=== PATIENT | female | born 1970 | race Caucasian/White ===

== ENCOUNTER → 2017-04-16 | Outpatient (CLI) | payer MEDICARE, OTHER ==
--- NOTE | 2017-04-16 11:06 | XR ---
EXAMINATION TYPE: XR cervical spine comp DATE OF EXAM: 04/16/2017 11:02 AM COMPARISON: NONE HISTORY: Neck pain TECHNIQUE: Four views are submitted. FINDINGS: The odontoid is intact. There are no compression deformities. The prevertebral soft tissue structur es are within normal limits. Hypertrophic change and degenerative disc disease C5-C6. Facet arthropa thy C4-5 and C5-C6. IMPRESSION: 1. Degenerative disc disease and facet arthropathy correlate with MRI as warranted.
--- NOTE | 2017-04-16 11:08 | XR ---
EXAMINATION TYPE: XR hand limited bilateral DATE OF EXAM: 04/16/2017 11:01 AM COMPARISON: NONE HISTORY: Pain TECHNIQUE: Three views are submitted. FINDINGS: The osseous structures are intact. There is mild narrowing of the MCP joints of the first 3 digits bilaterally. No erosive changes. Defo rmity of the left ulnar styloid suggests previous trauma. Also suggestion of deformity of the distal left radius which likely is IMPRESSION: 1. Mild arthropathy.
== END ==
LOC: RADXRMAIN 10:25
PROVIDERS: ATTEND Family Medicine
DX: M50.30 Other cervical disc degeneration, unspecified cervical region (principal); M46.82 Other specified inflammatory spondylopathies, cervical region; M19.041 Primary osteoarthritis, right hand; M19.042 Primary osteoarthritis, left hand
CPT/HCPCS: 72050

== ENCOUNTER → 2017-05-07 | Outpatient (CLI) | payer MEDICARE, OTHER ==
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
== END | disposition home or self-care (01) ==
LOC: RADMRIMAIN 14:52
PROVIDERS: ATTEND Family Medicine
DX: M48.02 Spinal stenosis, cervical region (principal); M50.21 Other cervical disc displacement, high cervical region; R20.2 Paresthesia of skin
CPT/HCPCS: 72141

== ENCOUNTER → 2017-06-11 | Outpatient (CLI) | payer MEDICARE, OTHER ==
--- NOTE | 2017-06-11 17:13 | US ---
EXAMINATION TYPE: US thyroid st tissue head/neck DATE OF EXAM: 06/11/2017 COMPARISON: NONE CLINICAL HISTORY: Nodules E04.9,. Nodules seen on MRI GLAND SIZE: Right Lobe: 5.6 x 1.9 x 1.7 cm Overall Parenchyma: heterogenous Left Lobe: 4.9 x 1.5 x 1.6 cm Overall Parenchyma: homogeneous Isthmus Thickness: 0.3 cm NODULES RIGHT: # of nodules measured on right: 3 1. 1.6 X 1.1 x 1.5 cm hypoechoic mixed nodule at the mid pole with well-defined margins; . This no dule is wider than tall and shows intranodular vascularity. Prior size: no prior 2. 1.0 X 0.9 x 1.1 cm hypoechoic solid nodule at the pole with well-defined margins; . This nodule is wider than tall and shows intranodular vascularity. Prior size: no prior 3. 1.3 X 1.0 x 0.9 cm hypoechoic mixed nodule at the upper pole with well-defined margins; interrupt ed peripheral calcification. This nodule is wider than tall and shows intranodular vascularity. Prior size: no prior 4 LEFT: # of nodules measured on left: 1 1. 1.1 X 0.7 x 1.0 cm hypoechoic solid nodule at the mid pole with well-defined margins; . This no dule is wider than tall and shows intranodular vascularity. Prior size: no prior ISTHMUS: # of nodules measured in the isthmus: 0 Bilateral neck scanned, no evidence of lymphadenopathy. Nodules as described IMPRESSION: Bilateral multiple thyroid nodules as above. I have a relatively low suspicion of malignancy and this could be followed conservatively with repeat ultrasound in one year.
--- NOTE | 2017-06-12 08:37 | MM ---
Reason for exam: screening (asymptomatic). Last mammogram was performed 4 years and 6 months ago. History: Patient history of other cancer and is nulliparous. Physical Findings: A clinical breast exam by your physician is recommended on an annual basis and results should be correlated with mammographic findings. MG 3D Screening Mammo W/Cad Bilateral CC and MLO view(s) were taken. Prior study comparison: December 17, 2012, bilateral digital screening mammo w/CAD. The breast tissue is heterogeneously dense. This may lower the sensitivity of mammography. Finding #1: There is a 11 mm indistinct lobulated mass in the subareolar position of the left breast. Finding #2: There are few typically benign round calcifications in both breasts. ASSESSMENT: Incomplete: need additional imaging evaluation, BI-RAD 0 RECOMMENDATION: Ultrasound of the left breast. [facility] will attempt to contact patient to return for ultrasound.
== END | disposition home or self-care (01) ==
LOC: RADUSWWP 16:31
PROVIDERS: ATTEND Family Medicine
DX: Z12.31 Encounter for screening mammogram for malignant neoplasm of breast (principal); E04.2 Nontoxic multinodular goiter; R92.2 Inconclusive mammogram
CPT/HCPCS: 77063; 76536; G0202

== ENCOUNTER → 2017-06-19 | Outpatient (CLI) | payer MEDICARE, OTHER ==
--- NOTE | 2017-06-19 09:37 | USB ---
Reason for exam: additional evaluation requested from abnormal screening. History: Patient history of other cancer and is nulliparous. Physical Findings: Nurse did not find any significant physical abnormalities on exam. US Breast Workup LT Left breast ultrasound includes all four quadrants, the retroareolar region and axilla. Finding demonstrates a 4 x 2 x 4mm oval, cystic lesion at the retroareolar, 2.5cm from nipple. These results were verbally communicated with the patient and result sheet given to the patient on 06/19/17. ASSESSMENT: Benign, BI-RAD 2 RECOMMENDATION: Return to routine screening mammogram schedule for both breasts.
== END | disposition home or self-care (01) ==
LOC: RADUSWWP 08:29
PROVIDERS: ATTEND Family Medicine
DX: R92.8 Other abnormal and inconclusive findings on diagnostic imaging of breast (principal)

== ENCOUNTER → 2017-08-08 | Outpatient (CLI) | payer MEDICARE, OTHER ==
[2017-08-08 11:51] LABS: Basophils % (A) 1 %; CH 30.3; CHCM 33.7; Eosinophils # (A) 0.1 k/uL (0-0.7); Eosinophils % (A) 2 %; HCT 37.5 % (34.0-46.0); HDW 2.54; HGB 12.2 gm/dL (11.4-16.0); Luc % (Auto) 3; Lymphocytes # (A) 0.8 k/uL (1.0-4.8); Lymphocytes % (A) 28 %; MCH 29.3 pg (25.0-35.0); MCHC 32.5 g/dL (31.0-37.0); MCV 90.3 fL (80.0-100.0); Monocytes # (A) 0.3 k/uL (0-1.0); Monocytes % (A) 9 %; Neutrophils # (A) 1.6 k/uL (1.3-7.7); Neutrophils % (A) 58 %; RBC 4.16 m/uL (3.80-5.40); RDW 13.2 % (11.5-15.5); WBC 2.8 k/uL (3.8-10.6); WBC (Perox) 2.88
[2017-08-08 12:17] LABS: ALT 27 U/L (9-52); AST 21 U/L (14-36); Alkaline Phosphatase 64 U/L (38-126); Anion Gap 9 mmol/L; Blood Urea Nitrogen 10 mg/dL (7-17); Calcium 8.8 mg/dL (8.4-10.2); Carbon Dioxide 25 mmol/L (22-30); Chloride 104 mmol/L (98-107); Glucose 96 mg/dL (74-99); Non-African American GFR(MDRD) >60 (>60 ml/min/1.73 sqM); Potassium 4.6 mmol/L (3.5-5.1); Sodium 138 mmol/L (137-145); Total Bilirubin 0.6 mg/dL (0.2-1.3); Total Protein 6.7 g/dL (6.3-8.2)
[2017-08-08 13:01] LABS: Vitamin B12 395 pg/mL (239-931)
== END | disposition home or self-care (01) ==
LOC: LABWHC1 11:05
PROVIDERS: ATTEND Nurse Practitioner Acute Care
DX: E55.9 Vitamin D deficiency, unspecified (principal); R41.3 Other amnesia
CPT/HCPCS: 36415; 80053; 82306; 82607; 84439; 84443; 84481; 85025

== ENCOUNTER 2018-08-24 08:35 | Emergency (ER) | payer MEDICARE, OTHER ==
[2018-08-24 08:54] VITALS: BP 123/93; PULSE 71; RESP 18; TEMP 98.1
--- NOTE | 2018-08-24 09:31 | ED ---
General Adult HPI - General Chief complaint: Shortness of Breath Stated complaint: Diff Breathing, Allergies Time Seen by Provider: 08/24/18 09:01 Source: patient, RN notes reviewed, old records reviewed Mode of arrival: ambulatory - History of Present Illness Initial comments: 47-year-old female presents emergency department today with chief complaint of upper respiratory congestion. She's been having these symptoms and that she's been having severe ALLERGIES for the past 3 weeks. Patient per she is not taken any recent decongestant medications. Patient states that she's had no fevers or chills. Patient states that she fell congestion difficult time with coughing. Patient is a smoker. She denies any other complaints. - Related Data Home Medications Medication Instructions Recorded Confirmed Ibuprofen [Motrin] 800 mg PO Q8H PRN 08/04/18 08/24/18 Pseudoephedrine [Sudafed] 30 mg PO Q4H PRN 08/04/18 08/24/18 diphenhydrAMINE HCL [Benadryl] 25 - 50 mg PO Q8H PRN 08/04/18 08/24/18 Previous Rx's Medication Instructions Recorded Fluconazole [Diflucan] 150 mg PO ONCE #1 tab 08/04/18 Fluticasone Propionate [Flonase 1 spray EA NOSTRIL DAILY PRN #9.9 08/04/18 Allergy Relief] ml Fluticasone Nasal [place] [Flonase 2 spr EA NOSTRIL DAILY #1 bottle 08/24/18 Nasal [place]] Loratadine-Pseudoeph 5-120 mg 1 each PO BID #20 tab.er.12h 08/24/18 [Claritin-D 12 HR] methylPREDNISolone Dose Pack 4 mg PO DIRECTED #21 package 08/24/18 [Medrol Dose Pack] Allergies Allergy/AdvReac Type Severity Reaction Status Date / Time No Known Allergies Allergy Verified 08/04/18 10:14 Review of Systems ROS Statement: Those systems with pertinent positive or pertinent negative responses have been documented in the HPI. ROS Other: All systems not noted in ROS Statement are negative. Past Medical History Past Medical History: No Reported History History of Any Multi-Drug Resistant Organisms: None Reported Additional Past Surgical History / Comment(s): tim en y, right knee replacement Past Psychological History: ADD/ADHD, Anxiety Smoking Status: Current every day smoker Past Alcohol Use History: Occasional Past Drug Use History: Marijuana General Exam - General Exam Comments Initial Comments: Well-appearing 46-year-old female. Alert and repaired distress. General appearance: alert, in no apparent distress Head exam: Present: atraumatic, normocephalic, normal inspection Eye exam: Present: normal appearance, PERRL, EOMI. Absent: scleral icterus, conjunctival injection, periorbital swelling ENT exam: Present: normal exam, normal oropharynx, mucous membranes moist, other (sinus drainage ). Absent: TM's normal bilaterally (Cerumen impaction right TM.) Neck exam: Present: normal inspection. Absent: meningismus, lymphadenopathy Respiratory exam: Present: normal lung sounds bilaterally. Absent: respiratory distress, wheezes, rales, rhonchi, stridor Cardiovascular Exam: Present: regular rate, normal rhythm, normal heart sounds. Absent: systolic murmur, diastolic murmur, rubs, gallop, clicks GI/Abdominal exam: Present: soft, normal bowel sounds. Absent: distended, tenderness, guarding, rebound, rigid Extremities exam: Present: normal inspection, full ROM, normal capillary refill. Absent: tenderness, pedal edema, joint swelling, calf tenderness Back exam: Present: normal inspection Neurological exam: Present: alert, oriented X3, CN II-XII intact Psychiatric exam: Present: normal affect, normal mood Skin exam: Present: warm, dry, intact, normal color. Absent: rash Course Vital Signs 08/24/18 08:51 Temperature 98.1 F Pulse Rate 71 Respiratory 18 Rate Blood Pressure 123/93 O2 Sat by Pulse 100 Oximetry Medical Decision Making - Medical Decision Making Patient is a 47 year old feamle with sinus congestion. Patient has sinus drainage. She complains of allergies. Vitals are stable. Patient will be discharged with close follow up with PCP. Patient advised to take decongestant medication and allergy medications. Discussed if symptoms worsen. Disposition Clinical Impression: Congestion of upper respiratory tract Disposition: HOME SELF-CARE Condition: Good Additional Instructions: Patient has follow-up with primary care physician. Return to emergency department if any alarming signs or symptoms occur. Prescriptions: Fluticasone Nasal [place] [Flonase Nasal [place]] 2 spr EA NOSTRIL DAILY #1 bottle Loratadine-Pseudoeph 5-120 mg [Claritin-D 12 HR] 1 each PO BID #20 tab.er.12h methylPREDNISolone Dose Pack [Medrol Dose Pack] 4 mg PO DIRECTED #21 package Is patient prescribed a controlled substance at d/c from ED?: No Referrals: Love Stuart MD [Primary Care Provider] - 1-2 days Time of Disposition: 09:30
== END 2018-08-24 09:38 | disposition home or self-care (01) ==
LOC: EC 08:35
DX: R09.89 Other specified symptoms and signs involving the circulatory and respiratory systems (principal); R05 Cough; F17.200 Nicotine dependence, unspecified, uncomplicated; Z96.651 Presence of right artificial knee joint
CPT/HCPCS: 99285

== ENCOUNTER → 2019-10-28 | Outpatient (CLI) | payer MEDICARE, OTHER ==
--- NOTE | 2019-10-28 10:15 | US ---
EXAMINATION TYPE: US thyroid st tissue head/neck DATE OF EXAM: 10/28/2019 COMPARISON: US 2017 CLINICAL HISTORY: R10.13. Follow up thyroid nodules GLAND SIZE: Right Lobe: 5.6 x 2.3 x 2.3 cm Overall Parenchyma: heterogenous Left Lobe: 5.1 x 1.8 x 1.6 cm Overall Parenchyma: heterogeneous Isthmus Thickness: 0.4 cm NODULES RIGHT: # of nodules measured on right: 3 1. 2.0 X 1.6 x 1.9 cm hypoechoic mixed nodule at the mid pole with well-defined margins. This nodul e is wider than tall and shows intranodular vascularity. Prior size: 1.6 x 1.1 x 1.5 cm 2. 1.0 X 1.0 x 1.0 cm hypoechoic solid nodule at the lower pole with well-defined margins. This nodu le is wider than tall and shows intranodular vascularity. Prior size: 1.0 x 0.9 x 1.1 cm 3. 1.8 X 0.7 x 1.5 cm hypoechoic mixed nodule at the upper pole with poorly defined margins; interru pted peripheral calcification. This nodule is wider than tall and shows intranodular vascularity. Prior size: 1.3 x 1.0 x 0.9 cm LEFT: # of nodules measured on left: 1 1. 1.8 X 1.2 x 1.3 cm hypoechoic mixed nodule at the mid pole with well-defined margins. This nodul e is wider than tall and shows intranodular vascularity. Prior size: 1.1 x 0.7 x 1.0 cm ISTHMUS: # of nodules measured in the isthmus: 0 Bilateral neck scanned, no evidence of lymphadenopathy. Enlarged heterogeneous gland with bilateral nodules described above. IMPRESSION: 1. Interval growth of the largest right thyroid nodule now measuring 2 cm. Fine-needle aspiration cou ld be considered. 2. There is also interval growth of the second largest right thyroid nodule and left thyroid nodule.
--- NOTE | 2019-10-28 10:24 | US ---
EXAMINATION TYPE: US abdomen complete DATE OF EXAM: 10/28/2019 COMPARISON: NONE CLINICAL HISTORY: R10.13. Intermittent abdomen pain, heartburn and N/V x couple months EXAM MEASUREMENTS: Liver Length: 15.9 cm Gallbladder Wall: 0.2 cm CBD: 0.5 cm Spleen: 10.2 cm Right Kidney: 12.2 x 3.9 x 5.0 cm Left Kidney: 12.2 x 5.3 x 4.4 cm Pancreas: visualized portions wnl, limited by overlying midline bowel gas Liver: wnl Gallbladder: hydropic, no stones seen, wall measures wnl Evidence for sonographic Ramos's sign: no CBD: wnl Spleen: wnl Right Kidney: 2.5 x 1.2 x 1.8cm isoechoic area mid pole, probable column of Luis Alfredo Left Kidney: wnl Upper IVC: wnl Abd Aorta: visualized portions wnl, limited by overlying midline bowel gas 2.4 x 1.0 x 3.2cm hypoechoic vascular structure superior to proximal aorta, possible lymph node. The liver is homogenous. The intrahepatic portion of the IVC and proximal abdominal aorta are within normal limits. There is no evidence of cholelithiasis. Gallbladder is hydropic in size. Common bile duct is unremarkable. The visualized portions of the pancreas are homogenous. The spleen is unrema rkable. Kidneys are symmetric and free of hydronephrosis. IMPRESSION: 1. 3.2 cm perihepatic vascular lesion could represent a lymph node, however etiology is unclear and t hree-phase CT abdomen is recommended for further characterization. 2. Probable column of Luis Alfredo of the right kidney, which also can be assessed on the above recommended CT. 3. Hydropic size of the gallbladder. Consider biliary dyskinesia. HIDA scan with CCK could confirm.
== END | disposition home or self-care (01) ==
LOC: RADUSWWP 09:10
PROVIDERS: ATTEND Family Medicine
DX: E04.2 Nontoxic multinodular goiter (principal); K76.89 Other specified diseases of liver; K82.8 Other specified diseases of gallbladder
CPT/HCPCS: 76536; 76700

== ENCOUNTER 2022-08-14 15:35 | Emergency (ER) | payer MEDICARE, OTHER ==
[2022-08-14 16:10] VITALS: RESP 16; TEMP 98.5
[2022-08-14 18:36] LABS: Appearance,Urine Clear (Clear); Bilirubin,Urine Negative (Negative); Blood,Urine Negative (Negative); Color,Urine Yellow; Glucose,Urine (UA) Negative (Negative); Hyaline Casts,Urine 1 /lpf (0-2); Ketones,Urine Negative (Negative); Leukocyte Esterase,Urine Trace (Negative); Mucus,Urine Few /hpf; Nitrite,Urine Negative (Negative); PH, Urine 6.5 (5.0-8.0); Protein,Urine Trace (Negative); RBC,Urine 2 /hpf (0-5); Specific Gravity,Urine 1.024 (1.001-1.035); Squamous Epithelial Cell,Urine 1 /hpf (0-4); Urobilinogen,Urine <2.0 mg/dL (<2.0); WBC,Urine 4 /hpf (0-5)
--- NOTE | 2022-08-14 19:16 | ED ---
General Adult HPI - General Chief complaint: Abdominal Pain Stated complaint: ABD swelling where feeding tube is Time Seen by Provider: 08/14/22 18:52 Source: patient Mode of arrival: wheelchair - History of Present Illness Initial comments: Dictation was produced using [employer] dictation software. please excuse any grammatical, word or spelling errors. Chief Complaint: 51-year-old female presents emergency Department with anterior abdominal hernia and PEG tube placement check History of Present Illness: 51-year-old female she presents to the emergency dep artment for multiple complaints. Patient states she is here today because she was told by her primary care doctor to come have her PEG tube return. Furthermore she is having complaints of surgical incisional hernia. Patient states that she was recently had surgery several weeks ago for PEG tube p lacement. She states that the PEG tube was placed via laparotomy. She has history of bariatric surgery and unable to have a feeding tube placed via endoscopy. Patient also noted after the procedure that she was having incisional hernia to the anterior abdomen. Patient states that there is a bulge that reduces on its own. Patient also wants to be tested for sepsis. He also night sweats. Denies any nausea or vomiting. The ROS documented in this emergency department record has been reviewed and confirmed by me. Those systems with pertinent positive or negative responses have been documented in the HPI. All other systems are other negative and/or noncontributory. PHYSICAL EXAM: General Impression: Alert and oriented x3, not in acute distress HEENT: Normocephalic atraumatic, extra-ocular movements intact, pupils equal and reactive to light bilaterally, mucous membranes moist. Cardiovascular: Heart regular rate and rhythm Chest: Able to complete full sentences, no retractions, no tachypnea Abdomen: abdomen soft, non-tender, non-distended, no organomegaly, surgical incision clean dry intact, PEG tube in place without any surrounding surgical site erythema there is a incisional hernia that is reducible. Abdominal wall defect measures approximately 10 x 5 cm. Musculoskeletal: Pulses present and equal in all extremities, no peripheral edema Motor: no focal deficits noted Neurological: CN II-XII grossly intact, no focal motor or sensory deficits noted Skin: Intact with no visualized rashes Psych: Normal affect and mood ED course: 51-year-old female presents emergency Department requesting testing for sepsis, evaluation of incisional hernia and PEG tube placement. Vital signs upon arrival are within acceptable limits. Patient's well-appearing at the bedside. Her surgical incisional hernia is reducible. She does not have any symptoms of obstruction. X-ray for PEG tube shows satisfactory placement. Evaluation obtained. Patient has leukopenia 3.2 which appears to be improved compared to previous resolve 2.8 and 5 years ago. Metabolic panel is unremarkable. No lactacidosis. Urinalysis negative. Patient observed in emergency department for 5 hours and found with stable medical condition. She is reducible hernia. Patient is amenable for discharge. - Related Data Home Medications Medication Instructions Recorded Confirmed Ibuprofen [Motrin] 800 mg PO Q8H PRN 08/04/18 08/24/18 Pseudoephedrine [Sudafed] 30 mg PO Q4H PRN 08/04/18 08/24/18 diphenhydrAMINE HCL [Benadryl] 25 - 50 mg PO Q8H PRN 08/04/18 08/24/18 Previous Rx's Medication Instructions Recorded Fluconazole [Diflucan] 150 mg PO ONCE #1 tab 08/04/18 Fluticasone Propionate [Flonase 1 spray EA NOSTRIL DAILY PRN #9.9 08/04/18 Allergy Relief] ml Fluticasone Nasal [place] [Flonase 2 spr EA NOSTRIL DAILY #1 bottle 08/24/18 Nasal [place]] Loratadine-Pseudoeph 5-120 mg 1 each PO BID #20 tab.er.12h 08/24/18 [Claritin-D 12 HR] methylPREDNISolone Dose Pack 4 mg PO DIRECTED #21 package 08/24/18 [Medrol Dose Pack] Allergies Allergy/AdvReac Type Severity Reaction Status Date / Time No Known Allergies Allergy Verified 08/14/22 16:10 Review of Systems ROS Statement: Those systems with pertinent positive or pertinent negative responses have been documented in the HPI. ROS Other: All systems not noted in ROS Statement are negative. Past Medical History Past Medical History: No Reported History History of Any Multi-Drug Resistant Organisms: None Reported Additional Past Surgical History / Comment(s): tim en y, right knee replacement, PEG tube, tube feeding Past Psychological History: ADD/ADHD, Anxiety Past Alcohol Use History: Occasional Past Drug Use History: Marijuana Course Vital Signs 08/14/22 08/14/22 16:06 20:37 Temperature 98.5 F Pulse Rate 82 70 Respiratory 16 16 Rate Blood Pressure 93/61 114/80 O2 Sat by Pulse 99 98 Oximetry Medical Decision Making - Lab Data Result diagrams: 08/14/22 20:13 08/14/22 20:13 Lab Results 08/14/22 08/14/22 08/14/22 Range/Units 18:20 20:13 20:13 WBC 3.2 L (3.8-10.6) k/uL RBC 3.52 L (3.80-5.40) m/uL Hgb 10.2 L (11.4-16.0) gm/dL Hct 33.4 L (34.0-46.0) % MCV 94.9 (80.0-100.0) fL MCH 29.0 (25.0-35.0) pg MCHC 30.6 L (31.0-37.0) g/dL RDW 16.0 H (11.5-15.5) % Plt Count 379 (150-450) k/uL MPV 8.9 Neutrophils % 50 % Lymphocytes % 37 % Monocytes % 9 % Eosinophils % 1 % Basophils % 1 % Neutrophils # 1.6 (1.3-7.7) k/uL Lymphocytes # 1.2 (1.0-4.8) k/uL Monocytes # 0.3 (0-1.0) k/uL Eosinophils # 0.0 (0-0.7) k/uL Basophils # 0.0 (0-0.2) k/uL Hypochromasia Moderate Sodium 136 L (137-145) mmol/L Potassium 4.3 (3.5-5.1) mmol/L Chloride 97 L (98-107) mmol/L Carbon Dioxide 30 (22-30) mmol/L Anion Gap 9 mmol/L BUN 16 (7-17) mg/dL Creatinine 0.33 L (0.52-1.04) mg/dL Est GFR (CKD-EPI)AfAm >90 (>60 ml/min/1.73 sqM) Est GFR (CKD-EPI)NonAf >90 (>60 ml/min/1.73 sqM) Glucose 78 (74-99) mg/dL Plasma Lactic Acid Bimal (0.7-2.0) mmol/L Calcium 8.3 L (8.4-10.2) mg/dL Urine Color Yellow Urine Appearance Clear (Clear) Urine pH 6.5 (5.0-8.0) Ur Specific [place] 1.024 (1.001-1.035) Urine Protein Trace H (Negative) Urine Glucose (UA) Negative (Negative) Urine Ketones Negative (Negative) Urine Blood Negative (Negative) Urine Nitrite Negative (Negative) Urine Bilirubin Negative (Negative) Urine Urobilinogen <2.0 (<2.0) mg/dL Ur Leukocyte Esterase Trace H (Negative) Urine RBC 2 (0-5) /hpf Urine WBC 4 (0-5) /hpf Ur Squamous Epith Cells 1 (0-4) /hpf Hyaline Casts 1 (0-2) /lpf Urine Mucus Few H (None) /hpf 08/14/22 Range/Units 20:13 WBC (3.8-10.6) k/uL RBC (3.80-5.40) m/uL Hgb (11.4-16.0) gm/dL Hct (34.0-46.0) % MCV (80.0-100.0) fL MCH (25.0-35.0) pg MCHC (31.0-37.0) g/dL RDW (11.5-15.5) % Plt Count (150-450) k/uL MPV Neutrophils % % Lymphocytes % % Monocytes % % Eosinophils % % Basophils % % Neutrophils # (1.3-7.7) k/uL Lymphocytes # (1.0-4.8) k/uL Monocytes # (0-1.0) k/uL Eosinophils # (0-0.7) k/uL Basophils # (0-0.2) k/uL Hypochromasia Sodium (137-145) mmol/L Potassium (3.5-5.1) mmol/L Chloride (98-107) mmol/L Carbon Dioxide (22-30) mmol/L Anion Gap mmol/L BUN (7-17) mg/dL Creatinine (0.52-1.04) mg/dL Est GFR (CKD-EPI)AfAm (>60 ml/min/1.73 sqM) Est GFR (CKD-EPI)NonAf (>60 ml/min/1.73 sqM) Glucose (74-99) mg/dL Plasma Lactic Acid Bimal 0.6 L (0.7-2.0) mmol/L Calcium (8.4-10.2) mg/dL Urine Color Urine Appearance (Clear) Urine pH (5.0-8.0) Ur Specific [place] (1.001-1.035) Urine Protein (Negative) Urine Glucose (UA) (Negative) Urine Ketones (Negative) Urine Blood (Negative) Urine Nitrite (Negative) Urine Bilirubin (Negative) Urine Urobilinogen (<2.0) mg/dL Ur Leukocyte Esterase (Negative) Urine RBC (0-5) /hpf Urine WBC (0-5) /hpf Ur Squamous Epith Cells (0-4) /hpf Hyaline Casts (0-2) /lpf Urine Mucus (None) /hpf Disposition Clinical Impression: Incisional hernia Disposition: HOME SELF-CARE Condition: Good Instructions (If sedation given, give patient instructions): Incisional Hernia (DC) Is patient prescribed a controlled substance at d/c from ED?: No Referrals: Love Stuart MD [Primary Care Provider] - 1-2 days Time of Disposition: 20:46
[2022-08-14 20:19] LABS: Basophils % (A) 1 %; Eosinophils % (A) 1 %; HCT 33.4 % (34.0-46.0); HGB 10.2 gm/dL (11.4-16.0); Hypochromasia Moderate; Lymphocytes # (A) 1.2 k/uL (1.0-4.8); Lymphocytes % (A) 37 %; MCHC 30.6 g/dL (31.0-37.0); MCV 94.9 fL (80.0-100.0); Mean Platelet Volume 8.9; Monocytes # (A) 0.3 k/uL (0-1.0); Monocytes % (A) 9 %; Neutrophils # (A) 1.6 k/uL (1.3-7.7); Neutrophils % (A) 50 %; Platelet Count 379 k/uL (150-450); RBC 3.52 m/uL (3.80-5.40); WBC 3.2 k/uL (3.8-10.6)
--- NOTE | 2022-08-14 20:27 | XR ---
EXAMINATION TYPE: XR abdomen 1V DATE OF EXAM: 08/14/2022 8:07 PM INDICATION: Patient age:Female; 51 years old; Reason for study: peg tube placement; COMPARISON: None. TECHNIQUE: Single limited one view for nasogastric tube placement. FINDINGS: PEG tube with injection into the gastric lumen and refluxing into the esophagus. Nonobstruc tive bowel gas pattern. IMPRESSION: 1. PEG tube in appropriate position. 2. Gastroesophageal reflux.
[2022-08-14 20:34] LABS: African American GFR (CKD) >90 (>60 ml/min/1.73 sqM); Anion Gap 9 mmol/L; Blood Urea Nitrogen 16 mg/dL (7-17); Calcium 8.3 mg/dL (8.4-10.2); Carbon Dioxide 30 mmol/L (22-30); Chloride 97 mmol/L (98-107); Glucose 78 mg/dL (74-99); Non-African American GFR(CKD) >90 (>60 ml/min/1.73 sqM); Potassium 4.3 mmol/L (3.5-5.1); Sodium 136 mmol/L (137-145)
[2022-08-14 21:23] VITALS: BP 140/60; PULSE 68
== END 2022-08-14 21:24 | disposition home or self-care (01) ==
LOC: EC 15:35
DX: K43.2 Incisional hernia without obstruction or gangrene (principal); F41.9 Anxiety disorder, unspecified; F12.90 Cannabis use, unspecified, uncomplicated; Z79.899 Other long term (current) drug therapy
CPT/HCPCS: 36415; 80048; 83605; 85025; 81001; 74018; 99284; Q9967

== ENCOUNTER 2022-08-27 19:39 | Emergency (ER) | payer MEDICARE, OTHER ==
[2022-08-27 19:51] VITALS: BP 103/67; PULSE 90; RESP 16; TEMP 98.1
[2022-08-27] MEDS ORDERED: SODIUM CHLORIDE 0.9% 1,000 ML IV ONE (20:05)
--- NOTE | 2022-08-27 20:15 | ED ---
Abdominal Pain HPI - General Chief Complaint: Abdominal Pain Stated Complaint: Feeding tube infection Time Seen by Provider: 08/27/22 19:53 Source: patient, RN notes reviewed Mode of arrival: ambulatory Limitations: no limitations - History of Present Illness Initial Comments: This is a pleasant 51-year-old female who presents to emergency department with concerns over an infection in her feeding tube site. Patient states she had the feeding tube placed due to nutritional deficiency by Dr. Rehman [place] [facility] [place] Apparently the PEG tube was placed via laparotomy. Patient also has a ventral hernia which she is supposed to have repaired by the surgeon. Patient has been eating and drinking. Has been having bowel movements. Patient states that she is having some discomfort at the PEG tube site. The ventral hernia reduces on its own. Patient has had a bulge there for several weeks. Patient's initial bariatric surgery was 14 years ago. No headache, no fever or chills, no changes in vision or hearing, no sore throat or difficulty with speech, no neck pain, no chest pain or shortness of breath, , no nausea or vomiting, no changes in urination or bowel movements, no numbness or tingling, no extremity pain, no skin rashes or lesions. Past medical, surgical, social, and family history reviewed. - Related Data Home Medications Medication Instructions Recorded Confirmed Apixaban [Eliquis] 5 mg PO BID 08/14/22 08/14/22 Esomeprazole Magnesium 40 mg PO DAILY 08/14/22 08/14/22 Ferrous Sulfate [Feosol] 325 mg PO DAILY 08/14/22 08/14/22 Folic Acid 1 mg PO DAILY 08/14/22 08/14/22 HYDROcodone/APAP 7.5-325MG [[place]athleen 1 tab PO Q6H PRN 08/14/22 08/14/22 7.5-325] Multivitamins, Thera [Multivitamin 1 tab PO DAILY 08/14/22 08/14/22 (formulary)] Ondansetron [Zofran] 4 mg PO Q6H PRN 08/14/22 08/14/22 Previous Rx's Medication Instructions Recorded clindamycin HCL [Cleocin] 450 mg PO Q8H #90 cap 08/27/22 Allergies Allergy/AdvReac Type Severity Reaction Status Date / Time No Known Allergies Allergy Verified 08/27/22 19:44 Review of Systems ROS Statement: Those systems with pertinent positive or pertinent negative responses have been documented in the HPI. ROS Other: All systems not noted in ROS Statement are negative. Past Medical History Past Medical History: No Reported History, Deep Vein Thrombosis (DVT) Additional Past Medical History / Comment(s): malnutrition, anemia, hernia History of Any Multi-Drug Resistant Organisms: None Reported Additional Past Surgical History / Comment(s): tim en y, bilateral knee replacement, PEG tube, tube feeding Past Psychological History: ADD/ADHD, Anxiety Smoking Status: Former smoker Past Alcohol Use History: None Reported Past Drug Use History: None Reported General Exam - General Exam Comments Initial Comments: Vital signs stable, patient afebrile. Patient does not appear to be ill or toxic. No distress. Limitations: no limitations General appearance: alert, in no apparent distress Head exam: Present: atraumatic, normocephalic, normal inspection Eye exam: Present: normal appearance, PERRL, EOMI. Absent: scleral icterus, conjunctival injection, periorbital swelling ENT exam: Present: normal exam, normal oropharynx, mucous membranes moist, no rmal external ear exam. Absent: mucous membranes dry Neck exam: Present: normal inspection, full ROM Respiratory exam: Present: normal lung sounds bilaterally. Absent: respiratory distress, wheezes, rales, rhonchi, stridor, chest wall tenderness, accessory muscle use Cardiovascular Exam: Present: regular rate, normal rhythm, normal heart sounds. Absent: systolic murmur, diastolic murmur, rubs, gallop, clicks GI/Abdominal exam: Present: soft, normal bowel sounds, other (There is some erythema surrounding the PEG tube site. However this is minimal. There is some discharge from the area. We'll culture.). Absent: distended, tenderness (Patient really has no discernible tenderness.), guarding, rebound, rigid Extremities exam: Present: normal inspection, full ROM, normal capillary refill. Absent: tenderness, pedal edema, joint swelling, calf tenderness Back exam: Present: normal inspection Neurological exam: Present: alert, oriented X3, CN II-XII intact Psychiatric exam: Present: normal affect, normal mood Skin exam: Present: warm, dry, intact, normal color. Absent: rash Course Vital Signs 08/27/22 19:44 Temperature 98.1 F Pulse Rate 90 Respiratory 16 Rate Blood Pressure 103/67 O2 Sat by Pulse 97 Oximetry - Reevaluation(s) Reevaluation #1: 08/27/22 22:23 Medical record is reviewed Symptoms are improved here in the emergency department Patient is informed of results and questions answered Patient in no distress Medical Decision Making - Medical Decision Making Patient appears to have minimal inflammation at the PEG tube site. No other evidence of infectious process. Mild anemia which was seen previously. Minimal reduction in hemoglobin. However patient has no bleeding. His hemodynamics are stable. Going to cover the patient with clindamycin until the cultures have returned. Suspect this is local inflammation related to the PEG tube itself. Does not appear to be significant infectious process. Patient does have a reducible ventral hernia which her surgeon jacky knows about. We will have her call the surgeon in the morning to schedule follow-up. Patient agrees with this plan. Patient was told to return to the ER for any signs or symptoms worsen. Told to return immediately if any other problems arise. All questions answered. Treatment plan discussed. Patient in agreement Every effort has been made to ensure accuracy of this dictation. However, due to the limitations of electronic medical records and dictation devices, errors in charting still occur. The case was discussed in detail with ED attending physician. Presentation, jericho springer, treatment plan discussed in detail. Dr. Riley supervising - Lab Data Result diagrams: 08/27/22 21:00 08/27/22 21:00 Lab Results 08/27/22 08/27/22 08/27/22 Range/Units 21:00 21:00 21:31 WBC 4.3 (3.8-10.6) k/uL RBC 3.22 L (3.80-5.40) m/uL Hgb 9.5 L (11.4-16.0) gm/dL Hct 29.8 L (34.0-46.0) % MCV 92.6 (80.0-100.0) fL MCH 29.5 (25.0-35.0) pg MCHC 31.9 (31.0-37.0) g/dL RDW 15.9 H (11.5-15.5) % Plt Count 328 (150-450) k/uL MPV 8.7 Neutrophils % 51 % Lymphocytes % 34 % Monocytes % 8 % Eosinophils % 3 % Basophils % 1 % Neutrophils # 2.2 (1.3-7.7) k/uL Lymphocytes # 1.5 (1.0-4.8) k/uL Monocytes # 0.3 (0-1.0) k/uL Eosinophils # 0.1 (0-0.7) k/uL Basophils # 0.0 (0-0.2) k/uL Hypochromasia Moderate Sodium 135 L (137-145) mmol/L Potassium 4.3 (3.5-5.1) mmol/L Chloride 103 (98-107) mmol/L Carbon Dioxide 21 L (22-30) mmol/L Anion Gap 11 mmol/L BUN 33 H (7-17) mg/dL Creatinine 0.39 L (0.52-1.04) mg/dL Est GFR (CKD-EPI)AfAm >90 (>60 ml/min/1.73 sqM) Est GFR (CKD-EPI)NonAf >90 (>60 ml/min/1.73 sqM) Glucose 81 (74-99) mg/dL Plasma Lactic Acid Bimal 0.9 (0.7-2.0) mmol/L Calcium 8.6 (8.4-10.2) mg/dL Total Bilirubin 0.1 L (0.2-1.3) mg/dL AST 42 H (14-36) U/L ALT 38 H (4-34) U/L Alkaline Phosphatase 93 (38-126) U/L Total Protein 7.1 (6.3-8.2) g/dL Albumin 3.5 (3.5-5.0) g/dL - Radiology Data Radiology results: report reviewed, image reviewed Disposition Clinical Impression: Cellulitis, abdominal wall, Ventral hernia Narrative: Mild cellulitis near PEG tube site, reducible ventral hernia Disposition: HOME SELF-CARE Condition: Good Instructions (If sedation given, give patient instructions): Cellulitis (ED), Ventral Hernia (ED) Additional Instructions: Take the antibiotics as directed. Call your surgeon tomorrow morning to schedu le follow-up appointment for 48 hours. Follow-up with your regular physician as directed. Return to the ER immediately if any symptoms worsen, new symptoms arise, or any other problems develop. Is patient prescribed a controlled substance at d/c from ED?: No Referrals: Love Stuart MD [Primary Care Provider] - 1-2 days Time of Disposition: :23
[2022-08-27] MEDS ORDERED: ACETAMINOPHEN TAB 500 MG TAB PO STA (21:19)
[2022-08-27] MEDS ORDERED: KETOROLAC 15 MG/ML 1 ML VIAL IVP STA (21:19)
[2022-08-27 21:27] LABS: Basophils % (A) 1 %; Eosinophils # (A) 0.1 k/uL (0-0.7); Eosinophils % (A) 3 %; HCT 29.8 % (34.0-46.0); HGB 9.5 gm/dL (11.4-16.0); Hypochromasia Moderate; Lymphocytes # (A) 1.5 k/uL (1.0-4.8); Lymphocytes % (A) 34 %; MCH 29.5 pg (25.0-35.0); MCHC 31.9 g/dL (31.0-37.0); MCV 92.6 fL (80.0-100.0); Mean Platelet Volume 8.7; Monocytes # (A) 0.3 k/uL (0-1.0); Monocytes % (A) 8 %; Neutrophils # (A) 2.2 k/uL (1.3-7.7); Neutrophils % (A) 51 %; Platelet Count 328 k/uL (150-450); RBC 3.22 m/uL (3.80-5.40); RDW 15.9 % (11.5-15.5); WBC 4.3 k/uL (3.8-10.6)
[2022-08-27 21:31] LABS: ALT 38 U/L (4-34); AST 42 U/L (14-36); African American GFR (CKD) >90 (>60 ml/min/1.73 sqM); Albumin 3.5 g/dL (3.5-5.0); Alkaline Phosphatase 93 U/L (38-126); Anion Gap 11 mmol/L; Blood Urea Nitrogen 33 mg/dL (7-17); Calcium 8.6 mg/dL (8.4-10.2); Carbon Dioxide 21 mmol/L (22-30); Chloride 103 mmol/L (98-107); Glucose 81 mg/dL (74-99); Non-African American GFR(CKD) >90 (>60 ml/min/1.73 sqM); Potassium 4.3 mmol/L (3.5-5.1); Sodium 135 mmol/L (137-145); Total Bilirubin 0.1 mg/dL (0.2-1.3); Total Protein 7.1 g/dL (6.3-8.2)
--- NOTE | 2022-08-27 22:02 | XR ---
EXAMINATION TYPE: XR abdomen 2V DATE OF EXAM: 08/27/2022 9:49 PM INDICATION: Patient age:Female; 51 years old; Reason for study: Abdominal pain; COMPARISON: 08/14/2022 TECHNIQUE: Two views of the abdomen were obtained. FINDINGS: PEG tube with tip projecting over the gastric lumen. Left upper quadrant surgical clip. No obstructiv e bowel gas pattern. No abnormal calcifications. IMPRESSION: 1. Nonspecific bowel gas pattern without radiographic evidence for acute process. 2. PEG tube in appropriate position
[2022-08-27] MEDS ORDERED: CLINDAMYCIN 150 MG CAP PO STA (22:20)
== END 2022-08-27 22:55 | disposition home or self-care (01) ==
LOC: EC 19:39
DX: L03.311 Cellulitis of abdominal wall (principal); K43.9 Ventral hernia without obstruction or gangrene; Z87.891 Personal history of nicotine dependence
CPT/HCPCS: 36415; 80053; 83605; 85025; 87070; 87205; 87075; 74019; 99283; 96374; 96361; J1885

== ENCOUNTER 2022-10-28 14:06 | Emergency (ER) | payer MEDICARE, OTHER ==
[2022-10-28 14:16] VITALS: TEMP 97.5
[2022-10-28] MEDS ORDERED: ONDANSETRON 4 MG/2 ML VIAL IVP STA (16:48)
[2022-10-28] MEDS ORDERED: SODIUM CHLORIDE 0.9% 1,000 ML IV ONE (16:48)
[2022-10-28 17:32] LABS: Anisocytosis Slight; Basophils % (A) 0 %; Eosinophils # (A) 0.1 k/uL (0-0.7); Eosinophils % (A) 1 %; HCT 26.1 % (34.0-46.0); HGB 8.1 gm/dL (11.4-16.0); Hypochromasia Moderate; Lymphocytes # (A) 0.8 k/uL (1.0-4.8); Lymphocytes % (A) 12 %; MCH 27.8 pg (25.0-35.0); MCV 89.5 fL (80.0-100.0); Mean Platelet Volume 8.4; Monocytes # (A) 0.3 k/uL (0-1.0); Monocytes % (A) 5 %; Neutrophils % (A) 80 %; Platelet Count 341 k/uL (150-450); RBC 2.92 m/uL (3.80-5.40); RDW 16.3 % (11.5-15.5); WBC 6.2 k/uL (3.8-10.6)
[2022-10-28 17:43] LABS: ALT 10 U/L (4-34); AST 16 U/L (14-36); African American GFR (CKD) >90 (>60 ml/min/1.73 sqM); Albumin 2.2 g/dL (3.5-5.0); Alkaline Phosphatase 154 U/L (38-126); Anion Gap 2 mmol/L; Blood Urea Nitrogen 9 mg/dL (7-17); Calcium 7.5 mg/dL (8.4-10.2); Carbon Dioxide 26 mmol/L (22-30); Chloride 105 mmol/L (98-107); Glucose 79 mg/dL (74-99); Lipase 34 U/L (23-300); Non-African American GFR(CKD) >90 (>60 ml/min/1.73 sqM); Potassium 4.3 mmol/L (3.5-5.1); Sodium 133 mmol/L (137-145); Total Bilirubin 0.2 mg/dL (0.2-1.3); Total Protein 5.6 g/dL (6.3-8.2)
[2022-10-28] MEDS ORDERED: methocarbamoL 500 MG TAB PO PRN (18:35)
--- NOTE | 2022-10-28 18:56 | CT ---
EXAMINATION TYPE: CT abdomen pelvis w con DATE OF EXAM: 10/28/2022 COMPARISON: None HISTORY: abd pain CT DLP: 779.4 mGycm Automated exposure control for dose reduction was used. CONTRAST: Performed with IV Contrast, patient injected with 100 mL of Isovue 300. Images obtained from the diaphragm to the floor the pelvis with the IV contrast. There is moderate left pleural effusion. There is bilateral lower lobe pulmonary infiltrate and atele ctasis. Heart is enlarged. No pericardial effusion. There is small right pleural effusion. There is clips from gastric bariatric surgery. Liver is intact. Gallbladder is intact. There is some mild ectasia of the biliary tree. Spleen is intact. Common bile duct is 10 mm. There is no adrenal mass. Kidneys show satisfactory contrast opacification. No hydronephrosis. The ur eters are not dilated. No retroperitoneal adenopathy. The bladder distends smoothly. No inguinal terrance ia. There is subcutaneous edema around the abdomen. No free fluid in the pelvis. No pelvic mass. No evidence of pancreatic mass. There is left side stoma. There is also a right-sided stoma. The elisabet elizbaeth is difficult to evaluate because of the extensive surgery. No pathologic fluid collection seen in the abdomen to suggest an abscess. There is tiny amount of fluid in the right paracolic gutter. The lumbar spine shows a degenerative first-degree L5 spondylolisthesis. There is L3-4 and L4-5 disc space narrowing. No compression fracture. Bony pelvis is intact. IMPRESSION: Extensive upper abdominal surgery. No bowel obstruction. No evidence of abdominal abscess. Minimal fluid in the right paracolic gutter. Subcutaneous edema. P leural effusions and cardiomegaly that could be some degree of congestive heart failure. Lower lobe p ulmonary infiltrates and atelectasis.
[2022-10-28 19:44] LABS: Appearance,Urine Clear (Clear); Bilirubin,Urine Negative (Negative); Blood,Urine Negative (Negative); Color,Urine Yellow; Glucose,Urine (UA) Negative (Negative); Ketones,Urine Negative (Negative); Leukocyte Esterase,Urine Negative (Negative); Nitrite,Urine Negative (Negative); PH, Urine 5.5 (5.0-8.0); Protein,Urine Negative (Negative); Urobilinogen,Urine <2.0 mg/dL (<2.0)
--- NOTE | 2022-10-28 20:49 | ED ---
General Adult HPI - General Chief complaint: Weakness Stated complaint: weakness, vomiting Time Seen by Provider: 10/28/22 16:04 Source: patient Mode of arrival: ambulatory Limitations: no limitations - History of Present Illness Initial comments: This is a 52-year-old female with an extensive past surgical history including multiple dental surgeries status post bariatric surgery as well as an ileostomy presents emergency department for increasing lethargy. The patient stated that she was just discharged from [facility] 2 days ago and was discharged home with a PICC line for TPN. The patient stated that she has not been able to use her TPN over the last 24 hours and stated that she's been increasingly lethargic and she was concerned about worsening infection in her abdomen. The patient stated that she thought that she was not ready to be discharged home however has been home over the last 24 hours. The patient denied any acute abdominal pain or any acute changes in her surgical incisions. The patient also stated that she had some minor nausea and vomiting the patient denied any fevers and chills. - Related Data Home Medications Medication Instructions Recorded Confirmed Apixaban [Eliquis] 5 mg PO BID 08/14/22 08/14/22 Esomeprazole Magnesium 40 mg PO DAILY 08/14/22 08/14/22 Ferrous Sulfate [Feosol] 325 mg PO DAILY 08/14/22 08/14/22 Folic Acid 1 mg PO DAILY 08/14/22 08/14/22 HYDROcodone/APAP 7.5-325MG [[place] 1 tab PO Q6H PRN 08/14/22 08/14/22 7.5-325] Multivitamins, Thera [Multivitamin 1 tab PO DAILY 08/14/22 08/14/22 (formulary)] Ondansetron [Zofran] 4 mg PO Q6H PRN 08/14/22 08/14/22 Previous Rx's Medication Instructions Recorded clindamycin HCL [Cleocin] 450 mg PO Q8H #90 cap 08/27/22 Allergies Allergy/AdvReac Type Severity Reaction Status Date / Time No Known Allergies Allergy Verified 10/28/22 14:16 Review of Systems ROS Statement: Those systems with pertinent positive or pertinent negative responses have been documented in the HPI. ROS Other: All systems not noted in ROS Statement are negative. Past Medical History Past Medical History: No Reported History, Deep Vein Thrombosis (DVT) Additional Past Medical History / Comment(s): malnutrition, anemia, hernia History of Any Multi-Drug Resistant Organisms: MRSA Date of last positivie culture/infection: 08/27/22 MDRO Source:: Abdomen Past Surgical History: Hernia Repair Additional Past Surgical History / Comment(s): tim en y, bilateral knee replacement, PEG tube, tube feeding, 6 abd surgery. Past Psychological History: ADD/ADHD, Anxiety Smoking Status: Former smoker Past Alcohol Use History: None Reported Past Drug Use History: None Reported General Exam Limitations: no limitations General appearance: alert, in no apparent distress, cachectic Head exam: Present: atraumatic, normocephalic Eye exam: Present: normal appearance, PERRL Pupils: Present: normal accommodation ENT exam: Present: normal exam, normal oropharynx, mucous membranes moist Neck exam: Present: normal inspection, full ROM Respiratory exam: Present: normal lung sounds bilaterally Cardiovascular Exam: Present: regular rate, normal rhythm, normal heart sounds GI/Abdominal exam: Present: soft, normal bowel sounds (Multiple surgical incisions noted with open healing wounds. There was no signs of erythema around the incisions nor the healing wounds. There was no acute tenderness.) Extremities exam: Present: normal inspection, full ROM Back exam: Present: normal inspection, full ROM Neurological exam: Present: alert, oriented X3, CN II-XII intact Psychiatric exam: Present: normal affect, normal mood Skin exam: Present: warm, dry Course Vital Signs 10/28/22 10/28/22 14:13 21:00 Temperature 97.5 F L Pulse Rate 8 L 74 Respiratory 18 16 Rate Blood Pressure 90/66 91/60 O2 Sat by Pulse 98 97 Oximetry Medical Decision Making - Medical Decision Making The patient was seen and evaluated in the emergency department. On physical exam, the patient was resting in bed without any acute distress. Vital signs admission were stable and within normal limits. Due to the nature the patient's complaints, laboratory workup as well as a CT abdomen and pelvis with contrast was obtained. The patient did receive 1 L normal saline fluid and 4 mg of Zofran. Laboratory workup was largely within normal limits and the patient's hemoglobin was stable per her previous level of [address] [facility] abdomen and pelvis with contrast was interpreted by myself and showed extensive upper abdominal surgery. There was no bowel obstruction noted. There is no evidence of abdominal abscess. There was minimal fluid in the right pericolic gutter. There is subcutaneous edema. There was pleural effusion and cardiomegaly that could be some degree of congestive heart failure however the patient did not complain of any cough or shortness breath or difficulty in néstor athing. On reevaluation, the patient was resting in bed and stated that her symptoms had improved significantly. The patient was likely increasingly tired and lethargic secondary to decreased nutrition intake. The patient's TPN was not properly working over the last 24 hours and the patient did not have any by mouth intake. The patient did have a nurse coming to her home to fix this issue tomorrow morning and she was advised to continue to monitor her symptoms. The patient was advised to report back to the emergency department if her pain became acutely worse. The patient was agreeable to this and all her questions were answered. The patient was discharged home in stable condition. - Lab Data Result diagrams: 10/28/22 17:22 10/28/22 17:22 Lab Results 10/28/22 10/28/22 10/28/22 Range/Units 17:22 17:22 17:22 WBC 6.2 (3.8-10.6) k/uL RBC 2.92 L (3.80-5.40) m/uL Hgb 8.1 L (11.4-16.0) gm/dL Hct 26.1 L (34.0-46.0) % MCV 89.5 (80.0-100.0) fL MCH 27.8 (25.0-35.0) pg MCHC 31.0 (31.0-37.0) g/dL RDW 16.3 H (11.5-15.5) % Plt Count 341 (150-450) k/uL MPV 8.4 Neutrophils % 80 % Lymphocytes % 12 % Monocytes % 5 % Eosinophils % 1 % Basophils % 0 % Neutrophils # 5.0 (1.3-7.7) k/uL Lymphocytes # 0.8 L (1.0-4.8) k/uL Monocytes # 0.3 (0-1.0) k/uL Eosinophils # 0.1 (0-0.7) k/uL Basophils # 0.0 (0-0.2) k/uL Hypochromasia Moderate Anisocytosis Slight Sodium 133 L (137-145) mmol/L Potassium 4.3 (3.5-5.1) mmol/L Chloride 105 (98-107) mmol/L Carbon Dioxide 26 (22-30) mmol/L Anion Gap 2 mmol/L BUN 9 (7-17) mg/dL Creatinine 0.28 L (0.52-1.04) mg/dL Est GFR (CKD-EPI)AfAm >90 (>60 ml/min/1.73 sqM) Est GFR (CKD-EPI)NonAf >90 (>60 ml/min/1.73 sqM) Glucose 79 (74-99) mg/dL Plasma Lactic Acid Biaml 0.6 L (0.7-2.0) mmol/L Calcium 7.5 L (8.4-10.2) mg/dL Total Bilirubin 0.2 (0.2-1.3) mg/dL AST 16 (14-36) U/L ALT 10 (4-34) U/L Alkaline Phosphatase 154 H (38-126) U/L NT-Pro-B Natriuret Pep pg/mL Total Protein 5.6 L (6.3-8.2) g/dL Albumin 2.2 L (3.5-5.0) g/dL Lipase 34 (23-300) U/L Urine Color Urine Appearance (Clear) Urine pH (5.0-8.0) Ur Specific Amma (1.001-1.035) Urine Protein (Negative) Urine Glucose (UA) (Negative) Urine Ketones (Negative) Urine Blood (Negative) Urine Nitrite (Negative) Urine Bilirubin (Negative) Urine Urobilinogen (<2.0) mg/dL Ur Leukocyte Esterase (Negative) 10/28/22 10/28/22 Range/Units 17:22 19:34 WBC (3.8-10.6) k/uL RBC (3.80-5.40) m/uL Hgb (11.4-16.0) gm/dL Hct (34.0-46.0) % MCV (80.0-100.0) fL MCH (25.0-35.0) pg MCHC (31.0-37.0) g/dL RDW (11.5-15.5) % Plt Count (150-450) k/uL MPV Neutrophils % % Lymphocytes % % Monocytes % % Eosinophils % % Basophils % % Neutrophils # (1.3-7.7) k/uL Lymphocytes # (1.0-4.8) k/uL Monocytes # (0-1.0) k/uL Eosinophils # (0-0.7) k/uL Basophils # (0-0.2) k/uL Hypochromasia Anisocytosis Sodium (137-145) mmol/L Potassium (3.5-5.1) mmol/L Chloride (98-107) mmol/L Carbon Dioxide (22-30) mmol/L Anion Gap mmol/L BUN (7-17) mg/dL Creatinine (0.52-1.04) mg/dL Est GFR (CKD-EPI)AfAm (>60 ml/min/1.73 sqM) Est GFR (CKD-EPI)NonAf (>60 ml/min/1.73 sqM) Glucose (74-99) mg/dL Plasma Lactic Acid Bimal (0.7-2.0) mmol/L Calcium (8.4-10.2) mg/dL Total Bilirubin (0.2-1.3) mg/dL AST (14-36) U/L ALT (4-34) U/L Alkaline Phosphatase (38-126) U/L NT-Pro-B Natriuret Pep 237 pg/mL Total Protein (6.3-8.2) g/dL Albumin (3.5-5.0) g/dL Lipase (23-300) U/L Urine Color Yellow Urine Appearance Clear (Clear) Urine pH 5.5 (5.0-8.0) Ur Specific Amma 1.050 H (1.001-1.035) Urine Protein Negative (Negative) Urine Glucose (UA) Negative (Negative) Urine Ketones Negative (Negative) Urine Blood Negative (Negative) Urine Nitrite Negative (Negative) Urine Bilirubin Negative (Negative) Urine Urobilinogen <2.0 (<2.0) mg/dL Ur Leukocyte Esterase Negative (Negative) Disposition Clinical Impression: Dehydration, Abdominal pain Disposition: HOME SELF-CARE Condition: Stable Instructions (If sedation given, give patient instructions): Dehydration (DC), Abdominal Pain (ED) Is patient prescribed a controlled substance at d/c from ED?: No Referrals: Love Stuart MD [Primary Care Provider] - 1-2 days Time of Disposition: 20:30
[2022-10-28 21:01] VITALS: BP 91/60; PULSE 74; RESP 16
== END 2022-10-28 21:01 | disposition home or self-care (01) ==
LOC: EC 14:06
DX: E86.0 Dehydration (principal); Z86.718 Personal history of other venous thrombosis and embolism; F41.9 Anxiety disorder, unspecified; F90.9 Attention-deficit hyperactivity disorder, unspecified type; Z87.891 Personal history of nicotine dependence; Z79.01 Long term (current) use of anticoagulants; Z79.899 Other long term (current) drug therapy
CPT/HCPCS: 36415; 83880; 80053; 83605; 83690; 85025; 81003; 87040; 74177; 99285; 96374; 96361 ×2; J2405

== ENCOUNTER → 2023-02-12 | Outpatient (CLI) | payer MEDICARE, OTHER ==
--- NOTE | 2023-02-12 12:15 | CT ---
EXAMINATION TYPE: CT chest wo con CT DLP: 119.8 mGycm, Automated exposure control for dose reduction was used. DATE OF EXAM: 02/12/2023 11:55 AM COMPARISON: CT chest abdomen 12/20/2022. CLINICAL INDICATION:Female, 52 years old with history of E04.2, R93.89; PHH, Pulmonary nodule TECHNIQUE: Multiple axial images were obtained through the chest without IV contrast. Lack of IV or o ral contrast limits evaluation of solid and hollow organ viscera. FINDINGS: LUNGS/ PLEURA: No pneumothorax or pleural effusion. Previously demonstrated left pleural effusion has resolved. Minimal left basilar scarring and/or decreased size of right lower lobe peripheral nodular density measuring 4 mm, previously 8 mm (series 4, image 35). Additional resolution of previous dem onstrated right midlung nodular density. Decreased size of right upper lobe 1.2 x 0.9 cm nodular dens ity (series 4, image 23), previously measured up to 13 mm. Peripheral left lower lobe 5 mm nodule dem onstrated (series 4, image 30). Nonvisualized due to likely pleural effusion. AIRWAY: Patent and unremarkable.. HEART: Size within normal limits. No pericardial effusion. MEDIASTINUM: No gross evidence of adenopathy. VASCULATURE: Stable ascending thoracic aortic ectasia measuring up to 3.9 cm. Interval removal of ri ght IJ catheter. MUSCULOSKELETAL: No acute osseous abnormalities. No aggressive osseous lesion. A few Schmorl's nodes identified within the thoracic spine. SOFT TISSUES/LYMPH NODES: Unremarkable. LOWER NECK: No significant findings. UPPER ABDOMEN: Postsurgical changes from gastric bypass. IMPRESSION: 1. Scattered few pulmonary nodular densities which are stable to decreased in size from prior examina tion. Consider follow up examination in 6-12 months. 2. Resolution of left pleural effusion. 3. Stable ascending thoracic aortic ectasia measuring up to 3.9 cm.
--- NOTE | 2023-02-12 13:28 | US ---
EXAMINATION TYPE: US thyroid st tissue head/neck DATE OF EXAM: 02/12/2023 COMPARISON: 10/28/2019 CLINICAL HISTORY: E04.2 MULTIPLE THYROID NODULES. Hx nodules. GLAND SIZE: Right Lobe: 5.5 x 2.0 x 1.8 cm Overall Parenchyma: heterogenous Left Lobe: 4.6 x 1.5 x 1.4 cm Overall Parenchyma: heterogeneous Isthmus Thickness: 0.2 cm NODULES RIGHT: # of nodules measured on right: 3 1. 2.0 X 1.7 x 1.4 cm, mid mid, mixed cystic and solid, hypoechoic nodule, which is wider than tall , with smooth margins, with echogenic foci. TR 4 Prior size: 2.0 x 1.6 x 1.9 cm 2. 1.1 X 1.1 x 0.9 cm, lower mid, mixed cystic and solid, hypoechoic nodule, which is wider than ta ll, with smooth margins, with echogenic foci. Prior size: 1.0 x 1.0 x 1.0 cm 3. 1.8 X 1.0 x 0.9 cm, upper mid, mixed cystic and solid, hypoechoic nodule, which is wider than ta ll, with ill-defined margins, with echogenic foci. Prior size: 1.3 x 1.0 x 0.9 cm LEFT: # of nodules measured on left: 1 1. 1.6 X 1.3 x 1.0 cm, mid mid, solid or almost completely solid, hypoechoic nodule, which is wider than tall, with smooth margins, with echogenic foci. Prior size: 1.8 x 1.2 x 1.3 cm ISTHMUS: # of nodules measured in the isthmus: 0 Bilateral neck scanned, no evidence of lymphadenopathy. IMPRESSION: Moderately suspicious right lobe thyroid nodule. Biopsy is recommended. 2017 ACR TI-RADS LEVEL: TR-RADS 4 - Moderately Suspicious: Follow if > 1 cm, FNA if > 1.5 cm *Highest TI-RADS level nodule reported
== END | disposition home or self-care (01) ==
LOC: RADCTMAIN 11:41
PROVIDERS: ATTEND Family Medicine
DX: E04.2 Nontoxic multinodular goiter (principal); J98.4 Other disorders of lung; R91.1 Solitary pulmonary nodule; I77.810 Thoracic aortic ectasia; R93.89 Abnormal findings on diagnostic imaging of other specified body structures
CPT/HCPCS: 71250; 76536

== ENCOUNTER → 2023-02-20 | Outpatient (CLI) | payer MEDICARE, OTHER ==
--- NOTE | 2023-02-21 06:46 | MR ---
EXAMINATION TYPE: MR shoulder LT wo con DATE OF EXAM: 02/20/2023 COMPARISON: None HISTORY: LT SHOULDER PAIN, DIFFICULT TO RAISE ARM for 5 months. Impingement syndrome. TECHNIQUE: Multiplanar, multisequence imaging of the left shoulder is performed without contrast. FINDINGS: Rotator Cuff: Full-thickness retracted tear of supraspinatus tendon with stump retraction to level of the acromion coronal image 17. Infraspinatus tendon intact. Increased signal and thickening of the s ubscapularis tendon with surrounding fluid. Rotator cuff muscle bulk is fairly well preserved. Acromioclavicular Joint: Widening of the acromioclavicular joint with underlying fluid. Distal acromi on morphology unremarkable. Glenohumeral Joint: High positioned humeral head suggesting underlying instability. Narrowing along t he superior aspect is present. No significant spurring. Labrum: The labrum appears grossly intact given limitation of non-arthrogram study. Biceps Tendon: The long head of biceps is in normal location within bicipital groove. Areas of centra l increased signal thought present for reference axial image 14 Bone marrow signal: Increased T2 signal involving the posterior lateral aspect of the humeral head ex tending anteriorly. Other: No additional significant abnormality is appreciated. IMPRESSION: 1. Full-thickness retracted tear of the supraspinatus tendon. High positioned humeral head suggests u nderlying instability. No significant rotator cuff atrophy. 2. Tendinosis/partial tearing of the long head of biceps tendon. 3. Widening of the acromion navicular joints suggestive of old surgery or remote trauma. Correlate cl inically.
== END | disposition home or self-care (01) ==
LOC: RADMRIMAIN 10:23
PROVIDERS: ATTEND Orthopaedic Surgery
DX: M75.112 Incomplete rotator cuff tear or rupture of left shoulder, not specified as traumatic (principal); M75.42 Impingement syndrome of left shoulder

== ENCOUNTER → 2023-03-06 | Outpatient (CLI) | payer MEDICARE, OTHER ==
[2023-03-06 15:46] LABS: Basophils # (A) 0.04 X 10*3/uL (0.00-0.10); Basophils % (A) 0.5 %; Eosinophils # (A) 0.14 X 10*3/uL (0.04-0.35); Eosinophils % (A) 1.6 %; HCT 40.7 % (37.2-46.3); HGB 12.1 g/dL (12.0-15.0); Immature Grans, Automated 0.2 %; Lymphocytes # (A) 1.41 X 10*3/uL (0.90-5.00); MCH 27.2 pg (27.0-32.0); MCHC 29.7 g/dL (32.0-37.0); MCV 91.5 fL (80.0-97.0); Mean Platelet Volume 10.7 fL (9.5-12.2); Monocytes # (A) 0.39 X 10*3/uL (0.20-1.00); Monocytes % (A) 4.4 %; NRBC Per 100 WBC 0 /100 WBCS (0.0-0.0); Neutrophils % (A) 77.3 %; Platelet Count 330 X 10*3/uL (140-440); RBC 4.45 X 10*6/uL (4.10-5.20); RDW 14.8 % (11.5-14.5)
== END | disposition home or self-care (01) ==
LOC: LABWHC1 11:16
PROVIDERS: ATTEND Orthopaedic Surgery
DX: M75.42 Impingement syndrome of left shoulder (principal)
CPT/HCPCS: 36415; 85025; 93005

== ENCOUNTER → 2023-03-25 | Outpatient (CLI) | payer MEDICARE, OTHER ==
--- NOTE | 2023-03-26 19:10 | MM ---
Reason for Exam: Screening (asymptomatic). Last mammogram was performed 5 year(s) and 10 month(s) ago. Patient History: Menarche at age 15. Patient has no children. Postmenopausal. Other cancer. Risk Values: Jovita 5 year model risk: 1.1%. NCI Lifetime model risk: 9.9%. Prior Study Comparison: 12/17/2012 Bilateral Screening Mammogram, [facility]. 06/11/2017 Bilateral Screening Mammogram, [facility]. Tissue Density: The breast tissue is heterogeneously dense. This may lower the sensitivity of mammography. Findings: Analyzed By CAD. Nodular asymmetry central right cc view just lateral to the retroareolar plan of middle depth not clearly seen previously. It is incompletely disperses on 3-D images. However, no clear correlate on the MLO view. Further evaluation is recommended. Otherwise, no significant change. Overall Assessment: Incomplete: need additional imaging evaluation, BI-RAD 0 Management: Special View Mammogram of the right breast. To include spot 3-D CC, 3-D CC rolled medial, and 3-D ML views. Targeted right breast ultrasound if any persisting abnormality. [facility] will attempt to contact patient to return for supplemental views and ultrasound if indicated. Electronically signed and approved by: Jolie Rhoades M.D. Radiologist
== END | disposition home or self-care (01) ==
LOC: RADMAMWWP 13:26
PROVIDERS: ATTEND Family Medicine
DX: Z12.31 Encounter for screening mammogram for malignant neoplasm of breast (principal); Z78.0 Asymptomatic menopausal state
CPT/HCPCS: 77063; 77067

== ENCOUNTER 2023-04-03 11:49 | Day surgery (SDC) | payer MEDICARE, OTHER ==
[2023-04-03 12:35] VITALS: BP 114/60; PULSE 85; RESP 16; TEMP 97.4
[2023-04-03] MEDS ORDERED: ALPRAZolam 0.5 MG TAB PO STA (12:36)
--- NOTE | 2023-04-03 13:59 | US ---
ULTRASOUND GUIDED FNA THYROID BIOPSY: CLINICAL HISTORY: Request for 2.0 cm right thyroid nodule for FNA FINDINGS: The procedure was explained to the patient. The risks, complications, benefits and alternatives were discussed and any questions were answered. Informed consent was obtained. Patient was placed supin e on the ultrasound table and prepped and draped in the usual sterile fashion. Utilizing a 25 gauge needle, five passes were made into the requested right thyroid nodule. Patient was stable throughout the procedure. Pathology is pending. All elements of maximal barrier technique were utilized. IMPRESSION: 1. Successful ultrasound guided FNA thyroid biopsy.
== END 2023-04-03 13:35 | disposition home or self-care (01) ==
LOC: RADPROMAIN 11:49
PROVIDERS: ATTEND Internal Medicine Endocrinology, Diabetes & Metabolism
DX: E04.2 Nontoxic multinodular goiter (principal)
CPT/HCPCS: 10005; 88173; 88305

== ENCOUNTER → 2023-04-11 | Outpatient (CLI) | payer MEDICARE, OTHER ==
[2023-04-12 02:02] LABS: HCT 39.1 % (37.2-46.3); HGB 11.3 g/dL (12.0-15.0); MCH 26.7 pg (27.0-32.0); MCHC 28.9 g/dL (32.0-37.0); MCV 92.4 fL (80.0-97.0); Mean Platelet Volume 10.6 fL (9.5-12.2); NRBC Per 100 WBC 0 /100 WBCS (0.0-0.0); Platelet Count 395 X 10*3/uL (140-440); RBC 4.23 X 10*6/uL (4.10-5.20); RDW 13.9 % (11.5-14.5); WBC 5.09 X 10*3/uL (4.50-10.00)
[2023-04-12 02:54] LABS: ALT 39 U/L (8-44); AST 32 U/L (13-35); African American GFR (CKD) 121.5 (60.0-200.0); Albumin 3.6 g/dL (3.8-4.9); Albumin/Globulin Ratio 0.81 (1.60-3.17); Alkaline Phosphatase 113 U/L (41-126); BUN/Creat Ratio 28.91 Ratio (12.00-20.00); Bilirubin, Conjugated <0.20 mg/dL (0.20-0.40); Blood Urea Nitrogen 18.1 mg/dL (9.0-27.0); Calcium 9.3 mg/dL (8.7-10.3); Carbon Dioxide 24.7 mmol/L (20.0-27.5); Chloride 105 mmol/L (96-109); Globulin 4.4 g/dL (1.6-3.3); Glucose 93 mg/dL (70-110); Non-African American GFR(CKD) 104.8 (60.0-200.0); Potassium 4.9 mmol/L (3.5-5.5); Prealbumin 16.7 mg/dL (18.0-42.0); Sodium 140 mmol/L (135-145); Total Bilirubin <0.15 mg/dL (0.30-1.20)
== END | disposition home or self-care (01) ==
LOC: LABPAT 15:43
PROVIDERS: ATTEND Surgery Surgical Critical Care
DX: Z01.812 Encounter for preprocedural laboratory examination (principal); E46 Unspecified protein-calorie malnutrition
CPT/HCPCS: 80048; 80076; 84134; 85027; 86140

== ENCOUNTER 2023-06-24 13:21 | Emergency (ER) | payer MEDICARE, OTHER ==
[2023-06-24] MEDS ORDERED: SODIUM CHLORIDE 0.9% 1,000 ML IV ONE (15:13)
--- NOTE | 2023-06-24 15:36 | ED ---
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 Patient reports generalized swelling, warmth to her left knee that has been chronic and lasting approximately 2 months. She denies any trauma or injury. She reports that she had bilateral knees replaced approximately 10 years ago. She denies any known fevers, chills or shortness of breath.. She has not taken anything for her pain. She denies current anticoagulant use. She does report having a history of chronic anemia and feels like she is dehydrated. - Related Data Home Medications Medication Instructions Recorded Confirmed Pantoprazole [Protonix] 40 mg PO BID 12/18/22 06/18/23 Sodium Bicarbonate Tab 650 mg PO BID 03/21/23 06/18/23 Multivit/Iron Sulf/Folic Acid 1 tab PO DAILY 06/11/23 06/18/23 [Multivitamin with Iron] Previous Rx's Medication Instructions Recorded Ondansetron [Zofran] 4 mg PO Q8HR PRN 3 Days #9 tab 12/31/22 Allergies Allergy/AdvReac Type Severity Reaction Status Date / Time No Known Allergies Allergy Verified 06/24/23 14:07 Review of Systems ROS Statement: Those systems with pertinent positive or pertinent negative responses have been documented in the HPI. ROS Other: All systems not noted in ROS Statement are negative. Past Medical History Past Medical History: Cancer, Deep Vein Thrombosis (DVT) Additional Past Medical History / Comment(s): malnutrition, anemia, hernia , thyroid nodules, skin cancer removed, colostomy bag, bariatric surgery revision (oct 2022) History of Any Multi-Drug Resistant Organisms: MRSA Date of last positivie culture/infection: 08/27/22 MDRO Source:: Abdomen Past Surgical History: Bariatric Surgery, Hernia Repair Additional Past Surgical History / Comment(s): tim en y, bilateral knee replacement, PEG tube, tube feeding, 6 abd surgery, colostomy bag, bariatric revision. Past Anesthesia/Blood Transfusion Reactions: No Reported Reaction Past Psychological History: ADD/ADHD, Anxiety Smoking Status: Former smoker Past Alcohol Use History: None Reported Past Drug Use History: None Reported - Past Family History Father History Unknown: Yes Family Medical History: Cancer, Diabetes Mellitus, Hypertension Additional Family Medical History / Comment(s): throat cancer Mother History Unknown: Yes Family Medical History: Cancer, Diabetes Mellitus Additional Family Medical History / Comment(s): multiple myeloma General Exam - General Exam Comments Initial Comments: General: Alert, in no acute distress Head: atraumatic normocephalic. Eyes PERRL, EOMI intact, mucous membranes moist Respiratory: Lungs clear to auscultation bilaterally Cardiovascular: Rate regular rate and rhythm Abdominal: Soft without guarding or rebound Extremities: Normal inspection with full range of motion and normal capillary refill, bilateral arthroscopic scars that appear well healed. Left knee is warm, full range of motion. 2+ plus DT/PT pulses Neuroogic: alert and oriented 3, CN II-XII intact, able to ambulate with steady gait Skin: warm dry and intact with normal color Limitations: no limitations Course Vital Signs 06/24/23 06/24/23 06/24/23 14:02 17:51 19:20 Temperature 98.1 F 98.7 F 98.7 F Pulse Rate 111 H 93 99 Respiratory 18 17 17 Rate Blood Pressure 108/74 116/76 103/68 O2 Sat by Pulse 99 100 100 Oximetry Medical Decision Making - Medical Decision Making Was pt. sent in by a medical professional or institution (TASH Jacinto, HEATING AND REFRIGERATION INSPECTOR, urgent care, hospital, or intermediate...) When possible be specific @ -[No] Did you speak to anyone other than the patient for history (EMS, parent, family, police, friend...)? What history was obtained from this source @ -[No] Did you review nursing and triage notes (agree or disagree)? Why? @ -[I reviewed and agree with nursing and triage notes] Were old charts reviewed (outside hosp., previous admission, EMS record, old EKG, old radiological studies, urgent care reports/EKG's, intermediate records)? Report findings @ -[No old charts were reviewed] Differential Diagnosis (chest pain, altered mental status, abdominal pain women, abdominal pain men, vaginal bleeding, weakness, fever, dyspnea, syncope, headache, dizziness, GI bleed, back pain, seizure, CVA, palpatations, mental health, musculoskeletal)? @ -[not applicable] EKG interpreted by me (3pts min.). @ -[As above] X-rays interpreted by me (1pt min.). @ -[None done] CT interpreted by me (1pt min.). @ -Ultrasound Doppler of left lower extremity reveals evidence of Joya's cyst. Negative for DVT U/S interpreted by me (1pt. min.). @ -[None done] What testing was considered but not performed or refused? (CT, X-rays, U/S, labs)? Why? @ -[None] What meds were considered but not given or refused? Why? @ -[None] Did you discuss the management of the patient with other professionals (professionals i.e. , PA, HEATING AND REFRIGERATION INSPECTOR, lab, RT, psych nurse, bilingual social worker, customer expert, teacher, chief juvenile probation officer, caser)? Give summary @ -[No] Was smoking cessation discussed for >3mins.? @ -[No] Was critical care preformed (if so, how long)? @ -[No] Were there social determinants of health that impacted care today? How? (Homelessness, low income, unemployed, alcoholism, drug addiction, transportation, low edu. Level, literacy, decrease access to med. care, usp, rehab)? @ -[No] Was there de-escalation of care discussed even if they declined (Discuss DNR or withdrawal of care, Hospice)? DNR status @ -[No] What co-morbidities impacted this encounter? (DM, HTN, Smoking, COPD, CAD, Ca ncer, CVA, ARF, Chemo, Hep., AIDS, mental health diagnosis, sleep apnea, morbid obesity)? @ -[None] Was patient admitted / discharged? Hospital course, mention meds given and route, prescriptions, significant lab abnormalities, going to OR and other pertinent info. @ -Discharged. This is a pleasant 52-year-old female who presents the emergency department left leg/knee pain. Patient had a thorough history and physical exam performed on the ED.). Serum essentially unremarkable. No marked erythema or edema to her left knee. Full range of motion. Patient had lab work and imaging which were essentially unremarkable. I discussed results in detail the patient verbalized understanding all questions were addressed. Return precautions were discussed at length. Patient discharged in stable condition. Case discussed with Dr. Evans [facility] who agrees with plan of care Undiagnosed new problem with uncertain prognosis? @ -[No] Drug Therapy requiring intensive monitoring for toxicity (Heparin, Nitro, Insulin, Cardizem)? @ -[No] Were any procedures done? @ -[No] Diagnosis/symptom? @ -Left Knee Pain - Joya's Cyst Acute, or Chronic, or Acute on Chronic? @ -Acute Uncomplicated (without systemic symptoms) or Complicated (systemic symptoms)? @ -Uncomplicated Side effects of treatment? @ -[No] Exacerbation, Progression, or Severe Exacerbation? @ -[No] Poses a threat to life or bodily function? How? (Chest pain, [place], [place], pneumonia, PE, COPD, DKA, ARF, appy, cholecystitis, CVA, Diverticulitis, Homicidal, Suicidal, threat to staff... and all critical care pts) @ -Low Likelihood - Lab Data Result diagrams: 06/24/23 15:27 06/24/23 15:27 Lab Results 06/24/23 06/24/23 Range/Units 15:27 15:27 WBC 4.2 (3.8-10.6) k/uL RBC 3.84 (3.80-5.40) m/uL Hgb 10.9 L (11.4-16.0) gm/dL Hct 33.6 L (34.0-46.0) % MCV 87.5 (80.0-100.0) fL MCH 28.3 (25.0-35.0) pg MCHC 32.3 (31.0-37.0) g/dL RDW 14.8 (11.5-15.5) % Plt Count 309 (150-450) k/uL MPV 8.3 Neutrophils % 52 % Lymphocytes % 34 % Monocytes % 8 % Eosinophils % 3 % Basophils % 0 % Neutrophils # 2.2 (1.3-7.7) k/uL Lymphocytes # 1.4 (1.0-4.8) k/uL Monocytes # 0.4 (0-1.0) k/uL Eosinophils # 0.1 (0-0.7) k/uL Basophils # 0.0 (0-0.2) k/uL Sodium 135 L (137-145) mmol/L Potassium 4.2 (3.5-5.1) mmol/L Chloride 102 (98-107) mmol/L Carbon Dioxide 25 (22-30) mmol/L Anion Gap 8 mmol/L BUN 9 (7-17) mg/dL Creatinine 0.38 L (0.52-1.04) mg/dL Est GFR (CKD-EPI)AfAm >90 (>60 ml/min/1.73 sqM) Est GFR (CKD-EPI)NonAf >90 (>60 ml/min/1.73 sqM) Glucose 195 H (74-99) mg/dL Calcium 8.4 (8.4-10.2) mg/dL Total Bilirubin 0.3 (0.2-1.3) mg/dL AST 23 (14-36) U/L ALT 17 (4-34) U/L Alkaline Phosphatase 95 (38-126) U/L Total Protein 7.8 (6.3-8.2) g/dL Albumin 3.3 L (3.5-5.0) g/dL Disposition Clinical Impression: Bakers cyst Disposition: HOME SELF-CARE Condition: Stable Instructions (If sedation given, give patient instructions): Joya Cyst (ED) Additional Instructions: Please return to the nearest emergency department if symptoms worsen or persist Is patient prescribed a controlled substance at d/c from ED?: No Referrals: Love Stuart MD [Primary Care Provider] - 1-2 days Time of Disposition: 18:46
[2023-06-24] MEDS ORDERED: HYDROcodone/APAP 5-325MG 1 EACH TAB PO STA (16:08)
[2023-06-24 16:27] LABS: Basophils % (A) 0 %; Eosinophils # (A) 0.1 k/uL (0-0.7); Eosinophils % (A) 3 %; HCT 33.6 % (34.0-46.0); HGB 10.9 gm/dL (11.4-16.0); Lymphocytes # (A) 1.4 k/uL (1.0-4.8); Lymphocytes % (A) 34 %; MCH 28.3 pg (25.0-35.0); MCHC 32.3 g/dL (31.0-37.0); MCV 87.5 fL (80.0-100.0); Mean Platelet Volume 8.3; Monocytes # (A) 0.4 k/uL (0-1.0); Monocytes % (A) 8 %; Neutrophils # (A) 2.2 k/uL (1.3-7.7); Neutrophils % (A) 52 %; Platelet Count 309 k/uL (150-450); RBC 3.84 m/uL (3.80-5.40); RDW 14.8 % (11.5-15.5); WBC 4.2 k/uL (3.8-10.6)
[2023-06-24 16:36] LABS: ALT 17 U/L (4-34); AST 23 U/L (14-36); African American GFR (CKD) >90 (>60 ml/min/1.73 sqM); Albumin 3.3 g/dL (3.5-5.0); Alkaline Phosphatase 95 U/L (38-126); Anion Gap 8 mmol/L; Blood Urea Nitrogen 9 mg/dL (7-17); Calcium 8.4 mg/dL (8.4-10.2); Carbon Dioxide 25 mmol/L (22-30); Chloride 102 mmol/L (98-107); Glucose 195 mg/dL (74-99); Non-African American GFR(CKD) >90 (>60 ml/min/1.73 sqM); Potassium 4.2 mmol/L (3.5-5.1); Sodium 135 mmol/L (137-145); Total Bilirubin 0.3 mg/dL (0.2-1.3); Total Protein 7.8 g/dL (6.3-8.2)
--- NOTE | 2023-06-24 17:33 | US ---
EXAMINATION TYPE: US venous doppler duplex LE LT DATE OF EXAM: 06/24/2023 4:45 PM COMPARISON: NONE CLINICAL INDICATION: Female, 52 years old with history of LLE pain/warmth; Patient states having hx o f DVT in right leg post knee and in arm post PICC line. Not on blood thinners. SIDE PERFORMED: Left TECHNIQUE: The lower extremity deep venous system is examined utilizing real time linear array sonog pramod with graded compression, doppler sonography and color-flow sonography. VESSELS IMAGED: Common Femoral Vein Deep Femoral Vein Greater Saphenous Vein * Femoral Vein Popliteal Vein Small Saphenous Vein * Proximal Calf Veins (* superficial vessels) Left Leg: Data Entry Representative notes: Negative for DVT. Enlarged lymph node seen in groin with short axis= 1 .2 cm. Possible mass seen posterior left knee = 4.3 x 2.2 x 1.3 cm with vascular flow seen. IMPRESSION: 1. No evidence for DVT within the left lower extremity imaged from the groin to the upper calf. 2. Left inguinal lymphadenopathy for which further clinical correlation is recommended. 3. Possible mass versus very complex Joya's cyst behind the left knee measuring 4.3 cm. Internal vas cularity could reflect hyperemic synovium. Correlate with physical exam findings. Recommend further e valuation with MRI.
[2023-06-24 17:52] VITALS: RESP 17; TEMP 98.7
[2023-06-24 19:22] VITALS: BP 103/68; PULSE 99
== END 2023-06-24 19:26 | disposition home or self-care (01) ==
LOC: EC 13:21
DX: M71.22 Synovial cyst of popliteal space [Baker], left knee (principal); M71.21 Synovial cyst of popliteal space [Baker], right knee; Z87.891 Personal history of nicotine dependence; Z86.59 Personal history of other mental and behavioral disorders
CPT/HCPCS: 36415; 80053; 85025; 96360; 99284

== ENCOUNTER → 2023-07-18 | Outpatient (CLI) | payer MEDICARE, OTHER ==
[2023-07-18 20:26] LABS: Blood Urea Nitrogen 7.5 mg/dL (9.0-27.0); Calcium 8.9 mg/dL (8.7-10.3); Carbon Dioxide 26.1 mmol/L (21.6-31.8); Chloride 99 mmol/L (96-109); Glucose 147 mg/dL (70-110); Potassium 4.3 mmol/L (3.5-5.5); Sodium 135 mmol/L (135-145)
[2023-07-18 23:43] LABS: Basophils # (A) 0.05 X 10*3/uL (0.00-0.10); Eosinophils # (A) 0.08 X 10*3/uL (0.04-0.35); Eosinophils % (A) 1.5 %; HCT 38.6 % (37.2-46.3); HGB 11.7 d/dL (12.0-15.0); Lymphocytes # (A) 1.59 X 10*3/uL (0.90-5.00); Lymphocytes % (A) 30.3 %; MCH 27.5 pg (27.0-32.0); MCHC 30.3 d/dL (32.0-37.0); MCV 90.8 FL (80.0-97.0); Mean Platelet Volume 10.6 FL (9.5-12.2); Monocytes # (A) 0.43 X 10*3/uL (0.20-1.00); Monocytes % (A) 8.2 %; NRBC Per 100 WBC 0 X 10*3/uL (0.00-0.01); Neutrophils # (A) 3.08 X 10*3/uL (1.80-7.70); Neutrophils % (A) 58.8 %; Platelet Count 364 X 10*3/uL (140-440); RBC 4.25 X 10*6/uL (4.10-5.20); RDW 15.7 % (11.5-14.5); WBC 5.24 X 10*3/uL (4.50-10.00)
== END | disposition home or self-care (01) ==
LOC: LABWHC1 14:46
PROVIDERS: ATTEND Surgery
DX: Z01.812 Encounter for preprocedural laboratory examination (principal); E55.9 Vitamin D deficiency, unspecified; K90.89 Other intestinal malabsorption; Z98.84 Bariatric surgery status; Z87.891 Personal history of nicotine dependence
CPT/HCPCS: 80048; 85025; 82306; 87070; 83036; 36415; G0480; 80323

== ENCOUNTER → 2023-09-03 | Outpatient (CLI) | payer MEDICARE, OTHER ==
--- NOTE | 2023-09-03 09:42 | US ---
EXAMINATION TYPE: US abdomen complete DATE OF EXAM: 09/03/2023 COMPARISON: CT 2022, US 2019 CLINICAL INDICATION: Female, 52 years old with history of R10.11 right upper quadrant pain; Hydropic gallbladder seen on recent CT TECHNIQUE: Multiple sonographic images of the abdomen are obtained. FINDINGS: EXAM MEASUREMENTS: Liver Length: 18.7 cm Gallbladder Wall: 0.2 cm CBD: 0.5 cm Spleen: 11.2 cm Right Kidney: 12.6 x 3.8 x 5.5 cm Left Kidney: 11.8 x 5.0 x 5.0 cm Pancreas: visualized portions wnl, limited by overlying midline bowel gas Liver: enlarged Gallbladder: hydropic, no stones seen, wall measures wnl Evidence for sonographic Ramos's sign: no CBD: wnl Spleen: wnl Right Kidney: 2.8 x 1.4 x 2.4cm isoechoic area mid pole, possible column of estela Left Kidney: wnl Upper IVC: wnl Abd Aorta: wnl The liver is enlarged without focal lesion identified. The intrahepatic portion of the IVC and proxim al abdominal aorta are within normal limits. There is no evidence of cholelithiasis. Hydropic gallbl adder. No wall thickening or pericholecystic fluid. Per cake cutter machine, negative sonographic Ramos sign . Common bile duct is unremarkable. The visualized portions of the pancreas are homogenous. The spl een is unremarkable. Kidneys are symmetric and free of hydronephrosis. No nephrolithiasis. Isoechoic area within the right mid kidney measuring up to 2.8 cm. This is most consistent with a column of Be rtin when compared to prior CT. IMPRESSION: 1. Hydropic gallbladder without evidence of acute cholecystitis. 2. Mild hepatomegaly. No focal lesion.
== END | disposition home or self-care (01) ==
LOC: RADUSWWP 08:28
PROVIDERS: ATTEND Surgery
DX: R16.0 Hepatomegaly, not elsewhere classified (principal); R10.11 Right upper quadrant pain
CPT/HCPCS: 76700

== ENCOUNTER → 2023-10-23 | Outpatient (CLI) | payer MEDICARE, OTHER ==
[2023-10-24 03:10] LABS: T4, Free (Free Thyroxine) 1.09 ng/dL (0.80-1.80)
[2023-10-24 04:00] LABS: Follicle Stimulating Hormone 58.8 mIU/mL
== END | disposition home or self-care (01) ==
LOC: LABWHC1 14:28
PROVIDERS: ATTEND Internal Medicine Endocrinology, Diabetes & Metabolism
DX: E05.90 Thyrotoxicosis, unspecified without thyrotoxic crisis or storm (principal); R23.2 Flushing
CPT/HCPCS: 36415; 83001; 84439; 84443; 84480

== ENCOUNTER → 2023-10-29 | Outpatient (CLI) | payer MEDICARE, OTHER ==
--- NOTE | 2023-10-29 13:27 | MM ---
Reason for Exam: Follow-up at short interval from prior study. Last screening mammogram was performed 7 month(s) ago. Patient History: Menarche at age 15. Patient has no children. Postmenopausal. Other cancer. Risk Values: Jovita 5 year model risk: 1.1%. NCI Lifetime model risk: 9.7%. Prior Study Comparison: 06/11/2017 Bilateral Screening Mammogram, [facility]. 03/25/2023 Bilateral MG 3D screening mammo w/cad, [facility]. 04/01/2023 Right MG 3D work up w/cad RT, [facility]. Tissue Density: Right: There are scattered fibroglandular densities. Findings: Analyzed By CAD. The previous centrally located nodular asymmetric density on the CC view has not persisted. No significant change from prior exams. Overall Assessment: Benign, BI-RAD 2 Management: Screening Mammogram of both breasts in 6 months. . Results were given to the patient verbally at the time of exam. Patient should continue monthly self-breast exams. A clinical breast exam by your physician is recommended on an annual basis. This exam should not preclude additional follow-up of suspicious palpable abnormalities. Note on Jovita scores and lifetime risk: 1. A Jovita score greater than 3% is considered moderate risk. If this is the case, consider specialist referral to assess eligibility for a risk reducing agent. 2. If overall lifetime risk for the development of breast cancer is 20% or higher, the patient may qualify for future screening with alternating mammogram and breast MRI. Electronically signed and approved by: Jolie Rhoades M.D. Radiologist
== END | disposition home or self-care (01) ==
LOC: RADMAMWWP 13:04
PROVIDERS: ATTEND Family Medicine
DX: R92.321 Mammographic fibroglandular density, right breast (principal); Z78.0 Asymptomatic menopausal state
CPT/HCPCS: 77065; G0279; 77061

== ENCOUNTER → 2023-11-28 | Outpatient (CLI) | payer MEDICARE, OTHER ==
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
== END ==
LOC: 3 N SLEEP 13:56
PROVIDERS: ATTEND Internal Medicine
DX: G47.33 Obstructive sleep apnea (adult) (pediatric) (principal); E66.01 Morbid (severe) obesity due to excess calories; F32.A Depression, unspecified; F41.9 Anxiety disorder, unspecified; I10 Essential (primary) hypertension; E11.9 Type 2 diabetes mellitus without complications; K21.9 Gastro-esophageal reflux disease without esophagitis; M19.90 Unspecified osteoarthritis, unspecified site; F12.90 Cannabis use, unspecified, uncomplicated; F17.200 Nicotine dependence, unspecified, uncomplicated; Z98.890 Other specified postprocedural states; Z86.39 Personal history of other endocrine, nutritional and metabolic disease; Z87.828 Personal history of other (healed) physical injury and trauma; Z96.653 Presence of artificial knee joint, bilateral; Z98.84 Bariatric surgery status
CPT/HCPCS: 99211

== ENCOUNTER 2023-12-16 14:28 | Inpatient (IN) | payer MEDICARE, OTHER ==
--- NOTE | 2023-12-16 15:47 | ED ---
General Adult HPI - General Chief complaint: Weakness Stated complaint: Dizzy Time Seen by Provider: 12/16/23 15:46 Source: patient, RN notes reviewed Mode of arrival: ambulatory Limitations: no limitations - History of Present Illness Initial comments: 53 year old female presents to the emergency department for evaluation of overall not feeling well, palpitations x2 days. Patient states that she has had difficulty breathing and central chest pain as well. She denies redness, swelling to the leg. She does report some left knee pain which is not worse than usual. She has a picc and is currently receiving vancomycin for a left knee infection. The procedure was done in [place]. - Related Data Home Medications Medication Instructions Recorded Confirmed Pantoprazole [Protonix] 40 mg PO BID 12/18/22 12/16/23 Sodium Bicarbonate Tab 650 mg PO BID 03/21/23 12/16/23 methocarbamoL 750 mg PO Q8H 08/23/23 12/16/23 Acetaminophen Tab [Tylenol Tab] 1,000 mg PO TID 12/16/23 12/16/23 Apixaban [Eliquis] 2.5 mg PO BID 12/16/23 12/16/23 Calcium Carb/Mag Ox/Zinc Sulf 1 tab PO DAILY 12/16/23 12/16/23 [Dnv-Zhs-Kzwi 334-134-5 mg Tab] Docusate [Colace] 100 mg PO BID PRN 12/16/23 12/16/23 Ergocalciferol (Vitamin D2) 1,250 mcg PO TH 12/16/23 12/16/23 [Drisdol (50,000 Iu)] Ferrous Sulfate [Feosol] 325 mg PO BID 12/16/23 12/16/23 L.acidoph,Paracasei, B.lactis 1 cap PO DAILY 12/16/23 12/16/23 [Probiotic] Multivitamins, Thera [Multivitamin 1 tab PO DAILY 12/16/23 12/16/23 (formulary)] Temazepam [Restoril] 15 mg PO HS PRN 12/16/23 12/16/23 Vancomycin 1,500 mg IVPB BID 12/16/23 12/16/23 hydrOXYzine pamoate [hydrOXYzine 25 mg PO HS PRN 12/16/23 12/16/23 PAMOATE] oxyCODONE HCL [OxyIR] 5 mg PO Q6H PRN 12/16/23 12/16/23 traMADol HCL 50 mg PO Q6H PRN 12/16/23 12/16/23 Allergies Allergy/AdvReac Type Severity Reaction Status Date / Time No Known Allergies Allergy Verified 12/16/23 19:59 Review of Systems ROS Statement: Those systems with pertinent positive or pertinent negative responses have been documented in the HPI. ROS Other: All systems not noted in ROS Statement are negative. Past Medical History Past Medical History: Cancer, Deep Vein Thrombosis (DVT) Additional Past Medical History / Comment(s): malnutrition, anemia, hernia , thyroid nodules, skin cancer removed, colostomy bag, bariatric surgery revision (oct 2022) History of Any Multi-Drug Resistant Organisms: MRSA Date of last positivie culture/infection: 08/27/22 MDRO Source:: Abdomen Past Surgical History: Bariatric Surgery, Hernia Repair Additional Past Surgical History / Comment(s): tim en y, bilateral knee replacement, PEG tube, tube feeding, 6 abd surgery, colostomy bag, bariatric revision. Colostomy reversal Past Anesthesia/Blood Transfusion Reactions: No Reported Reaction Past Psychological History: ADD/ADHD, Anxiety Smoking Status: Former smoker Past Alcohol Use History: None Reported Past Drug Use History: None Reported, Marijuana - Past Family History Father History Unknown: Yes Family Medical History: Cancer, Diabetes Mellitus, Hypertension Additional Family Medical History / Comment(s): throat cancer Mother History Unknown: Yes Family Medical History: Cancer, Diabetes Mellitus Additional Family Medical History / Comment(s): multiple myeloma General Exam - General Exam Comments Initial Comments: Visual Physical Exam Vital signs reviewed General: Well-appearing, nontoxic, no acute distress. Head: Normocephalic, atraumatic Eyes: PERRLA, EOMI ENT: Airway patent Chest: Nonlabored breathing Skin: No visual rash, normal skin tone Neuro: Alert and oriented 3 Musculoskeletal: No gross abnormalities Limitations: no limitations General appearance: alert, in no apparent distress Head exam: Present: atraumatic, normocephalic, normal inspection Eye exam: Present: normal appearance, PERRL, EOMI. Absent: scleral icterus, conjunctival injection, periorbital swelling ENT exam: Present: normal exam, mucous membranes moist Neck exam: Present: normal inspection. Absent: tenderness, meningismus, lymphadenopathy Respiratory exam: Present: normal lung sounds bilaterally. Absent: respiratory distress, wheezes, rales, rhonchi, stridor Cardiovascular Exam: Present: regular rate, normal rhythm, normal heart sounds. Absent: systolic murmur, diastolic murmur, rubs, gallop, clicks GI/Abdominal exam: Present: soft, normal bowel sounds. Absent: distended, tenderness, guarding, rebound, rigid Extremities exam: Present: normal inspection, full ROM, normal capillary refill, other (Melody in place in the left knee without erythema, edema). Absent: tenderness, pedal edema, joint swelling, calf tenderness Back exam: Present: normal inspection Neurological exam: Present: alert, oriented X3 Psychiatric exam: Present: normal affect, normal mood Skin exam: Present: warm, dry, normal color. Absent: rash Course Vital Signs 12/16/23 12/16/23 12/16/23 14:52 17:54 18:07 Temperature 98.3 F 97.8 F Pulse Rate 92 81 Pulse Rate [ 80 Fan Installer ] Respiratory 16 18 18 Rate Blood Pressure 122/78 114/77 O2 Sat by Pulse 99 100 Oximetry 12/16/23 12/16/23 12/16/23 19:41 20:43 22:34 Temperature Pulse Rate 82 77 68 Pulse Rate [ Fan Installer ] Respiratory 19 17 18 Rate Blood Pressure 113/79 106/62 91/59 O2 Sat by Pulse 100 100 99 Oximetry 12/16/23 23:14 Temperature Pulse Rate 67 Pulse Rate [ Fan Installer ] Respiratory 17 Rate Blood Pressure O2 Sat by Pulse Oximetry Medical Decision Making - Medical Decision Making Quick note preformed by Giana Webb PA-C Was pt. sent in by a medical professional or institution (TASH Jacinto, FERMENTING CELLARS RECEIVER, urgent care, hospital, or assisted...) When possible be specific @ -No Did you speak to anyone other than the patient for history (EMS, parent, family, police, friend...)? What history was obtained from this source @ -No Did you review nursing and triage notes (agree or disagree)? Why? @ -I reviewed and agree with nursing and triage notes Were old charts reviewed (outside hosp., previous admission, EMS record, old EKG, old radiological studies, urgent care reports/EKG's, assisted records)? Report findings @ -No old charts were reviewed Differential Diagnosis (chest pain, altered mental status, abdominal pain women, abdominal pain men, vaginal bleeding, weakness, fever, dyspnea, syncope, headache, dizziness, GI bleed, back pain, seizure, CVA, palpatations, mental health, musculoskeletal)? @ -Differential Chest Pain: Stable Angina, Unstable Angina, STEMI, NSTEMI Aortic Dissection, Pneumothorax, Musculoskeletal, Esophageal Spasm GERD, Cholecystitis, Pancreatitis, Zoster, this is not meant to be an all-inclusive list. EKG interpreted by me (3pts min.). @ -EKG at 1655 shows sinus rhythm rate 87, CO 144, QRS 82, QTQTc [id number] X-rays interpreted by me (1pt min.). @ -This x-ray obtained shows no acute process CT interpreted by me (1pt min.). @ -CT angiography PE shows no acute pulmonary embolism U/S interpreted by me (1pt. min.). @ -None done What testing was considered but not performed or refused? (CT, X-rays, U/S, labs)? Why? @ -None What meds were considered but not given or refused? Why? @ -None Did you discuss the management of the patient with other professionals (professionals i.e. , PA, FERMENTING CELLARS RECEIVER, lab, RT, psych nurse, social services assistant, construction job titles, teacher, biosecurity officer, piano case maker)? Give summary @ -Management discussed with Dr. Castellanos with [facility] hospitalist who is accepting of the admission Was smoking cessation discussed for >3mins.? @ -No Was critical care preformed (if so, how long)? @ -No Were there social determinants of health that impacted care today? How? (Homelessness, low income, unemployed, alcoholism, drug addiction, transportation, low edu. Level, literacy, decrease access to med. care, halfway, rehab)? @ -No Was there de-escalation of care discussed even if they declined (Discuss DNR or withdrawal of care, Hospice)? DNR status @ -No What co-morbidities impacted this encounter? (DM, HTN, Smoking, COPD, CAD, Cancer, CVA, ARF, Chemo, Hep., AIDS, mental health diagnosis, sleep apnea, morbid obesity)? @ -None Was patient admitted / discharged? Hospital course, mention meds given and route, prescriptions, significant lab abnormalities, going to OR and other pertinent info. @ -Admitted for observation. Patient presented to the emergency department for evaluation of chest pain, shortness of breath, lightheadedness 2 days. Patient reports recent surgery on her left knee. She is receiving vancomycin twice a day via PICC line. Vital signs stable. Left knee evaluated, melody in place without erythema, edema. No calf tenderness. Laboratory studies obtained.CBC essentially unremarkable, WBC 5.2; d-dimer 4.[address] angiogram for PE which showed no evidence of pulmonary embolism. CMP shows sodium 135, potassium of 4.3, creatinine 0.49; initial troponin less than 0.01 2 repeat@3 hours later showed troponin of 0.021. Covid, influenza, RSV negative. Patient will be admitted observation for cardiology consult. Case is discussed with Dr. Csatellanos who is accepting of the admission. Case discussed with Dr. Valenzuela. Undiagnosed new problem with uncertain prognosis? @ -No Drug Therapy requiring intensive monitoring for toxicity (Heparin, Nitro, Insulin, Cardizem)? @ -No Were any procedures done? @ -No Diagnosis/symptom? @ -Chest pain Acute, or Chronic, or Acute on Chronic? @ -Acute Uncomplicated (without systemic symptoms) or Complicated (systemic symptoms)? @ -Uncomplicated Side effects of treatment? @ -No Exacerbation, Progression, or Severe Exacerbation? @ -No Poses a threat to life or bodily function? How? (Chest pain, USA, SD, pneumonia, PE, COPD, DKA, ARF, appy, cholecystitis, CVA, Diverticulitis, Homicidal, Suicidal, threat to staff... and all critical care pts) @ -No - Lab Data Result diagrams: 12/16/23 16:45 12/16/23 16:45 Lab Results 12/16/23 12/16/23 12/16/23 Range/Units 16:20 16:45 16:45 WBC 5.2 (3.8-10.6) k/uL RBC 4.04 (3.80-5.40) m/uL Hgb 11.7 (11.4-16.0) gm/dL Hct 36.5 (34.0-46.0) % MCV 90.4 (80.0-100.0) fL MCH 29.0 (25.0-35.0) pg MCHC 32.1 (31.0-37.0) g/dL RDW 15.4 (11.5-15.5) % Plt Count 400 (150-450) k/uL MPV 8.5 Neutrophils % 57 % Lymphocytes % 32 % Monocytes % 6 % Eosinophils % 2 % Basophils % 1 % Neutrophils # 3.0 (1.3-7.7) k/uL Lymphocytes # 1.7 (1.0-4.8) k/uL Monocytes # 0.3 (0-1.0) k/uL Eosinophils # 0.1 (0-0.7) k/uL Basophils # 0.0 (0-0.2) k/uL Hypochromasia Slight PT 10.6 (10.0-12.5) sec INR 1.0 (<1.2) APTT 25.2 (22.0-30.0) sec D-Dimer 4.34 H (<0.60) mg/L FEU Sodium (137-145) mmol/L Potassium (3.5-5.1) mmol/L Chloride (98-107) mmol/L Carbon Dioxide (22-30) mmol/L Anion Gap mmol/L BUN (7-17) mg/dL Creatinine (0.52-1.04) mg/dL Est GFR (CKD-EPI)AfAm (>60 ml/min/1.73 sqM) Est GFR (CKD-EPI)NonAf (>60 ml/min/1.73 sqM) Glucose (74-99) mg/dL Plasma Lactic Acid Bimal (0.7-2.0) mmol/L Calcium (8.4-10.2) mg/dL Total Bilirubin (0.2-1.3) mg/dL AST (14-36) U/L ALT (4-34) U/L Alkaline Phosphatase (38-126) U/L Troponin I (0.000-0.034) ng/mL Total Protein (6.3-8.2) g/dL Albumin (3.5-5.0) g/dL Random Vancomycin ug/mL Influenza Type A (PCR) (Not Detectd) Influenza Type B (PCR) (Not Detectd) RSV (PCR) (Not Detectd) SARS-CoV-2 (PCR) (Not Detectd) 12/16/23 12/16/23 12/16/23 Range/Units 16:45 16:45 16:45 WBC (3.8-10.6) k/uL RBC (3.80-5.40) m/uL Hgb (11.4-16.0) gm/dL Hct (34.0-46.0) % MCV (80.0-100.0) fL MCH (25.0-35.0) pg MCHC (31.0-37.0) g/dL RDW (11.5-15.5) % Plt Count (150-450) k/uL MPV Neutrophils % % Lymphocytes % % Monocytes % % Eosinophils % % Basophils % % Neutrophils # (1.3-7.7) k/uL Lymphocytes # (1.0-4.8) k/uL Monocytes # (0-1.0) k/uL Eosinophils # (0-0.7) k/uL Basophils # (0-0.2) k/uL Hypochromasia PT (10.0-12.5) sec INR (<1.2) APTT (22.0-30.0) sec D-Dimer (<0.60) mg/L FEU Sodium 135 L (137-145) mmol/L Potassium 4.3 (3.5-5.1) mmol/L Chloride 99 (98-107) mmol/L Carbon Dioxide 26 (22-30) mmol/L Anion Gap 10 mmol/L BUN 12 (7-17) mg/dL Creatinine 0.49 L (0.52-1.04) mg/dL Est GFR (CKD-EPI)AfAm >90 (>60 ml/min/1.73 sqM) Est GFR (CKD-EPI)NonAf >90 (>60 ml/min/1.73 sqM) Glucose 113 H (74-99) mg/dL Plasma Lactic Acid Bimal 1.0 (0.7-2.0) mmol/L Calcium 9.2 (8.4-10.2) mg/dL Total Bilirubin 0.3 (0.2-1.3) mg/dL AST 26 (14-36) U/L ALT 23 (4-34) U/L Alkaline Phosphatase 157 H (38-126) U/L Troponin I <0.012 (0.000-0.034) ng/mL Total Protein 8.5 H (6.3-8.2) g/dL Albumin 4.2 (3.5-5.0) g/dL Random Vancomycin ug/mL Influenza Type A (PCR) (Not Detectd) Influenza Type B (PCR) (Not Detectd) RSV (PCR) (Not Detectd) SARS-CoV-2 (PCR) (Not Detectd) 12/16/23 12/16/23 12/16/23 Range/Units 16:45 16:45 19:38 WBC (3.8-10.6) k/uL RBC (3.80-5.40) m/uL Hgb (11.4-16.0) gm/dL Hct (34.0-46.0) % MCV (80.0-100.0) fL MCH (25.0-35.0) pg MCHC (31.0-37.0) g/dL RDW (11.5-15.5) % Plt Count (150-450) k/uL MPV Neutrophils % % Lymphocytes % % Monocytes % % Eosinophils % % Basophils % % Neutrophils # (1.3-7.7) k/uL Lymphocytes # (1.0-4.8) k/uL Monocytes # (0-1.0) k/uL Eosinophils # (0-0.7) k/uL Basophils # (0-0.2) k/uL Hypochromasia PT (10.0-12.5) sec INR (<1.2) APTT (22.0-30.0) sec D-Dimer (<0.60) mg/L FEU Sodium (137-145) mmol/L Potassium (3.5-5.1) mmol/L Chloride (98-107) mmol/L Carbon Dioxide (22-30) mmol/L Anion Gap mmol/L BUN (7-17) mg/dL Creatinine (0.52-1.04) mg/dL Est GFR (CKD-EPI)AfAm (>60 ml/min/1.73 sqM) Est GFR (CKD-EPI)NonAf (>60 ml/min/1.73 sqM) Glucose (74-99) mg/dL Plasma Lactic Acid Bimal (0.7-2.0) mmol/L Calcium (8.4-10.2) mg/dL Total Bilirubin (0.2-1.3) mg/dL AST (14-36) U/L ALT (4-34) U/L Alkaline Phosphatase (38-126) U/L Troponin I 0.021 (0.000-0.034) ng/mL Total Protein (6.3-8.2) g/dL Albumin (3.5-5.0) g/dL Random Vancomycin 18.5 ug/mL Influenza Type A (PCR) Not Detected (Not Detectd) Influenza Type B (PCR) Not Detected (Not Detectd) RSV (PCR) Not Detected (Not Detectd) SARS-CoV-2 (PCR) Not Detected (Not Detectd) Disposition Clinical Impression: Chest pain Disposition: ADMITTED IP TO THIS HOSP Condition: Stable Is patient prescribed a controlled substance at d/c from ED?: No
--- NOTE | 2023-12-16 16:54 | XR ---
EXAMINATION TYPE: XR chest 2V DATE OF EXAM: 12/16/2023 4:50 PM CLINICAL INDICATION:Female, 53 years old with history of Weakness; H COMPARISON: Chest radiographs from 12/20/2022 TECHNIQUE: XR chest 2V Frontal and lateral views of the chest. FINDINGS: Lungs/Pleura: There is no evidence of pleural effusion, focal consolidation, or pneumothorax. Pulmonary vascularity: Unremarkable. Heart/mediastinum: Cardiomediastinal silhouette is unremarkable. Musculoskeletal: No acute osseous pathology. Other findings: None IMPRESSION: No acute cardiopulmonary disease/process.
[2023-12-16 17:13] LABS: Basophils % (A) 1 %; Eosinophils # (A) 0.1 k/uL (0-0.7); Eosinophils % (A) 2 %; HCT 36.5 % (34.0-46.0); HGB 11.7 gm/dL (11.4-16.0); Hypochromasia Slight; Lymphocytes # (A) 1.7 k/uL (1.0-4.8); Lymphocytes % (A) 32 %; MCHC 32.1 g/dL (31.0-37.0); MCV 90.4 fL (80.0-100.0); Mean Platelet Volume 8.5; Monocytes # (A) 0.3 k/uL (0-1.0); Monocytes % (A) 6 %; Neutrophils % (A) 57 %; Platelet Count 400 k/uL (150-450); RBC 4.04 m/uL (3.80-5.40); RDW 15.4 % (11.5-15.5); WBC 5.2 k/uL (3.8-10.6)
[2023-12-16 17:27] LABS: Partial Thromboplastin Time 25.2 sec (22.0-30.0); Prothrombin Time 10.6 sec (10.0-12.5)
[2023-12-16 17:43] LABS: ALT 23 U/L (4-34); AST 26 U/L (14-36); African American GFR (CKD) >90 (>60 ml/min/1.73 sqM); Albumin 4.2 g/dL (3.5-5.0); Alkaline Phosphatase 157 U/L (38-126); Anion Gap 10 mmol/L; Blood Urea Nitrogen 12 mg/dL (7-17); Calcium 9.2 mg/dL (8.4-10.2); Carbon Dioxide 26 mmol/L (22-30); Chloride 99 mmol/L (98-107); Glucose 113 mg/dL (74-99); Non-African American GFR(CKD) >90 (>60 ml/min/1.73 sqM); Potassium 4.3 mmol/L (3.5-5.1); Sodium 135 mmol/L (137-145); Total Bilirubin 0.3 mg/dL (0.2-1.3)
[2023-12-16 17:44] LABS: Total Protein 8.5 g/dL (6.3-8.2)
[2023-12-16] MEDS ORDERED: SODIUM CHLORIDE 0.9% 1,000 ML IV ONE (18:20)
[2023-12-16] MEDS ORDERED: KETOROLAC 15 MG/ML 1 ML VIAL IVP STA (18:20)
[2023-12-16] MEDS ORDERED: MORPHINE SULFATE 4 MG/ML SYRINGE IVP STA (20:27)
--- NOTE | 2023-12-16 20:52 | CT ---
EXAMINATION TYPE: CT chest angio for PE DATE OF EXAM: 12/16/2023 COMPARISON: CT chest dated 02/12/2023 HISTORY: Recent knee surgery, elevated dimer. CT DLP: 256.9 mGycm Automated exposure control for dose reduction was used. CONTRAST: CT Chest for pulmonary embolism performed with with IV Contrast, patient injected with 80 mL of Isovu e 370. FINDINGS: LUNGS: The lungs are grossly clear, there is no concerning parenchymal mass or nodule identified. T here is no pleural effusion or pneumothorax seen. The tracheobronchial tree is patent. MEDIASTINUM: There is satisfactory enhancement of the pulmonary artery and its branches, there is no CT evidence for pulmonary embolism. There are no greater than 1 cm hilar or mediastinal lymph nodes. No pericardial effusion is seen. OTHER: No additional significant abnormality is seen. IMPRESSION: 1. No evidence of pulmonary embolism. 2. No acute cardiopulmonary disease. Follow-up recommendations for incidental pulmonary nodules are per [employer] or [employer].
[2023-12-16] MEDS ORDERED: ACETAMINOPHEN TAB 325 MG TAB PO PRN (21:17)
[2023-12-16] MEDS ORDERED: NALOXONE 0.4 MG/ML 1 ML VIAL IV PRN (21:17)
[2023-12-16] MEDS ORDERED: VANCOMYCIN 1,500 MG in SODIUM CHLORIDE 0.9% 250 ML IVPB SCH (21:30)
[2023-12-16] MEDS: VANCOMYCIN 1,500 MG in SODIUM CHLORIDE 0.9% 500 ML 500 ML IVPB SCH (22:31)
[2023-12-16] MEDS: SODIUM CHLORIDE 0.9% 1,000 ML IV SCH (22:31)
[2023-12-16] MEDS: HYDROcodone/APAP 5-325MG 1 EACH TAB PO PRN (23:09)
[2023-12-17] MEDS: MORPHINE SULFATE 4 MG/ML SYRINGE IV PRN ×6 (01:37→20:36)
[2023-12-17] MEDS: VANCOMYCIN 1,500 MG in SODIUM CHLORIDE 0.9% 500 ML 500 ML IVPB SCH ×4 (01:39→23:10)
[2023-12-17] MEDS: SODIUM CHLORIDE 0.9% 1,000 ML IV SCH ×4 (05:31→23:30)
[2023-12-17] MEDS ORDERED: traMADol 50 MG TAB PO PRN (07:45)
[2023-12-17] MEDS ORDERED: DOCUSATE 100 MG CAP PO PRN (07:45)
[2023-12-17 07:48] LABS: African American GFR (CKD) >90 (>60 ml/min/1.73 sqM); Non-African American GFR(CKD) >90 (>60 ml/min/1.73 sqM)
[2023-12-17] MEDS ORDERED: CAFFEINE CITRATE 60 MG/3 ML VIAL IV PRN (08:19)
[2023-12-17] MEDS ORDERED: REGADENOSON 0.4 MG/5 ML SYRINGE IV PRN (08:19)
[2023-12-17] MEDS ORDERED: AMINOPHYLLINE 500 MG/20 ML VIAL IV PRN (08:19)
[2023-12-17] MEDS ORDERED: NON FORMULARY DRUG (Calcium Carb/Mag Ox/Zinc Sulf [Cal-Mag-Zinc 334-134-5 Mg Tab] 1 EACH T PO SCH (09:00)
[2023-12-17] MEDS ORDERED: VANCOMYCIN 1,000 MG VIAL IVPB SCH (09:00)
[2023-12-17] MEDS: SODIUM BICARBONATE TAB 650 MG TAB PO SCH ×2 (09:43→20:36)
[2023-12-17] MEDS: methocarbamoL 750 MG TAB PO SCH ×3 (09:43→23:09)
[2023-12-17] MEDS: PANTOPRAZOLE 40 MG TABLET PO SCH ×2 (09:43→20:36)
[2023-12-17] MEDS: FERROUS SULFATE 325 MG TAB PO SCH ×2 (09:43→20:36)
[2023-12-17] MEDS: APIXABAN 2.5 MG TABLET PO SCH ×2 (09:43→20:36)
[2023-12-17] MEDS: LACTOBACILLUS ACIDOPHILUS/PECT 1 EACH CAPSULE PO SCH (09:43)
[2023-12-17] MEDS: MULTIVITAMINS, THERA 1 EACH TAB PO SCH (09:43)
--- NOTE | 2023-12-17 10:30 | P.CRDCN ---
History of Present Illness Consult date: 12/17/23 Consult reason: chest pain History of present illness: History of present illness: This is a 53-year-old female with past medical history of recent knee surgery with spacer placement for septic arthritis on IV antibiotics, history of diabetes and hypertension but was taken off medications with weight loss from bariatric surgery, tobacco use and dependence and quit 1 and half years ago. We have been asked to evaluate the patient for chest pain. Patient states that she was feeling weak and dizzy for a couple of days along with tightness and fluttering in her chest that went to her neck. She states she gets dizzy every time she gets up. No loss of consciousness. Patient was a smoker for 37 years and quit 1 and half years ago. No family history of premature coronary artery disease. Her father did have a CVA around age 50. EKG sinus rhythm with no acute ST changes Chest x-ray: No acute process CTA of the chest no pulmonary embolism. Atelectasis possible pneumonia CBC is unremarkable. INR normal. Sodium 135 creatinine 0.49 otherwise electrolytes are normal. Alkaline phosphatase 157 otherwise liver function tests are normal. Troponin negative x 3. Influenza A, influenza B, RSV, COVID- 19 not detected. Home cardiac medications: Eliquis 2.5 mg twice daily. Review Of Systems: At the time of my evaluation: Constitutional: No fever, no chills. No weakness, fatigue or lethargy. EENT: No headache. No dizziness. Lungs: No shortness of breath, cough, no sputum production. No wheezing. Cardiovascular: No chest pain, no lower extremity edema. No palpitations. No paroxysmal nocturnal dyspnea. No orthopnea. No lightheadedness or dizziness. No syncopal episodes. Abdominal: No abdominal pain. No nausea, vomiting. No diarrhea. No constipation. No bloody or tarry stools. Genitourinary: No dysuria.. No urinary retention. Musculoskeletal: No myalgias. No muscle weakness, no frequent falls. No back pain. No neck pain. Integumentary: No wounds. No rash. No unusual bruising. Neurologic: No aphasia. No facial droop. No change in mentation. No head injury. No headache. Physical examination: Gen: This is a [ ] VS: reviewed HEENT: Head is atraumatic, normocephalic. Pupils equal, round. Sclerae is a nicteric. NECK: Supple. No JVD. . LUNGS: Clear to auscultation. No wheezes or rhonchi. No intercostal retractions. HEART: Regular rate and rhythm. No murmur. ABDOMEN: Soft No tenderness. EXTREMITIES: No pedal edema. No calf tenderness. NEUROLOGICAL: Patient is awake, alert and oriented x3. Assessment: Atypical chest pain Weakness and dizziness History of hypertension and diabetes resolved after weight loss Remote history of tobacco use History of DVT Plan: Resume Eliquis Obtain Lexiscan stress test which will be delayed until tomorrow because patient had coffee this morning Obtain 2-D echocardiogram and Doppler study to assess cardiac structure and function Further recommendations to follow based upon clinical course Thank you kindly for this consultation. Nurse practitioner note has been reviewed, I agree with documented findings and plan of care. Patient was seen and examined. Past Medical History Past Medical History: Cancer, Deep Vein Thrombosis (DVT) Additional Past Medical History / Comment(s): malnutrition, anemia, hernia , thyroid nodules, skin cancer removed, colostomy bag, bariatric surgery revision (oct 2022) History of Any Multi-Drug Resistant Organisms: MRSA Date of last positivie culture/infection: 08/27/22 MDRO Source:: Abdomen Past Surgical History: Bariatric Surgery, Hernia Repair Additional Past Surgical History / Comment(s): tim en y, bilateral knee replace ment, PEG tube, tube feeding, 6 abd surgery, colostomy bag, bariatric revision. Colostomy reversal Past Anesthesia/Blood Transfusion Reactions: No Reported Reaction Past Psychological History: ADD/ADHD, Anxiety Smoking Status: Former smoker Past Alcohol Use History: None Reported Past Drug Use History: None Reported, Marijuana - Past Family History Father History Unknown: Yes Family Medical History: Cancer, Diabetes Mellitus, Hypertension Additional Family Medical History / Comment(s): throat cancer Mother History Unknown: Yes Family Medical History: Cancer, Diabetes Mellitus Additional Family Medical History / Comment(s): multiple myeloma Medications and Allergies Home Medications Medication Instructions Recorded Confirmed Type Pantoprazole [Protonix] 40 mg PO BID 12/18/22 12/16/23 History Sodium Bicarbonate Tab 650 mg PO BID 03/21/23 12/16/23 History methocarbamoL 750 mg PO Q8H 08/23/23 12/16/23 History Acetaminophen Tab [Tylenol Tab] 1,000 mg PO TID 12/16/23 12/16/23 History Apixaban [Eliquis] 2.5 mg PO BID 12/16/23 12/16/23 History Calcium Carb/Mag Ox/Zinc Sulf 1 tab PO DAILY 12/16/23 12/16/23 History [Odk-Eoj-Hcqb 334-134-5 mg Tab] Docusate [Colace] 100 mg PO BID PRN 12/16/23 12/16/23 History Ergocalciferol (Vitamin D2) 1,250 mcg PO TH 12/16/23 12/16/23 History [Drisdol (50,000 Iu)] Ferrous Sulfate [Feosol] 325 mg PO BID 12/16/23 12/16/23 History L.acidoph,Paracasei, B.lactis 1 cap PO DAILY 12/16/23 12/16/23 History [Probiotic] Multivitamins, Thera [Multivitamin 1 tab PO DAILY 12/16/23 12/16/23 History (formulary)] Temazepam [Restoril] 15 mg PO HS PRN 12/16/23 12/16/23 History Vancomycin 1,500 mg IVPB BID 12/16/23 12/16/23 History hydrOXYzine pamoate [hydrOXYzine 25 mg PO HS PRN 12/16/23 12/16/23 History PAMOATE] oxyCODONE HCL [OxyIR] 5 mg PO Q6H PRN 12/16/23 12/16/23 History traMADol HCL 50 mg PO Q6H PRN 12/16/23 12/16/23 History Allergies Allergy/AdvReac Type Severity Reaction Status Date / Time No Known Allergies Allergy Verified 12/16/23 19:59 Physical Exam Vitals: Vital Signs Temp Pulse Pulse Resp BP Pulse Ox 12/17/23 06:35 97.4 F L 69 16 103/63 100 12/17/23 05:32 70 17 109/65 100 12/17/23 04:00 65 17 89/53 98 12/17/23 01:43 63 17 98/64 100 12/16/23 23:14 67 17 12/16/23 22:34 68 18 91/59 99 12/16/23 20:43 77 17 106/62 100 12/16/23 19:41 82 19 113/79 100 12/16/23 18:07 80 18 12/16/23 17:54 97.8 F 81 18 114/77 100 12/16/23 14:52 98.3 F 92 16 122/78 99 Results 12/16/23 16:45 12/17/23 06:55 Cardiac Enzymes 12/16/23 12/16/23 12/16/23 Range/Units 16:45 16:45 19:38 AST 26 (14-36) U/L Troponin I <0.012 0.021 (0.000-0.034) ng/mL 12/16/23 Range/Units 23:14 AST (14-36) U/L Troponin I <0.012 (0.000-0.034) ng/mL Coagulation 12/16/23 Range/Units 16:45 PT 10.6 (10.0-12.5) sec APTT 25.2 (22.0-30.0) sec CBC 12/16/23 Range/Units 16:45 WBC 5.2 (3.8-10.6) k/uL RBC 4.04 (3.80-5.40) m/uL Hgb 11.7 (11.4-16.0) gm/dL Hct 36.5 (34.0-46.0) % Plt Count 400 (150-450) k/uL Comprehensive Metabolic Panel 12/16/23 12/17/23 Range/Units 16:45 06:55 Sodium 135 L (137-145) mmol/L Potassium 4.3 (3.5-5.1) mmol/L Chloride 99 (98-107) mmol/L Carbon Dioxide 26 (22-30) mmol/L BUN 12 (7-17) mg/dL Creatinine 0.49 L 0.50 L (0.52-1.04) mg/dL Glucose 113 H (74-99) mg/dL Calcium 9.2 (8.4-10.2) mg/dL AST 26 (14-36) U/L ALT 23 (4-34) U/L Alkaline Phosphatase 157 H (38-126) U/L Total Protein 8.5 H (6.3-8.2) g/dL Albumin 4.2 (3.5-5.0) g/dL Current Medications Generic Name Dose Route Start Last Admin Trade Name Freq PRN Reason Stop Dose Admin Acetaminophen 650 mg 12/16/23 21:17 Acetaminophen Tab 325 Mg Tab PO Q6HR PRN Mild Pain or Fever > 100.5 Hydrocodone Bitart/Acetaminophen 1 each 12/16/23 21:17 12/16/23 23:09 Hydrocodone/Apap 5-325mg 1 Each Tab PO 1 each Q4HR PRN Administration Moderate Pain (Scale 4 to 6) Apixaban 2.5 mg 12/17/23 09:00 Apixaban 2.5 Mg Tablet PO BID [facility] Protocol Docusate Sodium 100 mg 12/17/23 07:45 Docusate 100 Mg Cap PO BID PRN Constipation Ergocalciferol 1,250 mcg 12/19/23 09:00 Ergocalciferol 1,250 Mcg (50,000 Iu) Capsule PO TH [facility] Ferrous Sulfate 325 mg 12/17/23 09:00 Ferrous Sulfate 325 Mg Tab PO BID [facility] Hydroxyzine Pamoate 25 mg 12/17/23 07:45 Hydroxyzine Pamoate 25 Mg Cap PO HS PRN sleep Sodium Chloride 1,000 mls @ 130 mls/hr 12/16/23 21:30 12/17/23 05:31 Saline 0.9% IV Not Given .[id number] [facility] Vancomycin HCl 1,500 mg/ 500 mls @ 167 mls/hr 12/17/23 01:30 12/17/23 01:39 Sodium Chloride IVPB 167 mls/hr BID@0000,1200 [facility] Administration Lactobacillus Acidophilus 1 each 12/17/23 09:00 Lactobacillus Acidophilus/Pect 1 Each Capsule PO DAILY [facility] Methocarbamol 750 mg 12/17/23 08:00 Methocarbamol 750 Mg Tab PO Q8H [facility] Morphine Sulfate 4 mg 12/16/23 21:17 12/17/23 05:50 Morphine Sulfate 4 Mg/Ml Syringe IV 4 mg Q4HR PRN Administration Severe Pain (Scale 7 to 10) Multivitamins 1 each 12/17/23 09:00 Multivitamins, Thera 1 Each Tab PO DAILY [facility] Naloxone HCl 0.2 mg 12/16/23 21:17 Naloxone 0.4 Mg/Ml 1 Ml Vial IV Q2M PRN Opioid Reversal Pantoprazole Sodium 40 mg 12/17/23 09:00 Pantoprazole 40 Mg Tablet PO BID [facility] Sodium Bicarbonate 650 mg 12/17/23 09:00 Sodium Bicarbonate Tab 650 Mg Tab PO BID [facility] Tramadol HCl 50 mg 12/17/23 07:45 Tramadol 50 Mg Tab PO Q6H PRN Pain 12/16/23 16:45 12/17/23 06:55
[2023-12-17 11:43] LABS: Glucose,Whole Blood 129 mg/dL (70-110)
--- NOTE | 2023-12-17 17:43 | CA ---
Transthoracic Echo Report Name: Toña Arenas Age: 53 Gender: F : 1970 Exam Date: 12/17/2023 10:02 Exam Location: [place] [facility] Ht (in): 61 Wt (lb): 150 Ordering Physician: Carla Lopes Attending/Referring Phys: [id number], Moses Conduit Helper Kelly Soria [facility] Procedure CPT: Indications: LVF Cardiac Hx: Technical Quality: Fair Contrast 1: Total Dose (mL): Contrast 2: Total Dose (mL): MEASUREMENTS (Male / Female) Normal Values 2D ECHO LV Diastolic Diameter PLAX 4.9 cm 4.2 - 5.9 / 3.9 - 5.3 cm LV Systolic Diameter PLAX 3.3 cm IVS Diastolic Thickness 1.2 cm 0.6 - 1.0 / 0.6 - 0.9 cm LVPW Diastolic Thickness 1.0 cm 0.6 - 1.0 / 0.6 - 0.9 cm LV Relative Wall Thickness 0.4 LVOT Diameter 2.0 cm Ascending Aorta Diameter 3.5 cm M-MODE Aortic Root Diameter MM 2.7 cm LA Systolic Diameter MM 3.4 cm LA Ao Ratio MM 1.3 AV Cusp Separation MM 2.2 cm DOPPLER AV Peak Velocity 164.6 cm/s AV Peak Gradient 10.8 mmHg AV Mean Velocity 120.9 cm/s AV Mean Gradient 6.6 mmHg AV Velocity Time Integral 36.8 cm LVOT Peak Velocity 127.9 cm/s LVOT Peak Gradient 6.5 mmHg LVOT Velocity Time Integral 30.8 cm LVOT Stroke Volume 98.5 cm??? LVOT Stroke Volume Index 58.9 ml/m??? LVOT Cardiac Index 3295.1 cm???/min???m??? AV Area Cont Eq vti 2.7 cm??? AV Area Cont Eq pk 2.5 cm??? Mitral E Point Velocity 92.8 cm/s Mitral A Point Velocity 84.8 cm/s Mitral E to A Ratio 1.1 MV Deceleration Time 219.1 ms LV E' Lateral Velocity 12.6 cm/s Mitral E to LV E' Lateral Ratio 7.4 LV E' Septal Velocity 8.1 cm/s Mitral E to LV E' Septal Ratio 11.5 TR Peak Velocity 178.4 cm/s TR Peak Gradient 12.7 mmHg Right Atrial Pressure 3.0 mmHg Pulmonary Artery Systolic Pressu 15.7 mmHg Right Ventricular Systolic Press 15.7 mmHg FINDINGS Left Ventricle Mildly increased left ventricular wall thickness. Left ventricular cavity size normal. Low normal left ventricular systolic function with no obvious regional wall motion abnormalities. Left ventricular ejection fraction is estimated at 50-55%. Right Ventricle Right ventricle at upper limits of normal. Right Atrium Mild right atrial dilatation. Left Atrium Severe left atrial dilatation. Mitral Valve Mitral valve thickened. Trace to mild mitral regurgitation. Aortic Valve Trileaflet aortic valve. No aortic valve stenosis or regurgitation. Tricuspid Valve Structurally normal tricuspid valve. Trace tricuspid regurgitation. Pulmonic Valve Pulmonic valve not well visualized. Pericardium No pericardial effusion. Aorta Normal size aortic root and proximal ascending aorta. CONCLUSIONS Normal LV systolic function Previewed by: Dr. Jesus Bean MD (Electronically Signed) Final Date: 17 December 2023 17:42
--- NOTE | 2023-12-17 23:07 | P.HPIM ---
History of Present Illness H&P Date: 12/17/23 Chief Complaint: Chest pain Patient is a 53-year-old female with known history of Pipe en Y procedure, colostomy bag placement and reversal, history of DVT, ADD/ADHD, anxiety and prior history of smoking and recent history of left knee antibiotic spacer placement due to septic arthritis and is on IV antibiotics in the form of vancomycin presents to ER with complaints of chest pain. Patient restrictors she has been having dizziness and low energy for the past 2 days. She felt chest pressure which radiated to the neck. Denies any complaints of headache. Patient neopulmonary dizziness when she gets up especially. Patient is on IV antibiotics at home. Denies any fever or chills. No nausea vomiting or abdominal pain or diarrhea. No cough or sputum production. Chest x-ray showed no acute cardiopulmonary process/disease. CTA chest showed no evidence of PE. No acute cardiopulmonary disease. EKG showed sinus rhythm with possible left atrial enlargement. Laboratory data showed WBC 5.2 hemoglobin 11.7 and platelets 400 Sodium 135 potassium 4.3 chloride 99 bicarb is 26 BUN 12 and creatinine 0.49 and blood sugar is 113. AST 26 ALT 27 alk phos 157 and troponin x 3 negative and total protein 8.5 Influenza A B RSV and COVID-19 PCR not detected. Review of Systems Constitutional: Patient denies any fever or chills . Generalized weakness. Abdomen: Patient denied any nausea or vomiting or abd. pain Cardiovascular: Patient denies any chest pain or short of breath no palpitations. Respiratory: patient denied any cough . no sputum production. No shortness of breath Neurologic: Patient denied any numbness or tingling or headache. Musculoskeletal: Patient denies any complaints of joint swelling or deformity. Skin: Negative Psychiatric: Negative Endocrine: No heat or cold intolerance. No recent weight gain. Genitourinary: No dysuria or hematuria. All other 14 point ROS negative except the above Past Medical History Past Medical History: Cancer, Deep Vein Thrombosis (DVT) Additional Past Medical History / Comment(s): malnutrition, anemia, hernia , thyroid nodules, skin cancer removed, colostomy bag, bariatric surgery revision (oct 2022) History of Any Multi-Drug Resistant Organisms: MRSA Date of last positivie culture/infection: 08/27/22 MDRO Source:: Abdomen Past Surgical History: Bariatric Surgery, Hernia Repair Additional Past Surgical History / Comment(s): pipe en y, bilateral knee replacement, PEG tube, tube feeding, 6 abd surgery, colostomy bag, bariatric revision. Colostomy reversal Past Anesthesia/Blood Transfusion Reactions: No Reported Reaction Past Psychological History: ADD/ADHD, Anxiety Smoking Status: Former smoker Past Alcohol Use History: None Reported Past Drug Use History: None Reported, Marijuana - Past Family History Father History Unknown: Yes Family Medical History: Cancer, Diabetes Mellitus, Hypertension Additional Family Medical History / Comment(s): throat cancer Mother History Unknown: Yes Family Medical History: Cancer, Diabetes Mellitus Additional Family Medical History / Comment(s): multiple myeloma Medications and Allergies Home Medications Medication Instructions Recorded Confirmed Type RX: Pantoprazole [Protonix] 40 mg PO BID 12/18/22 12/16/23 History RX: Sodium Bicarbonate Tab 650 mg PO BID 03/21/23 12/16/23 History RX: methocarbamoL 750 mg PO Q8H 08/23/23 12/16/23 History Acetaminophen Tab [Tylenol Tab] 1,000 mg PO TID 12/16/23 12/16/23 History Apixaban [Eliquis] 2.5 mg PO BID 12/16/23 12/16/23 History Calcium Carb/Mag Ox/Zinc Sulf 1 tab PO DAILY 12/16/23 12/16/23 History [End-Oqa-Ffmp 334-134-5 mg Tab] Docusate [Colace] 100 mg PO BID PRN 12/16/23 12/16/23 History Ergocalciferol (Vitamin D2) 1,250 mcg PO TH 12/16/23 12/16/23 History [Drisdol (50,000 Iu)] Ferrous Sulfate [Feosol] 325 mg PO BID 12/16/23 12/16/23 History L.acidoph,Paracasei, B.lactis 1 cap PO DAILY 12/16/23 12/16/23 History [Probiotic] Multivitamins, Thera [Multivitamin 1 tab PO DAILY 12/16/23 12/16/23 History (formulary)] RX: Vancomycin 1,500 mg IVPB BID 12/16/23 12/16/23 History RX: hydrOXYzine pamoate 25 mg PO HS PRN 12/16/23 12/16/23 History [hydrOXYzine PAMOATE] RX: traMADol HCL 50 mg PO Q6H PRN 12/16/23 12/16/23 History Temazepam [Restoril] 15 mg PO HS PRN 12/16/23 12/16/23 History oxyCODONE HCL [OxyIR] 5 mg PO Q6H PRN 12/16/23 12/16/23 History Allergies Allergy/AdvReac Type Severity Reaction Status Date / Time No Known Allergies Allergy Verified 12/16/23 19:59 Physical Exam Vitals: Vital Signs Temp Pulse Pulse Resp BP BP Pulse Ox 12/17/23 09:30 97.9 F 63 16 152/70 100 12/17/23 06:35 97.4 F L 69 16 103/63 100 12/17/23 05:32 70 17 109/65 100 12/17/23 04:00 65 17 89/53 98 12/17/23 01:43 63 17 98/64 100 12/16/23 23:14 67 17 12/16/23 22:34 68 18 91/59 99 12/16/23 20:43 77 17 106/62 100 12/16/23 19:41 82 19 113/79 100 12/16/23 18:07 80 18 12/16/23 17:54 97.8 F 81 18 114/77 100 12/16/23 14:52 98.3 F 92 16 122/78 99 Intake and Output 12/16/23 12/17/23 12/17/23 22:59 06:59 14:59 Other: Weight 68.039 kg PHYSICAL EXAMINATION: Patient is lying in the bed comfortably, no acute distress, awake alert and oriented.. HEENT: Normocephalic. Neck is supple. Pupils reactive. Nostrils clear. Oral cavity is moist. Neck reveals no JVD, carotid bruits, or thyromegaly. CHEST EXAMINATION: Trachea is central. Symmetrical expansion. Lung romero clear to auscultation and percussion. CARDIAC: Normal S1, S2 with no gallops. No murmurs ABDOMEN: Soft. Bowel sounds present. Nontender. No organomegaly. No abdominal bruits. Extremities: reveal no edema. No clubbing or cyanosis Neurologically awake, alert, oriented x3 with well-coordinated movements. No focal deficits noted Skin: No rash or skin lesions. Psychiatric: Coperative. Nonsuicidal, Musculoskeletal: No joint swelling or deformity. Normal range of motion.Left knee surgical site intact with lorena in place. Results CBC & Chem 7: 12/16/23 16:45 12/17/23 06:55 Labs: Abnormal Lab Results - Last 24 Hours (Table) 12/16/23 12/16/23 12/17/23 Range/Units 16:20 16:45 06:55 D-Dimer 4.34 H (<0.60) mg/L FEU Sodium 135 L (137-145) mmol/L Creatinine 0.49 L 0.50 L (0.52-1.04) mg/dL Glucose 113 H (74-99) mg/dL Alkaline Phosphatase 157 H (38-126) U/L Total Protein 8.5 H (6.3-8.2) g/dL Thrombosis Risk Factor Assmnt - DVT/VTE Prophylaxis DVT/VTE Prophylaxis: Pharmacologic Prophylaxis ordered - Choose All That Apply Each Factor Represents 1 point: Age 41-60 years, Obesity (BMI >25) Thrombosis Risk Factor Assessment Total Risk Factor Score: 2 Thrombosis Risk Factor Assessment Level: Low Risk Assessment and Plan Assessment: Atypical chest pain. Rule out ACS. Dizziness and weakness. Left knee septic arthritis status post antibiotic spacer and is on IV vancomycin at home. History of DVT on anticoagulation with Eliquis Prior history of hypertension and diabetes resolved after weight loss. History of pipe en y procedure, colostomy and reversal. ADD/ADHD Prior history of smoking DVT prophylaxis patient is already on Eliquis Plan: Patient will be continued on Tane monitoring. Serial EKG and troponin x 3 negative. Orthostatic vitals will be ordered. Continue with IV hydration Cardiology was consulted. 2D echocardiogram was ordered. Planning for Lexiscan stress test tomorrow. Continue with vancomycin IV. Continue with pain management and follow-up closely. Continue with home medications. Time with Patient: Greater than 30
[2023-12-17] MEDS: HYDROcodone/APAP 5-325MG 1 EACH TAB PO PRN (23:09)
[2023-12-17] MEDS: hydrOXYzine pamoate 25 MG CAP PO PRN (23:29)
[2023-12-18] MEDS: MORPHINE SULFATE 4 MG/ML SYRINGE IV PRN ×4 (04:50→21:27)
[2023-12-18] MEDS ORDERED: REGADENOSON 0.4 MG/5 ML SYRINGE IV PRN (06:00)
[2023-12-18] MEDS ORDERED: AMINOPHYLLINE 500 MG/20 ML VIAL IV PRN (06:00)
[2023-12-18] MEDS ORDERED: CAFFEINE CITRATE 60 MG/3 ML VIAL IV PRN (06:00)
[2023-12-18 06:59] LABS: African American GFR (CKD) >90 (>60 ml/min/1.73 sqM); Anion Gap 7 mmol/L; Blood Urea Nitrogen 10 mg/dL (7-17); Calcium 8.5 mg/dL (8.4-10.2); Carbon Dioxide 26 mmol/L (22-30); Chloride 108 mmol/L (98-107); Glucose 89 mg/dL (74-99); Non-African American GFR(CKD) >90 (>60 ml/min/1.73 sqM); Potassium 4.4 mmol/L (3.5-5.1); Sodium 141 mmol/L (137-145)
--- NOTE | 2023-12-18 11:53 | CA ---
Lexiscan Nuclear Stress Test Report Name: Toña Arenas Exam Date: 12/18/2023 10:19 Exam Location: [place] Stress Ht (in): 61 Wt (lb): 150 BSA: 1.67 Ordering Phys: Carla Lopes Referring Phys: [facility], Technologist: Luke Bradley Age: 53 Gender: F : 1970 Procedure CPT: Indications: Reflex order-Stress test ICD-10 Codes: Patient History: Medications: see chart Meds past 24 hrs: Pretest Chest Pain: STRESS TEST Lexiscan Protocol Exercise Duration (min:sec): 02:[address] Depressions (mm): Angina Score: Schmidt Score: Resting HR (bpm): 65 Peak HR (bpm): 98 Resting BP (mmHg): 92 / 60 Peak BP (mmHg): 95 / 53 MPHR: 169 Target HR: 144 % MPHR: 58 METS: 1.0 Total Dose: Peak Dose: Atropine: Double Product: 9310 BP Response: Stress Termination: protocol complete Stress Symptoms: No Symptoms Stress Summary: ECG ANALYSIS Resting ECG: Stress ECG: CONCLUSIONS None specific EKG changes in response to Lexiscan Please follow-up on the Cardiolite portion Dr. Jesus Bean MD (Electronically Signed) Final Date: 18 December 2023 11:52
[2023-12-18] MEDS: PANTOPRAZOLE 40 MG TABLET PO SCH ×2 (12:35→21:21)
[2023-12-18] MEDS: APIXABAN 2.5 MG TABLET PO SCH (12:35)
[2023-12-18] MEDS: FERROUS SULFATE 325 MG TAB PO SCH ×2 (12:35→21:22)
[2023-12-18] MEDS: MULTIVITAMINS, THERA 1 EACH TAB PO SCH (12:35)
[2023-12-18] MEDS: LACTOBACILLUS ACIDOPHILUS/PECT 1 EACH CAPSULE PO SCH (12:35)
[2023-12-18] MEDS: methocarbamoL 750 MG TAB PO SCH ×3 (12:36→23:31)
[2023-12-18] MEDS: SODIUM BICARBONATE TAB 650 MG TAB PO SCH ×2 (12:37→21:22)
--- NOTE | 2023-12-18 12:48 | NM ---
EXAMINATION TYPE: NM stress lexiscan cardiolite DATE OF EXAM: 12/18/2023 COMPARISON: NONE CLINICAL INDICATION: Female, 53 years old with history of cp; TECHNIQUE: After the intravenous administration of 10.77 mCi Tc 99m Sestamibi - Cardiolite resting S PECT images acquired 45 minutes post injection. The patient received 0.4mg Lexiscan, 25.9 mCi Tc 99m Sestamibi - Stress images obtained [address] injection FINDINGS: Review of stress and rest SPECT images demonstrates small fixed perfusion defect along the inferior w all which is more pronounced on rest favoring attenuation artifact. No discrete reversibility is seen . There seems to be some left ventricular chamber enlargement. Gated analysis shows normal wall motio n with an estimated left ventricular ejection fraction of 64 %. TID is abnormally increased at 1.41. IMPRESSION: Abnormally increased transient ischemic dilatation ratio at 1.41. Further clinical workup is recommen ded as this can be seen in the setting of global, multivessel inducible ischemia. No focal reversibil ity is identified.
[2023-12-18] MEDS: VANCOMYCIN 1,500 MG in SODIUM CHLORIDE 0.9% 500 ML 500 ML IVPB SCH ×2 (12:52→23:31)
[2023-12-18] MEDS ORDERED: ALPRAZolam 0.5 MG TAB PO PRN (13:05)
[2023-12-18] MEDS ORDERED: ATORVASTATIN 80 MG TAB PO STA (13:05)
[2023-12-18] MEDS ORDERED: ALPRAZolam 0.25 MG TAB PO PRN (13:05)
[2023-12-18] MEDS ORDERED: ASPIRIN 325 MG TAB PO STA (13:05)
[2023-12-18] MEDS ORDERED: NITROGLYCERIN SL TABS 0.4 MG TAB SUBLINGUAL PRN (13:05)
--- NOTE | 2023-12-18 13:09 | P.PN ---
Subjective Progress Note Date: 12/18/23 Consult reason: chest pain History of present illness: History of present illness: This is a 53-year-old female with past medical history of recent knee surgery with spacer placement for septic arthritis on IV antibiotics, history of diabetes and hypertension but was taken off medications with weight loss from bariatric surgery, tobacco use and dependence and quit 1 and half years ago. We have been asked to evaluate the patient for chest pain. Patient states that she was feeling weak and dizzy for a couple of days along with tightness and flutter ing in her chest that went to her neck. She states she gets dizzy every time she gets up. No loss of consciousness. Patient was a smoker for 37 years and quit 1 and half years ago. No family history of premature coronary artery disease. Her father did have a CVA around age 50. EKG sinus rhythm with no acute ST changes Chest x-ray: No acute process CTA of the chest no pulmonary embolism. Atelectasis possible pneumonia CBC is unremarkable. INR normal. Sodium 135 creatinine 0.49 otherwise electrolytes are normal. Alkaline phosphatase 157 otherwise liver function tests are normal. Troponin negative x 3. Influenza A, influenza B, RSV, COVID- 19 not detected. Home cardiac medications: Eliquis 2.5 mg twice daily. 12/18 Patient is seen today on the observation unit in follow-up. She denies having any chest pain. She is scheduled for Lexiscan stress test today. She has not had anything to eat or drink this morning. Blood pressure 120/68, heart rate in the 60s to 90s, pulse ox 95% on room air. Repeat blood work reveals BUN 10, creatinine 0.51, potassium 4.4. Echocardiogram reveals EF 50 to 55%. Lexiscan stress test reveals abnormally increased transit ischemic dilation rati o at 1.41. Further clinical workup was recommended. No focal reversibility. Physical examination: Gen: This is a 53-year-old female. VS: reviewed HEENT: Head is atraumatic, normocephalic. Pupils equal, round. Sclerae is anicteric. LUNGS: Clear to auscultation. No wheezes or rhonchi. No intercostal retractions. HEART: Regular rate and rhythm. No murmur. EXTREMITIES: No pedal edema. No calf tenderness. NEUROLOGICAL: Patient is awake, alert and oriented x3. Assessment: Atypical chest pain rule out coronary artery disease Weakness and dizziness History of hypertension and diabetes resolved after weight loss Remote history of tobacco use History of DVT Plan: Lina Lyons Patient will be scheduled for cardiac catheterization tomorrow with Dr. Bean Further recommendations to follow based upon clinical course Nurse practitioner note has been reviewed, I agree with documented findings and plan of care. Patient was seen and examined. Objective - Vital Signs Vital signs: Vital Signs Temp 97.4 F L 12/18/23 07:00 Pulse 91 12/18/23 07:00 Resp 19 12/18/23 07:00 BP 120/68 12/18/23 07:00 Pulse Ox 95 12/18/23 07:00 FiO2 Intake & Output 12/17/23 12/18/23 12/18/23 18:59 06:59 18:59 Weight 68.039 kg Other: # Voids 3 1 - Labs CBC & Chem 7: 12/16/23 16:45 12/18/23 05:43 Labs: Abnormal Lab Results - Last 24 Hours (Table) 12/17/23 12/18/23 Range/Units 11:41 05:43 Chloride 108 H (98-107) mmol/L Creatinine 0.51 L (0.52-1.04) mg/dL POC Glucose (mg/dL) 129 H (70-110) mg/dL
[2023-12-18] MEDS: SODIUM CHLORIDE 0.9% 1,000 ML IV SCH (13:57)
[2023-12-18] MEDS: HYDROcodone/APAP 5-325MG 1 EACH TAB PO PRN (23:31)
[2023-12-19] MEDS: hydrOXYzine pamoate 25 MG CAP PO PRN ×2 (00:09→23:09)
[2023-12-19] MEDS: MORPHINE SULFATE 4 MG/ML SYRINGE IV PRN ×5 (01:32→23:16)
[2023-12-19] MEDS: SODIUM CHLORIDE 0.9% 1,000 ML IV SCH ×2 (03:58→17:48)
[2023-12-19] MEDS ORDERED: ASPIRIN 325 MG TAB PO ONE (06:00)
[2023-12-19] MEDS ORDERED: ATORVASTATIN 80 MG TAB PO ONE (06:00)
--- NOTE | 2023-12-19 06:36 | P.PN ---
Subjective Progress Note Date: 12/18/23 Patient is a 53-year-old female with known history of Tim en Y procedure, colostomy bag placement and reversal, history of DVT, ADD/ADHD, anxiety and prior history of smoking and recent history of left knee antibiotic spacer placement due to septic arthritis and is on IV antibiotics in the form of vanc omycin presents to ER with complaints of chest pain. Patient restrictors she has been having dizziness and low energy for the past 2 days. She felt chest pressure which radiated to the neck. Denies any complaints of headache. Patient neopulmonary dizziness when she gets up especially. Patient is on IV antibiotics at home. Denies any fever or chills. No nausea vomiting or abdominal pain or diarrhea. No cough or sputum production. Chest x-ray showed no acute cardiopulmonary process/disease. CTA chest showed no evidence of PE. No acute cardiopulmonary disease. EKG showed sinus rhythm with possible left atrial enlargement. Laboratory data showed WBC 5.2 hemoglobin 11.7 and platelets 400 Sodium 135 potassium 4.3 chloride 99 bicarb is 26 BUN 12 and creatinine 0.49 and blood sugar is 113. AST 26 ALT 27 alk phos 157 and troponin x 3 negative and total protein 8.5 Influenza A B RSV and COVID-19 PCR not detected. 12/18/2023 Patient is seen in follow-up today with cardiology following planning on stress test which is currently pending. Patient is afebrile with no reported shortness of breath. Patient does have intermittent periods of chest pain although feels that it is anxiety related with life stressors. Will await stress test report and clearance from cardiology. Review of systems: Constitutional: No reports of fatigue, fever, or chills, reports feeling anxious Cardiovascular: reports of occasional chest pain Respiratory: No reports of shortness of breath or cough GI: No reports of nausea, vomiting, or diarrhea : No reports of dysuria or retention Neurovascular: No reports of weakness or numbness All medications have been reviewed PHYSICAL EXAMINATION: Patient is lying in the bed comfortably, no acute distress, awake alert and oriented.. HEENT: Normocephalic. Neck is supple. Pupils reactive. Nostrils clear. Oral cavity is moist. Neck reveals no JVD, carotid bruits, or thyromegaly. CHEST EXAMINATION: Trachea is central. Symmetrical expansion. Lung romero clear to auscultation and percussion. CARDIAC: Normal S1, S2 with no gallops. No murmurs ABDOMEN: Soft. Bowel sounds present. Nontender. No organomegaly. No abdominal bruits. Extremities: reveal no edema. No clubbing or cyanosis Neurologically awake, alert, oriented x3 with well-coordinated movements. No focal deficits noted Skin: No rash or skin lesions. Psychiatric: Cooperative. Non-suicidal, Musculoskeletal: No joint swelling or deformity. Normal range of motion.Left knee surgical site intact with lorena in place. Assessment: Atypical chest pain. Ruled out ACS. Dizziness and weakness. Left knee septic arthritis status post antibiotic spacer and is on IV vancomycin at home. History of DVT on anticoagulation with Eliquis Prior history of hypertension and diabetes resolved after weight loss. History of tim en y procedure, colostomy and reversal. ADD/ADHD Prior history of smoking DVT prophylaxis patient is already on Eliquis Plan: Patient will be continued on telemetry monitoring. Serial EKG and troponin x 3 negative. Patient underwent stress test today with concerns of increased transient ischemic dilation and cardiology following recommending cardiac cathet erization. Patient will be n.p.o. at midnight and undergo catheterization on 12/19/2023. Continue with IV hydration Continue with vancomycin IV for left knee septic arthritis. Continue with pain management and follow-up closely. Home medications reviewed and resumed Await catheterization report with possible discharge planning in 24 hours The impression and plan of care has been dictated by Sariah Felipe, Nurse Practitioner as directed. Dr. Jasmin MD I have performed a history and examination and MDM of this patient, discussed the same with the dictator, and agree with the dictator's assessment and plan as written ,documented as a scribe. Based on total visit time, I have performed more than 50% of the visit. Objective - Vital Signs Vital signs: Vital Signs Temp 97.4 F L 12/18/23 07:00 Pulse 91 12/18/23 07:00 Resp 19 12/18/23 07:00 BP 120/68 12/18/23 07:00 Pulse Ox 95 12/18/23 07:00 FiO2 Intake & Output 12/17/23 12/18/23 12/18/23 18:59 06:59 18:59 Weight 68.039 kg Other: # Voids 3 1 - Labs CBC & Chem 7: 12/16/23 16:45 12/18/23 05:43 Labs: Abnormal Lab Results - Last 24 Hours (Table) 12/18/23 Range/Units 05:43 Chloride 108 H (98-107) mmol/L Creatinine 0.51 L (0.52-1.04) mg/dL
[2023-12-19] MEDS ORDERED: HEPARIN SODIUM,PORCINE (1 ML) 2,500 UNIT in SODIUM CHLORIDE 0.9% 250 ML IRRIGATION PRN (07:00)
[2023-12-19] MEDS ORDERED: HEPARIN SODIUM,PORCINE 10,000 UNIT in SODIUM CHLORIDE 0.9% 1,000 ML IRRIGATION PRN (07:00)
[2023-12-19] MEDS ORDERED: ERGOCALCIFEROL 1,250 MCG (50,000 IU) CAPSULE PO SCH (09:00)
[2023-12-19] MEDS: methocarbamoL 750 MG TAB PO SCH ×3 (10:04→23:09)
[2023-12-19] MEDS: FERROUS SULFATE 325 MG TAB PO SCH ×2 (10:04→20:05)
[2023-12-19] MEDS: MULTIVITAMINS, THERA 1 EACH TAB PO SCH (10:04)
[2023-12-19] MEDS: LACTOBACILLUS ACIDOPHILUS/PECT 1 EACH CAPSULE PO SCH (10:04)
[2023-12-19] MEDS: SODIUM BICARBONATE TAB 650 MG TAB PO SCH ×2 (10:04→20:05)
[2023-12-19] MEDS: PANTOPRAZOLE 40 MG TABLET PO SCH ×2 (10:04→20:05)
[2023-12-19] MEDS: HYDROcodone/APAP 5-325MG 1 EACH TAB PO PRN ×3 (10:08→20:12)
[2023-12-19 10:42] LABS: African American GFR (CKD) >90 (>60 ml/min/1.73 sqM); Non-African American GFR(CKD) >90 (>60 ml/min/1.73 sqM)
[2023-12-19] MEDS ORDERED: VANCOMYCIN TROUGH DUE 1 EACH MISC MISCELLANE ONE (11:00)
[2023-12-19] MEDS: VANCOMYCIN 1,500 MG in SODIUM CHLORIDE 0.9% 500 ML 500 ML IVPB SCH ×2 (12:52→23:18)
--- NOTE | 2023-12-19 14:59 | P.PN ---
Subjective Progress Note Date: 12/19/23 Consult reason: chest pain History of present illness: History of present illness: This is a 53-year-old female with past medical history of recent knee surgery with spacer placement for septic arthritis on IV antibiotics, history of diabetes and hypertension but was taken off medications with weight loss from bariatric surgery, tobacco use and dependence and quit 1 and half years ago. We have been asked to evaluate the patient for chest pain. Patient states that she was feeling weak and dizzy for a couple of days along with tightness and flutter ing in her chest that went to her neck. She states she gets dizzy every time she gets up. No loss of consciousness. Patient was a smoker for 37 years and quit 1 and half years ago. No family history of premature coronary artery disease. Her father did have a CVA around age 50. EKG sinus rhythm with no acute ST changes Chest x-ray: No acute process CTA of the chest no pulmonary embolism. Atelectasis possible pneumonia CBC is unremarkable. INR normal. Sodium 135 creatinine 0.49 otherwise electrolytes are normal. Alkaline phosphatase 157 otherwise liver function tests are normal. Troponin negative x 3. Influenza A, influenza B, RSV, COVID- 19 not detected. Home cardiac medications: Eliquis 2.5 mg twice daily. 12/18 Patient is seen today on the observation unit in follow-up. She denies having any chest pain. She is scheduled for Lexiscan stress test today. She has not had anything to eat or drink this morning. Blood pressure 120/68, heart rate in the 60s to 90s, pulse ox 95% on room air. Repeat blood work reveals BUN 10, creatinine 0.51, potassium 4.4. Echocardiogram reveals EF 50 to 55%. Lexiscan stress test reveals abnormally increased transit ischemic dilation rati o at 1.41. Further clinical workup was recommended. No focal reversibility. 12/19 Patient is seen today on the observation unit. She has been scheduled for cardiac catheterization which is being delayed until tomorrow. No complaints of chest pain no lightheadedness or dizziness. Creatinine is 0.49. Blood sugar 125/72, heart rate 72. Orthostatic vital signs were negative. Physical examination: Gen: This is a 53-year-old female. VS: reviewed HEENT: Head is atraumatic, normocephalic. Pupils equal, round. Sclerae is anicteric. LUNGS: Clear to auscultation. No wheezes or rhonchi. No intercostal retractions. HEART: Regular rate and rhythm. No murmur. EXTREMITIES: No pedal edema. No calf tenderness. NEUROLOGICAL: Patient is awake, alert and oriented x3. Assessment: Atypical chest pain rule out coronary artery disease Weakness and dizziness History of hypertension and diabetes resolved after weight loss Remote history of tobacco use History of DVT Plan: Lina Lyons Patient will be scheduled for cardiac catheterization tomorrow with Dr. Bean Further recommendations to follow based upon clinical course Nurse practitioner note has been reviewed, I agree with documented findings and plan of care. Patient was seen and examined. Objective - Vital Signs Vital signs: Vital Signs Temp 97.9 F 12/19/23 08:32 Pulse 66 12/19/23 08:32 Resp 16 12/19/23 08:32 BP 126/70 12/19/23 08:32 Pulse Ox 99 12/19/23 08:32 FiO2 Intake & Output 12/18/23 12/19/23 12/19/23 18:59 06:59 18:59 Intake Total 118 Balance 118 Intake: Oral 118 Other: # Voids 5 4 - Labs CBC & Chem 7: 12/16/23 16:45 12/19/23 10:03
--- NOTE | 2023-12-19 15:34 | P.PN ---
Subjective Progress Note Date: 12/19/23 Patient is a 53-year-old female with known history of Pipe en Y procedure, colostomy bag placement and reversal, history of DVT, ADD/ADHD, anxiety and prior history of smoking and recent history of left knee antibiotic spacer placement due to septic arthritis and is on IV antibiotics in the form of vanc omycin presents to ER with complaints of chest pain. Patient restrictors she has been having dizziness and low energy for the past 2 days. She felt chest pressure which radiated to the neck. Denies any complaints of headache. Patient neopulmonary dizziness when she gets up especially. Patient is on IV antibiotics at home. Denies any fever or chills. No nausea vomiting or abdominal pain or diarrhea. No cough or sputum production. Chest x-ray showed no acute cardiopulmonary process/disease. CTA chest showed no evidence of PE. No acute cardiopulmonary disease. EKG showed sinus rhythm with possible left atrial enlargement. Laboratory data showed WBC 5.2 hemoglobin 11.7 and platelets 400 Sodium 135 potassium 4.3 chloride 99 bicarb is 26 BUN 12 and creatinine 0.49 and blood sugar is 113. AST 26 ALT 27 alk phos 157 and troponin x 3 negative and total protein 8.5 Influenza A B RSV and COVID-19 PCR not detected. 12/18/2023 Patient is seen in follow-up today with cardiology following planning on stress test which is currently pending. Patient is afebrile with no reported shortness of breath. Patient does have intermittent periods of chest pain although feels that it is anxiety related with life stressors. Will await stress test report and clearance from cardiology. 12/19/2023 Patient is seen and evaluated in follow-up today and continues to report some chest heaviness and reports difficulty explaining it as she reports she is not having actual pain but just reports that this heaviness and uneasy feeling. Patient is afebrile with no reports of shortness of breath or palpitations noted. Patient was currently n.p.o. for cardiac catheterization although is being rescheduled for 12/20/2023 due to staffing issues and Inbound Sales Advisor availability. Patient will be resumed on diet and will be n.p.o. at midnight and will await cardiology report. Patient is continued on IV antibiotics as she has been since November 29 from [place] for a left knee infection. Patient does continue with PICC line and will continue in the outpatient setting. Review of systems: Constitutional: No reports of fatigue, fever, or chills, reports feeling anxious Cardiovascular: reports of occasional chest pain Respiratory: No reports of shortness of breath or cough GI: No reports of nausea, vomiting, or diarrhea : No reports of dysuria or retention Neurovascular: No reports of weakness or numbness All medications have been reviewed PHYSICAL EXAMINATION: Patient is lying in the bed comfortably, no acute distress, awake alert and oriented.. Mildly anxious HEENT: Normocephalic. Neck is supple. Pupils reactive. Nostrils clear. Oral cavity is moist. Neck reveals no JVD, carotid bruits, or thyromegaly. CHEST EXAMINATION: Trachea is central. Symmetrical expansion. Lung romero clear to auscultation and percussion. CARDIAC: Normal S1, S2 with no gallops. No murmurs ABDOMEN: Soft. Bowel sounds present. Nontender. No organomegaly. No abdominal bruits. Extremities: reveal no edema. No clubbing or cyanosis Neurologically awake, alert, oriented x3 with well-coordinated movements. No focal deficits noted Skin: No rash or skin lesions. Psychiatric: Cooperative. Non-suicidal, Musculoskeletal: No joint swelling or deformity. Normal range of motion. Left knee surgical site intact Assessment: Atypical chest pain. Ruled out ACS. Status post stress test with concerns of p ossible ischemia noted and cardiology scheduling cardiac catheterization for 12/20/2023 Dizziness and weakness. Improving Left knee septic arthritis status post antibiotic spacer and is on IV vancomycin at home. Patient does have a PICC line History of DVT on anticoagulation with Eliquis Prior history of hypertension and diabetes resolved after weight loss. History of pipe en y procedure, colostomy and reversal. ADD/ADHD Prior history of smoking DVT prophylaxis patient is already on Eliquis GI prophylaxis Full code Plan: Patient will be continued on telemetry monitoring. Serial EKG and troponin x 3 negative. Patient underwent stress test with concerns of increased transient ischemic dilation and cardiology following recommending cardiac catheterization. Patient will be n.p.o. at midnight and undergo catheterization on 12/20/2023 as today's catheterization was postponed due to staffing and labor specialist availability. Continue with IV hydration Continue with vancomycin IV for left knee septic arthritis. Continue with pain management and follow-up closely. Home medications reviewed and resumed Await catheterization report with possible discharge planning in 24 hours once cleared by cardiology The impression and plan of care has been dictated by Sariah Felipe, Nurse Practitioner as directed. Dr. Jasmin MD I have performed a history and examination and MDM of this patient, discussed the same with the dictator, and agree with the dictator's assessment and plan as written ,documented as a scribe. Based on total visit time, I have performed more than 50% of the visit. Objective - Vital Signs Vital signs: Vital Signs Temp 97.8 F 12/19/23 14:00 Pulse 72 12/19/23 14:00 Resp 14 12/19/23 14:00 BP 125/72 12/19/23 14:00 Pulse Ox 98 12/19/23 14:00 FiO2 Intake & Output 12/18/23 12/19/23 12/19/23 18:59 06:59 18:59 Intake Total 118 591 Balance 118 591 Intake: Oral 118 591 Other: # Voids 5 4 2 # Bowel Movements 1 - Labs CBC & Chem 7: 12/16/23 16:45 12/19/23 10:03 Labs: Abnormal Lab Results - Last 24 Hours (Table) 12/19/23 Range/Units 10:03 Creatinine 0.49 L (0.52-1.04) mg/dL
[2023-12-20] MEDS: SODIUM CHLORIDE 0.9% 1,000 ML IV SCH (04:20)
[2023-12-20] MEDS: MORPHINE SULFATE 4 MG/ML SYRINGE IV PRN ×2 (06:08→10:16)
[2023-12-20 07:22] LABS: African American GFR (CKD) >90 (>60 ml/min/1.73 sqM); Non-African American GFR(CKD) >90 (>60 ml/min/1.73 sqM)
[2023-12-20] MEDS ORDERED: ASPIRIN 325 MG TAB PO STA (08:13)
[2023-12-20] MEDS ORDERED: ATORVASTATIN 80 MG TAB PO STA (08:14)
[2023-12-20 09:07] VITALS: RESP 18; TEMP 98
--- NOTE | 2023-12-20 11:18 | P.PN ---
Subjective Progress Note Date: 12/20/23 Consult reason: chest pain History of present illness: History of present illness: This is a 53-year-old female with past medical history of recent knee surgery with spacer placement for septic arthritis on IV antibiotics, history of diabetes and hypertension but was taken off medications with weight loss from bariatric surgery, tobacco use and dependence and quit 1 and half years ago. We have been asked to evaluate the patient for chest pain. Patient states that she was feeling weak and dizzy for a couple of days along with tightness and flutter ing in her chest that went to her neck. She states she gets dizzy every time she gets up. No loss of consciousness. Patient was a smoker for 37 years and quit 1 and half years ago. No family history of premature coronary artery disease. Her father did have a CVA around age 50. EKG sinus rhythm with no acute ST changes Chest x-ray: No acute process CTA of the chest no pulmonary embolism. Atelectasis possible pneumonia CBC is unremarkable. INR normal. Sodium 135 creatinine 0.49 otherwise electrolytes are normal. Alkaline phosphatase 157 otherwise liver function tests are normal. Troponin negative x 3. Influenza A, influenza B, RSV, COVID- 19 not detected. Home cardiac medications: Eliquis 2.5 mg twice daily. 12/18 Patient is seen today on the observation unit in follow-up. She denies having any chest pain. She is scheduled for Lexiscan stress test today. She has not had anything to eat or drink this morning. Blood pressure 120/68, heart rate in the 60s to 90s, pulse ox 95% on room air. Repeat blood work reveals BUN 10, creatinine 0.51, potassium 4.4. Echocardiogram reveals EF 50 to 55%. Lexiscan stress test reveals abnormally increased transit ischemic dilation rati o at 1.41. Further clinical workup was recommended. No focal reversibility. 12/19 Patient is seen today on the observation unit. She has been scheduled for cardiac catheterization which is being delayed until tomorrow. No complaints of chest pain no lightheadedness or dizziness. Creatinine is 0.49. Blood pressure 125/72, heart rate 72. Orthostatic vital signs were negative. 12/20 Patient is scheduled for cardiac catheterization today with Dr. Bean. She denies having any chest pain, no shortness of breath. No lightheadedness or dizziness. Blood pressure 114/60, heart rate is in the 60s and 70s, pulse ox 99% on room air. Repeat creatinine 0.49. Physical examination: Gen: This is a 53-year-old female. VS: reviewed HEENT: Head is atraumatic, normocephalic. Pupils equal, round. Sclerae is anicteric. LUNGS: Clear to auscultation. No wheezes or rhonchi. No intercostal re tractions. HEART: Regular rate and rhythm. No murmur. EXTREMITIES: No pedal edema. No calf tenderness. NEUROLOGICAL: Patient is awake, alert and oriented x3. Assessment: Atypical chest pain rule out coronary artery disease Weakness and dizziness History of hypertension and diabetes resolved after weight loss Remote history of tobacco use History of DVT Septic arthritis on IV antibiotics status post antibiotic spacer Plan: Lina yLons Patient is scheduled for cardiac catheterization today with Dr. Bean Further recommendations to follow based upon clinical course Nurse practitioner note has been reviewed, I agree with documented findings and plan of care. Patient was seen and examined. Objective - Vital Signs Vital signs: Vital Signs Temp 98.2 F 12/20/23 00:43 Pulse 68 12/20/23 00:43 Resp 15 12/20/23 00:43 BP 114/60 12/20/23 00:43 Pulse Ox 97 12/20/23 00:43 FiO2 Intake & Output 12/19/23 12/20/23 12/20/23 18:59 06:59 18:59 Intake Total 591 Balance 591 Intake: Oral 591 Other: # Voids 2 2 # Bowel Movements 1 - Labs CBC & Chem 7: 12/16/23 16:45 12/20/23 06:28 Labs: Abnormal Lab Results - Last 24 Hours (Table) 12/19/23 12/20/23 Range/Units 10:03 06:28 Creatinine 0.49 L 0.49 L (0.52-1.04) mg/dL
[2023-12-20] MEDS ORDERED: IV FLUID CONTINUATION 1,000 ML IV ONE (11:44)
[2023-12-20] MEDS: MIDAZOLAM 2 MG/2 ML VIAL IVP ONE ×2 (12:06→12:12)
[2023-12-20] MEDS ORDERED: LIDOCAINE 2% (PF) 20 MG/ML 5 ML VIAL SQ ONE (12:08)
[2023-12-20] MEDS ORDERED: VERAPAMIL SYRINGE (5 MG/10 ML) INTRAARTER ONE (12:09)
[2023-12-20] MEDS ORDERED: HEPARIN SODIUM 1,000 UN/ML (10ML VL) IV ONE (12:11)
[2023-12-20] MEDS ORDERED: IOPAMIDOL-370 100ML BTL INJ ONE (12:17)
[2023-12-20] MEDS ORDERED: RX INFO: IV CONTRAST WAS GIVEN 1 EACH MISC MISCELLANE PRN (12:19)
--- NOTE | 2023-12-20 12:25 | P.PCN ---
Date of Procedure: 12/20/23 Operative Findings: CARDIAC CATHETERIZATION PERFORMING PHYSICIAN: Jesus Bean MD, RPVI PROCEDURE PERFORMED: 1. Selective right and left coronary angiogram 2. Left heart catheterization 3. Ultrasound-guided access of the right radial artery INDICATION: Chest discomfort and abnormal stress test COMPLICATION: None APPROACH: Right radial artery LEVEL OF SEDATION: Moderate with a sedation length of 12 minutes PROCEDURE DESCRIPTION: After obtaining an informed consent, the patient was brought to cardiac mechanical laboratory technician. Local anesthesia was performed using lidocaine subcutaneously. The right radial artery was cannulated using Seldinger technique, the guidewire passed easily, following that we advanced a 5-Polish sheath dilator assembly, the wire and dilator were removed and sheath was flushed. Following that, 2 mg of verapamil along with 3000 unit heparin were given. Selective right and left coronary angiogram using a 6-Polish JR4 and JL 3.5 catheters. Following that we did left heart catheterization using the JR4 catheter. The procedure was completed there was no complication. SELECTIVE CORONARY ANGIOGRAM: The right coronary artery: Large caliber vessel and a dominant vessel and appears to be angiographically normal. Distally bifurcates into PDA and PLV branches both appeared to be angiographically normal Left main: Is angiographically normal. Bifurcates into an LCx and LAD The left circumflex: Large caliber vessel nondominant vessel with the LCx is normal. It gives rise into a large OM branch which trifurcates into 3 subbranches APPEAR to be normal The left anterior descending artery: Large caliber vessel. Its angiographically normal. Gives rise into a large diagonal branch which seems to be normal HEMODYNAMICS: The LVEDP was 7 mmHg was no significant gradient across aortic valve CONCLUSION: 1. Normal coronary angiogram 2. Normal left-sided filling pressure POSTPROCEDURE MANAGEMENT: Medical treatment
[2023-12-20] MEDS ORDERED: SODIUM CHLORIDE 0.9% 1,000 ML IV SCH (12:30)
[2023-12-20] MEDS: FERROUS SULFATE 325 MG TAB PO SCH (12:43)
[2023-12-20] MEDS: PANTOPRAZOLE 40 MG TABLET PO SCH (12:43)
[2023-12-20] MEDS: SODIUM BICARBONATE TAB 650 MG TAB PO SCH (12:43)
[2023-12-20] MEDS: HYDROcodone/APAP 5-325MG 1 EACH TAB PO PRN (12:43)
[2023-12-20] MEDS: VANCOMYCIN 1,500 MG in SODIUM CHLORIDE 0.9% 500 ML 500 ML IVPB SCH (12:44)
[2023-12-20] MEDS: LACTOBACILLUS ACIDOPHILUS/PECT 1 EACH CAPSULE PO SCH (12:44)
[2023-12-20] MEDS: MULTIVITAMINS, THERA 1 EACH TAB PO SCH (12:44)
[2023-12-20] MEDS: methocarbamoL 750 MG TAB PO SCH (12:44)
[2023-12-20 17:18] VITALS: BP 109/71; PULSE 79
== END 2023-12-20 16:57 | disposition home health service (06) | DRG 287 ==
LOC: EC 14:28 → 6NMEDSUR 21:19 → OBSVTOIN 12-18 08:01
PROVIDERS: ADMIT Internal Medicine; ATTEND Internal Medicine
PROC: 4A023N7 Measurement of Cardiac Sampling and Pressure, Left Heart, Percutaneous Approach (ICD-10-PCS; principal; 2023-12-20 09:00)
PROC: B2111ZZ Fluoroscopy of Multiple Coronary Arteries using Low Osmolar Contrast (ICD-10-PCS; principal; 2023-12-20 09:00)
DX: R07.9 Chest pain, unspecified (principal); J98.11 Atelectasis; M00.9 Pyogenic arthritis, unspecified; F41.9 Anxiety disorder, unspecified; F90.9 Attention-deficit hyperactivity disorder, unspecified type; Z86.718 Personal history of other venous thrombosis and embolism; E04.1 Nontoxic single thyroid nodule; I10 Essential (primary) hypertension; M17.12 Unilateral primary osteoarthritis, left knee; Z11.52 Encounter for screening for COVID-19; Z79.01 Long term (current) use of anticoagulants; Z79.899 Other long term (current) drug therapy; Z85.828 Personal history of other malignant neoplasm of skin; Z96.653 Presence of artificial knee joint, bilateral; Z98.84 Bariatric surgery status; Z87.19 Personal history of other diseases of the digestive system; Z86.14 Personal history of Methicillin resistant Staphylococcus aureus infection; Z82.49 Family history of ischemic heart disease and other diseases of the circulatory system; Z80.7 Family history of other malignant neoplasms of lymphoid, hematopoietic and related tissues
CPT/HCPCS: 36415; 71046; 71275; 76937; 78452; 80048; 80053; 80202; 82565; 83605; 84484; 85025; 85379; 85610; 85730; 87636; 93005; 93017; 93306; 93458; 96361; 96365; 96366; 96375; 96376; 99285

== ENCOUNTER 2023-12-26 16:54 | Emergency (ER) | payer MEDICARE, OTHER ==
--- NOTE | 2023-12-26 18:28 | ED ---
Psych HPI - General Chief Complaint: Psychiatric Symptoms Stated Complaint: mental health, suicidal Time Seen by Provider: 12/26/23 18:06 Source: patient, RN notes reviewed, old records reviewed Mode of arrival: ambulatory - History of Present Illness Initial Comments: This is a 53-year-old female to the ER for evaluation of suicidal thoughts severe current psychiatric depression, complicated recent medical history. Patient's physical health is causing her mental health fatigue and she is actively suicidal MD Complaint: suicidal ideation, feels depressed -: days(s) Associated Psychiatric Symptoms: depression, suicidal ideation History of same: Yes Quality: constant Improves With: none Worsens With: none Associated Symptoms: denies other symptoms Treatments Prior to Arrival: none - Related Data Home Medications Medication Instructions Recorded Confirmed Pantoprazole [Protonix] 40 mg PO BID 12/18/22 12/26/23 Sodium Bicarbonate Tab 650 mg PO BID 03/21/23 12/26/23 methocarbamoL 750 mg PO Q8H 08/23/23 12/26/23 Acetaminophen Tab [Tylenol] 1,000 mg PO TID 12/16/23 12/26/23 Apixaban [Eliquis] 2.5 mg PO BID 12/16/23 12/26/23 Calcium Carb/Mag Ox/Zinc Sulf 1 tab PO DAILY 12/16/23 12/26/23 [Mod-Vpz-Oxsa 334-134-5 mg Tab] Docusate [Colace] 100 mg PO BID PRN 12/16/23 12/26/23 Ergocalciferol (Vitamin D2) 1,250 mcg PO TH 12/16/23 12/26/23 [Drisdol (50,000 Iu)] Ferrous Sulfate [Iron (65 MG 325 mg PO BID 12/16/23 12/26/23 Elemental)] L.acidoph,Paracasei, B.lactis 1 cap PO DAILY 12/16/23 12/26/23 [Probiotic] Multivitamins, Thera [Multivitamin 1 tab PO DAILY 12/16/23 12/26/23 (formulary)] hydrOXYzine pamoate 25 mg PO HS PRN 12/16/23 12/26/23 Zolpidem [Ambien] 5 mg PO HS 12/26/23 12/26/23 Previous Rx's Medication Instructions Recorded Vancomycin 1,500 mg IVPB BID #0 12/20/23 Allergies Allergy/AdvReac Type Severity Reaction Status Date / Time No Known Allergies Allergy Verified 12/26/23 21:17 Review of Systems ROS Statement: Those systems with pertinent positive or pertinent negative responses have been documented in the HPI. ROS Other: All systems not noted in ROS Statement are negative. 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 Colostomy reversal Past Anesthesia/Blood Transfusion Reactions: No Reported Reaction Past Psychological History: ADD/ADHD, Anxiety, Depression, PTSD Smoking Status: Former smoker Past Alcohol Use History: None Reported Past Drug Use History: None Reported, Marijuana - Past Family History Father History Unknown: Yes Family Medical History: Cancer, Diabetes Mellitus, Hypertension Additional Family Medical History / Comment(s): throat cancer Mother History Unknown: Yes Family Medical History: Cancer, Diabetes Mellitus Additional Family Medical History / Comment(s): multiple myeloma General Exam Limitations: no limitations General appearance: alert, in no apparent distress Head exam: Present: atraumatic, normocephalic, normal inspection Eye exam: Present: normal appearance, PERRL, EOMI. Absent: scleral icterus, conjunctival injection, periorbital swelling ENT exam: Present: normal exam, mucous membranes moist Neck exam: Present: normal inspection. Absent: tenderness, meningismus, lymphadenopathy Respiratory exam: Present: normal lung sounds bilaterally. Absent: respiratory distress, wheezes, rales, rhonchi, stridor Cardiovascular Exam: Present: regular rate, normal rhythm, normal heart sounds. Absent: systolic murmur, diastolic murmur, rubs, gallop, clicks GI/Abdominal exam: Present: soft, normal bowel sounds. Absent: distended, tenderness, guarding, rebound, rigid Extremities exam: Present: normal inspection, full ROM, normal capillary refill. Absent: tenderness, pedal edema, joint swelling, calf tenderness Back exam: Present: normal inspection Neurological exam: Present: alert, oriented X3, CN II-XII intact Psychiatric exam: Present: normal affect, normal mood Skin exam: Present: warm, dry, intact, normal color. Absent: rash Course Vital Signs 12/26/23 12/26/23 16:56 18:28 Temperature 98.4 F 98.2 F Pulse Rate 67 89 Respiratory 20 16 Rate Blood Pressure 110/80 109/65 O2 Sat by Pulse 98 98 Oximetry - Reevaluation(s) Reevaluation #1: 12/26/23 22:00 Medical records reviewed Reevaluation #2: 12/26/23 22:00 Medically cleared for psychiatric evaluation Medical Decision Making - Medical Decision Making 53 female will be transferred for inpatient psychiatric evaluation and treatment Disposition Clinical Impression: Depression, Acute anxiety, Adjustment reaction of adult life, Suicidal ideation Disposition: TRANSFER TO PSYCH HOSP/UNIT Condition: Fair Is patient prescribed a controlled substance at d/c from ED?: No Referrals: Love Stuart MD [Primary Care Provider] - 1-2 days
[2023-12-26] MEDS ORDERED: VANCOMYCIN 1,500 MG in SODIUM CHLORIDE 0.9% 250 ML IVPB STA (22:01)
[2023-12-26] MEDS ORDERED: VANCOMYCIN IV PER PHARMACY 1 EACH MISC MISCELLANE PRN (22:11)
[2023-12-26] MEDS: VANCOMYCIN 1,500 MG in SODIUM CHLORIDE 0.9% 500 ML 500 ML IVPB ONE (23:12)
[2023-12-26] MEDS: LORazepam 2 MG/ML INJ IV STA (23:35)
[2023-12-26] MEDS: KETOROLAC 15 MG/ML 1 ML VIAL IVP STA (23:35)
[2023-12-26 23:36] LABS: Basophils % (A) 1 %; Eosinophils # (A) 0.2 k/uL (0-0.7); Eosinophils % (A) 3 %; HCT 37.9 % (34.0-46.0); HGB 12.4 gm/dL (11.4-16.0); Lymphocytes # (A) 1.8 k/uL (1.0-4.8); Lymphocytes % (A) 31 %; MCH 29.6 pg (25.0-35.0); MCHC 32.6 g/dL (31.0-37.0); MCV 90.7 fL (80.0-100.0); Mean Platelet Volume 8.4; Monocytes # (A) 0.5 k/uL (0-1.0); Monocytes % (A) 8 %; Neutrophils # (A) 3.2 k/uL (1.3-7.7); Neutrophils % (A) 55 %; Platelet Count 265 k/uL (150-450); RBC 4.18 m/uL (3.80-5.40); WBC 5.7 k/uL (3.8-10.6)
[2023-12-26 23:47] LABS: Urn Cannabinoid Scrn Detected (NotDetected)
[2023-12-26 23:48] LABS: Amphetamine Screen,Urine Not Detected (NotDetected); Barbiturate Screen,Urine Not Detected (NotDetected); Benzodiazepines Screen,Urine Not Detected (NotDetected); Cocaine Screen,Urine Not Detected (NotDetected); Methadone Screen, Urine Not Detected (NotDetected); Opiate Screen,Urine Not Detected (NotDetected); Oxycodone Screen, Urine Not Detected (NotDetected); Phencyclidine Screen,Urine Not Detected (NotDetected); Tricyclic Antidepressant,Urine Not Detected (NotDetected)
[2023-12-27 00:06] LABS: African American GFR (CKD) >90 (>60 ml/min/1.73 sqM); Anion Gap 10 mmol/L; Blood Urea Nitrogen 12 mg/dL (7-17); Calcium 9.1 mg/dL (8.4-10.2); Carbon Dioxide 23 mmol/L (22-30); Chloride 105 mmol/L (98-107); Glucose 159 mg/dL (74-99); Non-African American GFR(CKD) >90 (>60 ml/min/1.73 sqM); Potassium 4.2 mmol/L (3.5-5.1); Sodium 138 mmol/L (137-145)
[2023-12-27] MEDS: PANTOPRAZOLE 40 MG TABLET PO STA (09:19)
[2023-12-27] MEDS: LORazepam 1 MG TAB PO STA (09:19)
[2023-12-27] MEDS: KETOROLAC 15 MG/ML 1 ML VIAL IVP STA (09:20)
[2023-12-27] MEDS: VANCOMYCIN 1,500 MG in SODIUM CHLORIDE 0.9% 500 ML 500 ML IVPB SCH (12:53)
[2023-12-27] MEDS: methocarbamoL 750 MG TAB PO SCH (17:04)
[2023-12-27] MEDS: ACETAMINOPHEN TAB 325 MG TAB PO STA (17:40)
[2023-12-27] MEDS: PANTOPRAZOLE 40 MG TABLET PO SCH (17:41)
[2023-12-27] MEDS ORDERED: ZOLPIDEM 5 MG TAB PO SCH (21:00)
[2023-12-27] MEDS: hydrOXYzine pamoate 25 MG CAP PO PRN (21:05)
[2023-12-27] MEDS: SODIUM BICARBONATE TAB 650 MG TAB PO SCH (21:06)
[2023-12-27] MEDS: QUEtiapine 50 MG TAB PO SCH (21:06)
[2023-12-28] MEDS: ACETAMINOPHEN TAB 325 MG TAB PO PRN (02:16)
[2023-12-28] MEDS: SERTRALINE 50 MG TAB PO SCH (08:53)
[2023-12-28 12:46] LABS: African American GFR (CKD) >90 (>60 ml/min/1.73 sqM); Non-African American GFR(CKD) >90 (>60 ml/min/1.73 sqM)
[2023-12-28] MEDS: ONDANSETRON ODT 4 MG TAB PO STA (14:52)
[2023-12-28] MEDS: VANCOMYCIN 1,250 MG in SODIUM CHLORIDE 0.9% 250 ML IVPB SCH (19:26)
[2023-12-30 11:12] LABS: African American GFR (CKD) >90 (>60 ml/min/1.73 sqM); Non-African American GFR(CKD) >90 (>60 ml/min/1.73 sqM)
[2023-12-30] MEDS: VANCOMYCIN TROUGH DUE 1 EACH MISC MISCELLANE ONE (17:47)
[2023-12-31 08:04] VITALS: TEMP 98.5
[2023-12-31 10:57] LABS: WBC 3.5 k/uL (3.8-10.6)
[2023-12-31 10:58] LABS: Basophils % (A) 1 %; Eosinophils # (A) 0.1 k/uL (0-0.7); Eosinophils % (A) 2 %; HCT 38.3 % (34.0-46.0); HGB 12.5 gm/dL (11.4-16.0); Lymphocytes # (A) 1.1 k/uL (1.0-4.8); Lymphocytes % (A) 30 %; MCH 29.6 pg (25.0-35.0); MCHC 32.6 g/dL (31.0-37.0); MCV 90.8 fL (80.0-100.0); Mean Platelet Volume 8.4; Monocytes # (A) 0.4 k/uL (0-1.0); Monocytes % (A) 10 %; Neutrophils # (A) 1.9 k/uL (1.3-7.7); Neutrophils % (A) 53 %; Platelet Count 227 k/uL (150-450); RBC 4.22 m/uL (3.80-5.40); RDW 14.7 % (11.5-15.5)
[2023-12-31 11:14] LABS: ALT 33 U/L (4-34); AST 28 U/L (14-36); African American GFR (CKD) >90 (>60 ml/min/1.73 sqM); Albumin 4.1 g/dL (3.5-5.0); Alkaline Phosphatase 146 U/L (38-126); Anion Gap 5 mmol/L; Blood Urea Nitrogen 14 mg/dL (7-17); C Reactive Protein 4.3 mg/dL (<1.0); Carbon Dioxide 26 mmol/L (22-30); Chloride 104 mmol/L (98-107); Glucose 89 mg/dL (74-99); Non-African American GFR(CKD) >90 (>60 ml/min/1.73 sqM); Potassium 4.6 mmol/L (3.5-5.1); Sodium 135 mmol/L (137-145); Total Bilirubin 0.5 mg/dL (0.2-1.3); Total Protein 7.7 g/dL (6.3-8.2)
[2023-12-31 15:03] VITALS: BP 151/83; PULSE 72; RESP 16
== END 2023-12-31 15:44 ==
LOC: EC 16:54
DX: F43.22 Adjustment disorder with anxiety (principal); F32.A Depression, unspecified; R45.851 Suicidal ideations; F12.90 Cannabis use, unspecified, uncomplicated; Z87.891 Personal history of nicotine dependence; Z79.01 Long term (current) use of anticoagulants; Z79.899 Other long term (current) drug therapy; Z20.822 Contact with and (suspected) exposure to COVID-19
CPT/HCPCS: 99285; 96365; 96366 ×30; 96375 ×2; 82075; 36415 ×2; 80053; 80048; 85025 ×2; 86140; 80306; 87635 ×2; J3370 ×6; J2060; J1885 ×2

== ENCOUNTER → 2024-01-23 | Outpatient (CLI) | payer MEDICARE, OTHER ==
--- NOTE | 2024-01-24 19:09 | US ---
EXAMINATION TYPE: US groin LT DATE OF EXAM: 01/23/2024 COMPARISON: CT:08/23/23 CLINICAL INDICATION: Female, 53 years old with history of R59.0 LOCALIZED ENLARGED LYMPH NODES; Enlar ged lymph nodes. Pt states she has a left knee infection. TECHNIQUE: Left groin scanned FINDINGS: Multiple lymph nodes seen in the left groin. The largest is measuring 4.3 x 1.8 x 0.8cm IMPRESSION: 1. Prominent left inguinal adenopathy
--- NOTE | 2024-01-30 14:46 | CT ---
EXAMINATION TYPE: CT chest wo con DATE OF EXAM: 01/23/2024 COMPARISON: Most recent prior CTA chest December 16, 2023 HISTORY: enlarged lymph nodes CT DLP: 189.9 mGycm. Automated Exposure Control for Dose Reduction was Utilized. TECHNIQUE: CT scan of the thorax is performed without IV contrast. FINDINGS: LUNGS: Stable focal linear scarring in the right mid lung axial image 26. Stable mild linear scarring in the left lung base along the periphery. No new focal consolidation. There is no pleural effusion or pneumothorax seen. The tracheobronchial tree is patent. MEDIASTINUM: Lack of IV contrast is noted to limit evaluation for mediastinal and especially hilar ad enopathy. Ascending aorta measures up to 4.0 cm in diameter image 29. There are no definitive new gre ater than 1 cm mediastinal lymph nodes. No cardiomegaly or pericardial effusion is seen. OTHER: Surgical changes from gastric bypass procedure within the epigastric region are redemonstrated . IMPRESSION: No abnormal thoracic adenopathy clearly seen. No significant change from most recent CT.
== END | disposition home or self-care (01) ==
LOC: RADCTMAIN 15:28
PROVIDERS: ATTEND Internal Medicine Hematology & Oncology
DX: R59.0 Localized enlarged lymph nodes (principal); J98.4 Other disorders of lung; M00.9 Pyogenic arthritis, unspecified
CPT/HCPCS: 71250

== ENCOUNTER 2024-02-04 19:45 | Outpatient (CLI) | payer MEDICARE, OTHER ==
--- NOTE | 2024-02-06 13:32 | P.PCN ---
Description of Procedure: POLYSOMNOGRAPHY REPORT PROCEDURE(S)/DATE(S): Polysomnography 02/04/2024 CLINICAL: Patient has been seen in the sleep center for evaluation of obstructive sleep apnea-hypopnea syndrome. Please see my consultation. Sleep study has been done for evaluation of patient breathing during the sleep. PROCEDURE: The standard montage for clinical polysomnography included the electroencephalogram, the electrooculogram, the mentalis surface electromyography and Lead II cardiography. The respiratory battery consisted of measurements of nasal/buccal air flow, pressure transducer measurements from nose, thoracic and/or abdominal effort and intercostal surface electromyography. Video monitoring has been done to check for any parasomnia events. Nocturnal oxyhemoglobin saturations were obtained by finger oximetry. Step-alfredo titration with positive airway pressure was utilized to control the respiratory events, if necessary. RESULTS: During the diagnostic sleep study sleep efficiency was extremely short 57.1%. Latency to sleep onset was normal 23.0 min. Sleep architecture showed stage NI normal 8.2%, Delta sleep was short 1.8%, REM sleep was normal at 24.5%. Respiratory channel showed 0 obstructive apneas, 1 mixed apneas, 0 central apneas, 37 hypopneas with lowest oxygen level 87%. Total apnea hypopnea index was 10.2. Heart rate was in the range between 59 and 70, average 63. EMG showed 1.1 periodic limb movements per hour with 1.1 micro-arousals per hour. IMPRESSIONS: 1. Obstructive sleep apnea hypopnea syndrome. 2. No significant periodic limb movements have been documented. 3. History of hypertension. Please see other impressions from consultation PLAN: 1. The patient will have AutoPAP treatment for correction of respiratory abnormalities during the sleep. 2. No driving if feeling sleepiness. . 3. Sleep hygiene with regular time in bed for at least 7-1/2 hours. 4. I will see patient for follow-up visit to explain results of the tests, recommendations, check compliance with treatment and [place] adjustments related to mask fitting pressure and humidification. Thank you very much for allowing me to participate in the management of your patient. Sincerely, Min Salter MD, PhD, FAASM. Diplomat of [place] [employer] Sleep Medicine, Sleep Medicine Board by [place] [employer] of [employer] Medicine [employer] Specialist of [facility]
== END 2024-02-05 06:25 | disposition home or self-care (01) ==
LOC: 3 N SLEEP 19:45
PROVIDERS: ATTEND Internal Medicine
DX: G47.33 Obstructive sleep apnea (adult) (pediatric) (principal); I10 Essential (primary) hypertension; F17.200 Nicotine dependence, unspecified, uncomplicated; Z79.01 Long term (current) use of anticoagulants; Z79.899 Other long term (current) drug therapy
CPT/HCPCS: 95810

== ENCOUNTER 2024-02-19 04:25 | Emergency (ER) | payer MEDICARE, OTHER ==
--- NOTE | 2024-02-19 04:55 | ED ---
General Adult HPI - General Source: patient, EMS Mode of arrival: EMS <Dannie Tidwell - Last Filed: 02/19/24 07:54> <Aung Spencer - Last Filed: 02/19/24 12:43> - General Chief complaint: Extremity Problem,Nontraumatic Stated complaint: Right Leg Swelling Time Seen by Provider: 02/19/24 04:28 - History of Present Illness Initial comments: Dictation was produced using [employer] dictation software. please excuse any grammatical, word or spelling errors. Chief Complaint: 53-year-old female with 1 to 2 days of right lower extremity pain History of Present Illness: Patient is a 53-year-old female presents to the emergency department right lower extremity pain. Patient states that she has redness pain to the right lower tibia region. She is concerned she either has a DVT or cellulitis. Denies any fever, chills or night sweats. The ROS documented in this emergency department record has been reviewed and confirmed by me. Those systems with pertinent positive or negative responses have been documented in the HPI. All other systems are other negative and/or noncontributory. (Dannie Tidwell) - Related Data Home Medications Medication Instructions Recorded Confirmed Pantoprazole [Protonix] 40 mg PO BID 12/18/22 12/26/23 Sodium Bicarbonate Tab 650 mg PO BID 03/21/23 12/26/23 methocarbamoL 750 mg PO Q8H 08/23/23 12/26/23 Acetaminophen Tab [Tylenol] 1,000 mg PO TID 12/16/23 12/26/23 Apixaban [Eliquis] 2.5 mg PO BID 12/16/23 12/26/23 Calcium Carb/Mag Ox/Zinc Sulf 1 tab PO DAILY 12/16/23 12/26/23 [Zeo-Zdz-Rzlh 334-134-5 mg Tab] Docusate [Colace] 100 mg PO BID PRN 12/16/23 12/26/23 Ergocalciferol (Vitamin D2) 1,250 mcg PO TH 12/16/23 12/26/23 [Drisdol (50,000 Iu)] Ferrous Sulfate [Iron (65 MG 325 mg PO BID 12/16/23 12/26/23 Elemental)] L.acidoph,Paracasei, B.lactis 1 cap PO DAILY 12/16/23 12/26/23 [Probiotic] Multivitamins, Thera [Multivitamin 1 tab PO DAILY 12/16/23 12/26/23 (formulary)] hydrOXYzine pamoate 25 mg PO HS PRN 12/16/23 12/26/23 Zolpidem [Ambien] 5 mg PO HS 12/26/23 12/26/23 Previous Rx's Medication Instructions Recorded Vancomycin 1,500 mg IVPB BID #0 12/20/23 Cephalexin [Keflex] 500 mg PO Q12HR 7 Days #14 cap 02/19/24 Allergies Allergy/AdvReac Type Severity Reaction Status Date / Time No Known Allergies Allergy Verified 02/19/24 04:33 Review of Systems ROS Other: All systems not noted in ROS Statement are negative. <Dannie Tidwell - Last Filed: 02/19/24 07:54> ROS Other: All systems not noted in ROS Statement are negative. <Aung Spencer - Last Filed: 02/19/24 12:43> ROS Statement: Those systems with pertinent positive or pertinent negative responses have been documented in the HPI. 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 Colostomy reversal Past Anesthesia/Blood Transfusion Reactions: No Reported Reaction Past Psychological History: ADD/ADHD, Anxiety, Depression, PTSD Smoking Status: Former smoker Past Alcohol Use History: None Reported Past Drug Use History: None Reported, Marijuana - Past Family History Father History Unknown: Yes Family Medical History: Cancer, Diabetes Mellitus, Hypertension Additional Family Medical History / Comment(s): throat cancer Mother History Unknown: Yes Family Medical History: Cancer, Diabetes Mellitus Additional Family Medical History / Comment(s): multiple myeloma <Dannie Tidwell - Last Filed: 02/19/24 07:54> General Exam <Dannie Tidwell - Last Filed: 02/19/24 07:54> - General Exam Comments Initial Comments: PHYSICAL EXAM: General Impression: Alert and oriented x3, not in acute distress HEENT: Normocephalic atraumatic, extra-ocular movements intact, pupils equal and reactive to light bilaterally, mucous membranes moist. Cardiovascular: Heart regular rate and rhythm Chest: Able to complete full sentences, no retractions, no tachypnea Abdomen: abdomen soft, non-tender, non-distended, no organomegaly Musculoskeletal: Pulses present and equal in all extremities, no peripheral edema Motor: no focal deficits noted Neurological: CN II-XII grossly intact, no focal motor or sensory deficits noted Skin: Intact with no visualized rashes Psych: Normal affect and mood Right lower extremity: Mild redness and warmth to the anterior tibial area. (Dannie Tidwell) Course Vital Signs 02/19/24 02/19/24 02/19/24 04:30 08:11 08:43 Temperature 97.8 F 98.9 F 97.3 F L Pulse Rate 78 122 H 67 Respiratory 16 18 18 Rate Blood Pressure 113/77 137/87 O2 Sat by Pulse 99 100 100 Oximetry Medical Decision Making <Dannie Tidwell - Last Filed: 02/19/24 07:54> <Aung Spencer - Last Filed: 02/19/24 12:43> - Medical Decision Making Was pt. sent in by a medical professional or institution (, TASH, PUNCHBOARD FILLING MACHINE OPERATOR, urgent care, hospital, or residential...) When possible be specific @ -[No] Did you speak to anyone other than the patient for history (EMS, parent, family, police, friend...)? What history was obtained from this source @ -[No] Did you review nursing and triage notes (agree or disagree)? Why? @ -[I reviewed and agree with nursing and triage notes] Were old charts reviewed (outside hosp., previous admission, EMS record, old EKG, old radiological studies, urgent care reports/EKG's, residential records)? Report findings @ -[No old charts were reviewed] Differential Diagnosis (chest pain, altered mental status, abdominal pain women, abdominal pain men, vaginal bleeding, musculoskeletal, weakness, fever, dyspnea, syncope, headache, dizziness, GI bleed, back pain, seizure, CVA, palpatations, mental health)? @ -[not applicable] EKG interpreted by me (3pts min.). @ -[None done] X-rays interpreted by me (1pt min.). @ -X-ray of the tibia is unremarkable. CT interpreted by me (1pt min.). @ -[None done] U/S interpreted by me (1pt. min.). @ -Pending ultrasound Doppler of the leg What testing was considered but not performed or refused? (CT, X-rays, U/S, labs)? Why? @ -[None] What meds were considered but not given or refused? Why? @ -[None] Did you discuss the management of the patient with other professionals (professionals i.e. , PA, PUNCHBOARD FILLING MACHINE OPERATOR, lab, RT, psych nurse, social studies teacher, immigration lawyer, teacher, disciplinary hearing officer, medical case manager)? Give summary @ -[No] Was smoking cessation discussed for >3mins.? @ -[No] Was critical care preformed (if so, how long)? @ -[No] Were there social determinants of health that impacted care today? How? (Homele ssness, low income, unemployed, alcoholism, drug addiction, transportation, low edu. Level, literacy, decrease access to med. care, intermediate, rehab)? @ -[No] Was there de-escalation of care discussed even if they declined (Discuss DNR or withdrawal of care, Hospice)? DNR status @ -[No] What co-morbidities impacted this encounter? (DM, HTN, Smoking, COPD, CAD, Cancer, CVA, ARF, Chemo, Hep., AIDS, mental health diagnosis, sleep apnea, morbid obesity)? @ -[None] Was patient admitted / discharged? Hospital course, mention meds given and route, prescriptions, significant lab abnormalities, going to OR and other pertinent info. @ -53-year-old female presents to the emergency department with chief complaint of painful redness to her right leg. Vital signs upon arrival are within acceptable limits. X-rays negative. Pending ultrasound. Patient care signed out to Dr. Spencer at 8:00 AM for follow-up of ultrasound interpretation by radiology (Dannie Tidwell) Patient signed out to me pending results of ultrasound imaging. Ultrasound is interpreted myself reveals no evidence of DVT, and this was corroborated by radiology interpretation. I reevaluate the patient. After discussion with her, we will cover her for possible cellulitis of the leg. Patient does have a possible Joya's cyst in the popliteal space. Patient made aware of this. She will be started on Keflex. Patient was in agreement this plan. She has close follow-up with her orthopedic surgeon and strict return precautions discussed. I will provide the patient with a prescription for Keflex. I instructed the patient to follow up with their PCP in the next 1-3 days.. I explained that the patient should return to the emergency department if they experience any worsening symptoms. Strict return precautions were discussed with the patient. The patient expressed understanding of these instructions. I answered all questions that the patient had. The patient was discharged home in good condition with their prescriptions and follow up information. Diagnosis/symptom? @ -Right leg pain, cellulitis Acute, or Chronic, or Acute on Chronic? @ -Acute Uncomplicated (without systemic symptoms) or Complicated (systemic symptoms)? @ -Uncomplicated Side effects of treatment? @ -None Exacerbation, Progression, or Severe Exacerbation] @ -No Poses a threat to life or bodily function? @ -Unlikely (Aung Spencer) Disposition <Dannie Tidwell - Last Filed: 02/19/24 07:54> Is patient prescribed a controlled substance at d/c from ED?: No Time of Disposition: 08:15 <Aung Spencer - Last Filed: 02/19/24 12:43> Clinical Impression: Cellulitis, Right leg pain Disposition: HOME SELF-CARE Condition: Good Instructions (If sedation given, give patient instructions): Cellulitis (ED) Prescriptions: Cephalexin [Keflex] 500 mg PO Q12HR 7 Days #14 cap Referrals: Love Stuart MD [Primary Care Provider] - 1-2 days
[2024-02-19] MEDS: ACETAMINOPHEN TAB 500 MG TAB PO STA (06:46)
--- NOTE | 2024-02-19 07:35 | XR ---
EXAMINATION TYPE: XR tibia fibula RT DATE OF EXAM: 02/19/2024 COMPARISON: None HISTORY: Injury TECHNIQUE: 2 view right tibia and fibula FINDINGS: Ankle joint space appears preserved. No acute fractures or dislocations are evident. Right knee prosthesis is present. No joint effusion is evident. Follow up exams can be performed 7-10 days from acute trauma for continued pain IMPRESSION: 1. No acute osseous abnormality right tibia and fibula
--- NOTE | 2024-02-19 08:03 | US ---
EXAMINATION TYPE: US venous doppler duplex LE RT DATE OF EXAM: 02/19/2024 7:20 AM COMPARISON: NONE CLINICAL INDICATION: Female, 53 years old with history of pain; lt medial ankle/dst calf pain, rednes s, warmth, Hx lt pop v DVT SIDE PERFORMED: Right TECHNIQUE: The lower extremity deep venous system is examined utilizing real time linear array sonog pramod with graded compression, doppler sonography and color-flow sonography. VESSELS IMAGED: Common Femoral Vein Deep Femoral Vein Greater Saphenous Vein * Femoral Vein Popliteal Vein Small Saphenous Vein * Proximal Calf Veins (* superficial vessels) Right Leg: Negative for DVT Rt. knee 3.6x1.6x1.5cm fluid collection post knee Prominent Lt. groin lymph node similar to 2022 US. Currently measures 5.0 x 2.7 x 0.8 cm. Prior measu rements of 4.4 x 2.2 x1.2 cm. IMPRESSION: 1. Right lower extremity ultrasound negative for deep venous thrombosis. 2. Note is made of a right popliteal cyst. 3. Note is made of a fairly stable prominent left inguinal lymph node present previously.
[2024-02-19] MEDS: ACET/COD 300 MG/30 MG STARTER PACK 6 TAB BTL PO STA (08:23)
[2024-02-19 08:25] VITALS: RESP 18
[2024-02-19] MEDS: CEPHALEXIN 500 MG CAP PO STA (08:35)
[2024-02-19 09:05] VITALS: BP 137/87; PULSE 67; TEMP 97.3
== END 2024-02-19 08:51 | disposition home or self-care (01) ==
LOC: EC 04:25
DX: L03.115 Cellulitis of right lower limb (principal); F12.90 Cannabis use, unspecified, uncomplicated; Z87.891 Personal history of nicotine dependence
CPT/HCPCS: 99284

== ENCOUNTER 2024-02-21 21:06 | Emergency (ER) | payer MEDICARE, OTHER ==
[2024-02-21 22:01] VITALS: TEMP 97.8
[2024-02-21] MEDS: VANCOMYCIN 1,000 MG in SODIUM CHLORIDE 0.9% 250 ML IVPB ONE (22:15)
[2024-02-21 22:41] LABS: Basophils % (A) 1 %; Eosinophils # (A) 0.1 k/uL (0-0.7); Eosinophils % (A) 3 %; HCT 37.3 % (34.0-46.0); HGB 11.6 gm/dL (11.4-16.0); Lymphocytes # (A) 1.8 k/uL (1.0-4.8); Lymphocytes % (A) 39 %; MCH 28.9 pg (25.0-35.0); MCHC 31.1 g/dL (31.0-37.0); MCV 92.9 fL (80.0-100.0); Mean Platelet Volume 8.1; Monocytes # (A) 0.5 k/uL (0-1.0); Monocytes % (A) 11 %; Neutrophils # (A) 2.1 k/uL (1.3-7.7); Neutrophils % (A) 44 %; Platelet Count 230 k/uL (150-450); RBC 4.01 m/uL (3.80-5.40); RDW 14.1 % (11.5-15.5); WBC 4.7 k/uL (3.8-10.6)
[2024-02-21 22:54] LABS: ALT 21 U/L (4-34); AST 28 U/L (14-36); African American GFR (CKD) >90 (>60 ml/min/1.73 sqM); Albumin 3.8 g/dL (3.5-5.0); Alkaline Phosphatase 86 U/L (38-126); Anion Gap 5 mmol/L; Blood Urea Nitrogen 12 mg/dL (7-17); C Reactive Protein <0.5 mg/dL (<1.0); Calcium 8.4 mg/dL (8.4-10.2); Carbon Dioxide 24 mmol/L (22-30); Chloride 108 mmol/L (98-107); Glucose 115 mg/dL (74-99); Non-African American GFR(CKD) >90 (>60 ml/min/1.73 sqM); Sodium 137 mmol/L (137-145); Total Bilirubin 0.3 mg/dL (0.2-1.3); Total Protein 6.8 g/dL (6.3-8.2)
--- NOTE | 2024-02-21 23:50 | ED ---
General Adult HPI - General Chief complaint: Recheck/Abnormal Lab/Rx Stated complaint: right leg infection Time Seen by Provider: 02/21/24 21:35 Source: patient Mode of arrival: ambulatory Limitations: physical limitation - History of Present Illness Initial comments: 53-year-old female presents to the emergency department with reported right leg cellulitis. States she was here 2 days ago for evaluation. She was placed on Keflex twice a day. has been taking it as directed but the redness and swelling have not improved. She called her primary care doctor who directed her to come back to the emergency department for reevaluation. She does admit to a history of MRSA. Denies any trauma to the area. No history of DVT or PE. No other alleviating, precipitating modifying factors - Related Data Home Medications Medication Instructions Recorded Confirmed Pantoprazole [Protonix] 40 mg PO BID 12/18/22 12/26/23 Sodium Bicarbonate Tab 650 mg PO BID 03/21/23 12/26/23 methocarbamoL 750 mg PO Q8H 08/23/23 12/26/23 Acetaminophen Tab [Tylenol] 1,000 mg PO TID 12/16/23 12/26/23 Apixaban [Eliquis] 2.5 mg PO BID 12/16/23 12/26/23 Calcium Carb/Mag Ox/Zinc Sulf 1 tab PO DAILY 12/16/23 12/26/23 [Ucb-Cdd-Tqmc 334-134-5 mg Tab] Docusate [Colace] 100 mg PO BID PRN 12/16/23 12/26/23 Ergocalciferol (Vitamin D2) 1,250 mcg PO TH 12/16/23 12/26/23 [Drisdol (50,000 Iu)] Ferrous Sulfate [Iron (65 MG 325 mg PO BID 12/16/23 12/26/23 Elemental)] L.acidoph,Paracasei, B.lactis 1 cap PO DAILY 12/16/23 12/26/23 [Probiotic] Multivitamins, Thera [Multivitamin 1 tab PO DAILY 12/16/23 12/26/23 (formulary)] hydrOXYzine pamoate 25 mg PO HS PRN 12/16/23 12/26/23 Zolpidem [Ambien] 5 mg PO HS 12/26/23 12/26/23 Previous Rx's Medication Instructions Recorded Vancomycin 1,500 mg IVPB BID #0 12/20/23 Cephalexin [Keflex] 500 mg PO Q12HR 7 Days #14 cap 02/19/24 Cephalexin [Keflex] 500 mg PO Q6HR #28 cap 02/21/24 Sulfamethox-Tmp 800-160Mg [Bactrim 2 each PO Q12HR #28 tab 02/21/24 Ds] Allergies Allergy/AdvReac Type Severity Reaction Status Date / Time No Known Allergies Allergy Verified 02/21/24 21:34 Review of Systems ROS Statement: Those systems with pertinent positive or pertinent negative responses have been documented in the HPI. ROS Other: All systems not noted in ROS Statement are negative. 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 Colostomy reversal Past Anesthesia/Blood Transfusion Reactions: No Reported Reaction Past Psychological History: ADD/ADHD, Anxiety, Depression, PTSD Smoking Status: Former smoker Past Alcohol Use History: None Reported Past Drug Use History: None Reported, Marijuana - Past Family History Father History Unknown: Yes Family Medical History: Cancer, Diabetes Mellitus, Hypertension Additional Family Medical History / Comment(s): throat cancer Mother History Unknown: Yes Family Medical History: Cancer, Diabetes Mellitus Additional Family Medical History / Comment(s): multiple myeloma General Exam General appearance: alert, in no apparent distress Head exam: Present: atraumatic, normocephalic, normal inspection Eye exam: Present: normal appearance, PERRL, EOMI. Absent: scleral icterus, conjunctival injection, periorbital swelling ENT exam: Present: normal exam, mucous membranes moist Neck exam: Present: normal inspection. Absent: tenderness, meningismus, lymp hadenopathy Respiratory exam: Present: normal lung sounds bilaterally. Absent: respiratory distress, wheezes, rales, rhonchi, stridor Cardiovascular Exam: Present: regular rate, normal rhythm, normal heart sounds. Absent: systolic murmur, diastolic murmur, rubs, gallop, clicks GI/Abdominal exam: Present: soft, normal bowel sounds. Absent: distended, tenderness, guarding, rebound, rigid Extremities exam: Present: full ROM, normal capillary refill, pedal edema (Patient has some redness to the right pardo). Absent: tenderness, joint swelling, calf tenderness Back exam: Present: normal inspection Neurological exam: Present: alert, oriented X3, CN II-XII intact Psychiatric exam: Present: normal affect, normal mood Skin exam: Present: warm, dry, intact, normal color. Absent: rash Course Vital Signs 02/21/24 02/22/24 21:30 01:16 Temperature 97.8 F Pulse Rate 82 67 Respiratory 20 16 Rate Blood Pressure 146/95 106/60 O2 Sat by Pulse 97 96 Oximetry Medical Decision Making - Medical Decision Making Was pt. sent in by a medical professional or institution (, PA, EDGE BANDING MACHINE OFFBEARER, urgent care, hospital, or care home...) When possible be specific @ -Patient was sent in from her primary care office Did you speak to anyone other than the patient for history (EMS, parent, family, police, friend...)? What history was obtained from this source @ -No Did you review nursing and triage notes (agree or disagree)? Why? @ -I reviewed and agree with nursing and triage notes Were old charts reviewed (outside hosp., previous admission, EMS record, old EKG, old radiological studies, urgent care reports/EKG's, care home records)? Report findings @ -I reviewed the patient's imaging from 2 days prior that was done in our emergency department Differential Diagnosis (chest pain, altered mental status, abdominal pain women, abdominal pain men, vaginal bleeding, weakness, fever, dyspnea, syncope, headache, dizziness, GI bleed, back pain, seizure, CVA, palpatations, mental health, musculoskeletal)? @ -Cellulitis, compartment syndrome, abscess, osteomyelitis, DVT EKG interpreted by me (3pts min.). @ -Not done X-rays interpreted by me (1pt min.). @ -None done CT interpreted by me (1pt min.). @ -None done U/S interpreted by me (1pt. min.). @ -None done What testing was considered but not performed or refused? (CT, X-rays, U/S, labs)? Why? @ -Ultrasound was considered however already completed 2 days prior What meds were considered but not given or refused? Why? @ -None Did you discuss the management of the patient with other professionals (professionals i.e. , PA, EDGE BANDING MACHINE OFFBEARER, lab, RT, psych nurse, social services specialist, fuel cell engineer, teacher, chief wellness officer, rifle case repairer)? Give summary @ -No Was smoking cessation discussed for >3mins.? @ -No Was critical care preformed (if so, how long)? @ -No Were there social determinants of health that impacted care today? How? ( Homelessness, low income, unemployed, alcoholism, drug addiction, transportation, low edu. Level, literacy, decrease access to med. care, penitentiary, rehab)? @ -No Was there de-escalation of care discussed even if they declined (Discuss DNR or withdrawal of care, Hospice)? DNR status @ -No What co-morbidities impacted this encounter? (DM, HTN, Smoking, COPD, CAD, Cancer, CVA, ARF, Chemo, Hep., AIDS, mental health diagnosis, sleep apnea, morbid obesity)? @ -MRSA Was patient admitted / discharged? Hospital course, mention meds given and route, prescriptions, significant lab abnormalities, going to OR and other pertinent info. @ -Upon arrival patient was placed into room 26. Thorough history and physical exam was performed. IV was established. Laboratory studies are conducted. Patient was given a dose of vancomycin. She will be discharged home on Bactrim. She is to continue taking the Keflex as well however her dose will be increased to 4 times a day. Instructed to follow-up with her primary care doctor. Return for any new or worsening symptoms. Patient agreeable to plan she was discharged home in stable condition Undiagnosed new problem with uncertain prognosis? @ -No Drug Therapy requiring intensive monitoring for toxicity (Heparin, Nitro, Insulin, Cardizem)? @ -No Were any procedures done? @ -No Diagnosis/symptom? @ -Acute cellulitis right lower extremity Acute, or Chronic, or Acute on Chronic? @ -Acute Uncomplicated (without systemic symptoms) or Complicated (systemic symptoms)? @ -Uncomplicated Side effects of treatment? @ -No Exacerbation, Progression, or Severe Exacerbation? @ -No Poses a threat to life or bodily function? How? (Chest pain, USA, AR, pneumonia, PE, COPD, DKA, ARF, appy, cholecystitis, CVA, Diverticulitis, Homicidal, Suicidal, threat to staff... and all critical care pts) @ -No - Lab Data Result diagrams: 02/21/24 22:11 02/21/24 22:11 Lab Results 02/21/24 02/21/24 Range/Units 22:11 22:11 WBC 4.7 (3.8-10.6) k/uL RBC 4.01 (3.80-5.40) m/uL Hgb 11.6 (11.4-16.0) gm/dL Hct 37.3 (34.0-46.0) % MCV 92.9 (80.0-100.0) fL MCH 28.9 (25.0-35.0) pg MCHC 31.1 (31.0-37.0) g/dL RDW 14.1 (11.5-15.5) % Plt Count 230 (150-450) k/uL MPV 8.1 Neutrophils % 44 % Lymphocytes % 39 % Monocytes % 11 % Eosinophils % 3 % Basophils % 1 % Neutrophils # 2.1 (1.3-7.7) k/uL Lymphocytes # 1.8 (1.0-4.8) k/uL Monocytes # 0.5 (0-1.0) k/uL Eosinophils # 0.1 (0-0.7) k/uL Basophils # 0.0 (0-0.2) k/uL Sodium 137 (137-145) mmol/L Potassium 4.0 (3.5-5.1) mmol/L Chloride 108 H (98-107) mmol/L Carbon Dioxide 24 (22-30) mmol/L Anion Gap 5 mmol/L BUN 12 (7-17) mg/dL Creatinine 0.57 (0.52-1.04) mg/dL Est GFR (CKD-EPI)AfAm >90 (>60 ml/min/1.73 sqM) Est GFR (CKD-EPI)NonAf >90 (>60 ml/min/1.73 sqM) Glucose 115 H (74-99) mg/dL Calcium 8.4 (8.4-10.2) mg/dL Total Bilirubin 0.3 (0.2-1.3) mg/dL AST 28 (14-36) U/L ALT 21 (4-34) U/L Alkaline Phosphatase 86 (38-126) U/L C-Reactive Protein <0.5 (<1.0) mg/dL Total Protein 6.8 (6.3-8.2) g/dL Albumin 3.8 (3.5-5.0) g/dL Disposition Clinical Impression: Cellulitis Disposition: HOME SELF-CARE Condition: Stable Instructions (If sedation given, give patient instructions): Cellulitis (ED) Additional Instructions: Please start the antibiotics tomorrow. Follow-up with your doctor and return for any new or worsening symptoms Prescriptions: Sulfamethox-Tmp 800-160Mg [Bactrim Ds] 2 each PO Q12HR #28 tab Cephalexin [Keflex] 500 mg PO Q6HR #28 cap Is patient prescribed a controlled substance at d/c from ED?: No Referrals: Love Stuart MD [Primary Care Provider] - 1-2 days Time of Disposition: 23:49
[2024-02-22 01:28] VITALS: BP 106/60; PULSE 67; RESP 16
== END 2024-02-22 01:20 | disposition home or self-care (01) ==
LOC: EC 21:06
DX: L03.115 Cellulitis of right lower limb (principal); F12.90 Cannabis use, unspecified, uncomplicated; Z87.891 Personal history of nicotine dependence
CPT/HCPCS: 36415; 80053; 85025; 86140; 99284; 96365; 96366 ×2; J3370

== ENCOUNTER 2024-03-13 16:49 | Emergency (ER) | payer MEDICARE, OTHER ==
[2024-03-13 17:05] VITALS: RESP 18; TEMP 98
[2024-03-13] MEDS: ZIPRASIDONE 20 MG VIAL IM STA (19:31)
[2024-03-13] MEDS: LORazepam 2 MG/ML INJ IM STA (19:34)
[2024-03-13] MEDS: ZIPRASIDONE 20 MG CAP PO STA (19:35)
--- NOTE | 2024-03-13 23:21 | ED ---
Psych HPI - General Chief Complaint: Psychiatric Symptoms Stated Complaint: Mental Health Petitioned Time Seen by Provider: 03/13/24 17:17 Source: police - History of Present Illness Initial Comments: This patient is a 53-year-old woman who is here to have court mandated psychiatric evaluation. Patient reportedly had not been compliant with treatment protocol. When I interviewed the patient, she is denying homicidal or suicidal ideation. Denies hallucinations. MD Complaint: other -: unknown Associated Psychiatric Symptoms: racing thoughts Quality: getting worse Improves With: none Worsens With: none Context: not taking psychiatric medications Associated Symptoms: denies other symptoms - Related Data Home Medications Medication Instructions Recorded Confirmed Pantoprazole [Protonix] 40 mg PO BID 12/18/22 03/13/24 Allergies Allergy/AdvReac Type Severity Reaction Status Date / Time No Known Allergies Allergy Verified 03/13/24 20:58 Review of Systems ROS Statement: Those systems with pertinent positive or pertinent negative responses have been documented in the HPI. ROS Other: All systems not noted in ROS Statement are negative. Constitutional: Denies: fever, chills, weakness Eyes: Denies: vision change Respiratory: Denies: cough, dyspnea Cardiovascular: Denies: chest pain, palpitations Gastrointestinal: Denies: abdominal pain, vomiting, diarrhea Genitourinary: Denies: dysuria, hematuria Musculoskeletal: Denies: back pain Skin: Denies: rash Neurological: Denies: headache, weakness Psychiatric: Denies: depression, auditory hallucinations, suicidal thoughts Past Medical History Past Medical History: Cancer, Deep Vein Thrombosis (DVT) Additional Past Medical History / Comment(s): malnutrition, anemia, hernia , thyroid nodules, skin cancer removed, colostomy bag, bariatric surgery revision (oct 2022) osteomilitis History of Any Multi-Drug Resistant Organisms: MRSA Date of last positivie culture/infection: 08/27/22 MDRO Source:: Abdomen Past Surgical History: Bariatric Surgery, Hernia Repair, Joint Replacement Additional Past Surgical History / Comment(s): tim en y, bilateral knee replacement, PEG tube, tube feeding, 6 abd surgery, colostomy bag, bariatric revision. Colostomy reversal Past Anesthesia/Blood Transfusion Reactions: No Reported Reaction Past Psychological History: ADD/ADHD, Anxiety, Depression, PTSD Smoking Status: Former smoker Past Alcohol Use History: None Reported Past Drug Use History: None Reported, Marijuana - Past Family History Father History Unknown: Yes Family Medical History: Cancer, Diabetes Mellitus, Hypertension Additional Family Medical History / Comment(s): throat cancer Mother History Unknown: Yes Family Medical History: Cancer, Diabetes Mellitus Additional Family Medical History / Comment(s): multiple myeloma General Exam Limitations: no limitations General appearance: alert, in no apparent distress Head exam: Present: atraumatic, normocephalic Eye exam: Present: normal appearance. Absent: scleral icterus, conjunctival injection ENT exam: Present: normal oropharynx Neck exam: Present: normal inspection, full ROM Respiratory exam: Present: normal lung sounds bilaterally. Absent: respiratory distress, wheezes, rales, rhonchi, stridor Cardiovascular Exam: Present: regular rate, normal rhythm, normal heart sounds. Absent: systolic murmur, diastolic murmur, rubs, gallop GI/Abdominal exam: Present: soft. Absent: distended, tenderness, guarding, rebound Extremities exam: Present: normal inspection Back exam: Present: normal inspection. Absent: CVA tenderness (R), CVA tenderness (L) Neurological exam: Present: alert, oriented X3. Absent: motor sensory deficit Psychiatric exam: Present: manic, other (Time, patient displays pressured speech and disorganized thought processes. She does describe some paranoid ideation.). Absent: depressed, agitated, anxious, flat affect, homicidal ideation, suicidal ideation Skin exam: Present: warm, dry, intact, normal color. Absent: rash Course Vital Signs 03/13/24 03/14/24 16:52 06:45 Temperature 98.0 F 98.0 F Pulse Rate 102 H 79 Respiratory 18 18 Rate Blood Pressure 150/81 111/71 O2 Sat by Pulse 99 99 Oximetry Medical Decision Making - Medical Decision Making Was pt. sent in by a medical professional or institution (, PA, FIREWORKS MAKER, urgent care, hospital, or residential...) When possible be specific @ -[No] Did you speak to anyone other than the patient for history (EMS, parent, family, police, friend...)? What history was obtained from this source @ -[No] Did you review nursing and triage notes (agree or disagree)? Why? @ -[I reviewed and agree with nursing and triage notes] Were old charts reviewed (outside hosp., previous admission, EMS record, old EKG, old radiological studies, urgent care reports/EKG's, residential records)? Report findings @ -[No old charts were reviewed] Differential Diagnosis (chest pain, altered mental status, abdominal pain women, abdominal pain men, vaginal bleeding, weakness, fever, dyspnea, syncope, headache, dizziness, GI bleed, back pain, seizure, CVA, palpatations, mental health, musculoskeletal)? @ -[Differential Mental Health Depression, anxiety, bipolar, psychosis, schizophrenia, borderline personality, situational depression, adjustment disorder, behavioral disorder, brain tumor, malingering, substance abuse, encephalopathy, medication reaction, dementia, hypothyroidism, degenerative neurologic disorder, lupus.... This is not meant to be all-inclusive list EKG interpreted by me (3pts min.). @ -[ X-rays interpreted by me (1pt min.). @ -[None done] CT interpreted by me (1pt min.). @ -[None done] U/S interpreted by me (1pt. min.). @ -[None done] What testing was considered but not performed or refused? (CT, X-rays, U/S, labs)? Why? @ -[None] What meds were considered but not given or refused? Why? @ -[None] Did you discuss the management of the patient with other professionals (professionals i.e. , PA, FIREWORKS MAKER, lab, RT, psych nurse, medical social worker, plate grainer, teacher, environmental conservation officer, case specialist)? Give summary @ -[Case discussed with EPS and they will see the patient and staff with psychiatrist Was smoking cessation discussed for >3mins.? @ -[No] Was critical care preformed (if so, how long)? @ -[No] Were there social determinants of health that impacted care today? How? (Homelessness, low income, unemployed, alcoholism, drug addiction, transportation, low edu. Level, literacy, decrease access to med. care, detention, rehab)? @ -[No] Was there de-escalation of care discussed even if they declined (Discuss DNR or withdrawal of care, Hospice)? DNR status @ -[No] What co-morbidities impacted this encounter? (DM, HTN, Smoking, COPD, CAD, Cancer, CVA, ARF, Chemo, Hep., AIDS, mental health diagnosis, sleep apnea, morbid obesity)? @ -[None] Was patient admitted / discharged? Hospital course, mention meds given and route, prescriptions, significant lab abnormalities, going to OR and other pertinent info. @ -Patient is pending EPS evaluation at the time of shift change Was patient admitted / discharged? Hospital course, mention meds given and route, prescriptions, significant lab abnormalities, going to OR and other pertinent info. @ -[ subsequent review of the records reveal that following EPS Evaluation, patient deemed to be stable for further management as outpatient. Undiagnosed new problem with uncertain prognosis? @ -[No] Drug Therapy requiring intensive monitoring for toxicity (Heparin, Nitro, Insulin, Cardizem)? @ -[No] Were any procedures done? @ -[No] Diagnosis/symptom? @ -[Mood disorder Acute, or Chronic, or Acute on Chronic? @ -[Chronic Uncomplicated (without systemic symptoms) or Complicated (systemic symptoms)? @ -[Uncomplicated Side effects of treatment? @ -[No] Exacerbation, Progression, or Severe Exacerbation? @ -[No] Poses a threat to life or bodily function? How? (Chest pain, USA, [place], pneumonia, PE, COPD, DKA, ARF, appy, cholecystitis, CVA, Diverticulitis, Homicidal, Suicidal, threat to staff... and all critical care pts) @ -[No] - Lab Data Lab Results 03/13/24 Range/Units 23:10 Urine Opiates Screen Not Detected (NotDetected) Ur Oxycodone Screen Not Detected (NotDetected) Urine Methadone Screen Not Detected (NotDetected) Ur Barbiturates Screen Not Detected (NotDetected) U Tricyclic Antidepress Not Detected (NotDetected) Ur Phencyclidine Scrn Not Detected (NotDetected) Ur Amphetamines Screen Not Detected (NotDetected) U Methamphetamines Scrn Not Detected (NotDetected) U Benzodiazepines Scrn Detected H (NotDetected) Urine Cocaine Screen Not Detected (NotDetected) U Marijuana (THC) Screen Detected H (NotDetected) Disposition Clinical Impression: Mood disorder Disposition: HOME SELF-CARE Condition: Good Instructions (If sedation given, give patient instructions): Mood Disorders (ED) Is patient prescribed a controlled substance at d/c from ED?: No Referrals: Love Stuart MD [Primary Care Provider] - 1-2 days
[2024-03-13 23:43] LABS: Amphetamine Screen,Urine Not Detected (NotDetected); Barbiturate Screen,Urine Not Detected (NotDetected); Benzodiazepines Screen,Urine Detected (NotDetected); Cocaine Screen,Urine Not Detected (NotDetected); Methadone Screen, Urine Not Detected (NotDetected); Opiate Screen,Urine Not Detected (NotDetected); Oxycodone Screen, Urine Not Detected (NotDetected); Phencyclidine Screen,Urine Not Detected (NotDetected); Tricyclic Antidepressant,Urine Not Detected (NotDetected); Urn Cannabinoid Scrn Detected (NotDetected)
[2024-03-14 07:14] VITALS: BP 111/71; PULSE 79
[2024-03-14] MEDS: IBUPROFEN 600 MG TAB PO STA (10:09)
[2024-03-14] MEDS: CEPHALEXIN 500 MG CAP PO STA (10:09)
[2024-03-14] MEDS: LORazepam 2 MG/ML INJ IM STA (10:48)
[2024-03-14] MEDS: ZIPRASIDONE 20 MG VIAL IM STA (10:49)
[2024-03-14] MEDS: SULFAMETHOX-TMP 800-160MG 1 EACH TAB PO STA (16:27)
== END 2024-03-14 16:29 | disposition home or self-care (01) ==
LOC: EC 16:49
DX: F39 Unspecified mood [affective] disorder (principal); Z87.891 Personal history of nicotine dependence
CPT/HCPCS: 82075; 80306; 99285; 96372 ×4; J2060 ×2; J3486 ×2

== ENCOUNTER 2024-03-28 23:03 | Emergency (ER) | payer MEDICARE, OTHER ==
[2024-03-28 23:30] VITALS: RESP 18
[2024-03-29] MEDS: ALBUTEROL NEBULIZED 2.5 MG/3 ML INHALATION STA (02:27)
--- NOTE | 2024-03-29 04:23 | ED ---
General Adult HPI - General Chief complaint: Urogenital Stated complaint: abd pain Time Seen by Provider: 03/29/24 00:42 Source: patient Mode of arrival: ambulatory Limitations: no limitations - History of Present Illness Initial comments: This patient is a 53-year-old woman who is here with a couple of complaints. She did register with concerns about sexually transmitted infection. While she was here she also complained of some cough and wheezing. The patient stated that she had intercourse and was concerned about possibility of infection. She states new partner and they do not use barrier method. She did have a little bit of whitish discharge. She is not having pain. No fever or chills. No dysuria. Related to the patient's respiratory status she states she has underlying history of asthma. She does smoke. She is having some cough and wheezing. No chest pain. Onset/Timin -: days(s) Location: genitals Radiation: non-radiation Quality: burning Consistency: intermittent Improves with: none Worsens with: none Associated Symptoms: cough Treatments Prior to Arrival: none - Related Data Home Medications Medication Instructions Recorded Confirmed Pantoprazole [Protonix] 40 mg PO BID 12/18/22 03/13/24 Allergies Allergy/AdvReac Type Severity Reaction Status Date / Time No Known Allergies Allergy Verified 03/28/24 23:07 Review of Systems ROS Statement: Those systems with pertinent positive or pertinent negative responses have been documented in the HPI. ROS Other: All systems not noted in ROS Statement are negative. Constitutional: Denies: fever, chills, weakness Respiratory: Reports: cough, wheezes Cardiovascular: Denies: chest pain, palpitations, edema, syncope Gastrointestinal: Denies: abdominal pain, nausea, vomiting, diarrhea, constipation Genitourinary: Reports: discharge. 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 Colostomy reversal Past Anesthesia/Blood Transfusion Reactions: No Reported Reaction Past Psychological History: ADD/ADHD, Anxiety, Depression, PTSD Smoking Status: Current every day smoker Past Alcohol Use History: Occasional Past Drug Use History: Marijuana - Past Family History Father History Unknown: Yes Family Medical History: Cancer, Diabetes Mellitus, Hypertension Additional Family Medical History / Comment(s): throat cancer Mother History Unknown: Yes Family Medical History: Cancer, Diabetes Mellitus Additional Family Medical History / Comment(s): multiple myeloma General Exam Limitations: no limitations General appearance: alert, in no apparent distress Head exam: Present: atraumatic, normocephalic Eye exam: Present: normal appearance. Absent: scleral icterus, conjunctival injection ENT exam: Present: normal oropharynx Neck exam: Present: normal inspection Respiratory exam: Present: wheezes. Absent: respiratory distress, rales, rhonchi, stridor, accessory muscle use Cardiovascular Exam: Present: regular rate, normal rhythm, normal heart sounds. Absent: systolic murmur, diastolic murmur, rubs, gallop GI/Abdominal exam: Present: soft. Absent: distended, tenderness, guarding, rebound, rigid, mass External exam: Present: normal external exam. Absent: erythema, swelling, lesions, lacerations Speculum exam: Present: vaginal discharge (Trace of white discharge). Absent: cervical discharge By manual exam: Present: normal by manual exam. Absent: cervical motion tenderness, adnexal tenderness, adnexal mass, uterine enlargement, uterine tenderness Extremities exam: Present: normal inspection, normal capillary refill. Absent: pedal edema, calf tenderness Back exam: Present: normal inspection. Absent: CVA tenderness (R), CVA tenderness (L) Neurological exam: Present: alert Skin exam: Present: warm, dry, intact, normal color. Absent: rash Course Vital Signs 03/28/24 03/29/24 03/29/24 23:05 02:29 02:34 Temperature 98.1 F Pulse Rate 85 75 78 Respiratory 18 Rate Blood Pressure 139/90 O2 Sat by Pulse 99 Oximetry 03/29/24 05:50 Temperature 98.5 F Pulse Rate 71 Respiratory 18 Rate Blood Pressure 124/84 O2 Sat by Pulse 98 Oximetry Medical Decision Making - Medical Decision Making Was pt. sent in by a medical professional or institution (TASH Jacinto, DEVELOPMENTAL EDUCATION INSTRUCTOR, urgent care, hospital, or snf...) When possible be specific @ -[No] Did you speak to anyone other than the patient for history (EMS, parent, family, police, friend...)? What history was obtained from this source @ -[No] Did you review nursing and triage notes (agree or disagree)? Why? @ -[I reviewed and agree with nursing and triage notes] Were old charts reviewed (outside hosp., previous admission, EMS record, old EKG, old radiological studies, urgent care reports/EKG's, snf records)? Report findings @ -[No old charts were reviewed] Differential Diagnosis (chest pain, altered mental status, abdominal pain women, abdominal pain men, vaginal bleeding, weakness, fever, dyspnea, syncope, headache, dizziness, GI bleed, back pain, seizure, CVA, palpatations, mental health, musculoskeletal)? @ - UTI, vulvitis, PID, cervicitis/STI this is not meant to be an all-inclusive list EKG interpreted by me (3pts min.). @ -[As above] X-rays interpreted by me (1pt min.). @ -[None done] CT interpreted by me (1pt min.). @ -[None done] U/S interpreted by me (1pt. min.). @ -[None done] What testing was considered but not performed or refused? (CT, X-rays, U/S, labs)? Why? @ -[None] What meds were considered but not given or refused? Why? @ -[None] Did you discuss the management of the patient with other professionals (professionals i.e. TASH Jacinto, DEVELOPMENTAL EDUCATION INSTRUCTOR, lab, RT, psych nurse, dialysis social worker, boat builder, teacher, technology officer, case packer and sealer)? Give summary @ -[No] Was smoking cessation discussed for >3mins.? @ -[No] Was critical care preformed (if so, how long)? @ -[No] Were there social determinants of health that impacted care today? How? (Homelessness, low income, unemployed, alcoholism, drug addiction, transportation, low edu. Level, literacy, decrease access to med. care, senior care, rehab)? @ -[No] Was there de-escalation of care discussed even if they declined (Discuss DNR or withdrawal of care, Hospice)? DNR status @ -[No] What co-morbidities impacted this encounter? (DM, HTN, Smoking, COPD, CAD, Cancer, CVA, ARF, Chemo, Hep., AIDS, mental health diagnosis, sleep apnea, morbid obesity)? @ -[None] Was patient admitted / discharged? Hospital course, mention meds given and route, prescriptions, significant lab abnormalities, going to OR and other pertinent info. @ -[Patient is 53-year-old woman here with concerns about discharge and possibility of STI. The patient's exam as remarkable only for small amount of whitish discharge. We discussed empiric treatment versus waiting for cultures and the patient elects to have empiric treatment at this point. We discussed appropriate further care and follow-up as well as return parameters. The patient also having exam findings consistent with mild exacerbation of asthma and she did have relief with treatment here. Discussed appropriate further care as well as return parameters Undiagnosed new problem with uncertain prognosis? @ -[No] Drug Therapy requiring intensive monitoring for toxicity (Heparin, Nitro, Insulin, Cardizem)? @ -[No] Were any procedures done? @ -[No] Diagnosis/symptom? @ -[Vaginal discharge Acute asthma exacerbation Acute, or Chronic, or Acute on Chronic? @ -[Acute uncomplicated Uncomplicated (without systemic symptoms) or Complicated (systemic symptoms)? @ -[ Side effects of treatment? @ -[No] Exacerbation, Progression, or Severe Exacerbation? @ -[No] Poses a threat to life or bodily function? How? (Chest pain, [place], [place], pneumonia, PE, COPD, DKA, ARF, appy, cholecystitis, CVA, Diverticulitis, Homicidal, Suicidal, threat to staff... and all critical care pts) @ -[No] - Lab Data Lab Results 03/29/24 03/29/24 03/29/24 Range/Units 04:13 04:13 04:13 Chlamydia DNA (PCR) Negative (Negative) N.gonorrhoeae DNA Probe Negative (Negative) Trichomonas Ag (Rapid) Negative (Negative) Disposition Clinical Impression: Asthma Disposition: HOME SELF-CARE Condition: Good Instructions (If sedation given, give patient instructions): Asthma (ED) Is patient prescribed a controlled substance at d/c from ED?: No Referrals: Love Stuart MD [Primary Care Provider] - 1-2 days
[2024-03-29] MEDS: AZITHROMYCIN 250 MG TAB PO STA (05:49)
[2024-03-29] MEDS: cefTRIAXone 250 MG VIAL IM STA (05:49)
[2024-03-29 06:16] VITALS: BP 124/84; PULSE 71; TEMP 98.5
[2024-03-30 13:03] LABS: N. gonorrhoeae,PCR Negative (Negative)
[2024-03-30 13:24] LABS: C. trachomatis,PCR Negative (Negative)
== END 2024-03-29 05:55 | disposition home or self-care (01) ==
LOC: EC 23:03
DX: J45.909 Unspecified asthma, uncomplicated (principal); N89.8 Other specified noninflammatory disorders of vagina; F17.200 Nicotine dependence, unspecified, uncomplicated
CPT/HCPCS: 99284; 96372; 94640; 87808; 87491; 87591; J0696

== ENCOUNTER 2024-05-12 00:52 | Emergency (ER) | payer MEDICARE, OTHER ==
[2024-05-12 01:02] VITALS: PULSE 67; TEMP 97.7
[2024-05-12 01:55] LABS: Basophils % (A) 1 %; Eosinophils # (A) 0.1 k/uL (0-0.7); Eosinophils % (A) 3 %; HCT 39.3 % (34.0-46.0); HGB 12.5 gm/dL (11.4-16.0); Lymphocytes # (A) 1.9 k/uL (1.0-4.8); Lymphocytes % (A) 37 %; MCH 30.1 pg (25.0-35.0); MCHC 31.9 g/dL (31.0-37.0); MCV 94.4 fL (80.0-100.0); Mean Platelet Volume 8.7; Monocytes # (A) 0.4 k/uL (0-1.0); Monocytes % (A) 8 %; Neutrophils # (A) 2.6 k/uL (1.3-7.7); Neutrophils % (A) 50 %; Platelet Count 197 k/uL (150-450); RBC 4.16 m/uL (3.80-5.40); RDW 13.5 % (11.5-15.5); WBC 5.2 k/uL (3.8-10.6)
[2024-05-12 02:04] LABS: Partial Thromboplastin Time 25.9 sec (22.0-30.0); Prothrombin Time 10.6 sec (10.0-12.5)
[2024-05-12 02:08] LABS: ALT 22 U/L (4-34); AST 28 U/L (14-36); African American GFR (CKD) >90 (>60 ml/min/1.73 sqM); Albumin 3.8 g/dL (3.5-5.0); Alkaline Phosphatase 73 U/L (38-126); Anion Gap 8 mmol/L; Blood Urea Nitrogen 7 mg/dL (7-17); Calcium 8.5 mg/dL (8.4-10.2); Carbon Dioxide 21 mmol/L (22-30); Chloride 108 mmol/L (98-107); Glucose 104 mg/dL (74-99); Magnesium 1.9 mg/dL (1.6-2.3); Non-African American GFR(CKD) >90 (>60 ml/min/1.73 sqM); Potassium 3.5 mmol/L (3.5-5.1); Sodium 137 mmol/L (137-145); Total Bilirubin 0.3 mg/dL (0.2-1.3); Total Protein 6.5 g/dL (6.3-8.2)
[2024-05-12 02:17] LABS: NT-Pro-B-Type Natriuretic Pept 372 pg/mL
[2024-05-12 02:19] LABS: Appearance,Urine Clear (Clear); Bilirubin,Urine Negative (Negative); Blood,Urine Negative (Negative); Color,Urine Colorless; Glucose,Urine (UA) Negative (Negative); Ketones,Urine Negative (Negative); Leukocyte Esterase,Urine Trace (Negative); Mucus,Urine Rare /hpf; Nitrite,Urine Negative (Negative); PH, Urine 5.5 (5.0-8.0); Protein,Urine Negative (Negative); RBC,Urine 1 /hpf (0-5); Specific Gravity,Urine 1.003 (1.001-1.035); Squamous Epithelial Cell,Urine <1 /hpf (0-4); Urobilinogen,Urine <2.0 mg/dL (<2.0); WBC,Urine 1 /hpf (0-5)
--- NOTE | 2024-05-12 03:39 | ED ---
Extremity Problem HPI - General Chief complaint: Extremity Problem,Nontraumatic Stated complaint: feet swelling Time Seen by Provider: 05/12/24 03:15 Source: patient Mode of arrival: ambulatory Limitations: no limitations - History of Present Illness Initial comments: 53-year-old female presents to the ED with chief complaint of leg swelling. Patient reports that she has been walking around a lot over the past few days that she has been trying to lose some weight. Reports that she also stands for long periods of time. Over the last few days has noticed swelling to her bilateral lower legs. Denies calf pain. Patient also notes she has a new sex ual partner and ports that his condom slipped off during sex and would like to have empiric treatment for STD. Denies vaginal discharge. Denies urinary symptoms. Denies fever or chills. No chest pain or shortness of breath. No other complaints at this time. - Related Data Home Medications Medication Instructions Recorded Confirmed Pantoprazole [Protonix] 40 mg PO BID 12/18/22 03/13/24 Previous Rx's Medication Instructions Recorded Doxycycline [Vibramycin] 100 mg PO BID #14 capsule 05/12/24 Allergies Allergy/AdvReac Type Severity Reaction Status Date / Time No Known Allergies Allergy Verified 05/12/24 01:02 Review of Systems ROS Statement: Those systems with pertinent positive or pertinent negative responses have been documented in the HPI. ROS Other: All systems not noted in ROS Statement are negative. 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 Colostomy reversal Past Anesthesia/Blood Transfusion Reactions: No Reported Reaction Past Psychological History: ADD/ADHD, Anxiety, Depression, PTSD Smoking Status: Current every day smoker Past Alcohol Use History: Occasional Past Drug Use History: Marijuana - Past Family History Father History Unknown: Yes Family Medical History: Cancer, Diabetes Mellitus, Hypertension Additional Family Medical History / Comment(s): throat cancer Mother History Unknown: Yes Family Medical History: Cancer, Diabetes Mellitus Additional Family Medical History / Comment(s): multiple myeloma General Exam Limitations: no limitations General appearance: alert, in no apparent distress Eye exam: Present: normal appearance Neck exam: Present: normal inspection Respiratory exam: Present: normal lung sounds bilaterally Cardiovascular Exam: Present: regular rate GI/Abdominal exam: Present: soft, normal bowel sounds. Absent: distended, tenderness, guarding, rebound, rigid Extremities exam: Present: other (1+ pitting edema bilateral lower extremities. Negative Homans' sign bilaterally. No tenderness to palpation of the calves bilaterally. Ambulates without difficulty. Overlying skin has no changes. DP/PT pulses intact bilaterally.) Neurological exam: Present: alert, oriented X3 Skin exam: Present: warm, dry Course Vital Signs 05/12/24 00:55 Temperature 97.7 F Pulse Rate 67 Respiratory 20 Rate Blood Pressure 149/88 O2 Sat by Pulse 99 Oximetry Medical Decision Making - Medical Decision Making Was pt. sent in by a medical professional or institution (Dr. PA, DAY CAMP COUNSELOR, urgent care, hospital, or [facility]...) When possible be specific @ -No Did you speak to anyone other than the patient for history (EMS, parent, family, police, friend...)? What history was obtained from this source @ -No Did you review nursing and triage notes (agree or disagree)? Why? @ -I reviewed and agree with nursing and triage notes Were old charts reviewed (outside hosp., previous admission, EMS record, old EKG, old radiological studies, urgent care reports/EKG's, [facility] records)? Report findings @ -No old charts were reviewed Differential Diagnosis (chest pain, altered mental status, abdominal pain women, abdominal pain men, vaginal bleeding, weakness, fever, dyspnea, syncope, headache, dizziness, GI bleed, back pain, seizure, CVA, palpatations, mental health, musculoskeletal)? @ -Differential Musculoskeletal Muscular strain, contusion, ligament sprain, fracture, arthritis, septic a rthritis, bursitis, cellulitis, muscle spasm, nerve compression, DVT, arterial occlusion, herpes zoster, electrolyte abnormality, tumor.... This is not meant to be in all inclusive list EKG interpreted by me (3pts min.). @ -None X-rays interpreted by me (1pt min.). @ -Chest x-ray interpreted me which revealed no evidence of acute finding. CT interpreted by me (1pt min.). @ -None done U/S interpreted by me (1pt. min.). @ -None done What testing was considered but not performed or refused? (CT, X-rays, U/S, labs)? Why? @ -Ultrasound Doppler was considered and patient was offered to stay until ultrasound returns however at this time patient would like to leave. Provided prescription for outpatient ultrasound. What meds were considered but not given or refused? Why? @ -None Did you discuss the management of the patient with other professionals (professionals i.e. , PA, DAY CAMP COUNSELOR, lab, RT, psych nurse, social organization professor, ophthalmic technician apprentice, t eacher, personnel officer, case work aide)? Give summary @ -No Was smoking cessation discussed for >3mins.? @ -No Was critical care preformed (if so, how long)? @ -No Were there social determinants of health that impacted care today? How? (Homelessness, low income, unemployed, alcoholism, drug addiction, transportation, low edu. Level, literacy, decrease access to med. care, residential, rehab)? @ -No Was there de-escalation of care discussed even if they declined (Discuss DNR or withdrawal of care, Hospice)? DNR status @ -No What co-morbidities impacted this encounter? (DM, HTN, Smoking, COPD, CAD, Cancer, CVA, ARF, Chemo, Hep., AIDS, mental health diagnosis, sleep apnea, morbid obesity)? @ -None Was patient admitted / discharged? Hospital course, mention meds given and route, prescriptions, significant lab abnormalities, going to OR and other pertinent info. @ -Discharge 53-year-old female presenting to the ED with chief complaint of bilateral leg swelling. No calf pain. States that she has been walking around a lot lately over the past few days. On examination DP/PT pulses strong and intact. Bilateral 1+ pitting edema. Negative Homans' sign bilaterally. Patient was offered to stay until ultrasound returns however at this time she would like to leave. At this time, clinical suspicion of DVT is low. Provided prescription for outpatient ultrasound. Also reports that she would like empiric treatment for gonorrhea chlamydia. Gonorrhea chlamydia testing performed. Patient given a gram of ceftriaxone just charged home with additional prescription for doxycyc line. Discharged home in stable condition. Advise close follow-up with her PCP. Discussed strict return precautions with patient who verbalized agreement. Undiagnosed new problem with uncertain prognosis? @ -No Drug Therapy requiring intensive monitoring for toxicity (Heparin, Nitro, Insulin, Cardizem)? @ -No Were any procedures done? @ -No Diagnosis/symptom? @ -Leg swelling Acute, or Chronic, or Acute on Chronic? @ -Acute Uncomplicated (without systemic symptoms) or Complicated (systemic symptoms)? @ -Uncomplicated Side effects of treatment? @ -No Exacerbation, Progression, or Severe Exacerbation? @ -No Poses a threat to life or bodily function? How? (Chest pain, [place], [place], pneumonia, PE, COPD, DKA, ARF, appy, cholecystitis, CVA, Diverticulitis, Homicidal, Suicidal, threat to staff... and all critical care pts) @ -No - Lab Data Result diagrams: 05/12/24 01:43 05/12/24 01:43 Lab Results 05/12/24 05/12/24 05/12/24 Range/Units 01:43 01:43 01:43 WBC 5.2 (3.8-10.6) k/uL RBC 4.16 (3.80-5.40) m/uL Hgb 12.5 (11.4-16.0) gm/dL Hct 39.3 (34.0-46.0) % MCV 94.4 (80.0-100.0) fL MCH 30.1 (25.0-35.0) pg MCHC 31.9 (31.0-37.0) g/dL RDW 13.5 (11.5-15.5) % Plt Count 197 (150-450) k/uL MPV 8.7 Neutrophils % 50 % Lymphocytes % 37 % Monocytes % 8 % Eosinophils % 3 % Basophils % 1 % Neutrophils # 2.6 (1.3-7.7) k/uL Lymphocytes # 1.9 (1.0-4.8) k/uL Monocytes # 0.4 (0-1.0) k/uL Eosinophils # 0.1 (0-0.7) k/uL Basophils # 0.0 (0-0.2) k/uL PT 10.6 (10.0-12.5) sec INR 1.0 (<1.2) APTT 25.9 (22.0-30.0) sec Sodium 137 (137-145) mmol/L Potassium 3.5 (3.5-5.1) mmol/L Chloride 108 H (98-107) mmol/L Carbon Dioxide 21 L (22-30) mmol/L Anion Gap 8 mmol/L BUN 7 (7-17) mg/dL Creatinine 0.52 (0.52-1.04) mg/dL Est GFR (CKD-EPI)AfAm >90 (>60 ml/min/1.73 sqM) Est GFR (CKD-EPI)NonAf >90 (>60 ml/min/1.73 sqM) Glucose 104 H (74-99) mg/dL Plasma Lactic Acid Bimal (0.7-2.0) mmol/L Calcium 8.5 (8.4-10.2) mg/dL Magnesium 1.9 (1.6-2.3) mg/dL Total Bilirubin 0.3 (0.2-1.3) mg/dL AST 28 (14-36) U/L ALT 22 (4-34) U/L Alkaline Phosphatase 73 (38-126) U/L NT-Pro-B Natriuret Pep 372 pg/mL Total Protein 6.5 (6.3-8.2) g/dL Albumin 3.8 (3.5-5.0) g/dL Urine Color Urine Appearance (Clear) Urine pH (5.0-8.0) Ur Specific [place] (1.001-1.035) Urine Protein (Negative) Urine Glucose (UA) (Negative) Urine Ketones (Negative) Urine Blood (Negative) Urine Nitrite (Negative) Urine Bilirubin (Negative) Urine Urobilinogen (<2.0) mg/dL Ur Leukocyte Esterase (Negative) Urine RBC (0-5) /hpf Urine WBC (0-5) /hpf Ur Squamous Epith Cells (0-4) /hpf Urine Mucus (None) /hpf 05/12/24 05/12/24 Range/Units 01:44 02:23 WBC (3.8-10.6) k/uL RBC (3.80-5.40) m/uL Hgb (11.4-16.0) gm/dL Hct (34.0-46.0) % MCV (80.0-100.0) fL MCH (25.0-35.0) pg MCHC (31.0-37.0) g/dL RDW (11.5-15.5) % Plt Count (150-450) k/uL MPV Neutrophils % % Lymphocytes % % Monocytes % % Eosinophils % % Basophils % % Neutrophils # (1.3-7.7) k/uL Lymphocytes # (1.0-4.8) k/uL Monocytes # (0-1.0) k/uL Eosinophils # (0-0.7) k/uL Basophils # (0-0.2) k/uL PT (10.0-12.5) sec INR (<1.2) APTT (22.0-30.0) sec Sodium (137-145) mmol/L Potassium (3.5-5.1) mmol/L Chloride (98-107) mmol/L Carbon Dioxide (22-30) mmol/L Anion Gap mmol/L BUN (7-17) mg/dL Creatinine (0.52-1.04) mg/dL Est GFR (CKD-EPI)AfAm (>60 ml/min/1.73 sqM) Est GFR (CKD-EPI)NonAf (>60 ml/min/1.73 sqM) Glucose (74-99) mg/dL Plasma Lactic Acid Bimal 0.9 (0.7-2.0) mmol/L Calcium (8.4-10.2) mg/dL Magnesium (1.6-2.3) mg/dL Total Bilirubin (0.2-1.3) mg/dL AST (14-36) U/L ALT (4-34) U/L Alkaline Phosphatase (38-126) U/L NT-Pro-B Natriuret Pep pg/mL Total Protein (6.3-8.2) g/dL Albumin (3.5-5.0) g/dL Urine Color Colorless Urine Appearance Clear (Clear) Urine pH 5.5 (5.0-8.0) Ur Specific [place] 1.003 (1.001-1.035) Urine Protein Negative (Negative) Urine Glucose (UA) Negative (Negative) Urine Ketones Negative (Negative) Urine Blood Negative (Negative) Urine Nitrite Negative (Negative) Urine Bilirubin Negative (Negative) Urine Urobilinogen <2.0 (<2.0) mg/dL Ur Leukocyte Esterase Trace H (Negative) Urine RBC 1 (0-5) /hpf Urine WBC 1 (0-5) /hpf Ur Squamous Epith Cells <1 (0-4) /hpf Urine Mucus Rare H (None) /hpf Disposition Clinical Impression: Leg swelling, STD exposure Disposition: HOME SELF-CARE Condition: Good Additional Instructions: Please return to the Emergency Department if symptoms worsen or any other concerns. Please follow up with your PCP. Prescriptions: Doxycycline [Vibramycin] 100 mg PO BID #14 capsule Is patient prescribed a controlled substance at d/c from ED?: No Referrals: Love Stuart MD [Primary Care Provider] - 1-2 days Time of Disposition: 03:49
[2024-05-12] MEDS: cefTRIAXone 1,000 MG VIAL (IM USE) IM STA (03:52)
[2024-05-12 04:06] VITALS: BP 153/98; RESP 18
--- NOTE | 2024-05-12 04:13 | XR ---
EXAM: XR Chest, 2 Views CLINICAL HISTORY: ITS.REASON XR Reason: lower ext edema TECHNIQUE: Frontal and lateral views of the chest. COMPARISON: No relevant prior studies available. FINDINGS: Lungs: Unremarkable. No consolidation. Pleural space: Unremarkable. No pneumothorax. Heart: Unremarkable. No cardiomegaly. Mediastinum: Unremarkable. Normal mediastinal contour. Bones/joints: Unremarkable. No acute fracture. IMPRESSION: No consolidation.
[2024-05-13 13:43] LABS: N. gonorrhoeae,PCR Negative (Negative)
[2024-05-13 13:55] LABS: C. trachomatis,PCR Negative (Negative)
== END 2024-05-12 04:34 | disposition home or self-care (01) ==
LOC: EC 00:52
DX: M79.89 Other specified soft tissue disorders (principal); Z20.2 Contact with and (suspected) exposure to infections with a predominantly sexual mode of transmission; F17.200 Nicotine dependence, unspecified, uncomplicated
CPT/HCPCS: 36415; 93005; 83880; 80053; 83605; 83735; 85025; 85610; 85730; 81001; 87491; 87591; 71046; 99284; 96372; J0696

== ENCOUNTER → 2024-05-14 | Outpatient (CLI) | payer MEDICARE, OTHER ==
--- NOTE | 2024-05-15 21:51 | US ---
EXAMINATION TYPE: US venous doppler duplex LE BI DATE OF EXAM: 05/14/2024 4:13 PM COMPARISON: US 2023 & 2022 CLINICAL INDICATION: Female, 53 years old with history of R22.43 LOCALIZED SWELLING, MASS AND LUMP; B ilateral leg swelling SIDE PERFORMED: Bilateral TECHNIQUE: The lower extremity deep venous system is examined utilizing real time linear array sonog pramod with graded compression, doppler sonography and color-flow sonography. VESSELS IMAGED: Common Femoral Vein Deep Femoral Vein Greater Saphenous Vein * Femoral Vein Popliteal Vein Small Saphenous Vein * Proximal Calf Veins (* superficial vessels) The deep venous systems of both lower extremities from the common femoral remains to the proximal mitra f veins are patent and compressible with augmentable flow and with normal waveforms. IMPRESSION: No evidence of bilateral lower extremity DVT from the common femoral veins to the proximal calf veins
== END | disposition home or self-care (01) ==
LOC: RADUSWWP 15:26
PROVIDERS: ATTEND Family Medicine
DX: R22.43 Localized swelling, mass and lump, lower limb, bilateral (principal); Z09 Encounter for follow-up examination after completed treatment for conditions other than malignant neoplasm
CPT/HCPCS: 93970

== ENCOUNTER 2024-05-25 21:25 | Emergency (ER) | payer MEDICARE, OTHER ==
[2024-05-25 21:52] VITALS: RESP 18; TEMP 98
--- NOTE | 2024-05-25 22:00 | ED ---
General Adult HPI - General Chief complaint: Extremity Injury, Upper Stated complaint: R shoulder pain Time Seen by Provider: 05/25/24 21:27 Source: patient Mode of arrival: EMS Limitations: no limitations - History of Present Illness Initial comments: Dictation was produced using [employer] dictation software. please excuse any grammatical, word or spelling errors. Chief Complaint: 53-year-old female with right shoulder pain History of Present Illness: Patient is a 53-year-old female presents emergency department 1 day of right shoulder pain. Patient states her symptoms began today. She had fallen over the weekend and was seen at an emergency department. She states that she was also concerned she some antibiotics recently. Patient has reported known right shoulder rotator cuff injury. She has seen a shoulder specialist for this. According to her as there is no concern reason for any operative intervention. States that her shoulder started hurting randomly. Patient is brought in by EMS. The ROS documented in this emergency department record has been reviewed and confirmed by me. Those systems with pertinent positive or negative responses have been documented in the HPI. All other systems are other negative and/or noncontributory. - Related Data Home Medications Medication Instructions Recorded Confirmed Pantoprazole [Protonix] 40 mg PO BID 12/18/22 03/13/24 Previous Rx's Medication Instructions Recorded Doxycycline [Vibramycin] 100 mg PO BID #14 capsule 05/12/24 HYDROcodone/APAP 5-325MG [[place] 1 tab PO Q6HR PRN 3 Days #12 tab 05/25/24 5-325] Allergies Allergy/AdvReac Type Severity Reaction Status Date / Time No Known Allergies Allergy Verified 05/25/24 21:39 Review of Systems ROS Statement: Those systems with pertinent positive or pertinent negative responses have been documented in the HPI. ROS Other: All systems not noted in ROS Statement are negative. 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 Colostomy reversal Past Anesthesia/Blood Transfusion Reactions: No Reported Reaction Past Psychological History: ADD/ADHD, Anxiety, Depression, PTSD Smoking Status: Current every day smoker Past Alcohol Use History: Occasional Past Drug Use History: Marijuana - Past Family History Father History Unknown: Yes Family Medical History: Cancer, Diabetes Mellitus, Hypertension Additional Family Medical History / Comment(s): throat cancer Mother History Unknown: Yes Family Medical History: Cancer, Diabetes Mellitus Additional Family Medical History / Comment(s): multiple myeloma General Exam - General Exam Comments Initial Comments: PHYSICAL EXAM: General Impression: Alert and oriented x3, not in acute distress HEENT: Normocephalic atraumatic, extra-ocular movements intact, pupils equal and reactive to light bilaterally, mucous membranes moist. Cardiovascular: Heart regular rate and rhythm Chest: Able to complete full sentences, no retractions, no tachypnea Abdomen: abdomen soft, non-tender, non-distended, no organomegaly Musculoskeletal: Pulses present and equal in all extremities, no peripheral edema Right shoulder able to touch her contralateral shoulder with her right hand., No sulcus sign Motor: no focal deficits noted Neurological: CN II-XII grossly intact, no focal motor or sensory deficits noted Skin: Intact with no visualized rashes Psych: Normal affect and mood Limitations: no limitations Course Vital Signs 05/25/24 21:34 Temperature 98.0 F Pulse Rate 84 Respiratory 18 Rate Blood Pressure 132/86 O2 Sat by Pulse 100 Oximetry Medical Decision Making - Medical Decision Making Was pt. sent in by a medical professional or institution (, PA, INSTRUCTIONAL DESIGN MANAGER, urgent care, hospital, or penitentiary...) When possible be specific @ -No Did you speak to anyone other than the patient for history (EMS, parent, family, police, friend...)? What history was obtained from this source @ -No Did you review nursing and triage notes (agree or disagree)? Why? @ -I reviewed and agree with nursing and triage notes Were old charts reviewed (outside hosp., previous admission, EMS record, old EKG, old radiological studies, urgent care reports/EKG's, penitentiary records)? Report findings @ -No old charts were reviewed Differential Diagnosis (chest pain, altered mental status, abdominal pain women, abdominal pain men, vaginal bleeding, musculoskeletal, weakness, fever, dyspnea, syncope, headache, dizziness, GI bleed, back pain, seizure, CVA, palpatations, mental health)? @ -Shoulder dislocation, shoulder fracture, humerus fracture, AC separation EKG interpreted by me (3pts min.). @ -None done X-rays interpreted by me (1pt min.). @ -Right shoulder x-ray shows no acute processes. CT interpreted by me (1pt min.). @ -None done U/S interpreted by me (1pt. min.). @ -None done What testing was considered but not performed or refused? (CT, X-rays, U/S, labs)? Why? @ -None What meds were considered but not given or refused? Why? @ -None Was smoking cessation discussed for >3mins.? @ -No Were there social determinants of health that impacted care today? How? (Homelessness, low income, unemployed, alcoholism, drug addiction, transportation, low edu. Level, literacy, decrease access to med. care, care home, rehab)? @ -No Was there de-escalation of care discussed even if they declined (Discuss DNR or withdrawal of care, Hospice)? DNR status @ -No What co-morbidities impacted this encounter? (DM, HTN, Smoking, COPD, CAD, Cancer, CVA, ARF, Chemo, Hep., AIDS, mental health diagnosis, sleep apnea, morbid obesity)? @ -None Was patient admitted / discharged? Hospital course, mention meds given and route, prescriptions, significant lab abnormalities, going to OR and other pertinent info. @ -53-year-old female presents emergency department with atraumatic right shoulder pain. Vital signs upon arrival are within acceptable limits. Physical examination is benign. Passive and active range of motion intact. X-rays unremarkable. Patient given analgesics. Patient discharged she is told to follow-up with primary care doctor. She understands that she should get an MRI. Did you discuss the management of the patient with other professionals (professionals i.e. , PA, INSTRUCTIONAL DESIGN MANAGER, lab, RT, psych nurse, secondary social studies teacher, roving changer, teacher, administrative officer, manager rn case)? Give summary @ -No Was critical care preformed (if so, how long)? @ -No Undiagnosed new problem with uncertain prognosis? @ -No Drug Therapy requiring intensive monitoring for toxicity (Heparin, Nitro, Insulin, Cardizem)? @ -No Were any procedures done? @ -No Diagnosis/symptom? Acute, or Chronic, or Acute on Chronic? Uncomplicated (without systemic symptoms) or Complicated (systemic symptoms)? @ -Shoulder pain, NOS, no high risk features Side effects of treatment? @ -No Exacerbation, Progression, or Severe Exacerbation? @ -No Poses a threat to life or bodily function? How? (Chest pain, [place], [place], pneumonia, PE, COPD, DKA, ARF, appy, cholecystitis, CVA, Diverticulitis, Homicidal, Suicidal, threat to staff... and all critical care pts) @ -yes Disposition Clinical Impression: Shoulder pain Disposition: HOME SELF-CARE Condition: Good Instructions (If sedation given, give patient instructions): Shoulder Pain (ED) Prescriptions: HYDROcodone/APAP 5-325MG [[place] 5-325] 1 tab PO Q6HR PRN 3 Days #12 tab PRN Reason: Severe Pain Is patient prescribed a controlled substance at d/c from ED?: Yes Referrals: Love Stuart MD [Primary Care Provider] - 1-2 days Time of Disposition: 23:36
[2024-05-25] MEDS: HYDROmorphone 1 MG/ML 1 ML SYRINGE IM STA (22:15)
--- NOTE | 2024-05-25 22:33 | XR ---
EXAMINATION TYPE: XR shoulder complete RT DATE OF EXAM: 05/25/2024 CLINICAL HISTORY: Pain. Recent fall injury. TECHNIQUE: Three views of the right shoulder are obtained. COMPARISON: Prior right shoulder x-ray December 18, 2022 FINDINGS: There is no acute fracture/dislocation evident in the right shoulder. The acromioclavicul ar joint space appears within normal limits. Some glenohumeral joint space narrowing is seen. The vi sualized ribs are intact and unremarkable. IMPRESSION: There is no acute fracture or dislocation in the right shoulder. No significant change f rom prior.
[2024-05-26] VITALS: BP 142/87; PULSE 78
== END 2024-05-26 00:06 | disposition home or self-care (01) ==
LOC: EC 21:25
DX: M25.511 Pain in right shoulder (principal); F17.200 Nicotine dependence, unspecified, uncomplicated
CPT/HCPCS: 73030; 99283; 96372; J1170

== ENCOUNTER 2024-07-27 23:26 | Emergency (ER) | payer MEDICARE, OTHER ==
[2024-07-27 23:32] VITALS: RESP 18
--- NOTE | 2024-07-27 23:35 | ED ---
Extremity Problem HPI - General Chief complaint: Extremity Problem,Nontraumatic Stated complaint: Rt Leg Injury Time Seen by Provider: 07/27/24 23:35 Source: patient, RN notes reviewed Mode of arrival: ambulatory Limitations: no limitations - History of Present Illness Initial comments: 53-year-old female presents emergency department chief complaint of a duration to the posterior right calf. Patient states that she was on a swing set this afternoon and had a cut by a pasha chain of the swing set. Patient denies falling or other acute injuries at the time of this event. Patient is concerned that she is unaware when her last tetanus vaccination was and presents for her tetanus vaccine. No other acute complaints at this time. - Related Data Home Medications Medication Instructions Recorded Confirmed Pantoprazole [Protonix] 40 mg PO BID 12/18/22 03/13/24 Previous Rx's Medication Instructions Recorded Doxycycline [Vibramycin] 100 mg PO BID #14 capsule 05/12/24 HYDROcodone/APAP 5-325MG [[place] 1 tab PO Q6HR PRN 3 Days #12 tab 05/25/24 5-325] Allergies Allergy/AdvReac Type Severity Reaction Status Date / Time No Known Allergies Allergy Verified 07/27/24 23:32 Review of Systems ROS Statement: Those systems with pertinent positive or pertinent negative responses have been documented in the HPI. ROS Other: All systems not noted in ROS Statement are negative. 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 Colostomy reversal Past Anesthesia/Blood Transfusion Reactions: No Reported Reaction Past Psychological History: ADD/ADHD, Anxiety, Depression, PTSD Smoking Status: Current every day smoker Past Alcohol Use History: Occasional Past Drug Use History: Marijuana - Past Family History Father History Unknown: Yes Family Medical History: Cancer, Diabetes Mellitus, Hypertension Additional Family Medical History / Comment(s): throat cancer Mother History Unknown: Yes Family Medical History: Cancer, Diabetes Mellitus Additional Family Medical History / Comment(s): multiple myeloma General Exam Limitations: no limitations General appearance: alert, in no apparent distress Head exam: Present: atraumatic, normocephalic, normal inspection Eye exam: Present: normal appearance, PERRL, EOMI. Absent: scleral icterus, conjunctival injection, periorbital swelling ENT exam: Present: normal exam, mucous membranes moist Neck exam: Present: normal inspection. Absent: tenderness, meningismus, lymphadenopathy Respiratory exam: Present: normal lung sounds bilaterally. Absent: respiratory distress, wheezes, rales, rhonchi, stridor Cardiovascular Exam: Present: regular rate, normal rhythm, normal heart sounds. Absent: systolic murmur, diastolic murmur, rubs, gallop, clicks GI/Abdominal exam: Present: soft, normal bowel sounds. Absent: distended, tenderness, guarding, rebound, rigid Right Lower Leg exam: Present: normal inspection, full ROM, laceration (1 cm laceration, superficial). Absent: tenderness, swelling, abrasion Neurovascular tendon exam: Present: no vascular compromise Gait: observed and normal Back exam: Present: normal inspection Skin exam: Present: warm, dry, intact, normal color. Absent: rash Course Vital Signs 07/27/24 23:27 Temperature 97.6 F Pulse Rate 72 Respiratory 18 Rate Blood Pressure 128/96 O2 Sat by Pulse 97 Oximetry Medical Decision Making - Medical Decision Making Was pt. sent in by a medical professional or institution (TASH Jacinto, DINKEY MECHANIC, urgent care, hospital, or correction...) When possible be specific @ -No Did you speak to anyone other than the patient for history (EMS, parent, family, police, friend...)? What history was obtained from this source @ -No Did you review nursing and triage notes (agree or disagree)? Why? @ -I reviewed and agree with nursing and triage notes Were old charts reviewed (outside hosp., previous admission, EMS record, old EKG, old radiological studies, urgent care reports/EKG's, correction records)? Report findings @ -No old charts were reviewed Differential Diagnosis (chest pain, altered mental status, abdominal pain women, abdominal pain men, vaginal bleeding, weakness, fever, dyspnea, syncope, headache, dizziness, GI bleed, back pain, seizure, CVA, palpatations, mental health, musculoskeletal)? @ -Laceration, contusion, abrasion, this list is not all inclusive EKG interpreted by me (3pts min.). @ -None X-rays interpreted by me (1pt min.). @ -None done CT interpreted by me (1pt min.). @ -None done U/S interpreted by me (1pt. min.). @ -None done What testing was considered but not performed or refused? (CT, X-rays, U/S, labs)? Why? @ -None What meds were considered but not given or refused? Why? @ -None Did you discuss the management of the patient with other professionals (professionals i.e. , PA, DINKEY MECHANIC, lab, RT, psych nurse, social media designer, hire car driver, teacher, aviation tactical readiness officer, case management social worker)? Give summary @ -No Was smoking cessation discussed for >3mins.? @ -No Was critical care preformed (if so, how long)? @ -No Were there social determinants of health that impacted care today? How? (Home lessness, low income, unemployed, alcoholism, drug addiction, transportation, low edu. Level, literacy, decrease access to med. care, [facility], rehab)? @ -No Was there de-escalation of care discussed even if they declined (Discuss DNR or withdrawal of care, Hospice)? DNR status @ -No What co-morbidities impacted this encounter? (DM, HTN, Smoking, COPD, CAD, Cancer, CVA, ARF, Chemo, Hep., AIDS, mental health diagnosis, sleep apnea, morbid obesity)? @ -None Was patient admitted / discharged? Hospital course, mention meds given and route, prescriptions, significant lab abnormalities, going to OR and other pertinent info. @ -Discharge. 53-year-old female chief complaint of a laceration. On examination there is approximately 1 cm laceration to the posterior right leg, there is no active bleeding or surrounding erythema. Patient has no neurovascular deficits. This laceration is not amenable to suture repair as the size and the depth is not requiring repair. Patient is provided with tetanus vaccination and stable for discharge. All questions answered at bedside and strict return parameters yain with the patient she is verbalized understanding. Case discussed with Dr. Spencer Undiagnosed new problem with uncertain prognosis? @ -No Drug Therapy requiring intensive monitoring for toxicity (Heparin, Nitro, Insulin, Cardizem)? @ -No Were any procedures done? @ -No Diagnosis/symptom? @ -laceration, encounter for tetanus vaccine Acute, or Chronic, or Acute on Chronic? @ -acute Uncomplicated (without systemic symptoms) or Complicated (systemic symptoms)? @ -Uncomplicated Side effects of treatment? @ -No Exacerbation, Progression, or Severe Exacerbation? @ -No Poses a threat to life or bodily function? How? (Chest pain, [place], [place], pneumonia, PE, COPD, DKA, ARF, appy, cholecystitis, CVA, Diverticulitis, Homicidal, Suicidal, threat to staff... and all critical care pts) @ -No Disposition Clinical Impression: Laceration Disposition: HOME SELF-CARE Condition: Good Instructions (If sedation given, give patient instructions): Diphtheria/Pertussis/Tetanus Vaccine (By injection) Additional Instructions: Return to emergency department for any new or worsening symptoms. Is patient prescribed a controlled substance at d/c from ED?: No Referrals: Love Stuart MD [Primary Care Provider] - 1-2 days Time of Disposition: 23:49
[2024-07-27] MEDS: DIPH,PERTUS(ACELL)TETVAC-LF 0.5 ML VIAL IM ONE (23:47)
[2024-07-27 23:55] VITALS: BP 122/82; PULSE 78; TEMP 98.2
== END 2024-07-27 23:53 | disposition home or self-care (01) ==
LOC: EC 23:26
CPT/HCPCS: 90471; 90715; 99283

== ENCOUNTER 2024-08-14 19:24 | Emergency (ER) | payer MEDICARE, OTHER ==
[2024-08-14 19:48] VITALS: TEMP 98.2
--- NOTE | 2024-08-14 20:40 | XR ---
EXAMINATION TYPE: XR chest 2V DATE OF EXAM: 08/14/2024 COMPARISON: 05/12/2024 INDICATION: Sore throat difficulty swallowing TECHNIQUE: Frontal and lateral views of the chest are obtained. FINDINGS: The heart size is normal. The pulmonary vasculature is normal. The lungs are clear. IMPRESSION: 1. No acute pulmonary process. [facility] Sol Coker, , 08/14/2024 8:38 PM
--- NOTE | 2024-08-14 20:43 | ED ---
ENT HPI - General Chief complaint: ENT Stated complaint: Poss Strep throat Time Seen by Provider: 08/14/24 20:41 Source: patient, RN notes reviewed Mode of arrival: ambulatory Limitations: no limitations - History of Present Illness Initial comments: 53-year-old female presenting with sore throat x 1 day. Patient states her throat feels swollen and she is also having nasal congestion, dry cough, and generalized fatigue. She states she was exposed to strep last week. She is able to swallow. Denies chest pain, wheezing, fever, chills. She is also requesting STD testing. Denies urinary symptoms. - Related Data Home Medications Medication Instructions Recorded Confirmed Pantoprazole [Protonix] 40 mg PO BID 12/18/22 03/13/24 Previous Rx's Medication Instructions Recorded Doxycycline [Vibramycin] 100 mg PO BID #14 capsule 05/12/24 HYDROcodone/APAP 5-325MG [[place] 1 tab PO Q6HR PRN 3 Days #12 tab 05/25/24 5-325] predniSONE [Deltasone] 40 mg PO DAILY 5 Days #10 tab 08/14/24 Allergies Allergy/AdvReac Type Severity Reaction Status Date / Time No Known Allergies Allergy Verified 07/27/24 23:32 Review of Systems ROS Statement: Those systems with pertinent positive or pertinent negative responses have been documented in the HPI. ROS Other: All systems not noted in ROS Statement are negative. 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 Colostomy reversal Past Anesthesia/Blood Transfusion Reactions: No Reported Reaction Past Psychological History: ADD/ADHD, Anxiety, Depression, PTSD Smoking Status: Current every day smoker Past Alcohol Use History: Occasional Past Drug Use History: Marijuana - Past Family History Father History Unknown: Yes Family Medical History: Cancer, Diabetes Mellitus, Hypertension Additional Family Medical History / Comment(s): throat cancer Mother History Unknown: Yes Family Medical History: Cancer, Diabetes Mellitus Additional Family Medical History / Comment(s): multiple myeloma General Exam Limitations: no limitations General appearance: alert, in no apparent distress Head exam: Present: atraumatic, normocephalic, normal inspection Eye exam: Present: normal appearance, PERRL, EOMI. Absent: scleral icterus, conjunctival injection, periorbital swelling ENT exam: Present: normal exam, normal oropharynx, mucous membranes moist, TM's normal bilaterally Neck exam: Present: normal inspection. Absent: tenderness, meningismus, lymphadenopathy Respiratory exam: Present: normal lung sounds bilaterally. Absent: respiratory distress, wheezes, rales, rhonchi, stridor Cardiovascular Exam: Present: regular rate, normal rhythm, normal heart sounds. Absent: systolic murmur, diastolic murmur, rubs, gallop, clicks Neurological exam: Present: alert, oriented X3 Psychiatric exam: Present: normal affect, normal mood Skin exam: Present: warm, dry, intact, normal color. Absent: rash Course Vital Signs 08/14/24 19:45 Temperature 98.2 F Pulse Rate 83 Respiratory 15 Rate Blood Pressure 116/89 O2 Sat by Pulse 98 Oximetry Medical Decision Making - Medical Decision Making Was pt. sent in by a medical professional or institution (, PA, EDGER TAILER, urgent care, hospital, or usp...) When possible be specific @ -No Did you speak to anyone other than the patient for history (EMS, parent, family, police, friend...)? What history was obtained from this source @ -No Did you review nursing and triage notes (agree or disagree)? Why? @ -I reviewed and agree with nursing and triage notes Were old charts reviewed (outside hosp., previous admission, EMS record, old EKG, old radiological studies, urgent care reports/EKG's, usp records)? Report findings @ -No old charts were reviewed Differential Diagnosis (chest pain, altered mental status, abdominal pain women, abdominal pain men, vaginal bleeding, weakness, fever, dyspnea, syncope, headache, dizziness, GI bleed, back pain, seizure, CVA, palpatations, mental health, musculoskeletal)? @ -Strep pharyngitis, viral URI, COVID, influenza, pneumonia EKG interpreted by me (3pts min.). @ -None X-rays interpreted by me (1pt min.). @ -Chest x-ray reveals no acute process CT interpreted by me (1pt min.). @ -None done U/S interpreted by me (1pt. min.). @ -None done What testing was considered but not performed or refused? (CT, X-rays, U/S, labs)? Why? @ -None What meds were considered but not given or refused? Why? @ -Patient declines ibuprofen Did you discuss the management of the patient with other professionals (professionals i.e. , PA, EDGER TAILER, lab, RT, psych nurse, home health care social worker, terrazzo tile maker, teacher, signals officer, corrections caseworker)? Give summary @ -No Was smoking cessation discussed for >3mins.? @ -No Was critical care preformed (if so, how long)? @ -No Were there social determinants of health that impacted care today? How? (Homelessness, low income, unemployed, alcoholism, drug addiction, transportation, low edu. Level, literacy, decrease access to med. care, fpc, rehab)? @ -No Was there de-escalation of care discussed even if they declined (Discuss DNR or withdrawal of care, Hospice)? DNR status @ -No What co-morbidities impacted this encounter? (DM, HTN, Smoking, COPD, CAD, Cancer, CVA, ARF, Chemo, Hep., AIDS, mental health diagnosis, sleep apnea, morbid obesity)? @ -None Was patient admitted / discharged? Hospital course, mention meds given and route, prescriptions, significant lab abnormalities, going to OR and other pertinent info. @ -Patient was discharged. This is a 53-year-old female presenting with sore throat x 1 day with bodyaches and cough. She would also like to be tested for STDs today. Vital signs within normal limits. No acute distress. No sign of bacterial infection upon examination. Patient was given IM Solu-Medrol for sen sation of throat swelling. Cepheid and strep negative. Chest x-ray reveals no acute process. Urinalysis is contaminated, however no signs of UTI. Chlamydia and gonorrhea sent. Findings discussed with patient who reports symptoms have greatly improved after steroid. Discussed diagnosis of viral upper respiratory infection as well as supportive care and return precautions. Case was discussed with my ED attending Dr. Riley. patient discharged in stable condition. Undiagnosed new problem with uncertain prognosis? @ -No Drug Therapy requiring intensive monitoring for toxicity (Heparin, Nitro, Insulin, Cardizem)? @ -No Were any procedures done? @ -No Diagnosis/symptom? @ -Viral upper respiratory infection Acute, or Chronic, or Acute on Chronic? @ -Acute Uncomplicated (without systemic symptoms) or Complicated (systemic symptoms)? @ -Uncomplicated Side effects of treatment? @ -No Exacerbation, Progression, or Severe Exacerbation? @ -No Poses a threat to life or bodily function? How? (Chest pain, [place], [place], pneumonia, PE, COPD, DKA, ARF, appy, cholecystitis, CVA, Diverticulitis, Homicidal, Suicidal, threat to staff... and all critical care pts) @ -No - Lab Data Lab Results 08/14/24 08/14/24 08/14/24 Range/Units 20:45 20:45 20:45 Urine Color Yellow Urine Appearance Cloudy H (Clear) Urine pH 5.0 (5.0-8.0) Ur Specific [place] 1.028 (1.001-1.035) Urine Protein 1+ H (Negative) Urine Glucose (UA) Negative (Negative) Urine Ketones Negative (Negative) Urine Blood Negative (Negative) Urine Nitrite Negative (Negative) Urine Bilirubin Negative (Negative) Urine Urobilinogen 2.0 (<2.0) mg/dL Ur Leukocyte Esterase Small H (Negative) Urine RBC 2 (0-5) /hpf Urine WBC 9 H (0-5) /hpf Ur Squamous Epith Cells 7 H (0-4) /hpf Hyaline Casts 1 (0-2) /lpf Granular Casts 7 (0) /lpf Urine Mucus Moderate H (None) /hpf Influenza Type A (PCR) Not Detected (Not Detectd) Influenza Type B (PCR) Not Detected (Not Detectd) RSV (PCR) Not Detected (Not Detectd) SARS-CoV-2 (PCR) Not Detected (Not Detectd) Group A Strep (PCR) NOT DETECTED (Not Detectd) Disposition Clinical Impression: Viral upper respiratory infection Disposition: HOME SELF-CARE Condition: Stable Instructions (If sedation given, give patient instructions): Upper Respiratory Infection (ED) Additional Instructions: Start prednisone tomorrow. You may take ibuprofen or Tylenol as needed for pain. Please return to the Emergency Department if symptoms worsen or any other concerns. Prescriptions: predniSONE [Deltasone] 40 mg PO DAILY 5 Days #10 tab Is patient prescribed a controlled substance at d/c from ED?: No Referrals: Love Stuart MD [Primary Care Provider] - 1-2 days Time of Disposition: 21:40
[2024-08-14] MEDS: methylPREDNISolone SOD SUCCI 125 MG/2 ML VIAL IM ONE (20:56)
[2024-08-14 21:02] LABS: Appearance,Urine Cloudy (Clear); Bilirubin,Urine Negative (Negative); Blood,Urine Negative (Negative); Color,Urine Yellow; Glucose,Urine (UA) Negative (Negative); Granular Casts,Urine 7 /lpf (0); Hyaline Casts,Urine 1 /lpf (0-2); Ketones,Urine Negative (Negative); Leukocyte Esterase,Urine Small (Negative); Mucus,Urine Moderate /hpf; Nitrite,Urine Negative (Negative); Protein,Urine 1+ (Negative); RBC,Urine 2 /hpf (0-5); Specific Gravity,Urine 1.028 (1.001-1.035); Squamous Epithelial Cell,Urine 7 /hpf (0-4); WBC,Urine 9 /hpf (0-5)
[2024-08-14] MEDS: LORATADINE-PSEUDOEPH 5-120 MG 1 EACH TAB.ER.12H PO STA (21:51)
[2024-08-14 22:08] VITALS: BP 139/74; PULSE 74; RESP 18
[2024-08-19 07:45] LABS: C. trachomatis,PCR Positive (Negative); N. gonorrhoeae,PCR Negative (Negative)
== END 2024-08-14 22:14 | disposition home or self-care (01) ==
LOC: EC 19:24
CPT/HCPCS: 71046; 81001; 87491; 87591; 87636; 87651; 96372; 99283

== ENCOUNTER 2024-10-04 16:28 | Emergency (ER) | payer MEDICARE, OTHER ==
[2024-10-04 16:42] VITALS: BP 122/80; PULSE 88; RESP 18; TEMP 98
--- NOTE | 2024-10-04 16:53 | ED ---
Fall HPI - General Chief Complaint: Fall Stated Complaint: STD testing and R shoulder and knee pain Time Seen by Provider: 10/04/24 16:51 Source: patient, RN notes reviewed Mode of arrival: wheelchair - History of Present Illness Initial Comments: This is a 54-year-old female presenting to the ER with chief complaint of right knee and right shoulder pain status post mechanical fall last night. Patient states she tripped and fell in her house, landing on her right knee and right shoulder. She is able to weight-bear. Denies head injury or loss of consciousness. Denies blood thinners. - Related Data Home Medications Medication Instructions Recorded Confirmed Pantoprazole [Protonix] 40 mg PO BID 12/18/22 03/13/24 Previous Rx's Medication Instructions Recorded Doxycycline [Vibramycin] 100 mg PO BID #14 capsule 05/12/24 HYDROcodone/APAP 5-325MG [[place] 1 tab PO Q6HR PRN 3 Days #12 tab 05/25/24 5-325] predniSONE [Deltasone] 40 mg PO DAILY 5 Days #10 tab 08/14/24 Allergies Allergy/AdvReac Type Severity Reaction Status Date / Time No Known Allergies Allergy Verified 07/27/24 23:32 Review of Systems ROS Statement: Those systems with pertinent positive or pertinent negative responses have been documented in the HPI. ROS Other: All systems not noted in ROS Statement are negative. 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 Colostomy reversal Past Anesthesia/Blood Transfusion Reactions: No Reported Reaction Past Psychological History: ADD/ADHD, Anxiety, Depression, PTSD Smoking Status: Current every day smoker Past Alcohol Use History: Occasional Past Drug Use History: Marijuana - Past Family History Father History Unknown: Yes Family Medical History: Cancer, Diabetes Mellitus, Hypertension Additional Family Medical History / Comment(s): throat cancer Mother History Unknown: Yes Family Medical History: Cancer, Diabetes Mellitus Additional Family Medical History / Comment(s): multiple myeloma General Exam Limitations: no limitations General appearance: alert, in no apparent distress Head exam: Present: atraumatic, normocephalic, normal inspection Right Shoulder Exam: Present: normal inspection, full ROM. Absent: tenderness, swelling Upper Arm exam: Present: normal inspection, full ROM. Absent: tenderness, swelling Elbow exam: Present: normal inspection, full ROM. Absent: tenderness, swelling Forearm Wrist exam: Present: normal inspection, full ROM. Absent: tenderness, swelling Hand Wrist exam: Present: normal inspection, full ROM. Absent: tenderness, swelling Vascular: Present: normal capillary refill, radial pulse. Absent: vascular compromise Right Upper Leg exam: Present: normal inspection, full ROM. Absent: tenderness, swelling Knee exam: Present: full ROM, tenderness. Absent: normal inspection (Small hematoma present on anterior aspect of right knee), swelling, abrasion, laceration, pain/laxity with valgus, pain/laxity with varus Lower Leg exam: Present: normal inspection, full ROM. Absent: tenderness, swelling Ankle exam: Present: normal inspection, full ROM. Absent: tenderness, swelling Foot/Toe exam: Present: normal inspection, full ROM. Absent: tenderness, swelling Neurovascular tendon exam: Present: no vascular compromise. Absent: pulse deficit, abnormal cap refill, sensory deficit Neurological exam: Present: alert, oriented X3 Psychiatric exam: Present: normal affect, normal mood Skin exam: Present: warm, dry, intact, normal color. Absent: rash Course Vital Signs 10/04/24 16:37 Temperature 98 F Pulse Rate 88 Respiratory 18 Rate Blood Pressure 122/80 O2 Sat by Pulse 99 Oximetry Medical Decision Making - Medical Decision Making Was pt. sent in by a medical professional or institution (, PA, COMEDIAN, urgent care, hospital, or group home...) When possible be specific @ -No Did you speak to anyone other than the patient for history (EMS, parent, family, police, friend...)? What history was obtained from this source @ -No Did you review nursing and triage notes (agree or disagree)? Why? @ -I reviewed and agree with nursing and triage notes Were old charts reviewed (outside hosp., previous admission, EMS record, old EKG, old radiological studies, urgent care reports/EKG's, group home records)? Report findings @ -No old charts were reviewed Differential Diagnosis (chest pain, altered mental status, abdominal pain women, abdominal pain men, vaginal bleeding, weakness, fever, dyspnea, syncope, headache, dizziness, GI bleed, back pain, seizure, CVA, palpatations, mental health, musculoskeletal)? @Differential Musculoskeletal Muscular strain, contusion, ligament sprain, fracture, arthritis, septic arthritis, bursitis, cellulitis, muscle spasm, nerve compression, DVT, arterial occlusion, herpes zoster, electrolyte abnormality, tumor.... This is not meant to be in all inclusive list EKG interpreted by me (3pts min.). @ -None X-rays interpreted by me (1pt min.). @ -X-ray right knee and right shoulder reveals no acute process CT interpreted by me (1pt min.). @ -None done U/S interpreted by me (1pt. min.). @ -None done What testing was considered but not performed or refused? (CT, X-rays, U/S, labs)? Why? @ -None What meds were considered but not given or refused? Why? @ -None Did you discuss the management of the patient with other professionals (professionals i.e. , PA, COMEDIAN, lab, RT, psych nurse, web content & social media manager, crop supervisor, teacher, senior administrative services officer, complex case manager)? Give summary @ -No Was smoking cessation discussed for >3mins.? @ -No Was critical care preformed (if so, how long)? @ -No Were there social determinants of health that impacted care today? How? (Homelessness, low income, unemployed, alcoholism, drug addiction, transportation, low edu. Level, literacy, decrease access to med. care, fpc, rehab)? @ -No Was there de-escalation of care discussed even if they declined (Discuss DNR or withdrawal of care, Hospice)? DNR status @ -No What co-morbidities impacted this encounter? (DM, HTN, Smoking, COPD, CAD, [place] cer, CVA, ARF, Chemo, Hep., AIDS, mental health diagnosis, sleep apnea, morbid obesity)? @ -None Was patient admitted / discharged? Hospital course, mention meds given and route, prescriptions, significant lab abnormalities, going to OR and other pertinent info. @ -Discharge. This is a 54-year-old female presenting with right shoulder and right knee pain x 1 day status post mechanical fall last night. Patient is able to weight-bear. Neurovascular intact. On examination, there is a small hematoma present on anterior aspect of right knee. Patient is provided with IM Toradol and IM Norflex. X-ray right knee and right shoulder reveals no acute process. Discussed negative results with patient. Upon discharge, patient is requesting STD testing. Case was discussed with my ED attending Dr. Tidwell. Patient discharged in stable condition. Undiagnosed new problem with uncertain prognosis? @ -No Drug Therapy requiring intensive monitoring for toxicity (Heparin, Nitro, Insulin, Cardizem)? @ -No Were any procedures done? @ -No Diagnosis/symptom? @ -Fall, right knee sprain, STD testing Acute, or Chronic, or Acute on Chronic? @ -Acute Uncomplicated (without systemic symptoms) or Complicated (systemic symptoms)? @ -Uncomplicated Side effects of treatment? @ -No Exacerbation, Progression, or Severe Exacerbation? @ -No Poses a threat to life or bodily function? How? (Chest pain, [place], [place], pneumonia, PE, COPD, DKA, ARF, appy, cholecystitis, CVA, Diverticulitis, Homicidal, Suicidal, threat to staff... and all critical care pts) @ -No Disposition Clinical Impression: Fall, Right knee sprain, Exposure to STD Disposition: HOME SELF-CARE Condition: Stable Additional Instructions: Follow-up with gynecology as discussed. Please return to the Emergency Department if symptoms worsen or any other concerns. Is patient prescribed a controlled substance at d/c from ED?: No Referrals: Love Stuart MD [Primary Care Provider] - 1-2 days Time of Disposition: 18:05
[2024-10-04] MEDS: KETOROLAC 15 MG/ML 1 ML VIAL IM STA (17:20)
[2024-10-04] MEDS: ORPHENADRINE 30 MG/ML 2 ML VIAL IM STA (17:22)
--- NOTE | 2024-10-04 17:26 | XR ---
EXAMINATION TYPE: XR knee complete RT DATE OF EXAM: 10/04/2024 5:21 PM COMPARISON: 02/19/2024 CLINICAL INDICATION: Female, 54 years old with history of right knee injury; [facility] TECHNIQUE: XR knee complete RT views submitted.. FINDINGS: Status post total knee arthroplasty changes with hardware in appropriate alignment and in tact. No evidence of fracture. IMPRESSION: Status post total knee arthroplasty changes with hardware intact and appropriate alignment. No fractu res identified [facility], , 10/04/2024 5:24 PM
--- NOTE | 2024-10-04 17:27 | XR ---
EXAMINATION TYPE: XR shoulder complete RT DATE OF EXAM: 10/04/2024 5:21 PM COMPARISON: None CLINICAL INDICATION: Female, 54 years old with history of right shoulder injury; [facility] TECHNIQUE: XR shoulder complete RT; examined in AP, internally rotated and scapular Y projections. FINDINGS: No evidence of acute osseous pathology, joint dislocation, or soft tissue swelling. The remaining po rtions of the visualized chest are unremarkable. Degeneration changes of the acromion, distal clavic le with osteophyte formation. There is osteophyte formation of the glenoid and humeral head. There is joint space narrowing of glenohumeral joint. IMPRESSION: 1. No acute osseous pathology. 2. Mild shoulder osteoarthrosis. [facility], Workstation: [id number], 10/04/2024 5:25 PM
[2024-10-05 15:25] LABS: C. trachomatis,PCR Negative (Negative); N. gonorrhoeae,PCR Negative (Negative)
== END 2024-10-04 18:40 | disposition home or self-care (01) ==
LOC: EC 16:28
DX: S83.91XA Sprain of unspecified site of right knee, initial encounter (principal); Z20.2 Contact with and (suspected) exposure to infections with a predominantly sexual mode of transmission; F17.200 Nicotine dependence, unspecified, uncomplicated; W01.0XXA Fall on same level from slipping, tripping and stumbling without subsequent striking against object, initial encounter
CPT/HCPCS: 87491; 87591; 73030; 73562; 99283; 96372 ×2; J2360; J1885

== ENCOUNTER 2024-11-03 10:29 | Emergency (ER) | payer MEDICARE, OTHER ==
[2024-11-03 10:44] VITALS: RESP 18; TEMP 98.2
--- NOTE | 2024-11-03 11:25 | ED ---
Back Pain HPI - General Source: patient, RN notes reviewed Limitations: no limitations - History of Present Illness MD Complaint: back pain Onset/Timin -: days(s) Similar Symptoms Previously: Yes (10 years ago) Radiation: right leg Severity scale (1-10): 10 Quality: sharp Consistency: constant <Cole Savage - Last Filed: 11/03/24 11:23> - General Source: patient, RN notes reviewed Limitations: no limitations <Mary Arshad - Last Filed: 11/03/24 15:56> - General Chief Complaint: Back Pain/Injury Stated Complaint: right hip and leg pain Time Seen by Provider: 11/03/24 10:41 - History of Present Illness Initial Comments: Quick note: This is a 54-year-old female presenting with right low back pain (09/03) x 3 days. Patient endorses associated shooting pain extending to the bottom of foot. Patient states pain is worse upper gluteus and lower leg. Patient states pain started suddenly upon waking a and she is not only sleeping. Patient denies paresthesia, saddle paresthesia, urinary incontinence/retention. (Cole Savage) This is a 54-year-old female who presents to the emergency department for concerns of sciatica. States that for the last 3 days she has had pain starting in the right buttocks going down into the foot. The right buttocks and lower leg are the most painful areas. Reports a history of problems with sciatica many years ago and states that this feels the same. However, she is usually able to get it to resolve on its own, which is not the case this time. States that she is unable to sleep as a result of the pain. She has tried taking ibuprofen and Tylenol without any relief in symptoms. Denies any loss of bowel/bladder control or saddle anesthesia. (Mary Arshad) - Related Data Home Medications Medication Instructions Recorded Confirmed Pantoprazole [Protonix] 40 mg PO BID 12/18/22 03/13/24 Previous Rx's Medication Instructions Recorded Doxycycline [Vibramycin] 100 mg PO BID #14 capsule 05/12/24 HYDROcodone/APAP 5-325MG [[place] 1 tab PO Q6HR PRN 3 Days #12 tab 05/25/24 5-325] predniSONE [Deltasone] 40 mg PO DAILY 5 Days #10 tab 08/14/24 methocarbamoL [Robaxin-750] 1,500 mg PO TID PRN #30 tab 11/03/24 predniSONE 50 mg PO DAILY 5 Days #5 tab 11/03/24 Allergies Allergy/AdvReac Type Severity Reaction Status Date / Time No Known Allergies Allergy Verified 11/03/24 10:44 Review of Systems ROS Other: All systems not noted in ROS Statement are negative. <Cole Savage - Last Filed: 11/03/24 11:23> ROS Other: All systems not noted in ROS Statement are negative. <Mary Arshad - Last Filed: 11/03/24 15:56> ROS Statement: Those systems with pertinent positive or pertinent negative responses have been documented in the HPI. 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 Colostomy reversal Past Anesthesia/Blood Transfusion Reactions: No Reported Reaction Past Psychological History: ADD/ADHD, Anxiety, Depression, PTSD Smoking Status: Current every day smoker, Vaper Past Alcohol Use History: Occasional Past Drug Use History: Marijuana - Past Family History Father History Unknown: Yes Family Medical History: Cancer, Diabetes Mellitus, Hypertension Additional Family Medical History / Comment(s): throat cancer Mother History Unknown: Yes Family Medical History: Cancer, Diabetes Mellitus Additional Family Medical History / Comment(s): multiple myeloma <Cole Savage - Last Filed: 11/03/24 11:23> General Exam Limitations: no limitations <Cole Savage - Last Filed: 11/03/24 11:23> Limitations: no limitations General appearance: alert, in no apparent distress Head exam: Present: atraumatic, normocephalic, normal inspection Respiratory exam: Present: normal lung sounds bilaterally. Absent: respiratory distress, wheezes, rales, rhonchi, stridor Cardiovascular Exam: Present: regular rate, normal rhythm, normal heart sounds. Absent: systolic murmur, diastolic murmur, rubs, gallop, clicks Neurological exam: Present: alert, oriented X3, CN II-XII intact Psychiatric exam: Present: normal affect, normal mood Skin exam: Present: warm, dry, intact, normal color. Absent: rash <Mary Arshad - Last Filed: 11/03/24 15:56> - General Exam Comments Initial Comments: Visual Physical Exam Vital signs reviewed General: Well-appearing, nontoxic, no acute distress. Head: Normocephalic, atraumatic Eyes: PERRLA, EOMI ENT: Airway patent Chest: Nonlabored breathing Skin: No visual rash, normal skin tone Neuro: Alert and oriented 3 Musculoskeletal: No gross abnormalities (Coel Savage) Course Vital Signs 11/03/24 11/03/24 11/03/24 10:41 14:13 14:28 Temperature 98.2 F Pulse Rate 84 71 71 Respiratory 18 18 18 Rate Blood Pressure 105/75 133/82 133/82 O2 Sat by Pulse 99 98 98 Oximetry Medical Decision Making <Cole Savage - Last Filed: 11/03/24 11:23> - Radiology Data Radiology results: report reviewed, image reviewed <Mary Arshad - Last Filed: 11/03/24 15:56> - Medical Decision Making I completed the quick note portion of this chart signed KALYAN David (Cole Savage) This is a 54-year-old female who presents to the emergency department for back pain. Was pt. sent in by a medical professional or institution? @ -No Did you speak to anyone other than the patient for history? @ -No Did you review nursing and triage notes? @ -Yes, and I agree, it is accurate with regards to the patient's symptoms. Were old charts reviewed? @ -No Differential Diagnosis? @ -Differential Back Pain: Strain, zoster, cauda equina syndrome, epidural abscess, vertebral osteomyelitis, discitis, fracture, subluxation, disc herniation, DJD, spinal stenosis, dissection, AAA, pancreatitis, peptic ulcer disease, pyelonephritis, kidney stone, this is not meant to be an all-inclusive list. EKG interpreted by me (3pts min.)? @ -Not obtained X-rays interpreted by me (1pt min.)? @ -X-ray of the lumbosacral spine obtained. My interpretation identifies no acute fractures. CT interpreted by me (1pt min.)? @ -Not obtained U/S interpreted by me (1pt. min.)? @ -Not obtained What testing was considered but not performed? (CT, X-rays, U/S, labs)? Why? @ -None What meds were considered but not given? Why? @ -None Did you discuss the management of the patient with other professionals? @ -No Did you reconcile home meds? @ -No Was smoking cessation discussed for >3mins.? @ -I discussed smoking cessation for greater than 3 minutes. The risk of smoking were discussed with the patient including but not limited to risks of cancer, stroke, coronary artery disease and COPD. Also discussed with patient were multiple methods of quitting smoking. Lastly we discussed the financial cost of smoking. Was critical care preformed (if so, how long)? @ -No Were there social determinants of health that impacted care today? How? (Homelessness, low income, unemployed, alcoholism, drug addiction, transportation, low edu. Level, literacy, decrease access to med. care, halfway, rehab)? @ -No Was there de-escalation of care discussed even if they declined? (Discuss DNR or withdrawal of care, Hospice)? @ -No What co-morbidities impacted this encounter? (DM, HTN, Smoking, COPD, CAD, Cancer, CVA, Hep., AIDS, mental health diagnosis, sleep apnea, morbid obesity)? @ -Smoking Was patient admitted / discharged? @ -Discharged. X-ray of the lumbosacral spine obtained revealing degenerative changes without any acute process. Pain managed in the emergency department. Prescription for prednisone and Robaxin provided with dosing instructions reviewed. Advised follow-up with her PCP for reevaluation. Patient discharged home in stable condition. Case discussed with ED attending Dr. White. Return precautions reviewed in depth, the patient is instructed to return to the emergency department with any new, worsening, or concerning symptoms. Patient verbalized understanding. Undiagnosed new problem with uncertain prognosis? @ -None Drug Therapy requiring intensive monitoring for toxicity (Heparin, Nitro, Insulin, Cardizem)? @ -None Were any procedures done? @ -None Diagnosis/symptom? @ -Sciatica, lumbar radiculopathy Acute, or Chronic, or Acute on Chronic? @ -Acute Uncomplicated (without systemic symptoms) or Complicated (systemic symptoms)? @ -Uncomplicated Side effects of treatment? @ -None Exacerbation, Progression, or Severe Exacerbation] @ -Not applicable Poses a threat to life or bodily function? @ -No (Mary Arshad) Disposition <Cole Savage - Last Filed: 11/03/24 11:23> Is patient prescribed a controlled substance at d/c from ED?: No Time of Disposition: 14:00 <Mary Arshad - Last Filed: 11/03/24 15:56> Clinical Impression: Sciatica, Lumbar radiculopathy, Nicotine dependence Disposition: HOME SELF-CARE Instructions (If sedation given, give patient instructions): Sciatica (ED), Acute Low Back Pain (ED), Lumbar Radiculopathy (ED) Additional Instructions: Return to the emergency department with any new, worsening, or concerning symptoms. Take the prednisone daily for 5 days. Take the Robaxin as 1 to 2 tablets up to 3-4 times daily. Follow up with your primary care provider in 1-2 days. Prescriptions: predniSONE 50 mg PO DAILY 5 Days #5 tab methocarbamoL [Robaxin-750] 1,500 mg PO TID PRN #30 tab PRN Reason: Pain Referrals: Love Stuart MD [Primary Care Provider] - 1-2 days
--- NOTE | 2024-11-03 12:44 | XR ---
EXAMINATION TYPE: XR lumbosacral spine min 4V DATE OF EXAM: 11/03/2024 11:48 AM COMPARISON: None CLINICAL INDICATION: Female, 54 years old with history of Right low back pain with sciatica; [facility] TECHNIQUE: XR lumbosacral spine min 4V - Frontal, lateral , bilateral oblique and coned in L5-S1 late ral views of the spine. FINDINGS: No evidence of any acute osseous pathology. No evidence of loss of vertebral body height i s seen. Grade 1 anterolisthesis of L4 and L5. Mild scattered disc space narrowing. Multilevel margin al osteophyte formation throughout the visualized spine. There is facet joint arthropathy throughout the spine. Scattered at least mild neural foraminal stenosis. Surgical clips in the upper abdomen. IMPRESSION: 1. No acute fracture. 2. Moderate multilevel disc degeneration. 3. Grade 1 anterolisthesis of L4 and L5. [facility], , 11/03/2024 12:42 PM
[2024-11-03] MEDS: MORPHINE SULFATE 4 MG/ML SYRINGE IVP STA (12:54)
[2024-11-03] MEDS: DEXAMETHASONE SOD PHOSPHATE 10 MG/ML 1 ML VIAL IVP STA (12:57)
[2024-11-03] MEDS: KETOROLAC 15 MG/ML 1 ML VIAL IVP STA ×2 (13:00→14:16)
[2024-11-03] MEDS: ORPHENADRINE 30 MG/ML 2 ML VIAL IVP STA (13:04)
[2024-11-03 14:15] VITALS: BP 133/82; PULSE 71
[2024-11-03] MEDS: ACET/COD 300 MG/30 MG STARTER PACK 6 TAB BTL PO STA (14:17)
[2024-11-03] MEDS: HYDROmorphone 0.5 MG/0.5 ML SYRINGE IVP STA (14:18)
== END 2024-11-03 14:30 | disposition home or self-care (01) ==
LOC: EC 10:29
DX: M54.16 Radiculopathy, lumbar region (principal); M54.30 Sciatica, unspecified side; F17.290 Nicotine dependence, other tobacco product, uncomplicated
CPT/HCPCS: 99284; 96374; 96375; 96376; 72110; 99406; J2270; J1100; J2360; J1885; J1171

== ENCOUNTER 2024-11-21 11:32 | Emergency (ER) | payer MEDICARE, OTHER ==
[2024-11-21 11:47] VITALS: BP 144/92; PULSE 95; RESP 18; TEMP 97.7
--- NOTE | 2024-11-21 13:50 | ED ---
Lower Extremity Injury HPI - General Source: patient Mode of arrival: ambulatory Limitations: no limitations - History of Present Illness Onset/Timin -: week(s) <Cole Savage - Last Filed: 11/21/24 13:48> <Anthony Quezada - Last Filed: 11/22/24 23:32> - General Chief Complaint: Extremity Injury, Lower Stated Complaint: Abd pain Time Seen by Provider: 11/21/24 11:49 - History of Present Illness Initial Comments: Plan: This is a 54-year-old female with history of CA and DVT presenting with RLE shooting pain x 2 weeks. Patient also mentions a recurring bulge in her suprapubic region x 2 weeks with known history of hernia. Denies recent injury, lower back pain, abdominal pain, N/V/D, constipation, melena, BRBPR (Cole Savage) 54-year-old female presenting with chief complaint of right lower extremity pa in. Patient states that she has had shooting pain from her back down her leg for the last 2 weeks. She does have history of sciatica. No new injury or trauma. No loss of bowel or bladder control or saddle paresthesia. Patient is also concerned about a "bulge" on her lower abdomen. She does have history of hernia with hernia repair. No abdominal pain. No nausea, vomiting, diarrhea, rectal bleeding, dysuria, hematuria, chest pain, difficulty breathing (Anthony Quezada) - Related Data Home Medications Medication Instructions Recorded Confirmed Pantoprazole [Protonix] 40 mg PO BID 12/18/22 03/13/24 Previous Rx's Medication Instructions Recorded Doxycycline [Vibramycin] 100 mg PO BID #14 capsule 05/12/24 HYDROcodone/APAP 5-325MG [[place] 1 tab PO Q6HR PRN 3 Days #12 tab 05/25/24 5-325] predniSONE [Deltasone] 40 mg PO DAILY 5 Days #10 tab 08/14/24 methocarbamoL [Robaxin-750] 1,500 mg PO TID PRN #30 tab 11/03/24 predniSONE 50 mg PO DAILY 5 Days #5 tab 11/03/24 Cyclobenzaprine [Flexeril] 10 mg PO TID PRN #15 tab 11/21/24 Allergies Allergy/AdvReac Type Severity Reaction Status Date / Time No Known Allergies Allergy Verified 11/03/24 10:44 Review of Systems ROS Other: All systems not noted in ROS Statement are negative. <HusseinCole - Last Filed: 11/21/24 13:48> ROS Other: All systems not noted in ROS Statement are negative. <QuezadaAnthony - Last Filed: 11/22/24 23:32> ROS Statement: Those systems with pertinent positive or pertinent negative responses have been documented in the HPI. 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 Colostomy reversal Past Anesthesia/Blood Transfusion Reactions: No Reported Reaction Past Psychological History: ADD/ADHD, Anxiety, Depression, PTSD Smoking Status: Former smoker, Vaper Past Alcohol Use History: None Reported Past Drug Use History: Cocaine, Marijuana - Past Family History Father History Unknown: Yes Family Medical History: Cancer, Diabetes Mellitus, Hypertension Additional Family Medical History / Comment(s): throat cancer Mother History Unknown: Yes Family Medical History: Cancer, Diabetes Mellitus Additional Family Medical History / Comment(s): multiple myeloma <Cole Savage - Last Filed: 11/21/24 13:48> General Exam Limitations: no limitations <HusseinCole - Last Filed: 11/21/24 13:48> Limitations: no limitations General appearance: alert, in no apparent distress Head exam: Present: atraumatic, normocephalic, normal inspection Eye exam: Present: normal appearance, EOMI Neck exam: Present: normal inspection. Absent: meningismus Respiratory exam: Present: normal lung sounds bilaterally. Absent: respiratory distress, wheezes, rales, rhonchi, stridor Cardiovascular Exam: Present: regular rate, normal rhythm, normal heart sounds. Absent: systolic murmur, diastolic murmur, rubs, gallop, clicks GI/Abdominal exam: Present: soft, other (I do palpate over the area the patient is complaining of in regards to the "bulge"). Absent: distended, tenderness, guarding, rebound, rigid Neurological exam: Present: alert, oriented X3 Psychiatric exam: Present: normal affect, normal mood Skin exam: Present: warm, dry, normal color <Anthony Quezada - Last Filed: 11/22/24 23:32> - General Exam Comments Initial Comments: Visual Physical Exam Vital signs reviewed General: Well-appearing, nontoxic, no acute distress. Head: Normocephalic, atraumatic Eyes: PERRLA, EOMI ENT: Airway patent Chest: Nonlabored breathing Skin: No visual rash, normal skin tone Neuro: Alert and oriented 3 Musculoskeletal: No gross abnormalities (Cole Svaage) Course Vital Signs 11/21/24 11:45 Temperature 97.7 F Pulse Rate 95 Respiratory 18 Rate Blood Pressure 144/92 O2 Sat by Pulse 100 Oximetry Medical Decision Making <Cole Savage - Last Filed: 11/21/24 13:48> - Lab Data Result diagrams: 11/21/24 16:03 11/21/24 16:03 <Anthony Quezada - Last Filed: 11/22/24 23:32> - Medical Decision Making I completed the quick note portion of this chart signed KALYAN David (Cole Savage) Was pt. sent in by a medical professional or institution (TASH Jacinto, [employer] STORAGE CLERK, urgent care, hospital, or senior care...) When possible be specific @ -No Did you speak to anyone other than the patient for history (EMS, parent, family, police, friend...)? What history was obtained from this source @ -No Did you review nursing and triage notes (agree or disagree)? Why? @ -I reviewed and agree with nursing and triage notes Were old charts reviewed (outside hosp., previous admission, EMS record, old E KG, old radiological studies, urgent care reports/EKG's, senior care records)? Report findings @ -No old charts were reviewed Differential Diagnosis (chest pain, altered mental status, abdominal pain women, abdominal pain men, vaginal bleeding, weakness, fever, dyspnea, syncope, headache, dizziness, GI bleed, back pain, seizure, CVA, palpatations, mental health, musculoskeletal)? @ -Differential Musculoskeletal Muscular strain, contusion, ligament sprain, fracture, arthritis, septic arthrit is, bursitis, cellulitis, muscle spasm, nerve compression, DVT, arterial occlusion, herpes zoster, electrolyte abnormality, tumor.... This is not meant to be in all inclusive list EKG interpreted by me (3pts min.). @ -As above X-rays interpreted by me (1pt min.). @ -None done CT interpreted by me (1pt min.). @ -None done U/S interpreted by me (1pt. min.). @ -Ultrasound negative for DVT. On abdominal ultrasound there is a complex fluid collection over the lower abdomen in the area of concern, possibly representing seroma versus resolving hematoma versus abscess in the appropriate clinical setting. Finding similar given differences in technique to 2022 study What testing was considered but not performed or refused? (CT, X-rays, U/S, labs)? Why? @ -None What meds were considered but not given or refused? Why? @ -None Did you discuss the management of the patient with other professionals (professionals i.e. , PA, [employer] ST[employer]AGE CLERK, lab, RT, psych nurse, renal social worker, sexual assault counselor, teacher, eeo officer, machine adjuster leader case trim)? Give summary @ -No Was smoking cessation discussed for >3mins.? @ -No Was critical care preformed (if so, how long)? @ -No Were there social determinants of health that impacted care today? How? (Homelessness, low income, unemployed, alcoholism, drug addiction, transportati on, low edu. Level, literacy, decrease access to med. care, residential, rehab)? @ -No Was there de-escalation of care discussed even if they declined (Discuss DNR or withdrawal of care, Hospice)? DNR status @ -No What co-morbidities impacted this encounter? (DM, HTN, Smoking, COPD, CAD, Cancer, CVA, ARF, Chemo, Hep., AIDS, mental health diagnosis, sleep apnea, morbid obesity)? @ -None Was patient admitted / discharged? Hospital course, mention meds given and route, prescriptions, significant lab abnormalities, going to OR and other pertinent info. @ -54-year-old female presenting with chief complaint of pain down the right leg. She has been seen here for this before. Also concerned over a bulge on her abdomen. Workup is initiated by triage. No leukocytosis or anemia. Ultrasound negative for DVT. There is a complex fluid collection seen on abdominal ultrasound that is similar to 1 found in 2022 study. I reviewed that visit and the patient was diagnosed with a seroma at that time and instructed to follow-up with her surgeon. Given the similar findings and the lack of evidence for infection (patient has no redness, induration, excessive warmth, fever) likely visualizing seroma. Patient is educated on today's findings. She is provided with pain medication. Follow-up with PCP. Report back to ER with any new or worsening symptoms. Discussed return parameters and answered all questions. Patient conveyed verbal understanding and agreed to the plan. I discussed this case in detail with my attending Dr. Riley Undiagnosed new problem with uncertain prognosis? @ -No Drug Therapy requiring intensive monitoring for toxicity (Heparin, Nitro, Insulin, Cardizem)? @ -No Were any procedures done? @ -No Diagnosis/symptom? @ -Sciatica Acute, or Chronic, or Acute on Chronic? @ -Acute Uncomplicated (without systemic symptoms) or Complicated (systemic symptoms)? @ -Uncomplicated Side effects of treatment? @ -No Exacerbation, Progression, or Severe Exacerbation? @ -No Poses a threat to life or bodily function? How? (Chest pain, [place], [place], pneumonia, PE, COPD, DKA, ARF, appy, cholecystitis, CVA, Diverticulitis, Homicidal, Suicidal, threat to staff... and all critical care pts) @ -No Diagnosis/symptom? @Seroma Acute, or Chronic, or Acute on Chronic? @Chronic Uncomplicated (without systemic symptoms) or Complicated (systemic symptoms)? @Uncomplicated Side effects of treatment? @None Exacerbation, Progression, or Severe Exacerbation] @No Poses a threat to life or bodily function? @No (Anthony Quezada) - Lab Data Lab Results 11/21/24 11/21/24 11/21/24 Range/Units 16:03 16:03 16:03 WBC 6.1 (3.8-10.6) k/uL RBC 4.63 (3.80-5.40) m/uL Hgb 14.1 (11.4-16.0) gm/dL Hct 42.2 (34.0-46.0) % MCV 91.2 (80.0-100.0) fL MCH 30.4 (25.0-35.0) pg MCHC 33.3 (31.0-37.0) g/dL RDW 13.1 (11.5-15.5) % Plt Count 291 (150-450) k/uL MPV 7.7 Neutrophils % 60 % Lymphocytes % 30 % Monocytes % 7 % Eosinophils % 1 % Basophils % 0 % Neutrophils # 3.6 (1.3-7.7) k/uL Lymphocytes # 1.8 (1.0-4.8) k/uL Monocytes # 0.4 (0-1.0) k/uL Eosinophils # 0.1 (0-0.7) k/uL Basophils # 0.0 (0-0.2) k/uL Sodium 137 (137-145) mmol/L Potassium 4.6 (3.5-5.1) mmol/L Chloride 101 (98-107) mmol/L Carbon Dioxide 24 (22-30) mmol/L Anion Gap 12 mmol/L BUN 24 H (7-17) mg/dL Creatinine 0.53 (0.52-1.04) mg/dL Est GFR (CKD-EPI)AfAm >90 (>60 ml/min/1.73 sqM) Est GFR (CKD-EPI)NonAf >90 (>60 ml/min/1.73 sqM) Glucose 101 H (74-99) mg/dL Plasma Lactic Acid Bimal 0.8 (0.7-2.0) mmol/L Calcium 9.9 (8.4-10.2) mg/dL Total Bilirubin 0.4 (0.2-1.3) mg/dL AST 20 (14-36) U/L ALT 18 (4-34) U/L Alkaline Phosphatase 91 (38-126) U/L Total Protein 7.8 (6.3-8.2) g/dL Albumin 4.6 (3.5-5.0) g/dL Disposition <Cole Savage - Last Filed: 11/21/24 13:48> Is patient prescribed a controlled substance at d/c from ED?: No Time of Disposition: 18:03 <Anthony Quezada - Last Filed: 11/22/24 23:32> Clinical Impression: Sciatica, Seroma Disposition: HOME SELF-CARE Condition: Good Instructions (If sedation given, give patient instructions): Sciatica (ED), Seroma (DC) Additional Instructions: Follow-up with your PCP and surgeon. Report back to ER with any new or worsen ing symptoms. Do not take cyclobenzaprine before driving or operating heavy machinery as it may cause drowsiness Prescriptions: Cyclobenzaprine [Flexeril] 10 mg PO TID PRN #15 tab PRN Reason: Spasms Referrals: Lvoe Stuart MD [Primary Care Provider] - 1-2 days
--- NOTE | 2024-11-21 16:00 | US ---
EXAMINATION TYPE: US venous doppler duplex LE RT DATE OF EXAM: 11/21/2024 3:16 PM COMPARISON: 05/14/2024 CLINICAL INDICATION: Female, 54 years old with history of pain, h/o DVT and CA; rt leg pain, Pain TECHNIQUE: The lower extremity deep venous system is examined utilizing real time linear array sonog pramod with graded compression, color doppler sonography, and spectral doppler. SIDE PERFORMED: Right FINDINGS: VESSELS IMAGED: Common Femoral Vein Deep Femoral Vein Greater Saphenous Vein * Femoral Vein Popliteal Vein Small Saphenous Vein * Proximal Calf Veins (* superficial vessels) Right Leg: Negative for DVT, Color Doppler imaging shows patency of the vessels. Spectral waveforms are within normal limits. exam limited by habitus and edema IMPRESSION: No ultrasound evidence for deep venous thrombosis. [facility], , 11/21/2024 3:58 PM
--- NOTE | 2024-11-21 16:03 | US ---
EXAMINATION TYPE: US abdomen limited DATE OF EXAM: 11/21/2024 COMPARISON: NONE CLINICAL INDICATION: Female, 54 years old with history of Suprapubic bulge, h/o hernia; painful palpa ble area TECHNIQUE: several images obtained at area of concern grayscale and color Doppler imaging. FINDINGS: 6.4x1.5x5.3cm complex hyperemic fluid collection with irregular extension Hx seroma on CT 08/23/23 IMPRESSION: Complex fluid collection lower abdomen in the area of concern, possibly representing sero ma versus resolving hematoma versus abscess in the appropriate clinical setting. Findings similar giv en differences in technique to 2022 study. [facility], , 11/21/2024 4:01 PM
[2024-11-21 16:33] LABS: Basophils % (A) 0 %; Eosinophils # (A) 0.1 k/uL (0-0.7); Eosinophils % (A) 1 %; HCT 42.2 % (34.0-46.0); HGB 14.1 gm/dL (11.4-16.0); Lymphocytes # (A) 1.8 k/uL (1.0-4.8); Lymphocytes % (A) 30 %; MCH 30.4 pg (25.0-35.0); MCHC 33.3 g/dL (31.0-37.0); MCV 91.2 fL (80.0-100.0); Mean Platelet Volume 7.7; Monocytes # (A) 0.4 k/uL (0-1.0); Monocytes % (A) 7 %; Neutrophils # (A) 3.6 k/uL (1.3-7.7); Neutrophils % (A) 60 %; Platelet Count 291 k/uL (150-450); RBC 4.63 m/uL (3.80-5.40); RDW 13.1 % (11.5-15.5); WBC 6.1 k/uL (3.8-10.6)
[2024-11-21 16:58] LABS: ALT 18 U/L (4-34); AST 20 U/L (14-36); African American GFR (CKD) >90 (>60 ml/min/1.73 sqM); Albumin 4.6 g/dL (3.5-5.0); Alkaline Phosphatase 91 U/L (38-126); Anion Gap 12 mmol/L; Blood Urea Nitrogen 24 mg/dL (7-17); Calcium 9.9 mg/dL (8.4-10.2); Carbon Dioxide 24 mmol/L (22-30); Chloride 101 mmol/L (98-107); Glucose 101 mg/dL (74-99); Non-African American GFR(CKD) >90 (>60 ml/min/1.73 sqM); Potassium 4.6 mmol/L (3.5-5.1); Sodium 137 mmol/L (137-145); Total Bilirubin 0.4 mg/dL (0.2-1.3); Total Protein 7.8 g/dL (6.3-8.2)
[2024-11-21] MEDS: KETOROLAC 15 MG/ML 1 ML VIAL IM STA (18:35)
[2024-11-21] MEDS: DEXAMETHASONE SOD PHOSPHATE 10 MG/ML 1 ML VIAL IM STA (18:37)
[2024-11-21] MEDS: HYDROmorphone 0.5 MG/0.5 ML SYRINGE IM STA (18:38)
[2024-11-21] MEDS: ACET/COD 300 MG/30 MG STARTER PACK 6 TAB BTL PO STA (18:40)
== END 2024-11-21 18:50 | disposition home or self-care (01) ==
LOC: EC 11:32
DX: M54.30 Sciatica, unspecified side (principal); F17.290 Nicotine dependence, other tobacco product, uncomplicated
CPT/HCPCS: 36415; 80053; 83605; 85025; 76705; 93971; 99284; 96372 ×3; J1100; J1885; J1171

== ENCOUNTER → 2025-02-11 | Outpatient (CLI) | payer MEDICARE, OTHER ==
--- NOTE | 2025-02-11 14:48 | US ---
EXAMINATION TYPE: US abdomen limited DATE OF EXAM: 02/11/2025 COMPARISON: US(11/21/2024), CT CLINICAL INDICATION: Female, 54 years old with history of L08.9 INFECTION OF THE SKIN AND SUBCUTANEOU S TISSU; PT HAS HX OF SEROMA, HERNIAS & FISTULAS, PT HAD US DONE 11/21/2024 FOR SAME AREA OF PALP, TO DAY PT IS FEELING SAME AOC & AOC IN LUQ TECHNIQUE: Grayscale imaging of the abdominal wall. FINDINGS: Lower Abdomen Below Umbilicus AOC/PALP: Complex area seen measurin.1x1.2x6.1cm Prior measurements (11/21/2024): 5.3x1.5x 6.4cm LUQ AOC: Complex fluid collection seen: 4.7x1.1x4.9cm IMPRESSION: Subcutaneous lesions in the tissues in the area of concern lower to the umbilicus may be fractionally smaller today's exam near the umbilicus. Additional area left upper quadrant is also present measuri ng up to 4.7 cm not seen on prior imaging. Consider follow-up cross-sectional imaging. [facility], , 02/11/2025 2:45 PM
== END | disposition home or self-care (01) ==
LOC: RADUSWWP 13:40
PROVIDERS: ATTEND Family Medicine
DX: L08.9 Local infection of the skin and subcutaneous tissue, unspecified (principal)
CPT/HCPCS: 76705

== ENCOUNTER 2025-03-12 19:51 | Inpatient (IN) | payer MEDICARE, OTHER ==
[2025-03-12] MEDS: SODIUM CHLORIDE 0.9% 1,000 ML IV ONE (21:05)
[2025-03-12 21:11] LABS: Basophils # (A) 0.06 10*3/uL (0.00-0.10); Basophils % (A) 0.9 %; Eosinophils # (A) 0.07 10*3/uL (0.04-0.35); HCT 35.7 % (37.2-46.3); HGB 11.7 g/dL (12.0-15.0); Lymphocytes # (A) 2.43 10*3/uL (0.90-5.00); Lymphocytes % (A) 35.9 %; MCH 28.5 pg (27.0-32.0); MCHC 32.8 g/dL (32.0-37.0); MCV 86.9 fL (80.0-97.0); Mean Platelet Volume 10.9 fL (9.5-12.2); Monocytes # (A) 0.88 10*3/uL (0.20-1.00); Neutrophils # (A) 3.31 10*3/uL (1.80-7.70); Neutrophils % (A) 49.1 %; Platelet Count 275 10*3/uL (140-440); RBC 4.11 10*6/uL (4.10-5.20); RDW 12.7 % (11.5-14.5); WBC 6.76 10*3/uL (4.50-10.00)
[2025-03-12 21:23] LABS: AST 18 U/L (14-36); African American GFR (CKD) >90 (>60 ml/min/1.73 sqM); Alkaline Phosphatase 89 U/L (38-126); Anion Gap 12 mmol/L; Blood Urea Nitrogen 12 mg/dL (7-17); Carbon Dioxide 22 mmol/L (22-30); Chloride 101 mmol/L (98-107); Glucose 213 mg/dL (74-99); Non-African American GFR(CKD) >90 (>60 ml/min/1.73 sqM); Potassium 3.7 mmol/L (3.5-5.1); Sodium 135 mmol/L (137-145); Total Bilirubin 0.6 mg/dL (0.2-1.3)
[2025-03-12 21:30] LABS: ALT 21 U/L (4-34)
[2025-03-12] MEDS: ACETAMINOPHEN TAB 325 MG TAB PO STA (21:36)
--- NOTE | 2025-03-12 21:47 | ED ---
General Adult HPI - General Chief complaint: Wound/Laceration Stated complaint: Abd Pain Time Seen by Provider: 03/12/25 20:15 Source: patient Mode of arrival: ambulatory Limitations: no limitations - History of Present Illness Initial comments: 54-year-old female presenting with chief complaint of wounds to the abdomen. 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 She reports that recently a small area over her umbilicus opened up and she has been having clear discharge. She reports that the discharge has been starting to have a foul odor and she is concerned for infection. Patient reports that she has history of MRSA. She states that she was at [facility] and was "kicked out for no reason". She finished a 10-day course of Bactrim about 7 days ago. She states she was seen by her PCP and told to come to the ER for IV antibiotics. No fever. No nausea or vomiting. She reports that she has been feeling tired and some chills lately. - Related Data Previous Rx's Medication Instructions Recorded Acetaminophen Tab [Tylenol] 500 mg PO Q6HR PRN tab 03/17/25 DAPTOmycin [Cubicin] 350 mg IVPB Q24HR@1500 each 03/17/25 Allergies Allergy/AdvReac Type Severity Reaction Status Date / Time No Known Allergies Allergy Verified 03/13/25 10:01 Review of Systems ROS Statement: Those systems with pertinent positive or pertinent negative responses have been documented in the HPI. ROS Other: All systems not noted in ROS Statement are negative. 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 Colostomy reversal Past Anesthesia/Blood Transfusion Reactions: No Reported Reaction Past Psychological History: ADD/ADHD, Anxiety, Depression, PTSD Smoking Status: Former smoker, Vaper Past Alcohol Use History: None Reported Past Drug Use History: Cocaine, Marijuana - Past Family History Father History Unknown: Yes Family Medical History: Cancer, Diabetes Mellitus, Hypertension Additional Family Medical History / Comment(s): throat cancer Mother History Unknown: Yes Family Medical History: Cancer, Diabetes Mellitus Additional Family Medical History / Comment(s): multiple myeloma General Exam Limitations: no limitations General appearance: alert, in no apparent distress Head exam: Present: atraumatic, normocephalic, normal inspection Eye exam: Present: normal appearance, EOMI Neck exam: Present: normal inspection. Absent: meningismus Respiratory exam: Absent: respiratory distress GI/Abdominal exam: Present: soft, other (she does have a seroma with ser osanginous discharge). Absent: distended, tenderness, guarding, rebound, rigid Neurological exam: Present: alert, oriented X3 Psychiatric exam: Present: normal affect, normal mood Course Vital Signs 03/12/25 03/13/25 20:08 00:53 Temperature 98.6 F Pulse Rate 107 H 88 Respiratory 18 18 Rate Blood Pressure 168/108 134/79 O2 Sat by Pulse 98 99 Oximetry Medical Decision Making - Medical Decision Making Was pt. sent in by a medical professional or institution (, PA, EMPLOYEE RELATIONS REPRESENTATIVE, urgent care, hospital, or retirement...) When possible be specific @ -No Did you speak to anyone other than the patient for history (EMS, parent, family, police, friend...)? What history was obtained from this source @ -No Did you review nursing and triage notes (agree or disagree)? Why? @ -I reviewed and agree with nursing and triage notes Were old charts reviewed (outside hosp., previous admission, EMS record, old EKG, old radiological studies, urgent care reports/EKG's, retirement records)? Report findings @ -No old charts were reviewed Differential Diagnosis (chest pain, altered mental status, abdominal pain women, abdominal pain men, vaginal bleeding, weakness, fever, dyspnea, syncope, headache, dizziness, GI bleed, back pain, seizure, CVA, palpatations, mental health, musculoskeletal)? @ -Differential includes abscess, seroma, hematoma, not an all-inclusive list EKG interpreted by me (3pts min.). @ -As above X-rays interpreted by me (1pt min.). @ -None done CT interpreted by me (1pt min.). @ -CT shows elongated organized fluid collection with some surrounding fat stranding within the anterior abdominal wall subcutaneous tissues abutting the rectus musculature. This is a site of previously demonstrated fluid collection on CT 08/15/2023. There is internal gas identified. No intraperitoneal extension identified. Findings concerning for abscess. U/S interpreted by me (1pt. min.). @ -None done What testing was considered but not performed or refused? (CT, X-rays, U/S, labs)? Why? @ -None What meds were considered but not given or refused? Why? @ -None Did you discuss the management of the patient with other professionals (professionals i.e. , PA, EMPLOYEE RELATIONS REPRESENTATIVE, lab, RT, psych nurse, renal social worker, sewer pipe press operator, teacher, licensed loan officer assistant, home health care case manager)? Give summary @ -Spoke with the [facility] provider on-call who accepts admission Was smoking cessation discussed for >3mins.? @ -No Was critical care preformed (if so, how long)? @ -No Were there social determinants of health that impacted care today? How? (Homelessness, low income, unemployed, alcoholism, drug addiction, transportation, low edu. Level, literacy, decrease access to med. care, fpc, rehab)? @ -No Was there de-escalation of care discussed even if they declined (Discuss DNR or withdrawal of care, Hospice)? DNR status @ -No What co-morbidities impacted this encounter? (DM, HTN, Smoking, COPD, CAD, Cancer, CVA, ARF, Chemo, Hep., AIDS, mental health diagnosis, sleep apnea, morbid obesity)? @ -None Was patient admitted / discharged? Hospital course, mention meds given and route, prescriptions, significant lab abnormalities, going to OR and other pertinent info. @ -54-year-old female presenting with chief complaint of foul drainage from previous surgical wound on her abdomen. Concern for infection. History of MRSA. Sent by her PCP. History and physical examination are conducted. CT confirms abscess. No leukocytosis. Lactic acid 3.8. Patient is receiving Unasyn and Zosyn. Patient will be admitted. Surgery is consulted. Patient is agreeable with this plan. I discussed this case with my attending Dr. Valenzuela Undiagnosed new problem with uncertain prognosis? @ -No Drug Therapy requiring intensive monitoring for toxicity (Heparin, Nitro, Insulin, Cardizem)? @ -No Were any procedures done? @ -No Diagnosis/symptom? @ -Abdominal wall abscess Acute, or Chronic, or Acute on Chronic? @ -Acute Uncomplicated (without systemic symptoms) or Complicated (systemic symptoms)? @ -Complicated Side effects of treatment? @ -No Exacerbation, Progression, or Severe Exacerbation? @ -No Poses a threat to life or bodily function? How? (Chest pain, USA, NH, pneumonia, PE, COPD, DKA, ARF, appy, cholecystitis, CVA, Diverticulitis, Homicidal, Suicidal, threat to staff... and all critical care pts) @ -Yes - Lab Data Result diagrams: 03/15/25 03:23 03/16/25 03:41 Lab Results 03/12/25 03/12/25 03/12/25 Range/Units 21:05 21:05 21:05 WBC 6.76 (4.50-10.00) 10*3/uL RBC 4.11 (4.10-5.20) 10*6/uL Hgb 11.7 L (12.0-15.0) g/dL Hct 35.7 L (37.2-46.3) % MCV 86.9 (80.0-97.0) fL MCH 28.5 (27.0-32.0) pg MCHC 32.8 (32.0-37.0) g/dL RDW (11.5-14.5) % Plt Count 275 (140-440) 10*3/uL MPV 10.9 (9.5-12.2) fL Immature Gran % (Auto) 0.1 % Absolute Nucleated RBC % Neutrophils % 49.1 % Lymphocytes % 35.9 % Monocytes % 13.0 % Eosinophils % 1.0 % Basophils % 0.9 % Immature Gran # 0.01 (0.00-0.04) 10*3/uL Neutrophils # 3.31 (1.80-7.70) 10*3/uL Lymphocytes # 2.43 (0.90-5.00) 10*3/uL Monocytes # 0.88 (0.20-1.00) 10*3/uL Eosinophils # 0.07 (0.04-0.35) 10*3/uL Basophils # 0.06 (0.00-0.10) 10*3/uL NRBC/100 WBC Diff (0.00-0.01) X 10*3/uL PT (9.9-11.9) sec INR (0.93-1.11) sec Sodium 135 L (137-145) mmol/L Potassium 3.7 (3.5-5.1) mmol/L Chloride 101 (98-107) mmol/L Carbon Dioxide 22 (22-30) mmol/L Anion Gap 12 mmol/L BUN 12 (7-17) mg/dL Creatinine 0.73 (0.52-1.04) mg/dL Est GFR (CKD-EPI) (>=60) Est GFR (CKD-EPI)AfAm >90 (>60 ml/min/1.73 sqM) Est GFR (CKD-EPI)NonAf >90 (>60 ml/min/1.73 sqM) BUN/Creatinine Ratio (12.00-20.00) Ratio Glucose 213 H (74-99) mg/dL Lactic Ac Sepsis Rflx Plasma Lactic Acid Bimal 3.8 H* (0.7-2.0) mmol/L Calcium 9.0 (8.4-10.2) mg/dL Total Bilirubin 0.6 (0.2-1.3) mg/dL AST 18 (14-36) U/L ALT 21 (4-34) U/L Alkaline Phosphatase 89 (38-126) U/L Total Protein 7.0 (6.3-8.2) g/dL Albumin 4.0 (3.5-5.0) g/dL 03/12/25 03/13/25 03/14/25 Range/Units 21:40 00:23 03:17 WBC 3.50 L (4.50-10.00) 10*3/uL RBC 3.64 L (4.10-5.20) 10*6/uL Hgb 10.1 L (12.0-15.0) g/dL Hct 32.9 L (37.2-46.3) % MCV 90.4 (80.0-97.0) fL MCH 27.7 (27.0-32.0) pg MCHC 30.7 L (32.0-37.0) g/dL RDW 12.7 (11.5-14.5) % Plt Count 199 (140-440) 10*3/uL MPV 11.5 (9.5-12.2) fL Immature Gran % (Auto) 0 % Absolute Nucleated RBC 0 % Neutrophils % 41.4 % Lymphocytes % 42.3 % Monocytes % 13.1 % Eosinophils % 2.3 % Basophils % 0.9 % Immature Gran # 0 (0.00-0.04) 10*3/uL Neutrophils # 1.45 L (1.80-7.70) 10*3/uL Lymphocytes # 1.48 (0.90-5.00) 10*3/uL Monocytes # 0.46 (0.20-1.00) 10*3/uL Eosinophils # 0.08 (0.04-0.35) 10*3/uL Basophils # 0.03 (0.00-0.10) 10*3/uL NRBC/100 WBC Diff 0 (0.00-0.01) X 10*3/uL PT (9.9-11.9) sec INR (0.93-1.11) sec Sodium (137-145) mmol/L Potassium (3.5-5.1) mmol/L Chloride (98-107) mmol/L Carbon Dioxide (22-30) mmol/L Anion Gap mmol/L BUN (7-17) mg/dL Creatinine (0.52-1.04) mg/dL Est GFR (CKD-EPI) (>=60) Est GFR (CKD-EPI)AfAm (>60 ml/min/1.73 sqM) Est GFR (CKD-EPI)NonAf (>60 ml/min/1.73 sqM) BUN/Creatinine Ratio (12.00-20.00) Ratio Glucose (74-99) mg/dL Lactic Ac Sepsis Rflx Y Plasma Lactic Acid Bimal 1.9 (0.7-2.0) mmol/L Calcium (8.4-10.2) mg/dL Total Bilirubin (0.2-1.3) mg/dL AST (14-36) U/L ALT (4-34) U/L Alkaline Phosphatase (38-126) U/L Total Protein (6.3-8.2) g/dL Albumin (3.5-5.0) g/dL 04/20/25 04/21/25 04/21/25 Range/Units 03:17 03:23 03:23 WBC 3.51 L (4.50-10.00) 10*3/uL RBC 4.01 L (4.10-5.20) 10*6/uL Hgb 11.1 L (12.0-15.0) g/dL Hct 36.3 L (37.2-46.3) % MCV 90.5 (80.0-97.0) fL MCH 27.7 (27.0-32.0) pg MCHC 30.6 L (32.0-37.0) g/dL RDW 12.8 (11.5-14.5) % Plt Count 238 (140-440) 10*3/uL MPV 11.0 (9.5-12.2) fL Immature Gran % (Auto) 0.30 % Absolute Nucleated RBC 0 % Neutrophils % 53.2 % Lymphocytes % 34.5 % Monocytes % 9.1 % Eosinophils % 2.0 % Basophils % 0.9 % Immature Gran # 0.01 (0.00-0.04) 10*3/uL Neutrophils # 1.87 (1.80-7.70) 10*3/uL Lymphocytes # 1.21 (0.90-5.00) 10*3/uL Monocytes # 0.32 (0.20-1.00) 10*3/uL Eosinophils # 0.07 (0.04-0.35) 10*3/uL Basophils # 0.03 (0.00-0.10) 10*3/uL NRBC/100 WBC Diff 0 (0.00-0.01) X 10*3/uL PT 10.9 (9.9-11.9) sec INR 0.95 (0.93-1.11) sec Sodium 142 (137-145) mmol/L Potassium 3.9 (3.5-5.1) mmol/L Chloride 110 H (98-107) mmol/L Carbon Dioxide 23.7 (22-30) mmol/L Anion Gap 8.30 mmol/L BUN 7.3 L (7-17) mg/dL Creatinine 0.6 (0.52-1.04) mg/dL Est GFR (CKD-EPI) 108 (>=60) Est GFR (CKD-EPI)AfAm (>60 ml/min/1.73 sqM) Est GFR (CKD-EPI)NonAf (>60 ml/min/1.73 sqM) BUN/Creatinine Ratio 12.17 (12.00-20.00) Ratio Glucose 109 (74-99) mg/dL Lactic Ac Sepsis Rflx Plasma Lactic Acid Bimal (0.7-2.0) mmol/L Calcium 8.2 L (8.4-10.2) mg/dL Total Bilirubin (0.2-1.3) mg/dL AST (14-36) U/L ALT (4-34) U/L Alkaline Phosphatase (38-126) U/L Total Protein (6.3-8.2) g/dL Albumin (3.5-5.0) g/dL 03/15/25 Range/Units 03:23 WBC (4.50-10.00) 10*3/uL RBC (4.10-5.20) 10*6/uL Hgb (12.0-15.0) g/dL Hct (37.2-46.3) % MCV (80.0-97.0) fL MCH (27.0-32.0) pg MCHC (32.0-37.0) g/dL RDW (11.5-14.5) % Plt Count (140-440) 10*3/uL MPV (9.5-12.2) fL Immature Gran % (Auto) % Absolute Nucleated RBC % Neutrophils % % Lymphocytes % % Monocytes % % Eosinophils % % Basophils % % Immature Gran # (0.00-0.04) 10*3/uL Neutrophils # (1.80-7.70) 10*3/uL Lymphocytes # (0.90-5.00) 10*3/uL Monocytes # (0.20-1.00) 10*3/uL Eosinophils # (0.04-0.35) 10*3/uL Basophils # (0.00-0.10) 10*3/uL NRBC/100 WBC Diff (0.00-0.01) X 10*3/uL PT (9.9-11.9) sec INR (0.93-1.11) sec Sodium 141 (137-145) mmol/L Potassium 4.2 (3.5-5.1) mmol/L Chloride 109 (98-107) mmol/L Carbon Dioxide 24.8 (22-30) mmol/L Anion Gap 7.20 mmol/L BUN 9.1 (7-17) mg/dL Creatinine 0.5 L (0.52-1.04) mg/dL Est GFR (CKD-EPI) 113 (>=60) Est GFR (CKD-EPI)AfAm (>60 ml/min/1.73 sqM) Est GFR (CKD-EPI)NonAf (>60 ml/min/1.73 sqM) BUN/Creatinine Ratio 18.20 (12.00-20.00) Ratio Glucose 76 (74-99) mg/dL Lactic Ac Sepsis Rflx Plasma Lactic Acid Bimal (0.7-2.0) mmol/L Calcium 8.6 L (8.4-10.2) mg/dL Total Bilirubin (0.2-1.3) mg/dL AST (14-36) U/L ALT (4-34) U/L Alkaline Phosphatase (38-126) U/L Total Protein (6.3-8.2) g/dL Albumin (3.5-5.0) g/dL Disposition Clinical Impression: Abdominal wall abscess Disposition: ADMITTED IP TO THIS HOSP Condition: Fair
--- NOTE | 2025-03-12 23:00 | CT ---
EXAMINATION TYPE: CT abdomen pelvis w con CT DLP: 906.3 mGycm, Automated exposure control for dose reduction was used. DATE OF EXAM: 03/12/2025 10:04 PM COMPARISON: Abdominal ultrasound 02/11/2025, CT abdomen and pelvis 08/23/2023 CLINICAL INDICATION:Female, 54 years old with history of discharge from abdomen; Patient reports she was sent from PCP for IV abx due to MRSA infection on abdomen. hx of peg tube, 6 abdominal surgeries, colostomy, bariatric sx revision 2021 TECHNIQUE: Standard CT of the abdomen and pelvis following the administration of 100 cc of Isovue 3 00 IV contrast material. Coronal and sagittal reformats were performed. FINDINGS: LOWER CHEST: No significant findings. ABDOMEN LIVER: Unremarkable GALLBLADDER AND BILE DUCTS: Unremarkable. PANCREAS: Unremarkable. SPLEEN: Unremarkable. ADRENAL GLANDS: Unremarkable. KIDNEYS AND URETERS: No evidence of hydronephrosis or renal calculus. The kidneys enhance symmetrical ly. Contrast is demonstrated within both collecting systems and proximal ureters on the delayed phase . Circumaortic left renal vein. PELVIS BLADDER: Unremarkable REPRODUCTIVE: Unremarkable. ABDOMEN & PELVIS STOMACH AND BOWEL: Postsurgical changes of the stomachand bowel from gastric bypass. No focal bowel w all thickening or surrounding inflammatory changes. No evidence of bowel obstruction. PERITONEUM: No evidence of pneumoperitoneum or free fluid. VASCULATURE: No evidence of aortic aneurysm. MUSCULOSKELETAL: No acute osseous abnormalities. Mild multilevel degenerative disc disease. Grade 1 a nterolisthesis of L4 on L5. LYMPH NODES: No evidence for lymphadenopathy. SOFT TISSUE/ABDOMINAL WALL: There is a elongated organized fluid collection with surrounding fat stra nding along the anterior abdominal wall extending from left to right with internal gas. This is is wi thin the anterior wall subcutaneous tissues abutting the rectus musculature appear grossly measures 1 .3 x 12.2 cm in AP and TV dimensions. This is at site of previously demonstrated fluid collection on CT 08/23/2023. No intraperitoneal extension identified. IMPRESSION: 1. Elongated organized fluid collection with some surrounding fat stranding within the anterior abdo nam wall subcutaneous tissues abutting the rectus musculature. This is a site of previously demonst rated fluid collection on CT 08/23/2023. There is internal gas identified. No intraperitoneal extensio n identified. Findings concerning for abscess. 2. Postsurgical changes of the bowel. [facility], , 03/12/2025 10:58 PM
[2025-03-12] MEDS ORDERED: VANCOMYCIN IV PER PHARMACY 1 EACH MISC MISCELLANE PRN (23:18)
[2025-03-12] MEDS: KETOROLAC 15 MG/ML 1 ML VIAL IVP STA (23:45)
[2025-03-12] MEDS: AMPICILLIN-SULBACTAM 3 GM in SODIUM CHLORIDE 0.9% 100 ML IVPB STA (23:45)
[2025-03-13] MEDS ORDERED: NALOXONE 0.4 MG/ML 1 ML VIAL IV PRN (00:01)
[2025-03-13] MEDS: VANCOMYCIN 1,500 MG in SODIUM CHLORIDE 0.9% 500 ML 500 ML IVPB ONE (00:20)
[2025-03-13] MEDS: SODIUM CHLORIDE 0.9% 1,000 ML IV SCH (01:33)
[2025-03-13] MEDS: MORPHINE SULFATE 4 MG/ML SYRINGE IV PRN (02:18)
[2025-03-13] MEDS ORDERED: ACETAMINOPHEN TAB 500 MG TAB PO PRN (09:36)
[2025-03-13] MEDS: cefTRIAXone 2 GM in DEXTROSE 5% IN WATER 50 ML IVPB SCH (09:53)
[2025-03-13] MEDS: metroNIDAZOLE-NS PMX 500 MG in SALINE 1 100ML.BAG IVPB SCH (11:15)
[2025-03-13] MEDS: VANCOMYCIN 1,500 MG in SODIUM CHLORIDE 0.9% 500 ML 500 ML IVPB SCH (12:49)
--- NOTE | 2025-03-13 14:16 | P.CON ---
Consult Note - . Consult date: 03/13/25 Assessment/Plan:: 54-year-old female presenting with chief complaint of wounds to the abdomen. 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 She reports that recently a small area over her umbilicus opened up and she has been having clear discharge. She reports that the discharge has been starting to have a foul odor and she is concerned for infection. Patient reports that she has history of MRSA. She states that she was at [facility] and was "kicked out for no reason". She finished a 10-day course of Bactrim about 7 days ago. She states she was seen by her PCP and told to come to the ER for IV antibiotics. No fever. No nausea or vomiting. She reports that she has been feeling tired and some chills lately. 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 I spoke to her surgeon Dr Rehman from [facility]. Review of Systems ROS Statement: Those systems with pertinent positive or pertinent negative responses have been documented in the HPI. ROS Other: All systems not noted in ROS Statement are negative. 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 Colostomy reversal Past Anesthesia/Blood Transfusion Reactions: No Reported Reaction Past Psychological History: ADD/ADHD, Anxiety, Depression, PTSD Smoking Status: Former smoker, Vaper Past Alcohol Use History: None Reported Past Drug Use History: Cocaine, Marijuana - Past Family History Father History Unknown: Yes Family Medical History: Cancer, Diabetes Mellitus, Hypertension Additional Family Medical History / Comment(s): throat cancer Mother History Unknown: Yes Family Medical History: Cancer, Diabetes Mellitus Additional Family Medical History / Comment(s): multiple myeloma General Exam Limitations: no limitations General appearance: alert, in no apparent distress Head exam: Present: atraumatic, normocephalic, normal inspection Eye exam: Present: normal appearance, EOMI Neck exam: Present: normal inspection. Absent: meningismus Respiratory exam: Absent: respiratory distress GI/Abdominal exam: Present: soft, other (she does have a seroma with serosanginous discharge). Absent: distended, tenderness, guarding, rebound, rigid Neurological exam: Present: alert, oriented X3 Psychiatric exam: Present: normal affect, normal mood 54 year old female with abdominal wall abscess -IR consulted for Drainage of Abscess. Cultures ordered -If IR unable to drain, then patient may need surgical intervention -Recommend Abx and ID consult -Pain Control -Ok for Regular Diet Ruddy Padilla DO [facility] [phone]
--- NOTE | 2025-03-13 14:55 | P.HPIM ---
History of Present Illness H&P Date: 03/13/25 History of present illness: 54-year-old female with past medical history significant for DVT, history of thyroid nodule, history of multiple abdominal surgeries who presented to ER with a complaint of nonhealing wounds to her abdomen with purulent discharge. Patient reported that she had multiple abdominal surgeries, has history of abdominal fistulas, has a seroma to her abdomen. Patient reported that recently she had a small area over the umbilicus which opened up and she noticed to have clear discharge. Patient reported that recently discharge started to have foul odor and became more purulent and she was worried about infection. Patient reported history of MRSA. Patient stated that she was at movement and was discharged for no reason, finished 10 days of Bactrim about 7 days ago. Patient reported that she was seen by the PCP and advised to come to the ED for IV antibiotics. Patient denied any fever, night sweats, nausea vomiting diarrhea constipation abdominal pain dysuria urgency frequency weakness or numbness of extremities, chest pain, palpitation, shortness of breath. Patient reported that she was feeling tired, reported chills. Patient has history of multiple abdominal surgeries, sees at [facility], had takedown of gastrocutaneous and colocutaneous fistula with ventral hernia repair. Vital stable. WBC 6.7 hemoglobin 11.7 platelet 275. BMP unremarkable. Initial lactate 3.8 came down to 1.9. Assessment and plan: Abdominal wall abscess: History of multiple abdominal surgeries: History of takedown of gastrocutaneous and colocutaneous fistula with ventral hernia repair: Patient has multiple abdominal surgeries, follows Dr. Rehman at [facility] Presented to worsening abdominal wound, purulent foul-smelling discharge. CT abdomen pelvis showed elongated organized fluid collection with some surrounding fat stranding within the anterior abdominal wall subcutaneous tissue abutting the rectus musculature, internal gas identified no intraperitoneal extension. Wound culture General surgery consultedrecommended IR guided abscess drainage, may need surgical intervention if IR drainage fail. Pain control Vancomycin, Rocephin, Flagyl. ID consult. DVT prophylaxis Subcutaneous Lovenox Monitor vital signs and labs Labs and medication were reviewed. Continue same treatment. Further recommendations as per clinical course of the patient PHYSICAL EXAMINATION: GENERAL: The patient is A&O x3, NAD HEENT: EOMI, Sclerae anicteric, Moist Mucous membranes Neck: Supple, Non tender, No JVD PULMONARY: Equal breath souds B/L, No wheezing, No crackles. CARDIOVASCULAR: S1, S2 present. No murmurs, rubs, or gallops. ABDOMEN: Soft, nontender, nondistended, + abdominal wound with drainage. Normoactive bowel sounds. No guarding or rebound tenderness. MUSCULOSKELETAL: No edema, No cyanosis. No clubbing. Normal ROM. Intact peripheral pulses. NEUROLOGICAL: CN 2-12 grossly intact. No FND REVIEW OF SYSTEMS: CONSTITUTIONAL: No fever, no malaise, no fatigue. HEENT: No recent visual problems or hearing problems. Denied any sore throat. CARDIOVASCULAR: No chest pain, orthopnea, PND, no palpitations, no syncope. PULMONARY: No shortness of breath, no cough, no hemoptysis. GASTROINTESTINAL: No diarrhea, no nausea, no vomiting, no abdominal pain. NEUROLOGICAL: No headaches, no weakness, no numbness. HEMATOLOGICAL: Denies any bleeding or petechiae. GENITOURINARY: Denies any burning micturition, frequency, or urgency. MUSCULOSKELETAL/RHEUMATOLOGICAL: Denies any joint pain, swelling, or any muscle pain. ENDOCRINE: Denies any polyuria or polydipsia. The rest of the 14-point review of systems is negative. Dictation was produced using [employer] dictation software. please excuse any gra mmatical, word or spelling errors. 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 Colostomy reversal Past Anesthesia/Blood Transfusion Reactions: No Reported Reaction Past Psychological History: ADD/ADHD, Anxiety, Depression, PTSD Smoking Status: Former smoker, Vaper Past Alcohol Use History: None Reported Past Drug Use History: Cocaine, Marijuana Additional Drug Use History / Comment(s): history of cocaine use, admitted to using one time recently but not for last 3 years. - Past Family History Father History Unknown: Yes Family Medical History: Cancer, Diabetes Mellitus, Hypertension Additional Family Medical History / Comment(s): throat cancer Mother History Unknown: Yes Family Medical History: Cancer, Diabetes Mellitus Additional Family Medical History / Comment(s): multiple myeloma Medications and Allergies Home Medications Medication Instructions Recorded Confirmed Type No Known Home Medications 03/13/25 03/13/25 History Allergies Allergy/AdvReac Type Severity Reaction Status Date / Time No Known Allergies Allergy Verified 03/13/25 10:01 Physical Exam Vitals: Vital Signs Temp Pulse Pulse Resp BP BP Pulse Ox 03/13/25 13:23 98.0 F 87 16 159/85 100 03/13/25 07:01 98.3 F 91 16 139/85 99 03/13/25 01:49 98.0 F 84 17 142/87 100 03/13/25 00:53 88 18 134/79 99 03/12/25 20:08 98.6 F 107 H 18 168/108 98 Intake and Output 03/12/25 03/13/25 03/13/25 22:59 06:59 14:59 Intake Total 1080 Balance 1080 Intake: Oral 1080 Other: # Voids 3 Weight 77.111 kg 77.111 kg Results CBC & Chem 7: 03/12/25 21:05 03/12/25 21:05 Labs: Abnormal Lab Results - Last 24 Hours (Table) 03/12/25 03/12/25 03/12/25 Range/Units 21:05 21:05 21:05 Hgb 11.7 L (12.0-15.0) g/dL Hct 35.7 L (37.2-46.3) % Sodium 135 L (137-145) mmol/L Glucose 213 H (74-99) mg/dL Plasma Lactic Acid Bimal 3.8 H* (0.7-2.0) mmol/L Thrombosis Risk Factor Assmnt - Choose All That Apply Each Factor Represents 1 point: Age 41-60 years Each Risk Factor Represents 3 Points: History of DVT/PE Thrombosis Risk Factor Assessment Total Risk Factor Score: 4 Thrombosis Risk Factor Assessment Level: Moderate Risk
[2025-03-13] MEDS: ENOXAPARIN 40 MG/0.4 ML SYRINGE SQ SCH (15:26)
--- NOTE | 2025-03-14 06:56 | P.PN ---
Progress Note - Text Progress Note Date: 03/14/25 No acute events overnight. Denies fevers and chills. Denies abdominal pain. VSS General-NAD CVS-RRR Lungs-NLB Abdomen-soft, NTND 54 year old female with abdominal wall abscess -IR consulted for Drainage of Abscess. Cultures ordered -Regular Diet -NPO/midnight -If IR unable to drain, then patient may need surgical intervention -Recommend Abx and ID consult -Pain Control Ruddy Padilla DO [facility] [phone]
--- NOTE | 2025-03-14 10:05 | P.CONS ---
History of Present Illness - Reason for Consult Consult date: 03/13/25 Abdominal wall abscess Requesting physician: Lowell Freire - Chief Complaint Abdominal wall fluid drainage x days - History of Present Illness Patient is a 54-year-old female with a past medical history significant for DVT anxiety depression PTSD in this patient who did have multiple abdominal surgeries including colostomy reversal of colostomy and drainage of the abscesses presenting to the hospital for evaluation of increasing drainage from her abdominal wound that apparently has been going on for couple of weeks and has been treated in the outpatient setting with the Bactrim DS without any improvement patient recently also was evaluated and treated at the [facility] for manage patient was discharged on Bactrim DS for 7 days without any improvement subsequently evaluated by the PCP and advised to go to the hospital patient denies high-grade fever any chills has been complaining of mostly increasing drainage from the abdominal wound which is foul-smelling with associated pain describing it to be mostly dull aching mild to moderate intense without radiation some nausea but no vomiting and no diarrhea on presentation to the hospital patient was afebrile and no fever have recorded subsequently patient was mildly tachycardic at 1 point but not hypotensive or hypoxic no need for supplemental oxygen white count was 6.76 creatinine 0.73 lactic acid 3.8 liver enzymes are normal patient did have abdominal pelvis CT PT shows elongated organized fluid collection with some surrounding fat stranding within the anterior abdominal wall subcutaneous amputee and the rectus musculature with internal gas patient has been started on vancomycin Rocephin and Flagyl infectious disease was consulted for further management of antibiotic therapy Review of Systems Positive point and negatives has been mentioned in the HPI, complete review of systems was performed and all other systems are negative Past Medical History Past Medical History: Cancer, Deep Vein Thrombosis (DVT) Additional Past Medical History / Comment(s): malnutrition, anemia, hernia , thyroid nodules, skin cancer removed, colostomy bag and reversal, bariatric surgery revision (oct 2022) 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 Colostomy reversal Past Anesthesia/Blood Transfusion Reactions: No Reported Reaction Past Psychological History: ADD/ADHD, Anxiety, Depression, PTSD Smoking Status: Former smoker, Vaper Past Alcohol Use History: None Reported Past Drug Use History: Cocaine, Marijuana Additional Drug Use History / Comment(s): history of cocaine use, admitted to using one time recently but not for last 3 years. - Past Family History Father History Unknown: Yes Family Medical History: Cancer, Diabetes Mellitus, Hypertension Additional Family Medical History / Comment(s): throat cancer Mother History Unknown: Yes Family Medical History: Cancer, Diabetes Mellitus Additional Family Medical History / Comment(s): multiple myeloma Medications and Allergies Home Medications Medication Instructions Recorded Confirmed Type No Known Home Medications 03/13/25 03/13/25 History Allergies Allergy/AdvReac Type Severity Reaction Status Date / Time No Known Allergies Allergy Verified 03/13/25 10:01 Physical Exam Vitals: Vital Signs Temp Pulse Pulse Resp BP BP Pulse Ox 03/13/25 07:01 98.3 F 91 16 139/85 99 03/13/25 01:49 98.0 F 84 17 142/87 100 03/13/25 00:53 88 18 134/79 99 03/12/25 20:08 98.6 F 107 H 18 168/108 98 Intake and Output 03/12/25 03/13/25 03/13/25 22:59 06:59 14:59 Intake Total 1080 Balance 1080 Intake: Oral 1080 Other: # Voids 3 Weight 77.111 kg 77.111 kg GENERAL DESCRIPTION: Middle-age female lying in bed, no distress. No tachypnea or accessory muscle of respiration use. HEENT: Shows Pallor , no scleral icterus. Oral mucous membrane is dry. NECK: Trachea central, no thyromegaly. LUNGS: Unlabored breathing. Clear to auscultation anteriorly. No wheeze or crackle. HEART: S1, S2, regular rate and rhythm. No loud murmur ABDOMEN: Soft, midline small abdominal wound which was deep did have purulent drainage both aerobic and anaerobic culture has been obtained EXTREMITIES: No edema of feet. SKIN: No rash, no masses palpable. NEUROLOGICAL: The patient is awake, alert, oriented x3, mood and affect normal. Results CBC & Chem 7: 03/14/25 03:17 03/14/25 03:17 Labs: Abnormal Lab Results - Last 24 Hours (Table) 03/12/25 03/12/25 03/12/25 Range/Units 21:05 21:05 21:05 Hgb 11.7 L (12.0-15.0) g/dL Hct 35.7 L (37.2-46.3) % Sodium 135 L (137-145) mmol/L Glucose 213 H (74-99) mg/dL Plasma Lactic Acid Bimal 3.8 H* (0.7-2.0) mmol/L Assessment and Plan (1) Abdominal wall abscess Current Visit: Yes Status: Acute Code(s): L02.211 - CUTANEOUS ABSCESS OF ABDOMINAL WALL SNOMED Code(s): 99529230 (2) Failure of outpatient treatment Current Visit: Yes Status: Acute Code(s): Z78.9 - OTHER SPECIFIED HEALTH STATUS SNOMED Code(s): 288688465 Plan: 1patient with complicated history of multiple abdominal surgery including colostomy subsequently reversal and multiple surgeries for fistula now presenting with a draining sinus to the mid abdominal area with abnormal CT concerning for abdominal wall abscess failing outpatient oral Bactrim DS therapy we will need to cover for both gram-positive as well as gram-negative pathogen 2local culture have been obtained that will guide further antibiotic therapy however the patient benefit from IR drainage of this abscess and deep culture which has been consulted 3-patient will be treated with vancomycin while watching kidney function closely along with Rocephin and Flagyl pending finalization of the culture Multiple question concern answered Case discussed with admitting physician We will follow on clinical condition and cultures to further adjust medication if needed Thank you for this consultation we will follow the patient along with you Dictation was produced using [employer] dictation software. please excuse any grammatical, word or spelling errors. Time with Patient: Greater than 30
[2025-03-14 10:21] LABS: Basophils # (A) 0.03 X 10*3/uL (0.00-0.10); Basophils % (A) 0.9 %; Eosinophils # (A) 0.08 X 10*3/uL (0.04-0.35); Eosinophils % (A) 2.3 %; HCT 32.9 % (37.2-46.3); HGB 10.1 g/dL (12.0-15.0); Immature Grans, Automated 0 %; Lymphocytes # (A) 1.48 X 10*3/uL (0.90-5.00); Lymphocytes % (A) 42.3 %; MCH 27.7 pg (27.0-32.0); MCHC 30.7 g/dL (32.0-37.0); MCV 90.4 FL (80.0-97.0); Mean Platelet Volume 11.5 FL (9.5-12.2); Monocytes # (A) 0.46 X 10*3/uL (0.20-1.00); Monocytes % (A) 13.1 %; NRBC Per 100 WBC 0 X 10*3/uL (0.00-0.01); Neutrophils # (A) 1.45 X 10*3/uL (1.80-7.70); Neutrophils % (A) 41.4 %; Platelet Count 199 X 10*3/uL (140-440); RBC 3.64 X 10*6/uL (4.10-5.20); RDW 12.7 % (11.5-14.5)
[2025-03-14 10:24] LABS: BUN/Creat Ratio 12.17 Ratio (12.00-20.00); Blood Urea Nitrogen 7.3 mg/dL (9.0-27.0); Calcium 8.2 mg/dL (8.7-10.3); Carbon Dioxide 23.7 mmol/L (21.6-31.8); Chloride 110 mmol/L (96-109); Glucose 109 mg/dL (70-110); Potassium 3.9 mmol/L (3.5-5.5); Sodium 142 mmol/L (135-145)
--- NOTE | 2025-03-14 13:56 | P.PN ---
Subjective Progress Note Date: 03/14/25 Interval History: 54-year-old female with past medical history significant for DVT, history of thyroid nodule, history of multiple abdominal surgeries who presented to ER with a complaint of nonhealing wounds to her abdomen with purulent discharge. Patient reported that she had multiple abdominal surgeries, has history of abdominal fistulas, has a seroma to her abdomen. Patient reported that recently she had a small area over the umbilicus which opened up and she noticed to have clear discharge. Patient reported that recently discharge started to have foul odor and became more purulent and she was worried about infection. Patient reported history of MRSA. Patient stated that she was at movement and was discharged for no reason, finished 10 days of Bactrim about 7 days ago. Patient reported that she was seen by the PCP and advised to come to the ED for IV antibiotics. Patient denied any fever, night sweats, nausea vomiting diarrhea constipation abdominal pain dysuria urgency frequency weakness or numbness of extremities, chest pain, palpitation, shortness of breath. Patient reported that she was feeling tired, reported chills. Patient has history of multiple abdominal surgeries, sees at [facility], had takedown of gastrocutaneous and colocutaneous fistula with ventral hernia repair. Vital stable. WBC 6.7 hemoglobin 11.7 platelet 275. BMP unremarkable. Initial lactate 3.8 came down to 1.9. 03/14--patient was seen and examined today. No issues overnight. Blood culture and fluid culture negative so far. Remained afebrile. Vital stable. WBC 3.5, hemoglobin 10.1, platelet 199. BMP unremarkable. Infectious disease and general surgery following. Tentative plan for IR guided drainage tomorrow. On antibiotics vancomycin Rocephin and Flagyl. Assessment and plan: Abdominal wall abscess: History of multiple abdominal surgeries: History of takedown of gastrocutaneous and colocutaneous fistula with ventral hernia repair: Patient has multiple abdominal surgeries, follows Dr. Rehman at [facility] Presented to worsening abdominal wound, purulent foul-smelling discharge. CT abdomen pelvis showed elongated organized fluid collection with some surrounding fat stranding within the anterior abdominal wall subcutaneous tissue abutting the rectus musculature, internal gas identified no intraperitoneal extension. Wound culture General surgery consultedrecommended IR guided abscess drainage, may need surgical intervention if IR drainage fail. Pain control Vancomycin, Rocephin, Flagyl. ID consulted DVT prophylaxis Subcutaneous Lovenox Monitor vital signs and labs Labs and medication were reviewed. Continue same treatment. Further recommendations as per clinical course of the patient PHYSICAL EXAMINATION: GENERAL: The patient is A&O x3, NAD HEENT: EOMI, Sclerae anicteric, Moist Mucous membranes Neck: Supple, Non tender, No JVD PULMONARY: Equal breath souds B/L, No wheezing, No crackles. CARDIOVASCULAR: S1, S2 present. No murmurs, rubs, or gallops. ABDOMEN: Soft, nontender, nondistended, + abdominal wound with drainage. Normoactive bowel sounds. No guarding or rebound tenderness. MUSCULOSKELETAL: No edema, No cyanosis. No clubbing. Normal ROM. Intact peripheral pulses. NEUROLOGICAL: CN 2-12 grossly intact. No FND REVIEW OF SYSTEMS: CONSTITUTIONAL: No fever or chills. CARDIOVASCULAR: No chest pain, palpitations or syncope. PULMONARY: No shortness of breath, no cough, sore throat. GASTROINTESTINAL: No nausea, vomiting, diarrhea, abdominal pain. : No Dysuria, urgency, frequency. Extremities: No edema. NEUROLOGICAL: No headaches, no weakness, or numbness Dictation was produced using [employer] dictation software. please excuse any grammatical, word or spelling errors. Objective - Vital Signs Vital signs: Vital Signs Temp 98.1 F 03/14/25 07:56 Pulse 83 03/14/25 07:56 Resp 16 03/14/25 07:56 BP 130/83 03/14/25 07:56 Pulse Ox 99 03/14/25 07:56 FiO2 Intake & Output 03/13/25 03/14/25 03/14/25 18:59 06:59 18:59 Intake Total 1650 Balance 1650 Intake: Oral 1650 Other: Voiding Method Toilet # Voids 2 3 # Bowel Movements 1 - Labs CBC & Chem 7: 03/14/25 03:17 03/14/25 03:17 Labs: Abnormal Lab Results - Last 24 Hours (Table) 03/14/25 03/14/25 Range/Units 03:17 03:17 WBC 3.50 L (4.50-10.00) X 10*3/uL RBC 3.64 L (4.10-5.20) X 10*6/uL Hgb 10.1 L (12.0-15.0) g/dL Hct 32.9 L (37.2-46.3) % MCHC 30.7 L (32.0-37.0) g/dL Neutrophils # 1.45 L (1.80-7.70) X 10*3/uL Chloride 110 H (96-109) mmol/L BUN 7.3 L (9.0-27.0) mg/dL Calcium 8.2 L (8.7-10.3) mg/dL Microbiology - Last 24 Hours (Table) 03/12/25 23:39 Blood Culture - Preliminary Blood 03/13/25 12:30 Gram Stain - Preliminary Abdomen
--- NOTE | 2025-03-14 15:07 | P.PN ---
Subjective Progress Note Date: 03/14/25 Principal diagnosis: Reason for follow-up is abdominal wall abscess Patient is a 54-year-old female with a past medical history significant for DVT anxiety depression PTSD in this patient who did have multiple abdominal surgeries including colostomy reversal of colostomy and drainage of the abscesses presenting to the hospital for evaluation of increasing drainage from her abdominal wound did have a CT abdominal pelvis concerning for abdominal abscess prompting this consultation. On today's evaluation that is 03/14/2025, Patient is afebrile patient is currently on room air and denies having any shortness of breath, the patient denies any chest pain or cough, the patient denies any nausea vomiting abdominal discomfort has decreased drainage is about the same. Patient white count is 3.50 creatinine 0.6 cultures currently pending Objective - Vital Signs Vital signs: Vital Signs Temp 98.1 F 03/14/25 07:56 Pulse 83 03/14/25 07:56 Resp 16 03/14/25 07:56 BP 130/83 03/14/25 07:56 Pulse Ox 99 03/14/25 07:56 FiO2 Intake & Output 03/13/25 03/14/25 03/14/25 18:59 06:59 18:59 Intake Total 1650 Balance 1650 Intake: Oral 1650 Other: Voiding Method Toilet # Voids 2 3 # Bowel Movements 1 - Exam GENERAL DESCRIPTION: Middle-age female up in the chair in no distress RESPIRATORY SYSTEM: Unlabored breathing , clear to auscultation anteriorly HEART: S1 S2 regular rate and rhythm , ABDOMEN: Soft , no tenderness EXTREMITIES: No edema feet - Labs CBC & Chem 7: 03/14/25 03:17 03/14/25 03:17 Labs: Abnormal Lab Results - Last 24 Hours (Table) 03/14/25 03/14/25 Range/Units 03:17 03:17 WBC 3.50 L (4.50-10.00) X 10*3/uL RBC 3.64 L (4.10-5.20) X 10*6/uL Hgb 10.1 L (12.0-15.0) g/dL Hct 32.9 L (37.2-46.3) % MCHC 30.7 L (32.0-37.0) g/dL Neutrophils # 1.45 L (1.80-7.70) X 10*3/uL Chloride 110 H (96-109) mmol/L BUN 7.3 L (9.0-27.0) mg/dL Calcium 8.2 L (8.7-10.3) mg/dL Microbiology - Last 24 Hours (Table) 03/12/25 23:39 Blood Culture - Preliminary Blood 03/13/25 12:30 Gram Stain - Preliminary Abdomen Assessment and Plan (1) Abdominal wall abscess Current Visit: Yes Status: Acute Code(s): L02.211 - CUTANEOUS ABSCESS OF ABDOMINAL WALL SNOMED Code(s): 02288685 (2) Failure of outpatient treatment Current Visit: Yes Status: Acute Code(s): Z78.9 - OTHER SPECIFIED HEALTH STATUS SNOMED Code(s): 171513750 Plan: 1patient with complicated history of multiple abdominal surgery including colostomy subsequently reversal and multiple surgeries for fistula now presenting with a draining sinus to the mid abdominal area with abnormal CT concerning for abdominal wall abscess failing outpatient oral Bactrim DS therapy we will need to cover for both gram-positive as well as gram-negative pathogen 2local culture have been doing that will guide further antibiotic therapy however the patient will benefit from IR drainage of this abscess and deep culture which has been consulted 3-patient current being treated with vancomycin, Rocephin and Flagyl pending finalization of the culture Multiple question concern answered Case discussed with admitting physician Dictation was produced using [employer] dictation software. please excuse any grammatical, word or spelling errors.
[2025-03-15] MEDS: cefTRIAXone 2 GM in DEXTROSE 5% IN WATER 50 ML IVPB SCH (08:06)
[2025-03-15 09:10] LABS: Basophils # (A) 0.03 X 10*3/uL (0.00-0.10); Basophils % (A) 0.9 %; Eosinophils # (A) 0.07 X 10*3/uL (0.04-0.35); HCT 36.3 % (37.2-46.3); HGB 11.1 g/dL (12.0-15.0); Lymphocytes # (A) 1.21 X 10*3/uL (0.90-5.00); Lymphocytes % (A) 34.5 %; MCH 27.7 pg (27.0-32.0); MCHC 30.6 g/dL (32.0-37.0); MCV 90.5 FL (80.0-97.0); Monocytes # (A) 0.32 X 10*3/uL (0.20-1.00); Monocytes % (A) 9.1 %; NRBC Per 100 WBC 0 X 10*3/uL (0.00-0.01); Neutrophils # (A) 1.87 X 10*3/uL (1.80-7.70); Neutrophils % (A) 53.2 %; Platelet Count 238 X 10*3/uL (140-440); RBC 4.01 X 10*6/uL (4.10-5.20); RDW 12.8 % (11.5-14.5); WBC 3.51 X 10*3/uL (4.50-10.00)
[2025-03-15 09:15] LABS: Blood Urea Nitrogen 9.1 mg/dL (9.0-27.0); Calcium 8.6 mg/dL (8.7-10.3); Carbon Dioxide 24.8 mmol/L (21.6-31.8); Chloride 109 mmol/L (96-109); Glucose 76 mg/dL (70-110); Potassium 4.2 mmol/L (3.5-5.5); Sodium 141 mmol/L (135-145)
[2025-03-15 10:09] LABS: Prothrombin Time 11.5 sec (10.0-12.5)
--- NOTE | 2025-03-15 11:31 | P.PN ---
Subjective Progress Note Date: 03/15/25 SURGICAL PROGRESS NOTE CHIEF COMPLAINT: Abdominal wall abscess HISTORY OF PRESENT ILLNESS: Patient continues to have serosanguineous drainage near the umbilicus midline incision area. Pain controlled. Scheduled to be evaluated by IR service for aspiration of fluid collection from the abdominal wall. Afebrile. WBC 3.51 Hgb 11.1 PHYSICAL EXAM: VITAL SIGNS: Reviewed. GENERAL: Well-developed in no acute distress. ABDOMEN: Soft. Nondistended. Nontender. Midline incision with serosanguineous drainage noted at the umbilicus NEUROLOGIC: Alert and oriented. Cranial nerves II through XII grossly intact. ASSESSMENT: 1. Abdominal wall abscess 2. 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 History of multiple abdominal surgeries. Including history of Pipe-en-Y with revision PLAN: - IR consulted for aspiration of fluid - Antibiotics per ID service Physician Entertainment Production Professional note has been reviewed by physician. Signing provider agrees with the documented findings, assessment, and plan of care. Attestation Pt seen and examined on 03/15/25. Case discussed in depth with the patient. Plan for IR guided drainage today. Cultures to be obtained and antibiotics per ID service. Further recommendations will be made after discussion with patient's current surgeon, Dr. Rehman. Ye Ca, DO Objective - Vital Signs Vital signs: Vital Signs Temp 98 F 03/15/25 07:00 Pulse 83 03/15/25 10:54 Resp 18 03/15/25 10:54 BP 129/87 03/15/25 10:54 Pulse Ox 98 03/15/25 10:54 FiO2 Intake & Output 03/14/25 03/15/25 03/15/25 18:59 06:59 18:59 Intake Total 1580 1775 Balance 1580 1775 Intake: Intake, IV Titration 1100 825 Amount Sodium Chloride 0.9% 1, 300 225 000 ml @ 75 mls/hr IV . [id number] [facility] Rx#:[id number] Vancomycin 1,500 mg In 500 500 Sodium Chloride 0.9% 500 ml 500 ml @ 167 mls/hr IVPB Q12H [facility] Rx#: [id number] cefTRIAXone 2 gm In 100 Dextrose 5% in Water 50 ml @ 100 mls/hr IVPB Q24HR [facility] Rx#:[id number] metroNIDAZOLE-NS PMX 500 200 100 mg In Saline 1 100ml.bag @ 100 mls/hr IVPB Q8H [facility] Rx#:[id number] Oral 480 950 Other: Voiding Method Toilet Toilet # Voids 4 # Bowel Movements 1 - Labs CBC & Chem 7: 03/15/25 03:23 03/16/25 03:41 Labs: Abnormal Lab Results - Last 24 Hours (Table) 03/15/25 03/15/25 Range/Units 03:23 03:23 WBC 3.51 L (4.50-10.00) X 10*3/uL RBC 4.01 L (4.10-5.20) X 10*6/uL Hgb 11.1 L (12.0-15.0) g/dL Hct 36.3 L (37.2-46.3) % MCHC 30.6 L (32.0-37.0) g/dL Creatinine 0.5 L (0.6-1.5) mg/dL Calcium 8.6 L (8.7-10.3) mg/dL Microbiology - Last 24 Hours (Table) 03/13/25 12:30 Gram Stain - Preliminary Abdomen Wound Culture - Preliminary Presumptive MRSA 03/12/25 23:39 Blood Culture - Preliminary Blood
--- NOTE | 2025-03-15 12:47 | US ---
EXAM: US asp abscess/hemat/cyst DATE OF EXAM: 03/15/2025 COMPARISON: DESCRIPTION: The ultrasound guided aspiration procedure was explained to the patient. The risks, benefits, altern atives were discussed. An informed consent was then obtained. The patient was placed in supine positioning for imaging and for the procedure. The overlying skin wa s prepped with betadine and sterilely draped in usual sterile fashion. 10 ml 1% lidocaine was used a s anesthetic into the skin and deeper breast tissue up to area of concern in the anterior subcutaneou s abdomen. Under ultrasound guidance, an 18-gauge spinal needle was advanced into the small collection and appro ximately 1 cc of thick bloody aspirate was obtained. Aspirate was sent for cytology. Good hemostasis was obtained with direct pressure. Impression: As above [facility], , 03/15/2025 12:45 PM
[2025-03-15] MEDS: VANCOMYCIN TROUGH DUE 1 EACH MISC MISCELLANE ONE (17:37)
[2025-03-15] MEDS: KETOROLAC 15 MG/ML 1 ML VIAL IVP PRN (19:44)
--- NOTE | 2025-03-15 21:53 | P.PN ---
Subjective Progress Note Date: 03/15/25 54-year-old female with past medical history significant for DVT, history of thyroid nodule, history of multiple abdominal surgeries who presented to ER with a complaint of nonhealing wounds to her abdomen with purulent discharge. Patient reported that she had multiple abdominal surgeries, has history of abdominal fistulas, has a seroma to her abdomen. Patient reported that recently she had a small area over the umbilicus which opened up and she noticed to have clear discharge. Patient reported that recently discharge started to have foul odor and became more purulent and she was worried about infection. Patient reported history of MRSA. Patient stated that she was at movement and was discharged for no reason, finished 10 days of Bactrim about 7 days ago. Patient reported that she was seen by the PCP and advised to come to the ED for IV antibiotics. Patient denied any fever, night sweats, nausea vomiting diarrhea constipation abdominal pain dysuria urgency frequency weakness or numbness of extremities, chest pain, palpitation, shortness of breath. Patient reported that she was feeling tired, reported chills. 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 Vital stable. WBC 6.7 hemoglobin 11.7 platelet 275. BMP unremarkable. Initial lactate 3.8 came down to 1.9. 03/14--patient was seen and examined today. No issues overnight. Blood culture and fluid culture negative so far. Remained afebrile. Vital stable. WBC 3.5, hemoglobin 10.1, platelet 199. BMP unremarkable. Infectious disease and general surgery following. Tentative plan for IR guided drainage tomorrow. On antibiotics vancomycin Rocephin and Flagyl. 03/15/2025 Patient evaluated today in follow up. IR drainage of abdominal abscess completed today and sent for cultures. Preliminary showing MRSA. REVIEW OF SYSTEMS: CONSTITUTIONAL: No fever or chills. CARDIOVASCULAR: No chest pain, palpitations or syncope. PULMONARY: No shortness of breath, no cough, sore throat. GASTROINTESTINAL: No nausea, vomiting, diarrhea, abdominal pain. : No Dysuria, urgency, frequency. Extremities: No edema. NEUROLOGICAL: No headaches, no weakness, or numbness PHYSICAL EXAMINATION: GENERAL: The patient is A&O x3, NAD HEENT: EOMI, Sclerae anicteric, Moist Mucous membranes Neck: Supple, Non tender, No JVD PULMONARY: Equal breath souds B/L, No wheezing, No crackles. CARDIOVASCULAR: S1, S2 present. No murmurs, rubs, or gallops. ABDOMEN: Soft, nontender, nondistended, + abdominal wound with drainage. Normoactive bowel sounds. No guarding or rebound tenderness. MUSCULOSKELETAL: No edema, No cyanosis. No clubbing. Normal ROM. Intact peripheral pulses. NEUROLOGICAL: CN 2-12 grossly intact. No FND Assessment and plan: -Abdominal wall abscess: -History of multiple abdominal surgeries: History of takedown of gastrocutaneous and colocutaneous fistula with ventral hernia repair: Patient has multiple abdominal surgeries, follows Dr. Rehman at [facility] Presented to worsening abdominal wound, purulent foul-smelling discharge. CT abdomen pelvis showed elongated organized fluid collection with some surrounding fat stranding within the anterior abdominal wall subcutaneous tissue abutting the rectus musculature, internal gas identified no intraperitoneal extension. Wound culture General surgery consultedrecommended IR guided abscess drainage which was completed today and sent for cultures. Pain control Vancomycin, Rocephin, Flagyl. ID consulted -Hx of DVT -Anxiety/Depression DVT prophylaxis Subcutaneous Lovenox Pending final wound cultures and sensitivities to determine discharge antibiotics. ID following. Repeat BMP in the AM; monitor renal function. The impression and plan of care has been dictated by Ivy Gray, Nurse Practitioner as directed. Dr. Grant MD I have performed a history and physical examination and medical decision making of this patient, discussed the same with the dictator, and agree with the dictators assessment and plan as written, documented as a scribe. Based on total visit time, I have performed more than 50% of this visit. Objective - Vital Signs Vital signs: Vital Signs Temp 98.6 F 03/15/25 19:01 Pulse 87 03/15/25 19:01 Resp 18 03/15/25 19:01 BP 142/93 03/15/25 19:01 Pulse Ox 98 03/15/25 19:01 FiO2 Intake & Output 03/15/25 03/15/25 03/16/25 06:59 18:59 06:59 Intake Total 1775 Balance 1775 Intake: Intake, IV Titration 825 Amount Sodium Chloride 0.9% 1, 225 000 ml @ 75 mls/hr IV . [id number] [facility] Rx#:[id number] Vancomycin 1,500 mg In 500 Sodium Chloride 0.9% 500 ml 500 ml @ 167 mls/hr IVPB Q12H [facility] Rx#: [id number] metroNIDAZOLE-NS PMX 500 100 mg In Saline 1 100ml.bag @ 100 mls/hr IVPB Q8H [facility] Rx#:[id number] Oral 950 Other: Voiding Method Toilet Toilet Toilet # Voids 4 - Labs CBC & Chem 7: 03/15/25 03:23 03/15/25 03:23 Labs: Abnormal Lab Results - Last 24 Hours (Table) 03/15/25 03/15/25 Range/Units 03:23 03:23 WBC 3.51 L (4.50-10.00) X 10*3/uL RBC 4.01 L (4.10-5.20) X 10*6/uL Hgb 11.1 L (12.0-15.0) g/dL Hct 36.3 L (37.2-46.3) % MCHC 30.6 L (32.0-37.0) g/dL Creatinine 0.5 L (0.6-1.5) mg/dL Calcium 8.6 L (8.7-10.3) mg/dL Microbiology - Last 24 Hours (Table) 03/13/25 12:30 Anaerobic Culture - Preliminary Abdomen 03/13/25 12:30 Gram Stain - Final Abdomen Wound Culture - Final Methicillin resist S. aureus 03/12/25 23:39 Blood Culture - Preliminary Blood Assessment and Plan Time with Patient: Less than 30
[2025-03-15] MEDS: VANCOMYCIN 1,750 MG in SODIUM CHLORIDE 0.9% 500 ML 500 ML IVPB SCH (23:19)
[2025-03-16 08:14] LABS: Blood Urea Nitrogen 10.3 mg/dL (9.0-27.0); Calcium 8.2 mg/dL (8.7-10.3); Carbon Dioxide 23.7 mmol/L (21.6-31.8); Chloride 112 mmol/L (96-109); Glucose 98 mg/dL (70-110); Potassium 4.2 mmol/L (3.5-5.5); Sodium 142 mmol/L (135-145)
[2025-03-16] MEDS: ENOXAPARIN 40 MG/0.4 ML SYRINGE SQ SCH (08:39)
[2025-03-16 10:23] LABS: INR 0.95 sec (0.93-1.11); Prothrombin Time 10.9 sec (9.9-11.9)
--- NOTE | 2025-03-16 13:16 | P.PN ---
Subjective Progress Note Date: 03/16/25 SURGICAL PROGRESS NOTE CHIEF COMPLAINT: Abdominal wall abscess HISTORY OF PRESENT ILLNESS: Patient is status post aspiration of fluid from abdominal wall abscess by IR service. They removed 1 cc of bloody fluid. Patient reports her pain is controlled. She does continued to have serosanguineous drainage from the umbilicus. Tolerating diet. Afebrile. PHYSICAL EXAM: VITAL SIGNS: Reviewed. GENERAL: Well-developed in no acute distress. ABDOMEN: Soft. Nondistended. Nontender. Midline incision with serosanguineous drainage noted at the umbilicus NEUROLOGIC: Alert and oriented. Cranial nerves II through XII grossly intact. ASSESSMENT: 1. Abdominal wall abscess status post aspiration of fluid by IR service 2. 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 History of multiple abdominal surgeries. Including history of Pipe-en-Y with revision PLAN: -Follow-up on culture results from aspirated fluid -Antibiotics per ID service Physician Ripening Room Operator note has been reviewed by physician. Signing provider agrees with the documented findings, assessment, and plan of care. Attestation Patient seen and examined at bedside on 03/16/2025. No acute events. Awaiting culture results. Plan is to speak to Dr. Rehman on further surgical planning, if required. Otherwise, patient appears to be doing well. Case was discussed with ID service today. Ye Ca DO Objective - Vital Signs Vital signs: Vital Signs Temp 98.2 F 03/16/25 07:00 Pulse 81 03/16/25 07:00 Resp 18 03/16/25 07:00 BP 147/76 03/16/25 07:00 Pulse Ox 100 03/16/25 07:00 FiO2 Intake & Output 03/15/25 03/16/25 03/16/25 18:59 06:59 18:59 Intake Total 1885 Balance 1885 Intake: Intake, IV Titration 1125 Amount Sodium Chloride 0.9% 1, 525 000 ml @ 75 mls/hr IV . [id number] [facility] Rx#:[id number] Vancomycin 1,750 mg In 500 Sodium Chloride 0.9% 500 ml 500 ml @ 167 mls/hr IVPB Q12H [facility] Rx#: [id number] metroNIDAZOLE-NS PMX 500 100 mg In Saline 1 100ml.bag @ 100 mls/hr IVPB Q8H [facility] Rx#:[id number] Oral 760 Other: Voiding Method Toilet Toilet # Voids 4 3 2 # Bowel Movements 1 - Labs CBC & Chem 7: 03/15/25 03:23 03/16/25 03:41 Labs: Abnormal Lab Results - Last 24 Hours (Table) 03/16/25 Range/Units 03:41 Chloride 112 H (96-109) mmol/L Creatinine 0.5 L (0.6-1.5) mg/dL BUN/Creatinine Ratio 20.60 H (12.00-20.00) Ratio Calcium 8.2 L (8.7-10.3) mg/dL Microbiology - Last 24 Hours (Table) 03/12/25 23:39 Blood Culture - Preliminary Blood 03/15/25 11:28 Gram Stain - Preliminary Aspirate 03/13/25 12:30 Anaerobic Culture - Preliminary Abdomen 03/13/25 12:30 Gram Stain - Final Abdomen Wound Culture - Final Methicillin resist S. aureus
--- NOTE | 2025-03-16 14:23 | P.PN ---
Subjective Progress Note Date: 03/15/25 Principal diagnosis: Reason for follow-up is abdominal wall abscess Patient is a 54-year-old female with a past medical history significant for DVT anxiety depression PTSD in this patient who did have multiple abdominal surgeries including colostomy reversal of colostomy and drainage of the abscesses presenting to the hospital for evaluation of increasing drainage from her abdominal wound did have a CT abdominal pelvis concerning for abdominal abscess prompting this consultation. On today's evaluation that is 03/15/2025, patient has been afebrile, patient is breathing comfortably and is currently on room air, patient denies having any chest pain and cough, patient denies nausea vomiting or diarrhea and controlled still having drainage. Patient did have Vanco trough of 12.8 no CBC was done today abdominal culture growing MRSA Objective - Vital Signs Vital signs: Vital Signs Temp 98 F 03/15/25 07:00 Pulse 74 03/15/25 11:27 Resp 18 03/15/25 11:27 BP 154/95 03/15/25 11:27 Pulse Ox 100 03/15/25 11:27 FiO2 Intake & Output 03/14/25 03/15/25 03/15/25 18:59 06:59 18:59 Intake Total 1580 1775 Balance 1580 1775 Intake: Intake, IV Titration 1100 825 Amount Sodium Chloride 0.9% 1, 300 225 000 ml @ 75 mls/hr IV . [id number] [facility] Rx#:[id number] Vancomycin 1,500 mg In 500 500 Sodium Chloride 0.9% 500 ml 500 ml @ 167 mls/hr IVPB Q12H [facility] Rx#: [id number] cefTRIAXone 2 gm In 100 Dextrose 5% in Water 50 ml @ 100 mls/hr IVPB Q24HR [facility] Rx#:[id number] metroNIDAZOLE-NS PMX 500 200 100 mg In Saline 1 100ml.bag @ 100 mls/hr IVPB Q8H [facility] Rx#:[id number] Oral 480 950 Other: Voiding Method Toilet Toilet # Voids 4 # Bowel Movements 1 - Exam GENERAL DESCRIPTION: Middle-age female up in the chair in no distress RESPIRATORY SYSTEM: Unlabored breathing , clear to auscultation anteriorly HEART: S1 S2 regular rate and rhythm , ABDOMEN: Soft , no tenderness EXTREMITIES: No edema feet - Labs CBC & Chem 7: 03/15/25 03:23 03/16/25 03:41 Labs: Abnormal Lab Results - Last 24 Hours (Table) 03/15/25 03/15/25 Range/Units 03:23 03:23 WBC 3.51 L (4.50-10.00) X 10*3/uL RBC 4.01 L (4.10-5.20) X 10*6/uL Hgb 11.1 L (12.0-15.0) g/dL Hct 36.3 L (37.2-46.3) % MCHC 30.6 L (32.0-37.0) g/dL Creatinine 0.5 L (0.6-1.5) mg/dL Calcium 8.6 L (8.7-10.3) mg/dL Microbiology - Last 24 Hours (Table) 03/13/25 12:30 Gram Stain - Preliminary Abdomen Wound Culture - Preliminary Presumptive MRSA 03/12/25 23:39 Blood Culture - Preliminary Blood Assessment and Plan (1) Abdominal wall abscess Current Visit: Yes Status: Acute Code(s): L02.211 - CUTANEOUS ABSCESS OF ABDOMINAL WALL SNOMED Code(s): 25933707 (2) Failure of outpatient treatment Current Visit: Yes Status: Acute Code(s): Z78.9 - OTHER SPECIFIED HEALTH STATUS SNOMED Code(s): 218113334 Plan: 1patient with complicated history of multiple abdominal surgery including colostomy subsequently reversal and multiple surgeries for fistula now presenting with a draining sinus to the mid abdominal area with abnormal CT concerning for abdominal wall abscess failing outpatient oral Bactrim DS therapy we will need to cover for both gram-positive as well as gram-negative pathogen 2local culture growing MRSA await IR drainage and deep culture 3-patient will be treated with vancomycin, Rocephin and Flagyl pending finalization of the culture Dictation was produced using [employer] dictation software. please excuse any grammatical, word or spelling errors. Time with Patient: Less than 30
--- NOTE | 2025-03-16 14:24 | P.PN ---
Subjective Progress Note Date: 03/16/25 54-year-old female with past medical history significant for DVT, history of thyroid nodule, history of multiple abdominal surgeries who presented to ER with a complaint of nonhealing wounds to her abdomen with purulent discharge. Patient reported that she had multiple abdominal surgeries, has history of abdominal fistulas, has a seroma to her abdomen. Patient reported that recently she had a small area over the umbilicus which opened up and she noticed to have clear discharge. Patient reported that recently discharge started to have foul odor and became more purulent and she was worried about infection. Patient reported history of MRSA. Patient stated that she was at movement and was discharged for no reason, finished 10 days of Bactrim about 7 days ago. Patient reported that she was seen by the PCP and advised to come to the ED for IV antibiotics. Patient denied any fever, night sweats, nausea vomiting diarrhea constipation abdominal pain dysuria urgency frequency weakness or numbness of extremities, chest pain, palpitation, shortness of breath. Patient reported that she was feeling tired, reported chills. 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 Vital stable. WBC 6.7 hemoglobin 11.7 platelet 275. BMP unremarkable. Initial lactate 3.8 came down to 1.9. 03/14--patient was seen and examined today. No issues overnight. Blood culture and fluid culture negative so far. Remained afebrile. Vital stable. WBC 3.5, hemoglobin 10.1, platelet 199. BMP unremarkable. Infectious disease and general surgery following. Tentative plan for IR guided drainage tomorrow. On antibiotics vancomycin Rocephin and Flagyl. 03/15/2025 Patient evaluated today in follow up. IR drainage of abdominal abscess completed today and sent for cultures. Preliminary showing MRSA. 03/16/2025 Patient seen bedside in follow-up in the medical floor. She is status post IR drainage of abdominal abscess with only 1 cc of fluid removed however this was sent for culture and currently pending this time. Hor wound cultures do show MRSA and she continues on IV vancomycin IV Rocephin and IV Flagyl. ID is following patient closely. She will remain in the hospital until her deep cultures are finalized. A midline will be ordered for outpatient IV antibiotics. REVIEW OF SYSTEMS: CONSTITUTIONAL: No fever or chills. CARDIOVASCULAR: No chest pain, palpitations or syncope. PULMONARY: No shortness of breath, no cough, sore throat. GASTROINTESTINAL: No nausea, vomiting, diarrhea, abdominal pain. : No Dysuria, urgency, frequency. Extremities: No edema. NEUROLOGICAL: No headaches, no weakness, or numbness PHYSICAL EXAMINATION: GENERAL: The patient is A&O x3, NAD HEENT: EOMI, Sclerae anicteric, Moist Mucous membranes Neck: Supple, Non tender, No JVD PULMONARY: Equal breath souds B/L, No wheezing, No crackles. CARDIOVASCULAR: S1, S2 present. No murmurs, rubs, or gallops. ABDOMEN: Soft, nontender, nondistended, + abdominal wound with drainage. Nor moactive bowel sounds. No guarding or rebound tenderness. MUSCULOSKELETAL: No edema, No cyanosis. No clubbing. Normal ROM. Intact peripheral pulses. NEUROLOGICAL: CN 2-12 grossly intact. No FND Assessment and plan: -Abdominal wall abscess: -History of multiple abdominal surgeries: History of takedown of gastrocutaneous and colocutaneous fistula with ventral hernia repair: Patient has multiple abdominal surgeries, follows Dr. Rehman at [facility] Presented to worsening abdominal wound, purulent foul-smelling discharge. CT abdomen pelvis showed elongated organized fluid collection with some surrounding fat stranding within the anterior abdominal wall subcutaneous tissue abutting the rectus musculature, internal gas identified no intraperitoneal extension. Wound culture General surgery consultedrecommended IR guided abscess drainage which was completed today and sent for cultures. Pain control Vancomycin, Rocephin, Flagyl. ID consulted -Hx of DVT -Anxiety/Depression DVT prophylaxis Subcutaneous Lovenox Pending final wound cultures and sensitivities to determine discharge antibiotics. ID following. Repeat BMP in the AM; monitor renal function. The impression and plan of care has been dictated by Ivy Gray, Nurse Practitioner as directed. Dr. Grant MD I have performed a history and physical examination and medical decision making of this patient, discussed the same with the dictator, and agree with the dictators assessment and plan as written, documented as a scribe. Based on total visit time, I have performed more than 50% of this visit. Objective - Vital Signs Vital signs: Vital Signs Temp 98.2 F 03/16/25 07:00 Pulse 81 03/16/25 07:00 Resp 18 03/16/25 07:00 BP 147/76 03/16/25 07:00 Pulse Ox 100 03/16/25 07:00 FiO2 Intake & Output 03/15/25 03/16/25 03/16/25 18:59 06:59 18:59 Intake Total 1885 Balance 1885 Intake: Intake, IV Titration 1125 Amount Sodium Chloride 0.9% 1, 525 000 ml @ 75 mls/hr IV . [id number] [facility] Rx#:[id number] Vancomycin 1,750 mg In 500 Sodium Chloride 0.9% 500 ml 500 ml @ 167 mls/hr IVPB Q12H [facility] Rx#: [id number] metroNIDAZOLE-NS PMX 500 100 mg In Saline 1 100ml.bag @ 100 mls/hr IVPB Q8H [facility] Rx#:[id number] Oral 760 Other: Voiding Method Toilet Toilet # Voids 4 3 - Labs CBC & Chem 7: 03/15/25 03:23 03/16/25 03:41 Labs: Abnormal Lab Results - Last 24 Hours (Table) 03/16/25 Range/Units 03:41 Chloride 112 H (96-109) mmol/L Creatinine 0.5 L (0.6-1.5) mg/dL BUN/Creatinine Ratio 20.60 H (12.00-20.00) Ratio Calcium 8.2 L (8.7-10.3) mg/dL Microbiology - Last 24 Hours (Table) 03/15/25 11:28 Gram Stain - Preliminary Aspirate 03/13/25 12:30 Anaerobic Culture - Preliminary Abdomen 03/13/25 12:30 Gram Stain - Final Abdomen Wound Culture - Final Methicillin resist S. aureus 03/12/25 23:39 Blood Culture - Preliminary Blood Assessment and Plan Time with Patient: Less than 30
--- NOTE | 2025-03-16 14:24 | P.PN ---
Subjective Progress Note Date: 03/16/25 Principal diagnosis: Reason for follow-up is abdominal wall abscess Patient is a 54-year-old female with a past medical history significant for DVT anxiety depression PTSD in this patient who did have multiple abdominal surgeries including colostomy reversal of colostomy and drainage of the abscesses presenting to the hospital for evaluation of increasing drainage from her abdominal wound did have a CT abdominal pelvis concerning for abdominal abscess prompting this consultation.Patient is status post IR drainage of the small amount of abscess from the abdominal wall completed on 03/15/2025 On today's evaluation that is 03/16/2025, Patient is afebrile this morning patient denies having any chest pain shortness of breath or cough, the patient is currently on room air, patient denies any diarrhea no nausea no vomiting abdominal pain is controlled still having drainage. Patient did have a creatinine of 0.5 initial culture with MRSA with a vancomycin FIDEL of 2 Objective - Vital Signs Vital signs: Vital Signs Temp 98.1 F 03/16/25 12:30 Pulse 80 03/16/25 12:30 Resp 17 03/16/25 12:30 BP 148/91 03/16/25 12:30 Pulse Ox 100 03/16/25 12:30 FiO2 Intake & Output 03/15/25 03/16/25 03/16/25 18:59 06:59 18:59 Intake Total 1885 Balance 1885 Intake: Intake, IV Titration 1125 Amount Sodium Chloride 0.9% 1, 525 000 ml @ 75 mls/hr IV . [id number] JANEL Rx#:[id number] Vancomycin 1,750 mg In 500 Sodium Chloride 0.9% 500 ml 500 ml @ 167 mls/hr IVPB Q12H JANEL Rx#: [id number] metroNIDAZOLE-NS PMX 500 100 mg In Saline 1 100ml.bag @ 100 mls/hr IVPB Q8H JANEL Rx#:[id number] Oral 760 Other: Voiding Method Toilet Toilet # Voids 4 3 2 # Bowel Movements 1 - Exam GENERAL DESCRIPTION: Middle-age female up in the chair in no distress RESPIRATORY SYSTEM: Unlabored breathing , clear to auscultation anteriorly HEART: S1 S2 regular rate and rhythm , ABDOMEN: Soft , no tenderness EXTREMITIES: No edema feet - Labs CBC & Chem 7: 03/15/25 03:23 03/16/25 03:41 Labs: Abnormal Lab Results - Last 24 Hours (Table) 03/16/25 Range/Units 03:41 Chloride 112 H (96-109) mmol/L Creatinine 0.5 L (0.6-1.5) mg/dL BUN/Creatinine Ratio 20.60 H (12.00-20.00) Ratio Calcium 8.2 L (8.7-10.3) mg/dL Microbiology - Last 24 Hours (Table) 03/12/25 23:39 Blood Culture - Preliminary Blood 03/15/25 11:28 Gram Stain - Preliminary Aspirate 03/13/25 12:30 Anaerobic Culture - Preliminary Abdomen 03/13/25 12:30 Gram Stain - Final Abdomen Wound Culture - Final Methicillin resist S. aureus Assessment and Plan (1) Abdominal wall abscess Current Visit: Yes Status: Acute Code(s): L02.211 - CUTANEOUS ABSCESS OF ABDOMINAL WALL SNOMED Code(s): 90648857 (2) Failure of outpatient treatment Current Visit: Yes Status: Acute Code(s): Z78.9 - OTHER SPECIFIED HEALTH STATUS SNOMED Code(s): 938686211 Plan: 1patient with complicated history of multiple abdominal surgery including col ostomy subsequently reversal and multiple surgeries for fistula now presenting with a draining sinus to the mid abdominal area with abnormal CT concerning for abdominal wall abscess failing outpatient oral Bactrim DS therapy we will need to cover for both gram-positive as well as gram-negative pathogen 2local culture growing MRSA IR cultures are currently pending 3- with the MRSA did have FIDEL of 2 we will switch vancomycin to daptomycin ordered a PICC line for outpatient IV antibiotic therapy prescription provided to the outsole caser Dictation was produced using [employer] dictation software. please excuse any grammatical, word or spelling errors. Time with Patient: Less than 30
[2025-03-16] MEDS: DAPTOmycin 350 MG in SODIUM CHLORIDE 0.9% 50 ML IVPB SCH (15:31)
[2025-03-16 20:39] VITALS: RESP 18
[2025-03-17] MEDS ORDERED: VANCOMYCIN TROUGH DUE 1 EACH MISC MISCELLANE ONE (11:00)
--- NOTE | 2025-03-17 11:06 | P.PN ---
Subjective Progress Note Date: 03/17/25 SURGICAL PROGRESS NOTE CHIEF COMPLAINT: Abdominal wall abscess HISTORY OF PRESENT ILLNESS: Patient is status post aspiration of fluid from abdominal wall abscess by IR service. They removed 1 cc of bloody fluid. Awaiting culture results. Pain controlled. Afebrile. PHYSICAL EXAM: VITAL SIGNS: Reviewed. GENERAL: Well-developed in no acute distress. ABDOMEN: Soft. Nondistended. Nontender. Midline incision with small amount of serous drainage noted at the umbilicus NEUROLOGIC: Alert and oriented. Cranial nerves II through XII grossly intact. ASSESSMENT: 1. Abdominal wall abscess status post aspiration of fluid by IR service 2. 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 History of multiple abdominal surgeries. Including history of Pipe-en-Y w ith revision PLAN: -Awaiting culture results from aspirated fluid -Antibiotics per ID service -Patient to follow-up with her surgeon, Dr. Rehman outpatient after discharge Physician [employer] note has been reviewed by physician. Signing provider agrees with the documented findings, assessment, and plan of care. Attestation Patient seen and examined at bedside. Output has decreased and quality has improved to clear fluid. I discussed the case with Dr. Shalom Rehman, as he is the patient's surgeon. We will plan for continued antibiotics per infectious disease with plan for discharge based on antibiotic recommendations per infectious disease with follow-up in [place] with Dr. Noonan for any possibility of further drainage whether it is through surgical means or interventional radiology service. This was discussed with the patient and she is agreeable to this plan. Ye Ca, Objective - Vital Signs Vital signs: Vital Signs Temp 98.0 F 03/17/25 07:23 Pulse 80 03/17/25 09:16 Resp 18 03/17/25 09:16 BP 133/83 03/17/25 07:23 Pulse Ox 99 03/17/25 07:23 FiO2 Intake & Output 03/16/25 03/17/25 03/17/25 18:59 06:59 18:59 Intake Total 1080 Balance 1080 Intake: Oral 1080 Other: Voiding Method Toilet # Voids 5 5 # Bowel Movements 2 - Labs CBC & Chem 7: 03/15/25 03:23 03/16/25 03:41 Labs: Microbiology - Last 24 Hours (Table) 03/15/25 11:28 Gram Stain - Preliminary Aspirate Body Fluid Culture - Preliminary 03/12/25 23:39 Blood Culture - Preliminary Blood
--- NOTE | 2025-03-17 11:35 | CDI ---
Date: 03/17/2025 From: Britni [email or web address] Email: [email or web address] Admit Date: 03/15/2025 09:05:00 AM Patient Name: Toña Arenas Visit Number: [id number] Discharge Date: N/A ATTENTION: The Clinical Documentation Specialists (CDI) and [facility] Coding Staff appreciate your assistance in clarifying documentation. Please respond to the clarification below the line at the bottom and electronically sign. The CDI & [facility] Coding staff will review the response and follow-up if needed. Please note: Queries are made part of the Legal Health Record. If you have any questions, please contact the author of this message via ITS. Dr. Radha Burns, Your patient has an abnormal lab value report on 03/12/2025: Venous Lactic Acid 3.8. Please clarify if there is an additional diagnosis and/or clinical significance related to this value. History/Risk Factors: 54-year-old female presented to [facility] ED for evaluation due to an abdominal wound with reported discharge and foul odor. PMH: Gastrocutaneous/Colocutaneous fistulas status-post surgical takedown, ventral hernia status-post surgical repair, former tobacco use, bariatric surgery status-post revision, malnutrition, anemia, osteomyelitis Clinical indicators: Documentation Location: Electronic Medical Record Venous Lactic Acid: (03/12/2025) 3.8 (03/13/2025) 1.9 Infectious Disease Progress Note (03/16/2025): Abdominal wall abscess Treatment: Pertinent Labs Monitored with Trend 0.9% Sodium Chloride IV Infusion @ 75mL/hr. Is there an additional diagnosis and/or clinical significance related to the above lab result/information? [ x ] Acute lactic (metabolic) acidosis, treated and resolved [ ] No additional diagnosis/Not clinically significant [ ] Other, please specify [ ] Unable to determine MTDD
--- NOTE | 2025-03-17 12:46 | P.PN ---
Subjective Progress Note Date: 03/17/25 Principal diagnosis: Reason for follow-up is abdominal wall abscess Patient is a 54-year-old female with a past medical history significant for DVT anxiety depression PTSD in this patient who did have multiple abdominal surgeries including colostomy reversal of colostomy and drainage of the abscesses presenting to the hospital for evaluation of increasing drainage from her abdominal wound did have a CT abdominal pelvis concerning for abdominal abscess prompting this consultation.Patient is status post IR drainage of the small amount of abscess from the abdominal wall completed on 03/15/2025 On today's evaluation that is 03/17/2025,the patient denies any fever or any chills, patient is breathing comfortably on room air, the patient denies chest pain shortness of breath and no significant cough, patient abdominal pain is currently controlled no nausea vomiting or diarrhea. Patient did have a creatinine 0.5 Objective - Vital Signs Vital signs: Vital Signs Temp 98.0 F 03/17/25 07:23 Pulse 80 03/17/25 09:16 Resp 18 03/17/25 09:16 BP 133/83 03/17/25 07:23 Pulse Ox 99 03/17/25 07:23 FiO2 Intake & Output 03/16/25 03/17/25 03/17/25 18:59 06:59 18:59 Intake Total 1080 Balance 1080 Intake: Oral 1080 Other: Voiding Method Toilet # Voids 5 5 # Bowel Movements 2 - Exam GENERAL DESCRIPTION: Middle-age female up in the chair in no distress RESPIRATORY SYSTEM: Unlabored breathing , clear to auscultation anteriorly HEART: S1 S2 regular rate and rhythm , ABDOMEN: Soft , no tenderness EXTREMITIES: No edema feet - Labs CBC & Chem 7: 03/15/25 03:23 03/16/25 03:41 Labs: Microbiology - Last 24 Hours (Table) 03/15/25 11:28 Gram Stain - Preliminary Aspirate Body Fluid Culture - Preliminary 03/12/25 23:39 Blood Culture - Preliminary Blood Assessment and Plan (1) Abdominal wall abscess Current Visit: Yes Status: Acute Code(s): L02.211 - CUTANEOUS ABSCESS OF ABDOMINAL WALL SNOMED Code(s): 88218040 (2) Failure of outpatient treatment Current Visit: Yes Status: Acute Code(s): Z78.9 - OTHER SPECIFIED HEALTH STATUS SNOMED Code(s): 680106377 Plan: 1patient with complicated history of multiple abdominal surgery including colostomy subsequently reversal and multiple surgeries for fistula now presenting with a draining sinus to the mid abdominal area with abnormal CT concerning for abdominal wall abscess failing outpatient oral Bactrim DS therapy we will need to cover for both gram-positive as well as gram-negative pathogen 2local culture growing MRSA IR cultures are currently pending 3-patient is currently waiting for PICC line placement and outpatient IV antibiotic arrangement currently on daptomycin plan is for 2-week course and repeat CT and she will follow-up with her surgeon at [place] for possible IR drainage of the fluid collection as per discussion with Dr. Ca yesterday who had discussed the case with her surgeon Dictation was produced using [employer] dictation software. please excuse any grammatical, word or spelling errors.
[2025-03-17 13:53] VITALS: BP 126/76; PULSE 90; TEMP 98.3
--- NOTE | 2025-03-19 19:50 | P.DS ---
Providers Date of admission: 03/15/25 09:05 Attending physician: Roxanna Madrid Consults: 03/13/25 00:01 Consult Physician Urgent Consulting Provider: Ruddy Padilla Consult Reason/Comments: Abdominal wall abscess Do you want consulting provider notified?: Yes, Notify in am 03/13/25 09:35 Consult Physician Routine Consulting Provider: Shanna Espana Consult Reason/Comments: Abdominal wall abscess Do you want consulting provider notified?: Yes Primary care physician: Love Stuart Hospital Course: Final Diagnosis -Abdominal wall abscess: -History of multiple abdominal surgeries: -History of takedown of gastrocutaneous and colocutaneous fistula with ventral hernia repair: -Hx of DVT -Hx of polysubstance use -Anxiety/Depression/PTSD Discharge Disposition Patient is stable for DC home with PICC line in place. 6 weeks of IV daptomycin recommended and close follow up with infectious disease. Hospital Course 54-year-old female with past medical history significant for DVT, history of thyroid nodule, history of multiple abdominal surgeries who presented to ER with a complaint of nonhealing wounds to her abdomen with purulent discharge. Patient reported that she had multiple abdominal surgeries, has history of abdominal fistulas, has a seroma to her abdomen. Patient reported that recently she had a small area over the umbilicus which opened up and she noticed to have clear discharge. Patient reported that recently discharge started to have foul odor and became more purulent and she was worried about infection. Patient reported history of MRSA. Patient stated that she was at movement and was discharged for no reason, finished 10 days of Bactrim about 7 days ago. Patient reported that she was seen by the PCP and advised to come to the ED for IV antibiotics. Patient denied any fever, night sweats, nausea vomiting diarrhea constipation abdominal pain dysuria urgency frequency weakness or numbness of extremities, chest pain, palpitation, shortness of breath. Patient reported that she was feeling tired, reported chills. Patient has history of multiple abdominal surgeries, sees at [facility], had takedown of gastrocutaneous and colocutaneous fistula with ventral hernia repair. Vital stable. WBC 6.7 hemoglobin 11.7 platelet 275. BMP unremarkable. Initial lactate 3.8 came down to 1.9. Patient had I and D of the abscess by IR with 1 mm of fluid removed, cultures are showing MRSA. ID following and recommending midline and DC home with IV Daptomycin. Midline failed so PICC line was placed prior to DC. Please see medication reconciliation for a list of current medications. Thank you for allowing us to participate in the care of this patient. The impression and plan of care has been dictated by Ivy Gray, Nurse Practitioner as directed. Dr. Grant MD I have performed a history and physical examination and medical decision making of this patient, discussed the same with the dictator, and agree with the dictators assessment and plan as written, documented as a scribe. Based on total visit time, I have performed more than 50% of this visit. Patient Condition at Discharge: Fair Plan - Discharge Summary Discharge Rx Participant: No New Discharge Prescriptions: New DAPTOmycin [Cubicin] 350 mg IVPB Q24HR@1500 each Acetaminophen Tab [Tylenol] 500 mg PO Q6HR PRN tab PRN Reason: Fever And/ Or Pain Discharge Medication List Acetaminophen Tab [Tylenol] 500 mg PO Q6HR PRN tab 03/17/25 [Rx] DAPTOmycin [Cubicin] 350 mg IVPB Q24HR@1500 each 03/17/25 [Rx] Follow up Appointment(s)/Referral(s): [facility], [NON-STAFF] - 1-2 Days ([facility] will call you to set up the times for your in home visits to begin IV antibiotic teaching. Your first visit will be tomorrow. ) Love Stuart MD [Primary Care Provider] - 04/07/25 3:00 pm Ruddy Padilla DO [Medical Doctor] - 03/27/27 8:30 am () [facility], [REFERRING] - As Needed ([facility] will deliver outpatient IV antibiotics and supplies to your house this evening between 6-8pm. ) Shanna Espana MD [STAFF PHYSICIAN] - 03/24/25 2:30 pm Ambulatory/Diagnostic Orders: Complete Blood Count w/diff [LAB.AMB] Location: None Selected Basic Metabolic Panel [LAB.AMB] Time Frame: 1 Week, Location: None Selected Activity/Diet/Wound Care/Special Instructions: Patient to discharge with 2 weeks of IV daptomycin through a PICC line. Follow up with Dr Espana in 1 week Discharge Disposition: HOME WITH HOME HEALTH SERVICES
== END 2025-03-17 17:09 | disposition home health service (06) | DRG 580 ==
LOC: EC 19:51 → 4SSUR 03-13 00:02 → OBSVTOIN 03-15 09:05
PROVIDERS: ADMIT Hospitalist; ATTEND Hospitalist
PROC: 0W9F3ZX Drainage of Abdominal Wall, Percutaneous Approach, Diagnostic (ICD-10-PCS; principal; 2025-03-15)
DX: L02.211 Cutaneous abscess of abdominal wall (principal); E87.21 Acute metabolic acidosis; F32.A Depression, unspecified; Z93.3 Colostomy status; B95.62 Methicillin resistant Staphylococcus aureus infection as the cause of diseases classified elsewhere; F41.9 Anxiety disorder, unspecified; F43.10 Post-traumatic stress disorder, unspecified; F90.9 Attention-deficit hyperactivity disorder, unspecified type; Z98.84 Bariatric surgery status; Z87.891 Personal history of nicotine dependence; Z87.19 Personal history of other diseases of the digestive system; Z96.653 Presence of artificial knee joint, bilateral; Z86.718 Personal history of other venous thrombosis and embolism; Z86.14 Personal history of Methicillin resistant Staphylococcus aureus infection; Z85.828 Personal history of other malignant neoplasm of skin; Z82.49 Family history of ischemic heart disease and other diseases of the circulatory system
CPT/HCPCS: 10160; 36410; 36415; 36573; 74177; 76937; 80048; 80053; 80202; 82150; 82945; 83605; 83615; 84157; 85025; 85610; 87040; 87070; 87075; 87077; 87102; 87116; 87186; 87205; 87206; 89050; 96361; 96365; 96367; 96375; 99285

== ENCOUNTER 2025-04-02 20:48 | Emergency (ER) | payer MEDICARE, OTHER ==
[2025-04-02 20:52] VITALS: RESP 18; TEMP 97.6
--- NOTE | 2025-04-02 21:27 | ED ---
General Adult HPI - General Chief complaint: Dizziness Stated complaint: dizziness Time Seen by Provider: 04/02/25 21:04 Source: patient Mode of arrival: ambulatory Limitations: no limitations - History of Present Illness Initial comments: This patient is a 54-year-old woman who presents to have evaluation because she is feeling like she is dehydrated. The patient states she has been feeling weak and fatigued. She feels a little bit dizzy when she stands up. She states that also "my hands locked up, and they do that when I am dehydrated." Patient is also having generalized aches and pains she indicates the bilateral shoulders and bilateral upper part of the legs. Patient has not noted fever or chills. No upper respiratory symptoms, cough, congestion, sore throat. No change in urination or bowel movements. She has been tolerating oral intake. Onset/Timin -: days(s) Location: upper extremity, lower extremity Quality: aching Consistency: constant Improves with: rest Worsens with: movement Associated Symptoms: weakness Treatments Prior to Arrival: none - Related Data Previous Rx's Medication Instructions Recorded Acetaminophen Tab [Tylenol] 500 mg PO Q6HR PRN tab 03/17/25 DAPTOmycin [Cubicin] 350 mg IVPB Q24HR@1500 each 03/17/25 Allergies Allergy/AdvReac Type Severity Reaction Status Date / Time No Known Allergies Allergy Verified 04/02/25 20:52 Review of Systems ROS Statement: Those systems with pertinent positive or pertinent negative responses have been documented in the HPI. ROS Other: All systems not noted in ROS Statement are negative. Constitutional: Reports: weakness. Denies: fever, chills Eyes: Denies: vision change Respiratory: Denies: cough, dyspnea Cardiovascular: Denies: chest pain, palpitations, orthopnea, edema, syncope Gastrointestinal: Denies: abdominal pain, nausea, vomiting, diarrhea Genitourinary: Denies: dysuria, hematuria Musculoskeletal: Reports: myalgia Skin: Denies: rash Neurological: Denies: headache, weakness Past Medical History Past Medical History: Cancer, Deep Vein Thrombosis (DVT) Additional Past Medical History / Comment(s): malnutrition, anemia, hernia , thyroid nodules, skin cancer removed, colostomy bag, bariatric surgery revision (oct 2022) osteomilitis History of Any Multi-Drug Resistant Organisms: MRSA Date of last positivie culture/infection: 08/27/22 MDRO Source:: Abdomen Past Surgical History: Bariatric Surgery, Hernia Repair, Joint Replacement Additional Past Surgical History / Comment(s): tim en y, bilateral knee replacement, PEG tube, tube feeding, 6 abd surgery, colostomy bag, bariatric revision. Colostomy reversal Past Anesthesia/Blood Transfusion Reactions: No Reported Reaction Past Psychological History: ADD/ADHD, Anxiety, Depression, PTSD Smoking Status: Former smoker, Vaper Past Alcohol Use History: None Reported Past Drug Use History: Cocaine, Marijuana - Past Family History Father History Unknown: Yes Family Medical History: Cancer, Diabetes Mellitus, Hypertension Additional Family Medical History / Comment(s): throat cancer Mother History Unknown: Yes Family Medical History: Cancer, Diabetes Mellitus Additional Family Medical History / Comment(s): multiple myeloma General Exam Limitations: no limitations General appearance: alert, in no apparent distress Head exam: Present: atraumatic, normocephalic Eye exam: Present: normal appearance. Absent: scleral icterus, conjunctival injection ENT exam: Present: normal oropharynx Neck exam: Present: normal inspection, full ROM Respiratory exam: Present: normal lung sounds bilaterally. Absent: respiratory distress, wheezes, rales, rhonchi, stridor, accessory muscle use Cardiovascular Exam: Present: regular rate, normal rhythm, normal heart sounds. Absent: systolic murmur, diastolic murmur, rubs, gallop GI/Abdominal exam: Present: soft, other (The patient has a midline abdominal surgical incision, at the distal margin 1 portion is open with a tiny amount of serous drainage. no erythema or warmth. No foul odor). Absent: distended, tenderness, guarding, rebound, rigid, mass Extremities exam: Present: normal inspection, normal capillary refill. Absent: pedal edema, calf tenderness Back exam: Present: normal inspection. Absent: CVA tenderness (R), CVA tenderness (L) Neurological exam: Present: alert Skin exam: Present: warm, dry, intact, normal color. Absent: rash Course Vital Signs 04/02/25 20:49 Temperature 97.6 F Pulse Rate 81 Respiratory 18 Rate Blood Pressure 150/92 O2 Sat by Pulse 100 Oximetry EKG Findings - EKG Results: EKG: interpreted by ERMD, sinus rhythm (Rate 72 bpm), normal axis, normal QRS, normal ST/T, no acute changes - [place], Pacemaker, Normal: Normal tracing: normal tracing Medical Decision Making - Lab Data Result diagrams: 04/02/25 21:35 04/02/25 21:35 Lab Results 04/02/25 04/02/25 04/02/25 Range/Units 21:35 21:35 21:35 WBC 5.87 (4.50-10.00) 10*3/uL RBC 3.74 L (4.10-5.20) 10*6/uL Hgb 10.2 L (12.0-15.0) g/dL Hct 31.8 L (37.2-46.3) % MCV 85.0 D (80.0-97.0) fL MCH 27.3 (27.0-32.0) pg MCHC 32.1 (32.0-37.0) g/dL Plt Count 265 (140-440) 10*3/uL MPV 10.8 (9.5-12.2) fL Immature Gran % (Auto) 0.2 % Neutrophils % 49.5 % Lymphocytes % 35.9 % Monocytes % 11.1 % Eosinophils % 2.6 % Basophils % 0.7 % Immature Gran # 0.01 (0.00-0.04) 10*3/uL Neutrophils # 2.91 (1.80-7.70) 10*3/uL Lymphocytes # 2.11 (0.90-5.00) 10*3/uL Monocytes # 0.65 (0.20-1.00) 10*3/uL Eosinophils # 0.15 (0.04-0.35) 10*3/uL Basophils # 0.04 (0.00-0.10) 10*3/uL Sodium 136 L (137-145) mmol/L Potassium 3.7 (3.5-5.1) mmol/L Chloride 102 (98-107) mmol/L Carbon Dioxide 27 (22-30) mmol/L Anion Gap 7 mmol/L BUN 13 (7-17) mg/dL Creatinine 0.65 (0.52-1.04) mg/dL Est GFR (CKD-EPI)AfAm >90 (>60 ml/min/1.73 sqM) Est GFR (CKD-EPI)NonAf >90 (>60 ml/min/1.73 sqM) Glucose 95 (74-99) mg/dL Plasma Lactic Acid Bimal 0.7 (0.7-2.0) mmol/L Calcium 9.2 (8.4-10.2) mg/dL Magnesium 2.0 (1.6-2.3) mg/dL Total Bilirubin 0.4 (0.2-1.3) mg/dL AST 23 (14-36) U/L ALT 19 (4-34) U/L Alkaline Phosphatase 84 (38-126) U/L Total Protein 6.9 (6.3-8.2) g/dL Albumin 3.8 (3.5-5.0) g/dL Disposition Clinical Impression: Dehydration Disposition: HOME SELF-CARE Condition: Good Instructions (If sedation given, give patient instructions): Dehydration (ED) Is patient prescribed a controlled substance at d/c from ED?: No Referrals: Love Stuatr MD [Primary Care Provider] - 1-2 days
[2025-04-02 21:45] LABS: Basophils # (A) 0.04 10*3/uL (0.00-0.10); Basophils % (A) 0.7 %; Eosinophils # (A) 0.15 10*3/uL (0.04-0.35); Eosinophils % (A) 2.6 %; HCT 31.8 % (37.2-46.3); HGB 10.2 g/dL (12.0-15.0); Lymphocytes # (A) 2.11 10*3/uL (0.90-5.00); Lymphocytes % (A) 35.9 %; MCH 27.3 pg (27.0-32.0); MCHC 32.1 g/dL (32.0-37.0); Mean Platelet Volume 10.8 fL (9.5-12.2); Monocytes # (A) 0.65 10*3/uL (0.20-1.00); Monocytes % (A) 11.1 %; Neutrophils # (A) 2.91 10*3/uL (1.80-7.70); Neutrophils % (A) 49.5 %; Platelet Count 265 10*3/uL (140-440); RBC 3.74 10*6/uL (4.10-5.20); RDW 12.9 % (11.5-14.5); WBC 5.87 10*3/uL (4.50-10.00)
[2025-04-02 22:02] LABS: ALT 19 U/L (4-34); AST 23 U/L (14-36); African American GFR (CKD) >90 (>60 ml/min/1.73 sqM); Albumin 3.8 g/dL (3.5-5.0); Alkaline Phosphatase 84 U/L (38-126); Anion Gap 7 mmol/L; Blood Urea Nitrogen 13 mg/dL (7-17); Calcium 9.2 mg/dL (8.4-10.2); Carbon Dioxide 27 mmol/L (22-30); Chloride 102 mmol/L (98-107); Glucose 95 mg/dL (74-99); Non-African American GFR(CKD) >90 (>60 ml/min/1.73 sqM); Potassium 3.7 mmol/L (3.5-5.1); Sodium 136 mmol/L (137-145); Total Bilirubin 0.4 mg/dL (0.2-1.3); Total Protein 6.9 g/dL (6.3-8.2)
[2025-04-02] MEDS: HYDROcodone/APAP 5-325MG 1 EACH TAB PO STA (22:02)
[2025-04-02] MEDS: SODIUM CHLORIDE 0.9% 500 ML 500 ML IV STA (22:03)
[2025-04-02 23:41] VITALS: BP 148/86; PULSE 77
[2025-04-02] MEDS: KETOROLAC 15 MG/ML 1 ML VIAL IVP STA (23:52)
== END 2025-04-02 23:58 | disposition home or self-care (01) ==
LOC: EC 20:48
DX: E86.0 Dehydration (principal); F17.290 Nicotine dependence, other tobacco product, uncomplicated
CPT/HCPCS: 36415; 93005; 80053; 83605; 83735; 85025; 99284; 96374; 96361; J1885

== ENCOUNTER 2025-04-03 13:26 | Emergency (ER) | payer MEDICARE, OTHER ==
[2025-04-03 13:36] VITALS: RESP 18
--- NOTE | 2025-04-03 13:39 | ED ---
General Adult HPI - General Chief complaint: Nausea/Vomiting/Diarrhea Stated complaint: N/V/D Time Seen by Provider: 04/03/25 13:28 Source: patient, EMS Mode of arrival: EMS Limitations: no limitations - History of Present Illness Initial comments: Patient presents to the ED by ambulance for evaluation. Patient states that she is receiving IV daptomycin treatments daily through her left arm PICC line for a MRSA infection. Patient states that she has been giving herself these treatments for the last 3 weeks or so. Patient states that today, about an hour and a half after her daptomycin treatment, she developed a single bout of emesis accompanied by a single loose bowel movement, so she called for an ambulance. Patient states that she has also felt generally weak today. Patient also states that she feels very anxious, and she states that she is not sure if her symptoms are due to anxiety. Patient was given Zofran by EMS, and she states that she is no longer nauseated. Patient admits to having chronic and unchanged generalized abdominal pain. Patient denies trauma or injury, fever or chills, headache, focal neuro deficit, cough or cold symptoms, chest pain, dyspnea, palpitations, bloody or melanotic stool, hematemesis, dysuria or urinary symptoms, or any other symptoms or complaints. Patient is requesting medication to help with her anxiety. - Related Data Previous Rx's Medication Instructions Recorded Acetaminophen Tab [Tylenol] 500 mg PO Q6HR PRN tab 03/17/25 DAPTOmycin [Cubicin] 350 mg IVPB Q24HR@1500 each 03/17/25 Allergies Allergy/AdvReac Type Severity Reaction Status Date / Time No Known Allergies Allergy Verified 04/03/25 13:36 Review of Systems ROS Statement: Those systems with pertinent positive or pertinent negative responses have been documented in the HPI. ROS Other: All systems not noted in ROS Statement are negative. Past Medical History Past Medical History: Cancer, Deep Vein Thrombosis (DVT) Additional Past Medical History / Comment(s): malnutrition, anemia, hernia , thyroid nodules, skin cancer removed, colostomy bag, bariatric surgery revision (oct 2022) osteomilitis History of Any Multi-Drug Resistant Organisms: MRSA Date of last positivie culture/infection: 08/27/22 MDRO Source:: Abdomen Past Surgical History: Bariatric Surgery, Hernia Repair, Joint Replacement Additional Past Surgical History / Comment(s): tim en y, bilateral knee replace ment, PEG tube, tube feeding, 6 abd surgery, colostomy bag, bariatric revision. Colostomy reversal Past Anesthesia/Blood Transfusion Reactions: No Reported Reaction Past Psychological History: ADD/ADHD, Anxiety, Depression, PTSD Smoking Status: Former smoker, Vaper Past Alcohol Use History: None Reported Past Drug Use History: Cocaine, Marijuana - Past Family History Father History Unknown: Yes Family Medical History: Cancer, Diabetes Mellitus, Hypertension Additional Family Medical History / Comment(s): throat cancer Mother History Unknown: Yes Family Medical History: Cancer, Diabetes Mellitus Additional Family Medical History / Comment(s): multiple myeloma General Exam Limitations: no limitations General appearance: alert Head exam: Present: atraumatic Eye exam: Present: normal appearance ENT exam: Present: mucous membranes moist Respiratory exam: Present: normal lung sounds bilaterally. Absent: respiratory distress, wheezes, rales, rhonchi, stridor Cardiovascular Exam: Present: regular rate, normal rhythm, normal heart sounds, other (Normal radial pulses bilaterally) GI/Abdominal exam: Present: soft, normal bowel sounds. Absent: distended, tenderness, guarding Extremities exam: Absent: tenderness, pedal edema Back exam: Absent: CVA tenderness (R), CVA tenderness (L) Neurological exam: Present: alert, oriented X3 Psychiatric exam: Present: anxious Skin exam: Present: warm, dry, normal color Course Vital Signs 04/03/25 13:32 Temperature 98.4 F Pulse Rate 77 Respiratory 18 Rate Blood Pressure 118/76 O2 Sat by Pulse 98 Oximetry - Reevaluation(s) Reevaluation #1: 04/03/25 15:16 Patient states that she is feeling better now. Patient has eaten an egg salad sandwich and drank some soda while in the ED, and she has had no vomiting or diarrhea while in the ED. Patient's abdomen remains soft and nontender on exam. Patient is aware of her test results, and she feels comfortable being discharged home at this time. She was counseled about vomiting/diarrhea and anxiety. She was clearly explained return and follow-up instructions. She was instructed to follow-up closely with her primary care provider. She feels comfortable with this plan. Patient to get a ride home from the ED today. Medical Decision Making - Medical Decision Making Was pt. sent in by a medical professional or institution (Dr., PA, PIPED POCKET MACHINE OPERATOR, urgent care, hospital, or penitentiary...) When possible be specific @ -No Did you speak to anyone other than the patient for history (EMS, parent, family, police, friend...)? What history was obtained from this source @ -No Did you review nursing and triage notes (agree or disagree)? Why? @ -I reviewed and agree with nursing and triage notes Were old charts reviewed (outside hosp., previous admission, EMS record, old EKG, old radiological studies, urgent care reports/EKG's, penitentiary records)? Report findings @ -No old charts were reviewed Differential Diagnosis (chest pain, altered mental status, abdominal pain women, abdominal pain men, vaginal bleeding, weakness, fever, dyspnea, syncope, headache, dizziness, GI bleed, back pain, seizure, CVA, palpatations, mental health, musculoskeletal)? @ -Nausea, vomiting, diarrhea, gastroenteritis, food toxicity, bowel obstruction, gastritis, GERD, biliary disease, pancreatitis, medication reaction, dehydration, electrolyte abnormality, anxiety, this is not meant to be a complete list. EKG interpreted by me (3pts min.). @ -None done X-rays interpreted by me (1pt min.). @ -None done CT interpreted by me (1pt min.). @ -None done U/S interpreted by me (1pt. min.). @ -None done What testing was considered but not performed or refused? (CT, X-rays, U/S, labs)? Why? @ -None What meds were considered but not given or refused? Why? @ -None Did you discuss the management of the patient with other professionals (professionals i.e. TSAH Jacinto, PIPED POCKET MACHINE OPERATOR, lab, RT, psych nurse, social work msw, software configuration specialist, teacher, branch lending officer, case therapist)? Give summary @ -No Was smoking cessation discussed for >3mins.? @ -No Was critical care preformed (if so, how long)? @ -No Were there social determinants of health that impacted care today? How? (Homelessness, low income, unemployed, alcoholism, drug addiction, transportation, low edu. Level, literacy, decrease access to med. care, long-term, rehab)? @ -No Was there de-escalation of care discussed even if they declined (Discuss DNR or withdrawal of care, Hospice)? DNR status @ -No What co-morbidities impacted this encounter? (DM, HTN, Smoking, COPD, CAD, Cancer, CVA, ARF, Chemo, Hep., AIDS, mental health diagnosis, sleep apnea, morbid obesity)? @ -None Was patient admitted / discharged? Hospital course, mention meds given and route, prescriptions, significant lab abnormalities, going to OR and other pertinent info. @ -Patient's labs are fairly unremarkable when compared to her recent prior labs. Patient has a soft and completely nontender abdominal exam. Patient has not had any vomiting or diarrhea while in the ED, and she has been able to keep down a sandwich and soda in the ED. I do not suspect an emergent medical or s urgical condition at this time. Will discharge patient home at this time. Strict return and follow-up instructions were provided. Patient feels comfortable with this plan. Undiagnosed new problem with uncertain prognosis? @ -No Drug Therapy requiring intensive monitoring for toxicity (Heparin, Nitro, Insulin, Cardizem)? @ -No Were any procedures done? @ -No Diagnosis/symptom? @ -Nausea, vomiting, diarrhea, anxiety Acute, or Chronic, or Acute on Chronic? @ -Acute Uncomplicated (without systemic symptoms) or Complicated (systemic symptoms)? @ -Default Side effects of treatment? @ -No Exacerbation, Progression, or Severe Exacerbation? @ -No Poses a threat to life or bodily function? How? (Chest pain, [place], [place], pneumonia, PE, COPD, DKA, ARF, appy, cholecystitis, CVA, Diverticulitis, Homicidal, Suicidal, threat to staff... and all critical care pts) @ -No - Lab Data Result diagrams: 04/03/25 14:02 04/03/25 14:02 Lab Results 04/03/25 04/03/25 Range/Units 14:02 14:02 WBC 4.60 (4.50-10.00) 10*3/uL RBC 4.06 L (4.10-5.20) 10*6/uL Hgb 11.1 L (12.0-15.0) g/dL Hct 34.6 L (37.2-46.3) % MCV 85.2 (80.0-97.0) fL MCH 27.3 (27.0-32.0) pg MCHC 32.1 (32.0-37.0) g/dL Plt Count 286 (140-440) 10*3/uL MPV 10.5 (9.5-12.2) fL Immature Gran % (Auto) 0.2 % Neutrophils % 58.2 % Lymphocytes % 26.1 % Monocytes % 12.0 % Eosinophils % 2.8 % Basophils % 0.7 % Immature Gran # 0.01 (0.00-0.04) 10*3/uL Neutrophils # 2.68 (1.80-7.70) 10*3/uL Lymphocytes # 1.20 (0.90-5.00) 10*3/uL Monocytes # 0.55 (0.20-1.00) 10*3/uL Eosinophils # 0.13 (0.04-0.35) 10*3/uL Basophils # 0.03 (0.00-0.10) 10*3/uL Sodium 136 L (137-145) mmol/L Potassium 4.5 (3.5-5.1) mmol/L Chloride 104 (98-107) mmol/L Carbon Dioxide 24 (22-30) mmol/L Anion Gap 8 mmol/L BUN 15 (7-17) mg/dL Creatinine 0.63 (0.52-1.04) mg/dL Est GFR (CKD-EPI)AfAm >90 (>60 ml/min/1.73 sqM) Est GFR (CKD-EPI)NonAf >90 (>60 ml/min/1.73 sqM) Glucose 99 (74-99) mg/dL Calcium 9.2 (8.4-10.2) mg/dL Total Bilirubin 0.5 (0.2-1.3) mg/dL AST 23 (14-36) U/L ALT 19 (4-34) U/L Alkaline Phosphatase 83 (38-126) U/L Total Protein 7.6 (6.3-8.2) g/dL Albumin 4.2 (3.5-5.0) g/dL Lipase 369 H (23-300) U/L Disposition Clinical Impression: Nausea and vomiting, Diarrhea, Anxiety Disposition: HOME SELF-CARE Condition: Stable Instructions (If sedation given, give patient instructions): Acute Nausea and Vomiting (ED), Acute Diarrhea (ED), Anxiety (ED) Additional Instructions: Return to the ER immediately should you develop new or worsening pain, persistent or bloody vomiting/diarrhea, a fever, feeling dizzy or faint, shortness of breath, or new or worsening symptoms. Follow-up closely with your primary care provider. Is patient prescribed a controlled substance at d/c from ED?: No Referrals: Love Stuart MD [Primary Care Provider] - 1-2 days Time of Disposition: 15:19
[2025-04-03] MEDS: SODIUM CHLORIDE 0.9% 500 ML 500 ML IV STA (13:58)
[2025-04-03] MEDS: LORazepam 1 MG/0.5 ML VIAL IV STA (13:59)
[2025-04-03 14:07] LABS: Basophils # (A) 0.03 10*3/uL (0.00-0.10); Basophils % (A) 0.7 %; Eosinophils # (A) 0.13 10*3/uL (0.04-0.35); Eosinophils % (A) 2.8 %; HCT 34.6 % (37.2-46.3); HGB 11.1 g/dL (12.0-15.0); Lymphocytes % (A) 26.1 %; MCH 27.3 pg (27.0-32.0); MCHC 32.1 g/dL (32.0-37.0); MCV 85.2 fL (80.0-97.0); Mean Platelet Volume 10.5 fL (9.5-12.2); Monocytes # (A) 0.55 10*3/uL (0.20-1.00); Neutrophils # (A) 2.68 10*3/uL (1.80-7.70); Neutrophils % (A) 58.2 %; Platelet Count 286 10*3/uL (140-440); RBC 4.06 10*6/uL (4.10-5.20); RDW 12.8 % (11.5-14.5)
[2025-04-03 14:24] LABS: ALT 19 U/L (4-34); AST 23 U/L (14-36); African American GFR (CKD) >90 (>60 ml/min/1.73 sqM); Albumin 4.2 g/dL (3.5-5.0); Alkaline Phosphatase 83 U/L (38-126); Anion Gap 8 mmol/L; Blood Urea Nitrogen 15 mg/dL (7-17); Calcium 9.2 mg/dL (8.4-10.2); Carbon Dioxide 24 mmol/L (22-30); Chloride 104 mmol/L (98-107); Glucose 99 mg/dL (74-99); Lipase 369 U/L (23-300); Non-African American GFR(CKD) >90 (>60 ml/min/1.73 sqM); Potassium 4.5 mmol/L (3.5-5.1); Sodium 136 mmol/L (137-145); Total Bilirubin 0.5 mg/dL (0.2-1.3); Total Protein 7.6 g/dL (6.3-8.2)
[2025-04-03 15:28] VITALS: BP 129/66; PULSE 68; TEMP 98
== END 2025-04-03 15:30 | disposition home or self-care (01) ==
LOC: EC 13:26
DX: R11.2 Nausea with vomiting, unspecified (principal); F41.9 Anxiety disorder, unspecified; R19.7 Diarrhea, unspecified; F17.290 Nicotine dependence, other tobacco product, uncomplicated
CPT/HCPCS: 36415; 80053; 83690; 85025; 99284; 96374; 96361; J2060